=== PATIENT | male | born 1935 | race Caucasian/White ===

== ENCOUNTER → 2016-10-30 | Outpatient (CLI) | payer OTHER ==
--- NOTE | 2016-10-30 12:10 | CT ---
EXAMINATION TYPE: CT chest wo con DATE OF EXAM: 10/30/2016 COMPARISON: NONE HISTORY: Abn breathing test CT DLP: 467 mGycm. Automated Exposure Control for Dose Reduction was Utilized. TECHNIQUE: CT scan of the thorax is performed without IV contrast. FINDINGS: LUNGS: The lungs are grossly clear, there is no concerning parenchymal mass or nodule identified. T here is no pleural effusion or pneumothorax seen. The tracheobronchial tree is patent. Mild central bronchiectasis. Blood within the left lower lobe. MEDIASTINUM: Lack of IV contrast is noted to limit evaluation for mediastinal and especially hilar ad enopathy. There are no definitive greater than 1 cm hilar or mediastinal lymph nodes. The heart is en larged. Coronary artery calcification noted. Heart is enlarged. Atherosclerotic change of the aorta. No evidence of aneurysm. OTHER: 1.5 cm hypodense lesion within the right kidney is indeterminate by noncontrast technique. Hypertrophic and degenerative change spine. IMPRESSION: 1. Mild changes of COPD 2. Cardiomegaly with coronary artery calcification. 3. No acute intrathoracic process. 4. Indeterminate right renal lesion by noncontrast technique. 5 fatty atrophic replacement of the rodriguez creas. 5. Mild central bronchiectasis.
== END | disposition home or self-care (01) ==
LOC: RADCTMAIN 10:59
PROVIDERS: ATTEND Internal Medicine Critical Care Medicine
DX: J44.9 Chronic obstructive pulmonary disease, unspecified (principal); I51.7 Cardiomegaly; I25.10 Atherosclerotic heart disease of native coronary artery without angina pectoris; I26.99 Other pulmonary embolism without acute cor pulmonale
CPT/HCPCS: 71250; 82565; 84520

== ENCOUNTER 2018-11-10 09:55 | Emergency (ER) | payer OTHER ==
[2018-11-10 10:04] VITALS: RESP 18
--- NOTE | 2018-11-10 10:45 | ED ---
Altered Mental Status HPI - General Chief Complaint: Altered Mental Status Stated Complaint: low blood sugar Time Seen by Provider: 11/10/18 10:09 Source: patient Mode of arrival: ambulatory Limitations: no limitations - History of Present Illness Initial Comments: 82-year-old male with history of diabetes and hypertension presenting today for chief complaint of drug reaction. Patient states he put a few drops of [place] oil that contains 100 g of THC under his tongue just prior to 7 AM. His states that he was then pounding his chest walking around the house is boxers. They state he flipped onto his back and was kicking a wall. He attempted to elope from the house and was unable to identify whom his and kids were. Patient states that about 30 years ago when he attempts to smoke marijuana he had a similar reaction he states he has not attempted to smoke or ingest products since. This was patients first time using THC product in 30 years. Patient's family contacted primary care provider who sent order for CT of the brain in the emergency department. Remaining review of system negative patient denies a chest pain shortness of breath headache dizziness nausea vomiting abdominal pain dysuria urgency frequency or fevers. - Related Data Home Medications Medication Instructions Recorded Confirmed Aspirin [Adult Low Dose Aspirin EC] 81 mg PO DAILY 11/10/18 11/10/18 Glipizide Unknown Dose 1 tab PO DIRECTED 11/10/18 11/10/18 Insulin Glargine [Lantus] 70 unit SQ HS 11/10/18 11/10/18 Latanoprost/Pf [Latanoprost 0.005% 1 drop LEFT EYE HS 11/10/18 11/10/18 Eye Drop] Allergies Allergy/AdvReac Type Severity Reaction Status Date / Time No Known Allergies Allergy Verified 11/10/18 10:24 Review of Systems ROS Statement: Those systems with pertinent positive or pertinent negative responses have been documented in the HPI. ROS Other: All systems not noted in ROS Statement are negative. Past Medical History Past Medical History: Diabetes Mellitus History of Any Multi-Drug Resistant Organisms: None Reported Additional Past Surgical History / Comment(s): dental Past Psychological History: No Psychological Hx Reported Smoking Status: Never smoker Past Alcohol Use History: Occasional Past Drug Use History: None Reported General Exam - General Exam Comments Initial Comments: General: The patient is awake and alert, in no distress, and does not appear acutely ill. Eye: +3 mm pupils are equal, round and reactive to light, extra-ocular movements are intact. No nystagmus. There is normal conjunctiva bilaterally. No signs of icterus. Ears, nose, mouth and throat: There are moist mucous membranes and no oral lesions. Neck: The neck is supple, there is no tenderness or JVD. Cardiovascular: There is a regular rate and rhythm. No murmur, rub or gallop is appreciated. Respiratory: Lungs are clear to auscultation, respirations are non-labored, breath sounds are equal. No wheezes, stridor, rales, or rhonchi. Gastrointestinal: Soft, non-distended, non-tender abdomen without masses or organomegaly noted. There is no rebound or guarding present. Musculoskeletal: Normal ROM, no tenderness. Strength 5/5. Sensation intact. Radial pulses equal bilaterally 2+. Neurological: A&O x 3. CN II-XII intact, There are no obvious motor or sensory deficits. Finger to nose, heel to wynn smooth and coordinated. Coordinated hand flip. No pronator drift. Full strength of the upper and lower extr emities. Full sensation of the upper and lower extremities for abdomen and back. Identify common objects. No gait ataxia. Skin: Skin is warm and dry and no rashes or lesions are noted. Psychiatric: Cooperative, appropriate mood & affect, normal judgment. Limitations: no limitations Course Vital Signs 11/10/18 11/10/18 11/10/18 10:00 11:04 12:49 Temperature 97.5 F L 97.6 F Pulse Rate 81 75 75 Respiratory 18 18 18 Rate Blood Pressure 151/72 153/85 165/95 O2 Sat by Pulse 95 96 95 Oximetry Medical Decision Making - Medical Decision Making Very well-appearing 82-year-old male alert and oriented 3 and responsive. No signs of altered mentation. Family at bedside states he is back to normal. They stated shortly after ingesting have oil the continued THC patient began acting abnormal he dissociated not knowing who he was. He was unable to recognize people. He was pounding his chest and other bizarre behavior. Patient states he had a similar reaction prior to 30 years ago when he smoked marijuana. Patient has no focal neurological deficits. Patient was told to get a CT by his primary care provider. CT negative for acute intracranial process. No other complaints. Laboratory studies reveal a mildly elevated potassium and low blood glucose. Patient was given calcium gluconate. EKG revealed no acute findings consistent with hyperkalemia. Once the membrane was stabilized patient was given IV fluids and Kayexalate was ordered. Patient was evaluated and person by my attending provider Dr. Nichols reviewed laboratory studies. At this time feel patient may be discharged with home use of Kayexalate and return for any abnormal behaviors. He recommended the patient have repeat laboratory studies in 2 days. Patient as well as patient's mother verbalized importance of repeat laboratory studies and use of Kayexalate tonight. Patient is to discontinue use of hemp oil. - Lab Data Result diagrams: 11/10/18 10:29 11/10/18 10:29 Lab Results 11/10/18 11/10/18 11/10/18 Range/Units 10:29 10:29 11:05 WBC 13.0 H (3.8-10.6) k/uL RBC 4.81 (4.30-5.90) m/uL Hgb 13.7 (13.0-17.5) gm/dL Hct 43.3 (39.0-53.0) % MCV 89.8 (80.0-100.0) fL MCH 28.5 (25.0-35.0) pg MCHC 31.8 (31.0-37.0) g/dL RDW 13.4 (11.5-15.5) % Plt Count 333 (150-450) k/uL Neutrophils % 77 % Lymphocytes % 14 % Monocytes % 6 % Eosinophils % 1 % Basophils % 1 % Neutrophils # 10.0 H (1.3-7.7) k/uL Lymphocytes # 1.9 (1.0-4.8) k/uL Monocytes # 0.8 (0-1.0) k/uL Eosinophils # 0.2 (0-0.7) k/uL Basophils # 0.1 (0-0.2) k/uL Sodium 142 (137-145) mmol/L Potassium 5.5 H (3.5-5.1) mmol/L Chloride 107 (98-107) mmol/L Carbon Dioxide 29 (22-30) mmol/L Anion Gap 6 mmol/L BUN 16 (9-20) mg/dL Creatinine 1.80 H (0.66-1.25) mg/dL Est GFR (CKD-EPI)AfAm 40 (>60 ml/min/1.73 sqM) Est GFR (CKD-EPI)NonAf 35 (>60 ml/min/1.73 sqM) Glucose 57 L (74-99) mg/dL POC Glucose (mg/dL) (75-99) mg/dL POC Glu Costume Seamstress ID Calcium 9.3 (8.4-10.2) mg/dL Total Bilirubin 0.4 (0.2-1.3) mg/dL AST 23 (17-59) U/L ALT 21 (21-72) U/L Alkaline Phosphatase 74 (38-126) U/L Total Protein 6.7 (6.3-8.2) g/dL Albumin 3.7 (3.5-5.0) g/dL Urine Color Light Yellow Urine Appearance Clear (Clear) Urine pH 7.5 (5.0-8.0) Ur Specific [place] 1.005 (1.001-1.035) Urine Protein Negative (Negative) Urine Glucose (UA) Negative (Negative) Urine Ketones Negative (Negative) Urine Blood Negative (Negative) Urine Nitrite Negative (Negative) Urine Bilirubin Negative (Negative) Urine Urobilinogen <2.0 (<2.0) mg/dL Ur Leukocyte Esterase Negative (Negative) Urine Opiates Screen Not Detected (NotDetected) Ur Oxycodone Screen Not Detected (NotDetected) Urine Methadone Screen Not Detected (NotDetected) Ur Propoxyphene Screen Not Detected (NotDetected) Ur Barbiturates Screen Not Detected (NotDetected) U Tricyclic Antidepress Not Detected (NotDetected) Ur Phencyclidine Scrn Not Detected (NotDetected) Ur Amphetamines Screen Not Detected (NotDetected) U Methamphetamines Scrn Not Detected (NotDetected) U Benzodiazepines Scrn Not Detected (NotDetected) Urine Cocaine Screen Not Detected (NotDetected) U Marijuana (THC) Screen Not Detected (NotDetected) 11/10/18 Range/Units 12:42 WBC (3.8-10.6) k/uL RBC (4.30-5.90) m/uL Hgb (13.0-17.5) gm/dL Hct (39.0-53.0) % MCV (80.0-100.0) fL MCH (25.0-35.0) pg MCHC (31.0-37.0) g/dL RDW (11.5-15.5) % Plt Count (150-450) k/uL Neutrophils % % Lymphocytes % % Monocytes % % Eosinophils % % Basophils % % Neutrophils # (1.3-7.7) k/uL Lymphocytes # (1.0-4.8) k/uL Monocytes # (0-1.0) k/uL Eosinophils # (0-0.7) k/uL Basophils # (0-0.2) k/uL Sodium (137-145) mmol/L Potassium (3.5-5.1) mmol/L Chloride (98-107) mmol/L Carbon Dioxide (22-30) mmol/L Anion Gap mmol/L BUN (9-20) mg/dL Creatinine (0.66-1.25) mg/dL Est GFR (CKD-EPI)AfAm (>60 ml/min/1.73 sqM) Est GFR (CKD-EPI)NonAf (>60 ml/min/1.73 sqM) Glucose (74-99) mg/dL POC Glucose (mg/dL) 88 (75-99) mg/dL POC Glu Costume Seamstress ID Marissa Toscano Calcium (8.4-10.2) mg/dL Total Bilirubin (0.2-1.3) mg/dL AST (17-59) U/L ALT (21-72) U/L Alkaline Phosphatase (38-126) U/L Total Protein (6.3-8.2) g/dL Albumin (3.5-5.0) g/dL Urine Color Urine Appearance (Clear) Urine pH (5.0-8.0) Ur Specific [place] (1.001-1.035) Urine Protein (Negative) Urine Glucose (UA) (Negative) Urine Ketones (Negative) Urine Blood (Negative) Urine Nitrite (Negative) Urine Bilirubin (Negative) Urine Urobilinogen (<2.0) mg/dL Ur Leukocyte Esterase (Negative) Urine Opiates Screen (NotDetected) Ur Oxycodone Screen (NotDetected) Urine Methadone Screen (NotDetected) Ur Propoxyphene Screen (NotDetected) Ur Barbiturates Screen (NotDetected) U Tricyclic Antidepress (NotDetected) Ur Phencyclidine Scrn (NotDetected) Ur Amphetamines Screen (NotDetected) U Methamphetamines Scrn (NotDetected) U Benzodiazepines Scrn (NotDetected) Urine Cocaine Screen (NotDetected) U Marijuana (THC) Screen (NotDetected) - EKG Data EKG Comments: A 12-lead EKG was performed and shows the following: Rate is 73bpm, and rhythm is normal sinus. There are normal QRS complexes and normal R-wave progression. ST segments have no elevation or depression, and MD segments appear normal. MD interval 128 ms, QRS ration 86 ms, QT/QTC 386/425. There is no hyperacute T waves. No ST elevation or depression. Normal R-wave progression. There does not appear to be acute EKG changes. Disposition Clinical Impression: Drug reaction, Hyperkalemia, Low blood glucose measurement Disposition: HOME SELF-CARE Condition: Good Instructions (If sedation given, give patient instructions): Hyperkalemia (ED), Medicinal Use of Cannabis (ED) Additional Instructions: Please use medication as discussed. Avoid use of HEMP oil. Please follow-up with family doctor in the next 2 days. Please return to emergency room if the symptoms increase or worsen or for any other concerns. Is patient prescribed a controlled substance at d/c from ED?: No Referrals: [facility],Clinic [Primary Care Provider] - 1-2 days Time of Disposition: 12:13
[2018-11-10 10:51] LABS: Basophils # (A) 0.1 k/uL (0-0.2); Basophils % (A) 1 %; Eosinophils # (A) 0.2 k/uL (0-0.7); Eosinophils % (A) 1 %; HCT 43.3 % (39.0-53.0); HGB 13.7 gm/dL (13.0-17.5); Lymphocytes # (A) 1.9 k/uL (1.0-4.8); Lymphocytes % (A) 14 %; MCH 28.5 pg (25.0-35.0); MCHC 31.8 g/dL (31.0-37.0); MCV 89.8 fL (80.0-100.0); Mean Platelet Volume 7.2; Monocytes # (A) 0.8 k/uL (0-1.0); Monocytes % (A) 6 %; Neutrophils % (A) 77 %; Platelet Count 333 k/uL (150-450); RBC 4.81 m/uL (4.30-5.90); RDW 13.4 % (11.5-15.5)
[2018-11-10 10:58] LABS: Albumin 3.7 g/dL (3.5-5.0); Calcium 9.3 mg/dL (8.4-10.2); Potassium 5.5 mmol/L (3.5-5.1); Total Bilirubin 0.4 mg/dL (0.2-1.3); Total Protein 6.7 g/dL (6.3-8.2)
--- NOTE | 2018-11-10 11:02 | CT ---
EXAMINATION TYPE: CT brain wo con DATE OF EXAM: 11/10/2018 COMPARISON: None HISTORY: took hemp oil and became very confused CT DLP: 1107.4 mGycm Automated exposure control for dose reduction was used. TECHNIQUE: CT scan of the head is performed without contrast. FINDINGS: There is no acute intracranial hemorrhage or midline shift identified. There is diffuse v entricular and sulcal prominence consistent with diffuse age-related cerebral atrophy. There is low- attenuation in the periventricular white matter consistent with chronic small vessel ischemic change. The globes are intact. Small mucosal retention cysts are seen within the maxillary sinuses depende ntly as well as very scant mucosal thickening within the ethmoid sinuses. Remaining paranasal sinuses and hypoplastic mastoid air cells are well aerated. Atherosclerosis is noted of the intracranial vas culature. Scleral calcification is incidentally noted on the left and ocular lenses appear surgically absent. IMPRESSION: No acute intracranial hemorrhage or midline shift. There is diffuse age-related cerebra l atrophy and chronic small vessel ischemic change noted.
[2018-11-10 11:05] VITALS: PULSE 75; TEMP 97.6
[2018-11-10] MEDS ORDERED: SODIUM POLYSTYRENE SULFONATE 15 GM/60 ML BOTTLE PO STA (11:05)
[2018-11-10] MEDS ORDERED: CALCIUM GLUCONATE 1 GM in SODIUM CHLORIDE 0.9% 100 ML IVPB ONE (11:15)
[2018-11-10 11:18] LABS: Appearance,Urine Clear (Clear); Bilirubin,Urine Negative (Negative); Blood,Urine Negative (Negative); Color,Urine Light Yellow; Glucose,Urine (UA) Negative (Negative); Ketones,Urine Negative (Negative); Leukocyte Esterase,Urine Negative (Negative); Nitrite,Urine Negative (Negative); PH, Urine 7.5 (5.0-8.0); Protein,Urine Negative (Negative); Specific Gravity,Urine 1.005 (1.001-1.035); Urobilinogen,Urine <2.0 mg/dL (<2.0)
[2018-11-10 11:31] LABS: Amphetamine Screen,Urine Not Detected (NotDetected); Barbiturate Screen,Urine Not Detected (NotDetected); Benzodiazepines Screen,Urine Not Detected (NotDetected); Cocaine Screen,Urine Not Detected (NotDetected); Methadone Screen, Urine Not Detected (NotDetected); Opiate Screen,Urine Not Detected (NotDetected); Oxycodone Screen, Urine Not Detected (NotDetected); Phencyclidine Screen,Urine Not Detected (NotDetected); Tricyclic Antidepressant,Urine Not Detected (NotDetected); Urn Cannabinoid Scrn Not Detected (NotDetected)
[2018-11-10] MEDS ORDERED: SODIUM CHLORIDE 0.9% 1,000 ML IV ONE (12:00)
[2018-11-10 12:43] LABS: Glucose,Whole Blood 88 mg/dL (75-99)
[2018-11-10 12:49] VITALS: BP 165/95
== END 2018-11-10 12:49 | disposition home or self-care (01) ==
LOC: EC 09:55
DX: E87.5 Hyperkalemia (principal); T50.905A Adverse effect of unspecified drugs, medicaments and biological substances, initial encounter; E11.649 Type 2 diabetes mellitus with hypoglycemia without coma; Z79.82 Long term (current) use of aspirin; Z79.4 Long term (current) use of insulin
CPT/HCPCS: 36415; 93005; 80053; 85025; 81003; 80306; 70450; 99285; 96365; J0610

== ENCOUNTER 2020-04-28 13:44 | Inpatient (IN) | payer OTHER, MEDICARE ==
--- NOTE | 2020-04-28 14:26 | XR ---
EXAMINATION TYPE: XR chest 1V portable DATE OF EXAM: 04/28/2020 COMPARISON: NONE HISTORY: Shortness of breath and cough for 7 days. TECHNIQUE: Single frontal view of the chest is obtained. FINDINGS: There is mild right basilar hazy opacity. No pleural effusion, or pneumothorax seen. The cardiac silhouette size is within normal limits. The osseous structures are intact. IMPRESSION: Mild right basilar opacity may represent atelectasis versus developing infiltrates.
[2020-04-28] MEDS ORDERED: SODIUM CHLORIDE 0.9% 500 ML 500 ML IV ONE (14:30)
[2020-04-28] MEDS ORDERED: ALBUTEROL HFA INHALER INHALATION STA (14:30)
[2020-04-28] MEDS ORDERED: DEXAMETHASONE SOD PHOSPHATE 10 MG/ML 1 ML VIAL IV STA (14:33)
--- NOTE | 2020-04-28 14:36 | ED ---
General Adult HPI - General Chief complaint: Shortness of Breath Stated complaint: SOB/COVID+ Time Seen by Provider: 04/28/20 14:08 Source: patient, RN notes reviewed, old records reviewed Mode of arrival: ambulatory Limitations: no limitations - History of Present Illness Initial comments: 84-year-old male presents for evaluation of dyspnea after diagnosis well with coronavirus and an urgent care today. He's had approximately 2 weeks of cough and dyspnea. Denies central chest pain. He has had fever and chills as well as myalgias. No lower extremity pain or swelling. - Related Data Home Medications Medication Instructions Recorded Confirmed Aspirin EC [Ecotrin Low Dose] 81 mg PO DAILY 04/28/20 04/28/20 Gabapentin [Neurontin] 600 mg PO HS 04/28/20 04/28/20 Insulin Glargine,Hum.rec.anlog See Protocol SQ DAILY 04/28/20 04/28/20 [Lantus Solostar] Pravastatin Sodium [Pravachol] 80 mg PO HS 04/28/20 04/28/20 Vitamin D(Unknown Dose) 1 tab PO DAILY 04/28/20 04/28/20 glipiZIDE [Glucotrol] 10 mg PO DAILY 04/28/20 04/28/20 Allergies Allergy/AdvReac Type Severity Reaction Status Date / Time atorvastatin [From Lipitor] Allergy Unknown Verified 04/28/20 15:43 metformin Allergy Unknown Verified 04/28/20 15:43 Review of Systems ROS Statement: Those systems with pertinent positive or pertinent negative responses have been documented in the HPI. ROS Other: All systems not noted in ROS Statement are negative. Past Medical History Past Medical History: Diabetes Mellitus History of Any Multi-Drug Resistant Organisms: None Reported Past Surgical History: Appendectomy Past Psychological History: No Psychological Hx Reported Smoking Status: Former smoker Past Alcohol Use History: Rare Past Drug Use History: None Reported General Exam Limitations: no limitations General appearance: alert, in no apparent distress Head exam: Present: atraumatic, normocephalic Eye exam: Present: normal appearance, PERRL ENT exam: Present: mucous membranes dry Neck exam: Present: normal inspection. Absent: tenderness, meningismus Respiratory exam: Present: respiratory distress, rhonchi, decreased breath sounds Cardiovascular Exam: Present: tachycardia, irregular rhythm GI/Abdominal exam: Present: soft. Absent: distended, tenderness Extremities exam: Present: normal inspection, normal capillary refill. Absent: pedal edema, calf tenderness Neurological exam: Present: alert, oriented X3, CN II-XII intact. Absent: motor sensory deficit Psychiatric exam: Present: normal affect, normal mood Skin exam: Present: warm, dry, intact. Absent: cyanosis, diaphoretic Course Vital Signs 04/28/20 04/28/20 13:49 15:13 Temperature 98.2 F Pulse Rate 60 Respiratory 18 18 Rate Blood Pressure 194/77 O2 Sat by Pulse 95 Oximetry EKG Findings - EKG Comments: EKG Findings:: Sinus tachycardia, irregular rhythm sinus rhythm with PAC and dyspnea complex tachycardia, no ST segment elevation, rate of 101, NE interval 132, QRS duration 86, QTC 464. Medical Decision Making - Medical Decision Making 84-year-old with cough dyspnea, no coronavirus positive on outpatient testing. X-ray showing infiltrate. He has felt mildly elevated d-dimer at 0.82. Normal CBC. He has an acute kidney injury with a creatinine of 2.3 with no recent baseline. He does appear dehydrated has not been eating or drinking well. He has been given Decadron, IV fluids in the emergency department as well as alb uterol. He will be admitted for close monitoring, IV fluids, and treatment of coronavirus. Case discussed with Dr. Sebastian who will admit. Pulmonology has been placed on consult. - Lab Data Result diagrams: 04/28/20 14:21 04/28/20 14:21 Lab Results 04/28/20 04/28/20 04/28/20 Range/Units 14:21 14:21 14:21 WBC 6.6 (3.8-10.6) k/uL RBC 5.33 (4.30-5.90) m/uL Hgb 16.0 (13.0-17.5) gm/dL Hct 47.3 (39.0-53.0) % MCV 88.8 (80.0-100.0) fL MCH 30.1 (25.0-35.0) pg MCHC 33.9 (31.0-37.0) g/dL RDW 13.1 (11.5-15.5) % Plt Count 187 (150-450) k/uL MPV 9.0 Neutrophils % 70 % Lymphocytes % 18 % Monocytes % 7 % Eosinophils % 1 % Basophils % 3 % Neutrophils # 4.6 (1.3-7.7) k/uL Lymphocytes # 1.2 (1.0-4.8) k/uL Monocytes # 0.5 (0-1.0) k/uL Eosinophils # 0.0 (0-0.7) k/uL Basophils # 0.2 (0-0.2) k/uL PT 9.3 (9.0-12.0) sec INR 0.9 (<1.2) APTT 24.0 (22.0-30.0) sec D-Dimer 0.83 H (<0.60) mg/L FEU Sodium 138 (137-145) mmol/L Potassium 5.1 (3.5-5.1) mmol/L Chloride 105 (98-107) mmol/L Carbon Dioxide 27 (22-30) mmol/L Anion Gap 6 mmol/L BUN 28 H (9-20) mg/dL Creatinine 2.31 H (0.66-1.25) mg/dL Est GFR (CKD-EPI)AfAm 29 (>60 ml/min/1.73 sqM) Est GFR (CKD-EPI)NonAf 25 (>60 ml/min/1.73 sqM) Glucose 122 H (74-99) mg/dL Plasma Lactic Acid Jeffery (0.7-2.0) mmol/L Calcium 8.5 (8.4-10.2) mg/dL Magnesium 2.4 H (1.6-2.3) mg/dL Total Bilirubin 0.6 (0.2-1.3) mg/dL AST 49 (17-59) U/L ALT 30 (4-49) U/L Alkaline Phosphatase 77 (38-126) U/L Lactate Dehydrogenase 778 H (313-618) U/L C-Reactive Protein 13.7 H (<10.0) mg/L Total Protein 7.2 (6.3-8.2) g/dL Albumin 3.9 (3.5-5.0) g/dL 04/28/20 Range/Units 14:21 WBC (3.8-10.6) k/uL RBC (4.30-5.90) m/uL Hgb (13.0-17.5) gm/dL Hct (39.0-53.0) % MCV (80.0-100.0) fL MCH (25.0-35.0) pg MCHC (31.0-37.0) g/dL RDW (11.5-15.5) % Plt Count (150-450) k/uL MPV Neutrophils % % Lymphocytes % % Monocytes % % Eosinophils % % Basophils % % Neutrophils # (1.3-7.7) k/uL Lymphocytes # (1.0-4.8) k/uL Monocytes # (0-1.0) k/uL Eosinophils # (0-0.7) k/uL Basophils # (0-0.2) k/uL PT (9.0-12.0) sec INR (<1.2) APTT (22.0-30.0) sec D-Dimer (<0.60) mg/L FEU Sodium (137-145) mmol/L Potassium (3.5-5.1) mmol/L Chloride (98-107) mmol/L Carbon Dioxide (22-30) mmol/L Anion Gap mmol/L BUN (9-20) mg/dL Creatinine (0.66-1.25) mg/dL Est GFR (CKD-EPI)AfAm (>60 ml/min/1.73 sqM) Est GFR (CKD-EPI)NonAf (>60 ml/min/1.73 sqM) Glucose (74-99) mg/dL Plasma Lactic Acid Jeffery 1.2 (0.7-2.0) mmol/L Calcium (8.4-10.2) mg/dL Magnesium (1.6-2.3) mg/dL Total Bilirubin (0.2-1.3) mg/dL AST (17-59) U/L ALT (4-49) U/L Alkaline Phosphatase (38-126) U/L Lactate Dehydrogenase (313-618) U/L C-Reactive Protein (<10.0) mg/L Total Protein (6.3-8.2) g/dL Albumin (3.5-5.0) g/dL Disposition Clinical Impression: PHILLIP (acute kidney injury), COVID-19 Disposition: ADMITTED IP TO THIS HOSP Condition: Stable Is patient prescribed a controlled substance at d/c from ED?: No Referrals: [facility],Clinic [Primary Care Provider] - 1-2 days Decision to Admit Reason: Admit from EC Decision Date: 04/28/20 Decision Time: 15:50
[2020-04-28 14:53] LABS: Basophils # (A) 0.2 k/uL (0-0.2); Basophils % (A) 3 %; Eosinophils % (A) 1 %; HCT 47.3 % (39.0-53.0); Lymphocytes # (A) 1.2 k/uL (1.0-4.8); Lymphocytes % (A) 18 %; MCH 30.1 pg (25.0-35.0); MCHC 33.9 g/dL (31.0-37.0); MCV 88.8 fL (80.0-100.0); Monocytes # (A) 0.5 k/uL (0-1.0); Monocytes % (A) 7 %; Neutrophils # (A) 4.6 k/uL (1.3-7.7); Neutrophils % (A) 70 %; Platelet Count 187 k/uL (150-450); RBC 5.33 m/uL (4.30-5.90); RDW 13.1 % (11.5-15.5); WBC 6.6 k/uL (3.8-10.6)
[2020-04-28 15:06] LABS: INR 0.9 (<1.2); Prothrombin Time 9.3 sec (9.0-12.0)
[2020-04-28 15:07] LABS: Albumin 3.9 g/dL (3.5-5.0); C Reactive Protein 13.7 mg/L (<10.0); Calcium 8.5 mg/dL (8.4-10.2); Magnesium 2.4 mg/dL (1.6-2.3); Potassium 5.1 mmol/L (3.5-5.1); Total Bilirubin 0.6 mg/dL (0.2-1.3); Total Protein 7.2 g/dL (6.3-8.2)
[2020-04-28 15:10] LABS: D-Dimer 0.83 mg/L FEU (<0.60)
[2020-04-28] MEDS ORDERED: ACETAMINOPHEN TAB 325 MG TAB PO PRN (15:43)
[2020-04-28] MEDS ORDERED: NALOXONE 0.4 MG/ML 1 ML VIAL IV PRN (15:43)
[2020-04-28] MEDS ORDERED: ENOXAPARIN 40 MG/0.4 ML SYRINGE SQ STA (15:45)
[2020-04-28] MEDS: SODIUM CHLORIDE 0.9% 1,000 ML IV SCH (16:40)
[2020-04-28] MEDS ORDERED: DILTIAZEM DRIP BOLUS FROM BAG 1 MG SOLN IV STA (20:08)
[2020-04-28] MEDS ORDERED: DILTIAZEM 125 MG in SODIUM CHLORIDE 0.9% 100 ML IV SCH (20:15)
[2020-04-28 21:18] LABS: Glucose,Whole Blood 92 mg/dL (75-99)
[2020-04-28] MEDS: INSULIN ASPART (NovoLOG) 100 UNIT/ML VIAL SQ SCH (21:18)
[2020-04-28] MEDS: GABAPENTIN 300 MG CAP PO SCH (21:36)
[2020-04-28] MEDS ORDERED: HEPARIN SOD,PORK IN 0.45% NACL 25,000 UNIT in 0.45% NACL 1 250ML.BAG IV SCH (22:00)
[2020-04-28] MEDS ORDERED: HEPARIN SODIUM,PORCINE 5,000 UNIT/ML 1 ML VIAL IV ONE (22:00)
[2020-04-28] MEDS ORDERED: HEPARIN SODIUM,PORCINE 5,000 UNIT/ML 1 ML VIAL IV PRN (22:00)
[2020-04-28 23:04] LABS: Ferritin 642.6 ng/mL (22.0-322.0)
[2020-04-29] MEDS: SODIUM CHLORIDE 0.9% 1,000 ML IV SCH ×4 (01:16→23:01)
[2020-04-29 02:48] LABS: Glucose,Whole Blood 213 mg/dL (75-99)
[2020-04-29] MEDS: INSULIN ASPART (NovoLOG) 100 UNIT/ML VIAL SQ SCH ×5 (02:48→20:06)
[2020-04-29 04:29] LABS: Basophils % (A) 1 %; Eosinophils % (A) 0 %; HCT 41.6 % (39.0-53.0); HGB 13.7 gm/dL (13.0-17.5); Lymphocytes # (A) 0.8 k/uL (1.0-4.8); Lymphocytes % (A) 22 %; MCH 29.2 pg (25.0-35.0); MCV 88.4 fL (80.0-100.0); Mean Platelet Volume 8.7; Monocytes # (A) 0.3 k/uL (0-1.0); Monocytes % (A) 8 %; Neutrophils # (A) 2.5 k/uL (1.3-7.7); Neutrophils % (A) 68 %; Platelet Count 181 k/uL (150-450); RDW 12.9 % (11.5-15.5); WBC 3.7 k/uL (3.8-10.6)
[2020-04-29 06:12] LABS: Calcium 8.1 mg/dL (8.4-10.2); Magnesium 2.4 mg/dL (1.6-2.3); Potassium 4.8 mmol/L (3.5-5.1)
[2020-04-29 06:42] LABS: Glucose,Whole Blood 150 mg/dL (75-99)
[2020-04-29] MEDS: DILTIAZEM ORAL 60 MG TAB PO SCH ×3 (08:46→20:05)
--- NOTE | 2020-04-29 09:41 | P.HPIM ---
History of Present Illness This is a pleasant 84 years old male with past medical history of diabetes mellitus, hyperlipidemia. He presented to the hospital because she's been feeling generally weak for about one week associated with some dyspnea but no coughing and no chest pain although he feels some chest tightness for a few days. No abdominal pain or nausea vomiting he has decreased appetite. He did not have bowel movement for a few days. No issue with voiding as per patient. No dizziness. He is working with no problems as he states. Patient states that he came to the hospital because his been tested positive at an urgent care Patient denies smoking, no illicit drugs. Occasional alcohol He denies history of kidney disease. Vitals looks stable. His oxygen saturation was 88 on room air, slightly tachycardic. His saturating 96% on 2 l oxygen via nasal cannula. Labs show an unremarkable CBC, BMP, creatinine was elevated at 2.3 and 1.9, unknown baseline. d-dimer was high at 0.8. Liver enzymes are not elevated. Inflammatory markers are increased including ferritin 642, LDH 778 and C-reactive protein 13.7. No procalcitonin is also slightly high at 0.10. EKG showed sinus tachycardia with PACs. QTC is 464. Chest x-ray: Mild right basilar opacity may represent atelectasis versus infiltrate Review of Systems CONSTITUTIONAL: No fever, no malaise, no fatigue. HEENT: No recent visual problems or hearing problems. Denied any sore throat. CARDIOVASCULAR: No orthopnea, PND, no palpitations, no syncope. PULMONARY: No shortness of breath, no cough, no hemoptysis. GASTROINTESTINAL: No diarrhea, no nausea, no vomiting, no abdominal pain. Normoactive bowel sounds. NEUROLOGICAL: No headaches, no weakness, no numbness. HEMATOLOGICAL: Denies any bleeding or petechiae. GENITOURINARY: Denies any burning micturition, frequency, or urgency. MUSCULOSKELETAL/RHEUMATOLOGICAL: Denies any joint pain, swelling, or any muscle pain. ENDOCRINE: Denies any polyuria or polydipsia. Past Medical History Past Medical History: Diabetes Mellitus History of Any Multi-Drug Resistant Organisms: None Reported Past Surgical History: Appendectomy Past Anesthesia/Blood Transfusion Reactions: No Reported Reaction Past Psychological History: No Psychological Hx Reported Smoking Status: Former smoker Past Alcohol Use History: Rare Past Drug Use History: None Reported - Past Family History Mother History Unknown: Yes Medications and Allergies Home Medications Medication Instructions Recorded Confirmed Type Aspirin EC [Ecotrin Low Dose] 81 mg PO DAILY 04/28/20 04/28/20 History Gabapentin [Neurontin] 600 mg PO HS 04/28/20 04/28/20 History Insulin Glargine,Hum.rec.anlog See Protocol SQ DAILY 04/28/20 04/28/20 History [Lantus Solostar] Pravastatin Sodium [Pravachol] 80 mg PO HS 04/28/20 04/28/20 History Vitamin D(Unknown Dose) 1 tab PO DAILY 04/28/20 04/28/20 History glipiZIDE [Glucotrol] 10 mg PO DAILY 04/28/20 04/28/20 History Allergies Allergy/AdvReac Type Severity Reaction Status Date / Time atorvastatin [From Lipitor] Allergy Unknown Verified 04/28/20 15:43 metformin Allergy Unknown Verified 04/28/20 15:43 Physical Exam Vitals: Vital Signs Temp Pulse Pulse Resp BP BP Pulse Ox 04/29/20 04:00 18 96 04/29/20 03:50 99 F 105 H 18 143/70 88 L 04/29/20 00:00 99 F 102 H 18 140/66 92 L 04/28/20 21:00 98.3 F 122 H 20 162/81 93 L 04/28/20 19:30 100.1 F H 91 20 150/74 94 L 04/28/20 18:56 18 04/28/20 16:41 98.3 F 81 18 151/80 95 04/28/20 15:13 18 04/28/20 13:49 98.2 F 60 18 194/77 95 Intake and Output 04/28/20 04/29/20 04/29/20 22:59 06:59 14:59 Intake Total 308.208 215 Balance 308.208 215 Intake: Intake, IV Titration 68.208 Amount Heparin Sod,Pork in 0.45% 68.208 NaCl 25,000 unit In 0.45 % NaCl 1 250ml.bag @ 11. 03 UNITS/KG/HR 10.006 mls /hr IV .Q24H [facility] Rx#: [id number] Oral 240 215 Other: # Voids 1 1 Weight 90.718 kg 79 kg GENERAL: The patient is alert and oriented x3, not in any acute distress. Well developed, well nourished. HEENT: Pupils are round and equally reacting to light. EOMI. No scleral icterus. No conjunctival pallor. Normocephalic, atraumatic. No pharyngeal erythema. No thyromegaly. CARDIOVASCULAR: S1 and S2 present. No murmurs, rubs, or gallops. PULMONARY: Chest is clear to auscultation, no wheezing or crackles. ABDOMEN: Soft, nontender, nondistended, normoactive bowel sounds. No palpable organomegaly. MUSCULOSKELETAL: No joint swelling or deformity. EXTREMITIES: No cyanosis, clubbing, or pedal edema. NEUROLOGICAL: Gross neurological examination did not reveal any focal deficits. SKIN: No rashes. No petechiae Results CBC & Chem 7: 04/29/20 04:19 04/29/20 04:19 Labs: Abnormal Lab Results - Last 24 Hours (Table) 04/28/20 04/28/20 04/28/20 Range/Units 14:21 14:21 14:21 WBC (3.8-10.6) k/uL Lymphocytes # (1.0-4.8) k/uL APTT (22.0-30.0) sec D-Dimer 0.83 H (<0.60) mg/L FEU Chloride (98-107) mmol/L Carbon Dioxide (22-30) mmol/L BUN 28 H (9-20) mg/dL Creatinine 2.31 H (0.66-1.25) mg/dL Glucose 122 H (74-99) mg/dL POC Glucose (mg/dL) (75-99) mg/dL Calcium (8.4-10.2) mg/dL Magnesium 2.4 H (1.6-2.3) mg/dL Ferritin 642.6 H (22.0-322.0) ng/mL Lactate Dehydrogenase 778 H (313-618) U/L C-Reactive Protein 13.7 H (<10.0) mg/L Procalcitonin 0.10 H (0.02-0.09) ng/mL 04/29/20 04/29/20 04/29/20 Range/Units 02:44 04:19 04:19 WBC 3.7 L (3.8-10.6) k/uL Lymphocytes # 0.8 L (1.0-4.8) k/uL APTT 159.5 H* (22.0-30.0) sec D-Dimer (<0.60) mg/L FEU Chloride (98-107) mmol/L Carbon Dioxide (22-30) mmol/L BUN (9-20) mg/dL Creatinine (0.66-1.25) mg/dL Glucose (74-99) mg/dL POC Glucose (mg/dL) 213 H (75-99) mg/dL Calcium (8.4-10.2) mg/dL Magnesium (1.6-2.3) mg/dL Ferritin (22.0-322.0) ng/mL Lactate Dehydrogenase (313-618) U/L C-Reactive Protein (<10.0) mg/L Procalcitonin (0.02-0.09) ng/mL 04/29/20 04/29/20 Range/Units 04:19 06:27 WBC (3.8-10.6) k/uL Lymphocytes # (1.0-4.8) k/uL APTT (22.0-30.0) sec D-Dimer (<0.60) mg/L FEU Chloride 110 H (98-107) mmol/L Carbon Dioxide 21 L (22-30) mmol/L BUN 27 H (9-20) mg/dL Creatinine 1.91 H (0.66-1.25) mg/dL Glucose 197 H (74-99) mg/dL POC Glucose (mg/dL) 150 H (75-99) mg/dL Calcium 8.1 L (8.4-10.2) mg/dL Magnesium 2.4 H (1.6-2.3) mg/dL Ferritin (22.0-322.0) ng/mL Lactate Dehydrogenase (313-618) U/L C-Reactive Protein (<10.0) mg/L Procalcitonin (0.02-0.09) ng/mL Thrombosis Risk Factor Assmnt - Choose All That Apply Any of the Below Risk Factors Present?: Yes Each Factor Represents 1 point: Obesity (BMI >25) Other Risk Factors: Yes Each Risk Factor Represents 3 Points: Age 75 years or older Other congenital or acquired thrombophilia - If yes, enter type in comment: No Thrombosis Risk Factor Assessment Total Risk Factor Score: 4 Thrombosis Risk Factor Assessment Level: Moderate Risk Assessment and Plan Assessment: Possible Acute covid infection Mild right basilar pulmonary opacity, atelectasis versus infiltrate, mostly related to acute Covid pneumonia Acute hypoxic respiratory failure Acute kidney injury Slightly elevated d-dimer. Check ultrasound of the lower extremity and the/Q sc an Sinus tachycardia with PACs rather than A. fib Type 2 diabetes mellitus Diabetic neuropathy Hyperlipidemia Plan: this is a pleasant 84 years old male who presents with weakness, possible Covid. Also he has elevated d-dimer and acute kidney injury. Continue with Cardizem Per cardiology, hold heparin drip and check Check V/Q scan. Check ultrasound of the lower extremities. , cardiology and pulmonary consult. Check echocardiogram and thyroid stimulating hormone. Start Augmentin. Check sputum culture. Check covid and influenza. Saw the patient on zinc and vitamin C. Dexamethasone. Labs and medication were reviewed.. Continue same treatment. Continue with symptomatic treatment. Resume home medication. Monitor lytes and vitals. DVT and GI prophylaxis. Further recommendations depends on the clinical course of the patient DVT prophylaxis: Subcutaneous heparin GI Prophylaxis: Pepcid Prognosis is guarded
[2020-04-29] MEDS ORDERED: AMOXIC-POT CLAV 875-125MG 1 EACH TAB PO SCH (09:45)
[2020-04-29] MEDS ORDERED: DEXAMETHASONE ORAL 10 MG/ML (10 ML MDV) PO SCH (09:45)
--- NOTE | 2020-04-29 10:32 | US ---
EXAMINATION TYPE: US venous doppler duplex LE DATE OF EXAM: 04/29/2020 9:59 AM COMPARISON: NONE CLINICAL HISTORY: Rule out DVT. No swelling, no redness. Positive covid patient hypercoagulable. SIDE PERFORMED: Bilateral TECHNIQUE: The lower extremity deep venous system is examined utilizing real time linear array sonog valentin with graded compression, doppler sonography and color-flow sonography. VESSELS IMAGED: Common Femoral Vein Deep Femoral Vein Greater Saphenous Vein * Femoral Vein Popliteal Vein Small Saphenous Vein * Proximal Calf Veins (* superficial vessels) Right Leg: Negative for DVT Left Leg: Negative for DVT Grayscale, color doppler, spectral doppler imaging performed of the deep veins of the bilateral lower extremities. There is normal flow, compressibility, vascular waveforms. IMPRESSION: No ultrasound evidence for acute DVT in either lower extremity.
[2020-04-29 11:22] LABS: T4, Free (Free Thyroxine) 1.34 ng/dL (0.78-2.19)
[2020-04-29 11:40] LABS: Glucose,Whole Blood 204 mg/dL (75-99)
[2020-04-29] MEDS: DILTIAZEM 125 MG in SODIUM CHLORIDE 0.9% 100 ML IV SCH (12:23)
[2020-04-29] MEDS: HEPARIN SOD,PORK IN 0.45% NACL 25,000 UNIT in 0.45% NACL 1 250ML.BAG IV SCH (12:25)
--- NOTE | 2020-04-29 13:42 | P.CRDCN ---
History of Present Illness Consult date: 04/29/20 History of present illness: CHIEF COMPLAINT: New-onset A. fib HISTORY OF PRESENT ILLNESS: This is a 84-year old male with a past medical history significant for diabetes mellitus and hyperlipidemia. 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 We have been asked to see the patient in consultation for new onset atrial fibrillation. Patient is admitted to the hospital secondary to Covid. DIAGNOSTICS: Telemetry reveals sinus mechanism with short bursts of atrial fibrillation Chest xray mild right basilar opacity may represent atelectasis versus developing infiltrates Laboratory data: WBC 3.7. Hemoglobin 13.7. Platelet count 181. Sodium 137. Potassium 4.8. BUN 27. Creatinine 1.91. Current home cardiac medications include pravastatin 80 mg daily and aspirin 81 mg daily REVIEW OF SYSTEMS: Thorough review of systems not completed secondary to limited evaluation/examina tion and due to Covid19 PHYSICAL EXAM: Thorough physical exam not completed secondary to limited evaluation/examination and due to Covid19 ASSESSMENT: Covid 19 pneumonia New-onset paroxysmal atrial fibrillation Hyperlipidemia Diabetes mellitus Acute kidney injury PLAN: Obtain 2-D echo to assess cardiac structure and function Continue IV Heparin Continue IV Cardizem. Begin oral cardizem 60mg TID. Continue both IV infusion and PO dosing today per Dr. Aguila. Patient will require short term anticoagulation due to having bursts of atrial fibrillation. Patient may not require skilled nursing anticoagulation, however this will be decided in the future on an outpatient basis. Further recommendations pending patient course Nurse practitioner note has been reviewed by physician. Signing provider agrees with the documented findings, assessment, and plan of care. Past Medical History Past Medical History: Diabetes Mellitus History of Any Multi-Drug Resistant Organisms: None Reported Past Surgical History: Appendectomy Additional Past Surgical History / Comment(s): dental Past Anesthesia/Blood Transfusion Reactions: No Reported Reaction Past Psychological History: No Psychological Hx Reported Smoking Status: Former smoker Past Alcohol Use History: Rare Past Drug Use History: None Reported - Past Family History Mother History Unknown: Yes Medications and Allergies Home Medications Medication Instructions Recorded Confirmed Type Aspirin [Adult Low Dose Aspirin EC] 81 mg PO DAILY 11/10/18 11/10/18 History Glipizide Unknown Dose 1 tab PO DIRECTED 11/10/18 11/10/18 History Insulin Glargine [Lantus] 70 unit SQ HS 11/10/18 11/10/18 History Latanoprost/Pf [Latanoprost 0.005% 1 drop LEFT EYE HS 11/10/18 11/10/18 History Eye Drop] Aspirin EC [Ecotrin Low Dose] 81 mg PO DAILY 04/28/20 04/28/20 History Gabapentin [Neurontin] 600 mg PO HS 04/28/20 04/28/20 History Insulin Glargine,Hum.rec.anlog See Protocol SQ DAILY 04/28/20 04/28/20 History [Lantus Solostar] Pravastatin Sodium [Pravachol] 80 mg PO HS 04/28/20 04/28/20 History Vitamin D(Unknown Dose) 1 tab PO DAILY 04/28/20 04/28/20 History glipiZIDE [Glucotrol] 10 mg PO DAILY 04/28/20 04/28/20 History Allergies Allergy/AdvReac Type Severity Reaction Status Date / Time atorvastatin [From Lipitor] Allergy Unknown Verified 04/29/20 11:42 metformin Allergy Unknown Verified 04/29/20 11:42 Physical Exam Vitals: Vital Signs Temp Pulse Pulse Resp BP BP Pulse Ox 04/29/20 11:49 97.5 F L 100 20 134/73 93 L 04/29/20 08:00 97.9 F 59 L 20 149/68 91 L 04/29/20 04:00 18 96 04/29/20 03:50 99 F 105 H 18 143/70 88 L 04/29/20 00:00 99 F 102 H 18 140/66 92 L 04/28/20 21:00 98.3 F 122 H 20 162/81 93 L 04/28/20 19:30 100.1 F H 91 20 150/74 94 L 04/28/20 18:56 18 04/28/20 16:41 98.3 F 81 18 151/80 95 04/28/20 15:13 18 04/28/20 13:49 98.2 F 60 18 194/77 95 Intake and Output 04/28/20 04/29/20 04/29/20 22:59 06:59 14:59 Intake Total 308.208 335 Output Total 175 Balance 308.208 160 Intake: Intake, IV Titration 68.208 Amount Heparin Sod,Pork in 0.45% 68.208 NaCl 25,000 unit In 0.45 % NaCl 1 250ml.bag @ 11. 03 UNITS/KG/HR 10.006 mls /hr IV .Q24H [facility] Rx#: [id number] Oral 240 335 Output: Urine 175 Other: # Voids 1 1 Weight 90.718 kg 79 kg Results 04/29/20 04:19 04/29/20 04:19 Cardiac Enzymes 04/28/20 Range/Units 14:21 AST 49 (17-59) U/L Lactate Dehydrogenase 778 H (313-618) U/L Coagulation 04/28/20 04/29/20 04/29/20 Range/Units 14:21 04:19 12:37 PT 9.3 (9.0-12.0) sec APTT 24.0 159.5 H* 77.2 H (22.0-30.0) sec CBC 04/28/20 04/29/20 Range/Units 14:21 04:19 WBC 6.6 3.7 L (3.8-10.6) k/uL RBC 5.33 4.70 (4.30-5.90) m/uL Hgb 16.0 13.7 (13.0-17.5) gm/dL Hct 47.3 41.6 (39.0-53.0) % Plt Count 187 181 (150-450) k/uL Comprehensive Metabolic Panel 04/28/20 04/29/20 Range/Units 14:21 04:19 Sodium 138 137 (137-145) mmol/L Potassium 5.1 4.8 (3.5-5.1) mmol/L Chloride 105 110 H (98-107) mmol/L Carbon Dioxide 27 21 L (22-30) mmol/L BUN 28 H 27 H (9-20) mg/dL Creatinine 2.31 H 1.91 H (0.66-1.25) mg/dL Glucose 122 H 197 H (74-99) mg/dL Calcium 8.5 8.1 L (8.4-10.2) mg/dL AST 49 (17-59) U/L ALT 30 (4-49) U/L Alkaline Phosphatase 77 (38-126) U/L Total Protein 7.2 (6.3-8.2) g/dL Albumin 3.9 (3.5-5.0) g/dL Current Medications Generic Name Dose Route Start Last Admin Trade Name Freq PRN Reason Stop Dose Admin Acetaminophen 650 mg 04/28/20 15:43 Acetaminophen Tab 325 Mg Tab PO Q6HR PRN Mild Pain or Fever > 100.5 Amoxicillin/Clavulanate Potassium 1 each 04/29/20 09:45 04/29/20 12:22 Amoxic-Pot Clav 875-125mg 1 Each Tab PO 1 each Q12HR [facility] Administration Dexamethasone 6 mg 04/29/20 13:00 Dexamethasone 2 Mg Tab PO DAILY [facility] Diltiazem HCl 60 mg 04/29/20 09:00 04/29/20 08:46 Diltiazem Oral 60 Mg Tab PO 60 mg TID [facility] Administration Gabapentin 600 mg 04/28/20 21:00 04/28/20 21:36 Gabapentin 300 Mg Cap PO 600 mg HS [facility] Administration Heparin Sodium (Porcine) 0 unit 04/28/20 22:00 Heparin Sodium,Porcine 5,000 Unit/Ml 1 Ml Vial IV PER PROTOCOL PRN Low PTT Protocol Sodium Chloride 1,000 mls @ 100 mls/hr 04/28/20 15:15 04/29/20 12:30 Saline 0.9% IV 100 mls/hr .Q10H [facility] Administration Heparin Sodium/Sodium Chloride 250 mls @ 9.48 mls/hr 04/29/20 09:45 04/29/20 12:25 25,000 unit/ Sodium Chloride IV 9.22 units/kg/hr .Q24H [facility] 7.28 mls/hr Administration Protocol 12 UNITS/KG/HR Diltiazem HCl 125 mg/ Sodium 125 mls @ 5 mls/hr 04/29/20 11:15 04/29/20 12:23 Chloride IV 5 mg/hr .Q24H [facility] 5 mls/hr Administration 5 MG/HR Insulin Aspart 0 unit 04/28/20 21:00 04/29/20 12:22 Insulin Aspart (Novolog) 100 Unit/Ml Vial SQ 2 unit [id number] [facility] Administration Protocol Naloxone HCl 0.2 mg 04/28/20 15:43 Naloxone 0.4 Mg/Ml 1 Ml Vial IV Q2M PRN Opioid Reversal Intake and Output 04/28/20 04/29/20 04/29/20 22:59 06:59 14:59 Intake Total 308.208 335 Output Total 175 Balance 308.208 160 Intake: Intake, IV Titration 68.208 Amount Heparin Sod,Pork in 0.45% 68.208 NaCl 25,000 unit In 0.45 % NaCl 1 250ml.bag @ 11. 03 UNITS/KG/HR 10.006 mls /hr IV .Q24H [facility] Rx#: [id number] Oral 240 335 Output: Urine 175 Other: # Voids 1 1 Weight 90.718 kg 79 kg 04/29/20 04:19 04/29/20 04:19
--- NOTE | 2020-04-29 15:47 | NM ---
EXAMINATION TYPE: NM pul perfusion DATE OF EXAM: 04/29/2020 COMPARISON: Chest x-ray from yesterday. HISTORY: Shortness of breath and fatigue. Positive covid. Following administration of 5.1 mCi Tc 99m MAA. Images obtained post injection. FINDINGS: Satisfactory perfusion throughout the lung parenchyma. Ventilation images not performed. No suspiciou s areas of diminished radiotracer uptake on perfusion images obtained. IMPRESSION: As above.
[2020-04-29 17:02] LABS: Glucose,Whole Blood 259 mg/dL (75-99)
[2020-04-29] MEDS: dexAMETHasone 2 MG TAB PO SCH (17:19)
--- NOTE | 2020-04-29 17:20 | P.CNPUL ---
History of Present Illness Consult date: 04/29/20 Requesting physician: Bigg Ram Reason for consult: other Chief complaint: COVID 19 infection History of present illness: 84-year-old white male patient who follows with the [facility] in [place], presented to the emergency department on 04/28/2020 after having a positive COVID19 PCR on an outpatient basis an urgent care yesterday on 04/28/2020. Patient states that he and his girlfriend wanted to get checked for proper 19 although they did not have any symptoms. His girlfriend tested positive. According to the ED documentation patient reported 2 weeks of cough and dyspnea, although during our interview patient adamantly denies having any shortness of breath, cough, denied any fever, no nausea vomiting or diarrhea, apparently in the emergency department he also gave history of fevers, chills as well as myalgias, he denied although symptoms to us. He did not report any lower extre mity pain or swelling. His past medical history is significant for diabetes mellitus, patient is a former smoker, hyperlipidemia. Chest x-ray was obtained showing mild right basilar opacity that could represent atelectasis versus developing infiltrate. He was found to have a new onset paroxysmal A. fib, his EKG completed in the ED showed sinus tachycardia with runs of A. fib. He was started on Cardizem drip and heparin infusion for anticoagulation, his lab work was reviewed, and his CBC was unremarkable, d-dimer was 0.83, BUN was 28 and creatinine is 2.31, electrolytes are within normal limits, pro-calcitonin level was negative at 0.10, LDH was 778, CRP was 13.7, ferritin level was 642, his corollaries that was repeated here at the hospital and was found to be positive, lower extremity Dopplers were negative for DVT. His VQ scan showed satisfactory perfusion throughout the lung parenchyma without suspicious areas of diminished radiotracer uptake on perfusion images. She had a single episode of low-grade fever yesterday, afebrile today, denies any shortness of breath, no cough, no fever or chills, he is currently on 2 L of oxygen and his pulse ox is 92%, his breathing seems to be comfortable. Cardiology has been consulted, echocardiogram is pending, and pulmonary service was consulted for COVID 19 infection Review of Systems All systems: negative Constitutional: Denies chills, Denies fever Eyes: denies blurred vision, denies pain Ears, nose, mouth and throat: Denies headache, Denies sore throat Cardiovascular: Denies chest pain, Denies shortness of breath Respiratory: Reports cough, Reports dyspnea Gastrointestinal: Denies abdominal pain, Denies diarrhea, Denies nausea, Denies vomiting Musculoskeletal: Denies myalgias Integumentary: Denies pruritus, Denies rash Neurological: Denies numbness, Denies weakness Psychiatric: Denies anxiety, Denies depression Endocrine: Denies fatigue, Denies weight change Past Medical History Past Medical History: Diabetes Mellitus History of Any Multi-Drug Resistant Organisms: None Reported Past Surgical History: Appendectomy Additional Past Surgical History / Comment(s): dental Past Anesthesia/Blood Transfusion Reactions: No Reported Reaction Past Psychological History: No Psychological Hx Reported Smoking Status: Former smoker Past Alcohol Use History: Rare Past Drug Use History: None Reported - Past Family History Mother History Unknown: Yes Medications and Allergies Home Medications Medication Instructions Recorded Confirmed Type Aspirin [Adult Low Dose Aspirin EC] 81 mg PO DAILY 11/10/18 11/10/18 History Glipizide Unknown Dose 1 tab PO DIRECTED 11/10/18 11/10/18 History Insulin Glargine [Lantus] 70 unit SQ HS 11/10/18 11/10/18 History Latanoprost/Pf [Latanoprost 0.005% 1 drop LEFT EYE HS 11/10/18 11/10/18 History Eye Drop] Aspirin EC [Ecotrin Low Dose] 81 mg PO DAILY 04/28/20 04/28/20 History Gabapentin [Neurontin] 600 mg PO HS 04/28/20 04/28/20 History Insulin Glargine,Hum.rec.anlog See Protocol SQ DAILY 04/28/20 04/28/20 History [Lantus Solostar] Pravastatin Sodium [Pravachol] 80 mg PO HS 04/28/20 04/28/20 History Vitamin D(Unknown Dose) 1 tab PO DAILY 04/28/20 04/28/20 History glipiZIDE [Glucotrol] 10 mg PO DAILY 04/28/20 04/28/20 History Allergies Allergy/AdvReac Type Severity Reaction Status Date / Time atorvastatin [From Lipitor] Allergy Unknown Verified 04/29/20 11:42 metformin Allergy Unknown Verified 04/29/20 11:42 Physical Exam Vitals: Vital Signs Temp Pulse Resp BP Pulse Ox 04/29/20 16:35 97.6 F 70 20 166/69 92 L 04/29/20 11:49 97.5 F L 100 20 134/73 93 L 04/29/20 08:00 97.9 F 59 L 20 149/68 91 L 04/29/20 04:00 18 96 04/29/20 03:50 99 F 105 H 18 143/70 88 L 04/29/20 00:00 99 F 102 H 18 140/66 92 L 04/28/20 21:00 98.3 F 122 H 20 162/81 93 L 04/28/20 19:30 100.1 F H 91 20 150/74 94 L 04/28/20 18:56 18 Intake and Output 04/29/20 04/29/20 04/29/20 06:59 14:59 22:59 Intake Total 308.208 343.372 893.5 Output Total 175 375 Balance 308.208 168.372 518.5 Intake: IV 53.5 Heparin Sod,Pork in 0.45% 53.5 NaCl 25,000 unit In 0.45 % NaCl 1 250ml.bag @ 11. 03 UNITS/KG/HR 10.006 mls /hr IV .Q24H DAVID Rx#: [id number] Intake, IV Titration 68.208 8.372 840 Amount Diltiazem 125 mg In 40 Sodium Chloride 0.9% 100 ml @ 5 MG/HR 5 mls/hr IV .Q24H DAVID Rx#:[id number] Heparin Sod,Pork in 0.45% 68.208 NaCl 25,000 unit In 0.45 % NaCl 1 250ml.bag @ 11. 03 UNITS/KG/HR 10.006 mls /hr IV .Q24H DAVID Rx#: [id number] Heparin Sod,Pork in 0.45% 8.372 NaCl 25,000 unit In 0.45 % NaCl 1 250ml.bag @ 12 UNITS/KG/HR 9.48 mls/hr IV .Q24H DAV[facility] Rx#: [id number] Sodium Chloride 0.9% 1, 800 000 ml @ 100 mls/hr IV . Q10H DAVID Rx#:[id number] Oral 240 335 Output: Urine 175 375 Other: # Voids 1 Weight 79 kg GENERAL EXAM: Alert, pleasant, 84-year-old white male, 2 L of oxygen and the pulse ox of 92% comfortable in no apparent distress. HEAD: Normocephalic/atraumatic. EYES: Normal reaction of pupils, equal size. Conjunctiva pink, sclera white. NOSE: Clear with pink turbinates. THROAT: No erythema or exudates. NECK: No masses, no JVD, no thyroid enlargement, no adenopathy. CHEST: No chest wall deformity. Symmetrical expansion. LUNGS: Equal air entry with no crackles, wheeze, rhonchi or dullness. CVS: Irregular rate and rhythm, normal S1 and S2, no gallops, no murmurs, no rubs ABDOMEN: Soft, nontender. No hepatosplenomegaly, normal bowel sounds, no guarding or rigidity. EXTREMITIES: No clubbing, no edema, no cyanosis, 2+ pulses and upper and lower extremities. MUSCULOSKELETAL: Muscle strength and tone normal. SPINE: No scoliosis or deformity SKIN: No rashes CENTRAL NERVOUS SYSTEM: Alert and oriented -3. No focal deficits, tone is normal in all 4 extremities. PSYCHIATRIC: Alert and oriented -3. Appropriate affect. Intact judgment and insight. Results - Laboratory Findings CBC and BMP: 04/29/20 04:19 04/29/20 04:19 PT/INR, D-dimer PT 9.3 sec (9.0-12.0) 04/28/20 14:21 INR 0.9 (<1.2) 04/28/20 14:21 D-Dimer 0.83 mg/L FEU (<0.60) H 04/28/20 14:21 Abnormal lab findings: Abnormal Labs 04/28/20 04/28/20 04/28/20 14:21 14:21 14:21 WBC Lymphocytes # APTT D-Dimer 0.83 H Chloride Carbon Dioxide BUN 28 H Creatinine 2.31 H Glucose 122 H POC Glucose (mg/dL) Calcium Magnesium 2.4 H Ferritin 642.6 H Lactate Dehydrogenase 778 H C-Reactive Protein 13.7 H Procalcitonin 0.10 H TSH Coronavirus (PCR) 04/29/20 04/29/20 04/29/20 02:44 04:19 04:19 WBC 3.7 L Lymphocytes # 0.8 L APTT 159.5 H* D-Dimer Chloride Carbon Dioxide BUN Creatinine Glucose POC Glucose (mg/dL) 213 H Calcium Magnesium Ferritin Lactate Dehydrogenase C-Reactive Protein Procalcitonin TSH Coronavirus (PCR) 04/29/20 04/29/20 04/29/20 04:19 04:19 06:27 WBC Lymphocytes # APTT D-Dimer Chloride 110 H Carbon Dioxide 21 L BUN 27 H Creatinine 1.91 H Glucose 197 H POC Glucose (mg/dL) 150 H Calcium 8.1 L Magnesium 2.4 H Ferritin Lactate Dehydrogenase C-Reactive Protein Procalcitonin TSH 0.172 L Coronavirus (PCR) 04/29/20 04/29/20 04/29/20 10:56 11:39 12:37 WBC Lymphocytes # APTT 77.2 H D-Dimer Chloride Carbon Dioxide BUN Creatinine Glucose POC Glucose (mg/dL) 204 H Calcium Magnesium Ferritin Lactate Dehydrogenase C-Reactive Protein Procalcitonin TSH Coronavirus (PCR) Detected A 04/29/20 17:00 WBC Lymphocytes # APTT D-Dimer Chloride Carbon Dioxide BUN Creatinine Glucose POC Glucose (mg/dL) 259 H Calcium Magnesium Ferritin Lactate Dehydrogenase C-Reactive Protein Procalcitonin TSH Coronavirus (PCR) - Diagnostic Findings Chest x-ray: report reviewed, image reviewed Additional studies: EKG reviewed, venous Doppler study of lower extremities reviewed, and VQ scan reviewed Assessment and Plan Plan: Assessment: #1. Acute COVID 19 infection, tested positive on outpatient basis on 04/28/2020, denies any significant pulmonary symptoms, pulse ox is 92% on 2 L of oxygen, chest x-ray shows mild right basilar opacity that could represent atelectasis versus developing infiltrate #2. Acute hypoxic rest or a failure, mild, requiring 2 L of oxygen related to the above #3. New-onset paroxysmal A. fib, currently on Cardizem and heparin infusion, echocardiogram pending, cardiology is following #4. D-dimer of 0.83, VQ scan and lower extremity Dopplers were unremarkable #5. History of diabetes mellitus #6. Former smoker #7. Hyperlipidemia #8. Acute kidney injury, improved with IV hydration Plan: We'll continue conservative medical treatment, patient denies any significant pulmonary complaints, although does require supplemental oxygen at 2 L/m, vital signs are stable, patient remains on heparin infusion for asthma A. fib per cardiology, patient will likely require oral anticoagulation, we'll defer that to cardiology. We will continue on Decadron, continue vitamin C, vitamin D, zinc supplement, follow-up chest x-ray in the morning, we'll continue to monitor patient's symptom progression. We'll continue to follow I performed a history & physical examination of the patient and discussed their management with my nurse practitioner, Candi Fernandez. I reviewed the nurse practitioner's note and agree with the documented findings and plan of care. Lung sounds are positive for diminished breath sounds. The findings and the impression was discussed with the patient. I attest to the documentation by the nurse practitioner. Time with Patient: Greater than 30
[2020-04-29] MEDS: ZINC SULFATE 220 MG CAP PO SCH (17:41)
[2020-04-29] MEDS: ASCORBIC ACID 500 MG TAB PO SCH (17:41)
[2020-04-29] MEDS: CHOLECALCIFEROL 400 UNIT TAB PO SCH (18:25)
[2020-04-29 20:03] LABS: Glucose,Whole Blood 154 mg/dL (75-99)
[2020-04-29] MEDS: MELATONIN 3 MG TABLET PO SCH (20:06)
[2020-04-29] MEDS: GABAPENTIN 300 MG CAP PO SCH (20:06)
[2020-04-29] MEDS ORDERED: HEPARIN SODIUM,PORCINE 5,000 UNIT/ML 1 ML VIAL SQ SCH (21:00)
[2020-04-30 02:07] LABS: Glucose,Whole Blood 160 mg/dL (75-99)
[2020-04-30] MEDS: INSULIN ASPART (NovoLOG) 100 UNIT/ML VIAL SQ SCH ×5 (03:01→20:40)
[2020-04-30 06:07] LABS: Glucose,Whole Blood 177 mg/dL (75-99)
--- NOTE | 2020-04-30 07:40 | XR ---
EXAMINATION TYPE: XR chest 1V portable DATE OF EXAM: 04/30/2020 CLINICAL HISTORY: Difficulty breathing and covid 19 infection progress study. TECHNIQUE: Single AP portable frontal view of the chest is obtained. COMPARISON: Chest x-ray from 2 days earlier and chest CT October 30, 2016 FINDINGS: Persistent lateral right midlung opacity. Diminished inspiration on current study with dev eloping peripheral opacities in the left lung and bibasilar opacities. Cardiac silhouette size is upp er limits of normal with atherosclerotic change aortic knob. Osseous structures are intact. IMPRESSION: Diminished inspiration. Developing and worsening bilateral peripheral and bibasilar acute infiltrates consistent with covid 19 infection progression.
[2020-04-30] MEDS: DILTIAZEM ORAL 60 MG TAB PO SCH ×3 (08:33→20:39)
[2020-04-30] MEDS: ZINC SULFATE 220 MG CAP PO SCH (08:33)
[2020-04-30] MEDS: ASCORBIC ACID 500 MG TAB PO SCH (08:33)
[2020-04-30] MEDS: CHOLECALCIFEROL 400 UNIT TAB PO SCH (08:33)
[2020-04-30] MEDS: dexAMETHasone 2 MG TAB PO SCH (08:33)
[2020-04-30 09:14] LABS: Basophils % (A) 0 %; Eosinophils % (A) 0 %; HCT 42.4 % (39.0-53.0); HGB 13.6 gm/dL (13.0-17.5); Lymphocytes # (A) 1.6 k/uL (1.0-4.8); Lymphocytes % (A) 12 %; MCH 28.2 pg (25.0-35.0); MCHC 32.1 g/dL (31.0-37.0); Mean Platelet Volume 9.1; Monocytes # (A) 0.7 k/uL (0-1.0); Monocytes % (A) 5 %; Neutrophils # (A) 11.6 k/uL (1.3-7.7); Neutrophils % (A) 83 %; Platelet Count 222 k/uL (150-450); RBC 4.82 m/uL (4.30-5.90); RDW 13.2 % (11.5-15.5)
[2020-04-30 10:34] LABS: Calcium 7.9 mg/dL (8.4-10.2); Potassium 4.8 mmol/L (3.5-5.1)
[2020-04-30] MEDS: DILTIAZEM 125 MG in SODIUM CHLORIDE 0.9% 100 ML IV SCH (10:49)
[2020-04-30] MEDS ORDERED: DEXTROSE 5% IN WATER 250 ML with AMIODARONE 300 MG IV ONE (11:15)
[2020-04-30 11:41] LABS: Glucose,Whole Blood 173 mg/dL (75-99)
--- NOTE | 2020-04-30 12:18 | P.PN ---
Subjective Progress Note Date: 04/30/20 Principal diagnosis: COVID 19 pneumonia 84-year-old white male patient who follows with the [facility] in [place], presented to the emergency department on 04/28/2020 after having a positive COVID19 PCR on an outpatient basis an urgent care yesterday on 04/28/2020. Patient states that he and his girlfriend wanted to get checked for proper 19 although they did not have any symptoms. His girlfriend tested positive. According to the ED documentation patient reported 2 weeks of cough and dyspnea, although during our interview patient adamantly denies having any shortness of breath, cough, denied any fever, no nausea vomiting or diarrhea, apparently in the emergency department he also gave history of fevers, chills as well as myalgias, he denied although symptoms to us. He did not report any lower extremity pain or swelling. His past medical history is significant for diabetes mellitus, patient is a former smoker, hyperlipidemia. Chest x-ray was obtained showing mild right basilar opacity that could represent atelectasis versus developing infiltrate. He was found to have a new onset paroxysmal A. fib, his EKG completed in the ED showed sinus tachycardia with runs of A. fib. He was started on Cardizem drip and heparin infusion for anticoagulation, his lab work was reviewed, and his CBC was unremarkable, d-dimer was 0.83, BUN was 28 and creatinine is 2.31, electrolytes are within normal limits, pro-calcitonin level was negative at 0.10, LDH was 778, CRP was 13.7, ferritin level was 642, his corollaries that was repeated here at the hospital and was found to be positive, lower extremity Dopplers were negative for DVT. His VQ scan showed satisfactory perfusion throughout the lung parenchyma without suspicious areas of diminished radiotracer uptake on perfusion images. She had a single episode of low-grade fever yesterday, afebrile today, denies any shortness of breath, no cough, no fever or chills, he is currently on 2 L of oxygen and his pulse ox is 92%, his breathing seems to be comfortable. Cardiology has been consulted, echocardiogram is pending, and pulmonary service was consulted for COVID 19 infection On 04/30/2020 patient seen in follow-up on selective care unit, he is resting comfortably in bed, he is on 2 L of oxygen pulse ox is 94%, he states he's feeling a little tired, slight PET, but denies any fever or chills, no complaints of shortness of breath, or chest discomfort. Remains on Cardizem and heparin infusion per cardiology for paroxysmal atrial fibrillation, his vital signs have been stable, had no nausea or vomiting, his renal profile is improving on today's labs. No acute events overnight. Follow-up chest x-ray to day was reviewed showing developing and worsening bilateral peripheral and bibasilar acute and chest consistent with COVID 19 infection progression Objective - Vital Signs Vital signs: Vital Signs Temp 97.8 F 04/30/20 11:36 Pulse 133 H 04/30/20 11:36 Resp 18 04/30/20 11:36 BP 139/56 04/30/20 11:36 Pulse Ox 93 L 04/30/20 11:36 Intake & Output 04/29/20 04/30/20 04/30/20 18:59 06:59 18:59 Intake Total 1476.872 106.791 266.891 Output Total 226 501 0455 Balance 926.872 -93.209 -933.109 Weight 81.5 kg Intake: IV 53.5 50 Heparin Sod,Pork in 0.45% 53.5 50 NaCl 25,000 unit In 0.45 % NaCl 1 250ml.bag @ 11. 03 UNITS/KG/HR 10.006 mls /hr IV .Q24H DAV[facility] Rx#: [id number] Intake, IV Titration 848.372 56.791 86.891 Amount Diltiazem 125 mg In 40 20 Sodium Chloride 0.9% 100 ml @ 5 MG/HR 5 mls/hr IV .Q24H DAV[facility] Rx#:[id number] Heparin Sod,Pork in 0.45% 8.372 36.791 86.891 NaCl 25,000 unit In 0.45 % NaCl 1 250ml.bag @ 12 UNITS/KG/HR 9.48 mls/hr IV .Q24H DAV[facility] Rx#: [id number] Sodium Chloride 0.9% 1, 800 000 ml @ 100 mls/hr IV . Q10H DAV[facility] Rx#:[id number] Oral 575 180 Output: Urine 730 131 8947 Other: Voiding Method Urinal - Exam GENERAL EXAM: Alert, pleasant, 84-year-old white male, 2 L of oxygen and the pulse ox of 93% comfortable in no apparent distress. HEAD: Normocephalic/atraumatic. EYES: Normal reaction of pupils, equal size. Conjunctiva pink, sclera white. NOSE: Clear with pink turbinates. THROAT: No erythema or exudates. NECK: No masses, no JVD, no thyroid enlargement, no adenopathy. CHEST: No chest wall deformity. Symmetrical expansion. LUNGS: Equal air entry with no crackles, wheeze, rhonchi or dullness. CVS: Irregular rate and rhythm, normal S1 and S2, no gallops, no murmurs, no rubs ABDOMEN: Soft, nontender. No hepatosplenomegaly, normal bowel sounds, no g uarding or rigidity. EXTREMITIES: No clubbing, no edema, no cyanosis, 2+ pulses and upper and lower extremities. MUSCULOSKELETAL: Muscle strength and tone normal. SPINE: No scoliosis or deformity SKIN: No rashes CENTRAL NERVOUS SYSTEM: Alert and oriented -3. No focal deficits, tone is normal in all 4 extremities. PSYCHIATRIC: Alert and oriented -3. Appropriate affect. Intact judgment and insight. - Labs CBC & Chem 7: 04/30/20 08:36 04/30/20 08:36 Labs: Abnormal Lab Results - Last 24 Hours (Table) 04/29/20 04/29/20 04/29/20 Range/Units 12:37 17:00 18:43 WBC (3.8-10.6) k/uL Neutrophils # (1.3-7.7) k/uL APTT 77.2 H 48.8 H (22.0-30.0) sec Chloride (98-107) mmol/L BUN (9-20) mg/dL Creatinine (0.66-1.25) mg/dL Glucose (74-99) mg/dL POC Glucose (mg/dL) 259 H (75-99) mg/dL Calcium (8.4-10.2) mg/dL 04/29/20 04/30/20 04/30/20 Range/Units 20:01 02:06 06:05 WBC (3.8-10.6) k/uL Neutrophils # (1.3-7.7) k/uL APTT (22.0-30.0) sec Chloride (98-107) mmol/L BUN (9-20) mg/dL Creatinine (0.66-1.25) mg/dL Glucose (74-99) mg/dL POC Glucose (mg/dL) 154 H 160 H 177 H (75-99) mg/dL Calcium (8.4-10.2) mg/dL 04/30/20 04/30/20 04/30/20 Range/Units 08:36 08:36 08:36 WBC 14.0 H (3.8-10.6) k/uL Neutrophils # 11.6 H (1.3-7.7) k/uL APTT 37.5 H (22.0-30.0) sec Chloride 109 H (98-107) mmol/L BUN 32 H (9-20) mg/dL Creatinine 1.66 H (0.66-1.25) mg/dL Glucose 222 H (74-99) mg/dL POC Glucose (mg/dL) (75-99) mg/dL Calcium 7.9 L (8.4-10.2) mg/dL 04/30/20 Range/Units 11:38 WBC (3.8-10.6) k/uL Neutrophils # (1.3-7.7) k/uL APTT (22.0-30.0) sec Chloride (98-107) mmol/L BUN (9-20) mg/dL Creatinine (0.66-1.25) mg/dL Glucose (74-99) mg/dL POC Glucose (mg/dL) 173 H (75-99) mg/dL Calcium (8.4-10.2) mg/dL Microbiology - Last 24 Hours (Table) 04/28/20 14:21 Blood Culture - Preliminary Blood No Growth after 24 hours Assessment and Plan Plan: Assessment: #1. Acute COVID 19 infection, tested positive on outpatient basis on 04/28/2020, denies any significant pulmonary symptoms, pulse ox is 92% on 2 L of oxygen, chest x-ray shows mild right basilar opacity that could represent atelectasis versus developing infiltrate #2. Acute hypoxic rest or a failure, mild, requiring 2 L of oxygen related to the above #3. New-onset paroxysmal A. fib, currently on Cardizem and heparin infusion, echocardiogram pending, cardiology is following #4. D-dimer of 0.83, VQ scan and lower extremity Dopplers were unremarkable #5. History of diabetes mellitus #6. Former smoker #7. Hyperlipidemia #8. Acute kidney injury, improved with IV hydration Plan: No worsening dyspnea on today's exam, today's chest x-ray has been reviewed showing some worsening in the bilateral peripheral bibasilar acute infiltrates, but clinically patient has remained stable, no fever or chills, no acute events overnight, continue oral dexamethasone, and vitamin C, vitamin D, zinc supplement. No worsening of his symptoms from a COVID 19 perspective, if patient is cleared by cardiology, he can be considered for discharge home from pulmonary perspective I performed a history & physical examination of the patient and discussed their management with my nurse practitioner, Candi Fernandez. I reviewed the nurse practitioner's note and agree with the documented findings and plan of care. Lung sounds are positive for diminished breath sounds. The findings and the impression was discussed with the patient. I attest to the documentation by the nurse practitioner. Time with Patient: Less than 30
--- NOTE | 2020-04-30 12:20 | P.PN ---
Subjective 84 years old male with past medical history of diabetes mellitus, hyperlipidemia. He presented to the hospital because she's been feeling generally weak for about one week associated with some dyspnea but no coughing and no chest pain although he feels some chest tightness for a few days. No abdominal pain or nausea vomiting he has decreased appetite. He did not have bowel movement for a few days. No issue with voiding as per patient. No d izziness. He is working with no problems as he states. Patient states that he came to the hospital because his been tested positive at an urgent care Patient denies smoking, no illicit drugs. Occasional alcohol He denies history of kidney disease. Vitals looks stable. His oxygen saturation was 88 on room air, slightly tachycardic. His saturating 96% on 2 l oxygen via nasal cannula. Labs show an unremarkable CBC, BMP, creatinine was elevated at 2.3 and 1.9, unknown baseline. d-dimer was high at 0.8. Liver enzymes are not elevated. Inflammatory markers are increased including ferritin 642, LDH 778 and C-reactive protein 13.7. No procalcitonin is also slightly high at 0.10. EKG showed sinus tachycardia with PACs. QTC is 464. Chest x-ray: Mild right basilar opacity may represent atelectasis versus infiltrate 04/30/2020 Patient patient was given IV amiodarone. IV Cardizem was discontinued because of hypotension. Patient wanes on 3 L of oxygen still feel short of breath and s till feels sick. Patient remains tachycardic in atrial fibrillation. Patient is on IV heparin as well. Patient was started on amiodarone drip now. Is receiving IV fluids and chest x-ray showing 1 worsening infiltrates. Pulmonary is following the patient as well. Patient is positive for Covid 19 Constitutional: Denied any fatigue denied any fever. Cardio vascular: denied any chest pain, palpitations Gastrointestinal denied any nausea vomiting Pulmonary: Significantly short of breath Neurologic denied any new focal deficits All inpatient medications were reviewed and appropriate changes in these medications as dictated in the interval history and assessment and plan. Objective - Vital Signs Vital signs: Vital Signs Temp 97.8 F 04/30/20 11:36 Pulse 133 H 04/30/20 11:36 Resp 18 04/30/20 11:36 BP 139/56 04/30/20 11:36 Pulse Ox 93 L 04/30/20 11:36 Intake & Output 04/29/20 04/30/20 04/30/20 18:59 06:59 18:59 Intake Total 1476.872 106.791 266.891 Output Total 403 774 3978 Balance 926.872 -93.209 -933.109 Weight 81.5 kg Intake: IV 53.5 50 Heparin Sod,Pork in 0.45% 53.5 50 NaCl 25,000 unit In 0.45 % NaCl 1 250ml.bag @ 11. 03 UNITS/KG/HR 10.006 mls /hr IV .Q24H [facility] Rx#: [id number] Intake, IV Titration 848.372 56.791 86.891 Amount Diltiazem 125 mg In 40 20 Sodium Chloride 0.9% 100 ml @ 5 MG/HR 5 mls/hr IV .Q24H [facility] Rx#:[id number] Heparin Sod,Pork in 0.45% 8.372 36.791 86.891 NaCl 25,000 unit In 0.45 % NaCl 1 250ml.bag @ 12 UNITS/KG/HR 9.48 mls/hr IV .Q24H [facility] Rx#: [id number] Sodium Chloride 0.9% 1, 800 000 ml @ 100 mls/hr IV . Q10H [facility] Rx#:[id number] Oral 575 180 Output: Urine 469 150 0327 Other: Voiding Method Urinal - Exam PHYSICAL EXAMINATION: GENERAL: The patient is alert and oriented x3, not in any acute distress. Well developed, well nourished. HEENT: Pupils are round and equally reacting to light. EOMI. No scleral icterus. No conjunctival pallor. Normocephalic, atraumatic. No pharyngeal erythema. No thyromegaly. CARDIOVASCULAR: S1 and S2 present. No murmurs, rubs, or gallops. PULMONARY: Bibasilar crackles. ABDOMEN: Soft, nontender, nondistended, normoactive bowel sounds. No palpable organomegaly. MUSCULOSKELETAL: No joint swelling or deformity. EXTREMITIES: No cyanosis, clubbing, or pedal edema. NEUROLOGICAL: Gross neurological examination did not reveal any focal deficits. SKIN: No rashes. - Labs CBC & Chem 7: 04/30/20 08:36 04/30/20 08:36 Labs: Abnormal Lab Results - Last 24 Hours (Table) 12/14/20 12/14/20 12/14/20 Range/Units 12:37 17:00 18:43 WBC (3.8-10.6) k/uL Neutrophils # (1.3-7.7) k/uL APTT 77.2 H 48.8 H (22.0-30.0) sec Chloride (98-107) mmol/L BUN (9-20) mg/dL Creatinine (0.66-1.25) mg/dL Glucose (74-99) mg/dL POC Glucose (mg/dL) 259 H (75-99) mg/dL Calcium (8.4-10.2) mg/dL 04/29/20 04/30/20 04/30/20 Range/Units 20:01 02:06 06:05 WBC (3.8-10.6) k/uL Neutrophils # (1.3-7.7) k/uL APTT (22.0-30.0) sec Chloride (98-107) mmol/L BUN (9-20) mg/dL Creatinine (0.66-1.25) mg/dL Glucose (74-99) mg/dL POC Glucose (mg/dL) 154 H 160 H 177 H (75-99) mg/dL Calcium (8.4-10.2) mg/dL 04/30/20 04/30/20 04/30/20 Range/Units 08:36 08:36 08:36 WBC 14.0 H (3.8-10.6) k/uL Neutrophils # 11.6 H (1.3-7.7) k/uL APTT 37.5 H (22.0-30.0) sec Chloride 109 H (98-107) mmol/L BUN 32 H (9-20) mg/dL Creatinine 1.66 H (0.66-1.25) mg/dL Glucose 222 H (74-99) mg/dL POC Glucose (mg/dL) (75-99) mg/dL Calcium 7.9 L (8.4-10.2) mg/dL 04/30/20 Range/Units 11:38 WBC (3.8-10.6) k/uL Neutrophils # (1.3-7.7) k/uL APTT (22.0-30.0) sec Chloride (98-107) mmol/L BUN (9-20) mg/dL Creatinine (0.66-1.25) mg/dL Glucose (74-99) mg/dL POC Glucose (mg/dL) 173 H (75-99) mg/dL Calcium (8.4-10.2) mg/dL Microbiology - Last 24 Hours (Table) 04/28/20 14:21 Blood Culture - Preliminary Blood No Growth after 24 hours Assessment and Plan Plan: Acute respiratory failure secondary to coronary 19 infection: Continue with the Decadron respiratory support. -Atrial fibrillation with rapid ventricular rate new onset patient is on the IV heparin which will be continued and patient is presently on amiodarone drip. Mild right basilar pulmonary opacity, atelectasis versus infiltrate, secondary to acute Covid pneumonia Acute hypoxic respiratory failure Chronic kidney disease stage III probably diabetic nephropathy creatinine is baseline dementia competent of acute renal failure secondary to prerenal azotemia from sepsis. Slightly elevated d-dimer. Check ultrasound of the lower extremity and the/Q scan Sinus tachycardia with PACs rather than A. fib Type 2 diabetes mellitus Diabetic neuropathy Hyperlipidemia
--- NOTE | 2020-04-30 14:40 | P.PN ---
Subjective Progress Note Date: 04/30/20 CHIEF COMPLAINT: New-onset A. fib HISTORY OF PRESENT ILLNESS: This is a 84-year old male admitted to the hospital secondary to Covid. Cardiology is following secondary to new onset atrial fibrillation. He remains on IV heparin. He continues to have runs of atrial fibrillation. PHYSICAL EXAM: Thorough physical exam not completed secondary to limited evaluation/examination and due to Covid19 ASSESSMENT: Covid 19 pneumonia New-onset paroxysmal atrial fibrillation Hyperlipidemia Diabetes mellitus Acute kidney injury PLAN: 2-D echo ordered. Await results Begin Eliquis 5 mg twice a day. Continue IV heparin until 5 hours after Eliquis dose has been given per Dr. Aguila Continue oral Cardizem Patient to receive 300 mg amiodarone bolus over 2 hours. No drip or oral amio at this time. Further recommendations pending patient course Nurse practitioner note has been reviewed by physician. Signing provider agrees with the documented findings, assessment, and plan of care. Objective - Vital Signs Vital signs: Vital Signs Temp 97.8 F 04/30/20 11:36 Pulse 133 H 04/30/20 11:36 Resp 18 04/30/20 11:36 BP 152/66 04/30/20 13:05 Pulse Ox 93 L 04/30/20 11:36 Intake & Output 04/29/20 04/30/20 04/30/20 18:59 06:59 18:59 Intake Total 1476.872 106.791 503.891 Output Total 437 216 2087 Balance 926.872 -93.209 -696.109 Weight 81.5 kg Intake: IV 53.5 50 Heparin Sod,Pork in 0.45% 53.5 50 NaCl 25,000 unit In 0.45 % NaCl 1 250ml.bag @ 11. 03 UNITS/KG/HR 10.006 mls /hr IV .Q24H [facility] Rx#: [id number] Intake, IV Titration 848.372 56.791 86.891 Amount Diltiazem 125 mg In 40 20 Sodium Chloride 0.9% 100 ml @ 5 MG/HR 5 mls/hr IV .Q24H [facility] Rx#:[id number] Heparin Sod,Pork in 0.45% 8.372 36.791 86.891 NaCl 25,000 unit In 0.45 % NaCl 1 250ml.bag @ 12 UNITS/KG/HR 9.48 mls/hr IV .Q24H [facility] Rx#: [id number] Sodium Chloride 0.9% 1, 800 000 ml @ 100 mls/hr IV . Q10H [facility] Rx#:[id number] Oral 575 417 Output: Urine 609 719 5017 Other: Voiding Method Urinal - Labs CBC & Chem 7: 04/30/20 08:36 04/30/20 08:36 Labs: Abnormal Lab Results - Last 24 Hours (Table) 04/29/20 04/29/20 04/29/20 Range/Units 17:00 18:43 20:01 WBC (3.8-10.6) k/uL Neutrophils # (1.3-7.7) k/uL APTT 48.8 H (22.0-30.0) sec Chloride (98-107) mmol/L BUN (9-20) mg/dL Creatinine (0.66-1.25) mg/dL Glucose (74-99) mg/dL POC Glucose (mg/dL) 259 H 154 H (75-99) mg/dL Calcium (8.4-10.2) mg/dL 04/30/20 04/30/20 04/30/20 Range/Units 02:06 06:05 08:36 WBC 14.0 H (3.8-10.6) k/uL Neutrophils # 11.6 H (1.3-7.7) k/uL APTT (22.0-30.0) sec Chloride (98-107) mmol/L BUN (9-20) mg/dL Creatinine (0.66-1.25) mg/dL Glucose (74-99) mg/dL POC Glucose (mg/dL) 160 H 177 H (75-99) mg/dL Calcium (8.4-10.2) mg/dL 04/30/20 04/30/20 04/30/20 Range/Units 08:36 08:36 11:38 WBC (3.8-10.6) k/uL Neutrophils # (1.3-7.7) k/uL APTT 37.5 H (22.0-30.0) sec Chloride 109 H (98-107) mmol/L BUN 32 H (9-20) mg/dL Creatinine 1.66 H (0.66-1.25) mg/dL Glucose 222 H (74-99) mg/dL POC Glucose (mg/dL) 173 H (75-99) mg/dL Calcium 7.9 L (8.4-10.2) mg/dL Microbiology - Last 24 Hours (Table) 04/28/20 14:21 Blood Culture - Preliminary Blood No Growth after 24 hours
[2020-04-30] MEDS: HEPARIN SOD,PORK IN 0.45% NACL 25,000 UNIT in 0.45% NACL 1 250ML.BAG IV SCH (15:53)
[2020-04-30 16:39] LABS: Glucose,Whole Blood 264 mg/dL (75-99)
[2020-04-30 20:17] LABS: Glucose,Whole Blood 254 mg/dL (75-99)
[2020-04-30] MEDS: MELATONIN 3 MG TABLET PO SCH (20:39)
[2020-04-30] MEDS: GABAPENTIN 300 MG CAP PO SCH (20:39)
[2020-04-30] MEDS: APIXABAN 5 MG TAB PO SCH (20:39)
[2020-04-30] MEDS: PRAVASTATIN SODIUM 80 MG TAB PO SCH (20:40)
[2020-05-01] MEDS: SODIUM CHLORIDE 0.9% 1,000 ML IV SCH ×2 (03:28→08:34)
[2020-05-01] MEDS: INSULIN ASPART (NovoLOG) 100 UNIT/ML VIAL SQ SCH ×5 (03:29→20:58)
[2020-05-01 06:04] LABS: Glucose,Whole Blood 202 mg/dL (75-99)
[2020-05-01] MEDS: ZINC SULFATE 220 MG CAP PO SCH (08:34)
[2020-05-01] MEDS: ASCORBIC ACID 500 MG TAB PO SCH (08:34)
[2020-05-01] MEDS: DILTIAZEM ORAL 60 MG TAB PO SCH (08:34)
[2020-05-01] MEDS: CHOLECALCIFEROL 400 UNIT TAB PO SCH (08:34)
[2020-05-01] MEDS: dexAMETHasone 2 MG TAB PO SCH (08:34)
[2020-05-01] MEDS: APIXABAN 5 MG TAB PO SCH ×2 (08:34→20:57)
[2020-05-01 08:36] LABS: Basophils % (A) 0 %; Eosinophils % (A) 0 %; HCT 42.6 % (39.0-53.0); HGB 13.8 gm/dL (13.0-17.5); Lymphocytes # (A) 0.9 k/uL (1.0-4.8); Lymphocytes % (A) 5 %; MCH 28.1 pg (25.0-35.0); MCHC 32.4 g/dL (31.0-37.0); MCV 86.6 fL (80.0-100.0); Mean Platelet Volume 9.1; Monocytes # (A) 1.2 k/uL (0-1.0); Monocytes % (A) 7 %; Neutrophils # (A) 14.5 k/uL (1.3-7.7); Neutrophils % (A) 87 %; Platelet Count 228 k/uL (150-450); RBC 4.92 m/uL (4.30-5.90); WBC 16.7 k/uL (3.8-10.6)
[2020-05-01] MEDS ORDERED: AMIODARONE 360 MG in DEXTROSE 5% IN WATER 200 ML IV ONE ×2 (11:00)
[2020-05-01 11:39] LABS: Glucose,Whole Blood 215 mg/dL (75-99)
--- NOTE | 2020-05-01 11:40 | P.PN ---
Subjective 84 years old male with past medical history of diabetes mellitus, hyperlipidemia. He presented to the hospital because she's been feeling generally weak for about one week associated with some dyspnea but no coughing and no chest pain although he feels some chest tightness for a few days. No abdominal pain or nausea vomiting he has decreased appetite. He did not have bowel movement for a few days. No issue with voiding as per patient. No d izziness. He is working with no problems as he states. Patient states that he came to the hospital because his been tested positive at an urgent care Patient denies smoking, no illicit drugs. Occasional alcohol He denies history of kidney disease. Vitals looks stable. His oxygen saturation was 88 on room air, slightly tachycardic. His saturating 96% on 2 l oxygen via nasal cannula. Labs show an unremarkable CBC, BMP, creatinine was elevated at 2.3 and 1.9, unknown baseline. d-dimer was high at 0.8. Liver enzymes are not elevated. Inflammatory markers are increased including ferritin 642, LDH 778 and C-reactive protein 13.7. No procalcitonin is also slightly high at 0.10. EKG showed sinus tachycardia with PACs. QTC is 464. Chest x-ray: Mild right basilar opacity may represent atelectasis versus infiltrate 04/30/2020 Patient patient was given IV amiodarone. IV Cardizem was discontinued because of hypotension. Patient wanes on 3 L of oxygen still feel short of breath and s till feels sick. Patient remains tachycardic in atrial fibrillation. Patient is on IV heparin as well. Patient was started on amiodarone drip now. Is receiving IV fluids and chest x-ray showing 1 worsening infiltrates. Pulmonary is following the patient as well. Patient is positive for Covid 19. 05/01/2020 Patient remains on IV amiodarone, oral Cardizem. Patient heart rate remains high although he has respiratory status is better. Patient received IV fluids with improvement in serum creatinine better than his baseline of around 1.9 patient is presently 1.66. IV fluids were discontinued. Once his heart rate is better controlled patient will be discharged at that time. Constitutional: Denied any fatigue denied any fever. Cardio vascular: denied any chest pain, palpitations Gastrointestinal denied any nausea vomiting Pulmonary: Significantly short of breath Neurologic denied any new focal deficits All inpatient medications were reviewed and appropriate changes in these medica tions as dictated in the interval history and assessment and plan. Objective - Vital Signs Vital signs: Vital Signs Temp 97.9 F 05/01/20 03:25 Pulse 118 H 05/01/20 03:25 Resp 18 05/01/20 03:25 BP 141/73 05/01/20 03:25 Pulse Ox 95 05/01/20 03:25 Intake & Output 04/30/20 05/01/20 05/01/20 18:59 06:59 18:59 Intake Total 740.891 293 Output Total 2600 1400 Balance -1859.109 -1400 293 Weight 82 kg Intake: Intake, IV Titration 86.891 Amount Heparin Sod,Pork in 0.45% 86.891 NaCl 25,000 unit In 0.45 % NaCl 1 250ml.bag @ 12 UNITS/KG/HR 9.48 mls/hr IV .Q24H [facility] Rx#: [id number] Oral 654 293 Output: Urine 2600 1400 Other: Voiding Method Urinal # Voids 2 - Exam PHYSICAL EXAMINATION: GENERAL: The patient is alert and oriented x3, not in any acute distress. Well developed, well nourished. HEENT: Pupils are round and equally reacting to light. EOMI. No scleral icterus. No conjunctival pallor. Normocephalic, atraumatic. No pharyngeal erythema. No thyromegaly. CARDIOVASCULAR: S1 and S2 present. No murmurs, rubs, or gallops. PULMONARY: Bibasilar crackles. ABDOMEN: Soft, nontender, nondistended, normoactive bowel sounds. No palpable organomegaly. MUSCULOSKELETAL: No joint swelling or deformity. EXTREMITIES: No cyanosis, clubbing, or pedal edema. NEUROLOGICAL: Gross neurological examination did not reveal any focal deficits. SKIN: No rashes. - Labs CBC & Chem 7: 05/01/20 08:03 04/30/20 08:36 Labs: Abnormal Lab Results - Last 24 Hours (Table) 04/30/20 04/30/20 04/30/20 Range/Units 11:38 16:36 20:16 WBC (3.8-10.6) k/uL Neutrophils # (1.3-7.7) k/uL Lymphocytes # (1.0-4.8) k/uL Monocytes # (0-1.0) k/uL POC Glucose (mg/dL) 173 H 264 H 254 H (75-99) mg/dL 05/01/20 05/01/20 Range/Units 06:03 08:03 WBC 16.7 H (3.8-10.6) k/uL Neutrophils # 14.5 H (1.3-7.7) k/uL Lymphocytes # 0.9 L (1.0-4.8) k/uL Monocytes # 1.2 H (0-1.0) k/uL POC Glucose (mg/dL) 202 H (75-99) mg/dL Microbiology - Last 24 Hours (Table) 04/28/20 14:21 Blood Culture - Preliminary Blood No Growth after 48 hours Assessment and Plan Plan: Acute respiratory failure secondary to coronary 19 infection: Continue with the Decadron respiratory support. Patient is not requiring any oxygen at this time -Atrial fibrillation with rapid ventricular rate new onset patient is on Eliquis and patient is presently on amiodarone drip. He is also on oral Cardizem Mild right basilar pulmonary opacity, atelectasis versus infiltrate, secondary to acute Covid pneumonia Acute hypoxic respiratory failure Chronic kidney disease stage III probably diabetic nephropathy patient's creatinine is baseline dementia competent of acute renal failure secondary to prerenal azotemia from sepsis. Slightly elevated d-dimer. Check ultrasound of the lower extremity and thev/Q scan Sinus tachycardia with PACs rather than A. fib Type 2 diabetes mellitus Diabetic neuropathy Hyperlipidemia
--- NOTE | 2020-05-01 13:06 | P.PN ---
Subjective Progress Note Date: 05/01/20 Principal diagnosis: COVID 19 pneumonia 84-year-old white male patient who follows with [facility] in [place], presented to the emergency department on 04/28/2020 after having a positive COVID19 PCR on an outpatient basis an urgent care yesterday on 04/28/2020. Patient states that he and his girlfriend wanted to get checked for proper 19 although they did not have any symptoms. His girlfriend tested positive. According to the ED documentation patient reported 2 weeks of cough and dyspnea, although during our interview patient adamantly denies having any shortness of breath, cough, denied any fever, no nausea vomiting or diarrhea, apparently in the emergency department he also gave history of fevers, chills as well as myalgias, he denied although symptoms to us. He did not report any lower extremity pain or swelling. His past medical history is significant for diabetes mellitus, patient is a former smoker, hyperlipidemia. Chest x-ray was obtained showing mild right basilar opacity that could represent atelectasis versus developing infiltrate. He was found to have a new onset paroxysmal A. fib, his EKG completed in the ED showed sinus tachycardia with runs of A. fib. He was started on Cardizem drip and heparin infusion for anticoagulation, his lab work was reviewed, and his CBC was unremarkable, d-dimer was 0.83, BUN was 28 and creatinine is 2.31, electrolytes are within normal limits, pro-calcitonin level was negative at 0.10, LDH was 778, CRP was 13.7, ferritin level was 642, his corollaries that was repeated here at the hospital and was found to be positive, lower extremity Dopplers were negative for DVT. His VQ scan showed satisfactory perfusion throughout the lung parenchyma without suspicious areas of diminished radiotracer uptake on perfusion images. She had a single episode of low-grade fever yesterday, afebrile today, denies any shortness of breath, no cough, no fever or chills, he is currently on 2 L of oxygen and his pulse ox is 92%, his breathing seems to be comfortable. Cardiology has been consulted, echocardiogram is pending, and pulmonary service was consulted for COVID 19 infection On 04/30/2020 patient seen in follow-up on selective care unit, he is resting comfortably in bed, he is on 2 L of oxygen pulse ox is 94%, he states he's feeling a little tired, slight PET, but denies any fever or chills, no complaints of shortness of breath, or chest discomfort. Remains on Cardizem and heparin infusion per cardiology for paroxysmal atrial fibrillation, his vital signs have been stable, had no nausea or vomiting, his renal profile is improving on today's labs. No acute events overnight. Follow-up chest x-ray to day was reviewed showing developing and worsening bilateral peripheral and bibasilar acute and chest consistent with COVID 19 infection progression On 05/01/2020 patient seen in follow-up on selective care unit, she is resting comfortably in bed, denies any worsening dyspnea, breathing seems to be comfortable, denies any chest discomfort, however patient remains in A. fib with a rate of 120, cardiology is following, and managing rate control medications and anticoagulation. I increased his oxygen pulse ox of 90%, his been afebrile, yesterday chest x-ray showed done developing and worsening bilateral pleural effusions and bibasilar infiltrates, but clinically patient denies any worsening dyspnea,no cough, no nausea vomiting or diarrhea, IV fluids have been discontinued, his creatinine is improving. He remains on IV amiodarone infusion at 0.5 mg per hour, his been started on Eliquis for anticoagulation per cardiology, he is on oral diltiazem for additional rate control medication, he is on oral dexamethasone 6 mg daily and vitamins C, D, and zinc for COVID 19 pneumonia Objective - Vital Signs Vital signs: Vital Signs Temp 97.9 F 05/01/20 03:25 Pulse 118 H 05/01/20 03:25 Resp 18 05/01/20 03:25 BP 141/73 05/01/20 03:25 Pulse Ox 95 05/01/20 03:25 Intake & Output 04/30/20 05/01/20 05/01/20 18:59 06:59 18:59 Intake Total 740.891 293 Output Total 2600 1400 Balance -1859.109 -1400 293 Weight 82 kg Intake: Intake, IV Titration 86.891 Amount Heparin Sod,Pork in 0.45% 86.891 NaCl 25,000 unit In 0.45 % NaCl 1 250ml.bag @ 12 UNITS/KG/HR 9.48 mls/hr IV .Q24H [facility] Rx#: [id number] Oral [id number] 293 Output: Urine 2600 1400 Other: Voiding Method Urinal # Voids 2 - Exam GENERAL EXAM: Alert, pleasant, 84-year-old white male, 3 L of oxygen and the pulse ox of 98% comfortable in no apparent distress. HEAD: Normocephalic/atraumatic. EYES: Normal reaction of pupils, equal size. Conjunctiva pink, sclera white. NOSE: Clear with pink turbinates. THROAT: No erythema or exudates. NECK: No masses, no JVD, no thyroid enlargement, no adenopathy. CHEST: No chest wall deformity. Symmetrical expansion. LUNGS: Equal air entry with no crackles, wheeze, rhonchi or dullness. CVS: Irregular rate and rhythm, normal S1 and S2, no gallops, no murmurs, no rubs ABDOMEN: Soft, nontender. No hepatosplenomegaly, normal bowel sounds, no guarding or rigidity. EXTREMITIES: No clubbing, no edema, no cyanosis, 2+ pulses and upper and lower extremities. MUSCULOSKELETAL: Muscle strength and tone normal. SPINE: No scoliosis or deformity SKIN: No rashes CENTRAL NERVOUS SYSTEM: Alert and oriented -3. No focal deficits, tone is normal in all 4 extremities. PSYCHIATRIC: Alert and oriented -3. Appropriate affect. Intact judgment and insight. - Labs CBC & Chem 7: 05/01/20 08:03 04/30/20 08:36 Labs: Abnormal Lab Results - Last 24 Hours (Table) 04/30/20 04/30/20 05/01/20 Range/Units 16:36 20:16 06:03 WBC (3.8-10.6) k/uL Neutrophils # (1.3-7.7) k/uL Lymphocytes # (1.0-4.8) k/uL Monocytes # (0-1.0) k/uL POC Glucose (mg/dL) 264 H 254 H 202 H (75-99) mg/dL 05/01/20 05/01/20 Range/Units 08:03 11:31 WBC 16.7 H (3.8-10.6) k/uL Neutrophils # 14.5 H (1.3-7.7) k/uL Lymphocytes # 0.9 L (1.0-4.8) k/uL Monocytes # 1.2 H (0-1.0) k/uL POC Glucose (mg/dL) 215 H (75-99) mg/dL Microbiology - Last 24 Hours (Table) 04/28/20 14:21 Blood Culture - Preliminary Blood No Growth after 48 hours Assessment and Plan Plan: Assessment: #1. Acute COVID 19 infection, tested positive on outpatient basis on 04/28/2020, denies any significant pulmonary symptoms, pulse ox is 92% on 2 L of oxygen, chest x-ray shows mild right basilar opacity that could represent atelectasis versus developing infiltrate #2. Acute hypoxic rest or a failure, mild, requiring 2 L of oxygen related to the above #3. New-onset paroxysmal A. fib, currently on Cardizem and heparin infusion, echocardiogram pending, cardiology is following #4. D-dimer of 0.83, VQ scan and lower extremity Dopplers were unremarkable #5. History of diabetes mellitus #6. Former smoker #7. Hyperlipidemia #8. Acute kidney injury, improved with IV hydration Plan: No worsening dyspnea or cough, wean FiO2, no acute events overnight, no fever or chills, continue with oral Decadron, continue a vitamins, zinc supplement, patient remains in A. fib with RVR, cardiology is working on controlling his heart rate, continue with oral anticoagulation, from pulmonary perspective once patient is cleared by cardiology patient can be considered for discharge home. I performed a history & physical examination of the patient and discussed their management with my nurse practitioner, Candi Fernandez. I reviewed the nurse practitioner's note and agree with the documented findings and plan of care. Lung sounds are positive for diminished breath sounds. The findings and the impression was discussed with the patient. I attest to the documentation by the nurse practitioner. Time with Patient: Less than 30
[2020-05-01] MEDS ORDERED: IPRATROPIUM-ALBUTEROL 3 ML NEB INHALATION PRN (15:12)
[2020-05-01] MEDS ORDERED: FUROSEMIDE 10 MG/ML 4 ML VIAL IV STA (15:12)
[2020-05-01] MEDS ORDERED: ALBUTEROL HFA INHALER INHALATION PRN (15:21)
[2020-05-01] MEDS: DILTIAZEM ORAL 30 MG TAB PO SCH ×2 (15:28→20:57)
--- NOTE | 2020-05-01 15:54 | P.PN ---
Subjective Progress Note Date: 05/01/20 CHIEF COMPLAINT: New-onset A. fib HISTORY OF PRESENT ILLNESS: This is a 84-year old male admitted to the hospital secondary to Covid. Cardiology is following secondary to new onset atrial fibrillation. His heart rate remains uncontrolled this morning. He has been transitioned to Eliquis. PHYSICAL EXAM: Thorough physical exam not completed secondary to limited evaluation/examination and due to Covid19 ASSESSMENT: Covid 19 pneumonia New-onset paroxysmal atrial fibrillation Hyperlipidemia Diabetes mellitus Acute kidney injury PLAN: 2-D echo ordered. Await results Continue Eliquis Begin amiodarone drip per protocol Increase Cardizem to 90 mg 3 times a day Continue telemetry monitoring Further recommendations pending patient course Nurse practitioner note has been reviewed by physician. Signing provider agrees with the documented findings, assessment, and plan of care. Objective - Vital Signs Vital signs: Vital Signs Temp 98.2 F 05/01/20 12:00 Pulse 120 H 05/01/20 14:00 Resp 18 05/01/20 12:00 BP 150/71 05/01/20 12:00 Pulse Ox 91 L 05/01/20 12:00 Intake & Output 04/30/20 05/01/20 05/01/20 18:59 06:59 18:59 Intake Total 160.135 5049 Output Total 2600 1400 500 Balance -1859.109 -1400 1093 Weight 82 kg Intake: Intake, IV Titration 86.891 800 Amount Heparin Sod,Pork in 0.45% 86.891 NaCl 25,000 unit In 0.45 % NaCl 1 250ml.bag @ 12 UNITS/KG/HR 9.48 mls/hr IV .Q24H DAVID Rx#: [id number] Sodium Chloride 0.9% 1, 800 000 ml @ 100 mls/hr IV . Q10H DAVID Rx#:[id number] Oral 654 793 Output: Urine 2600 1400 500 Other: Voiding Method Urinal # Voids 2 - Labs CBC & Chem 7: 05/01/20 08:03 04/30/20 08:36 Labs: Abnormal Lab Results - Last 24 Hours (Table) 04/30/20 04/30/20 05/01/20 Range/Units 16:36 20:16 06:03 WBC (3.8-10.6) k/uL Neutrophils # (1.3-7.7) k/uL Lymphocytes # (1.0-4.8) k/uL Monocytes # (0-1.0) k/uL POC Glucose (mg/dL) 264 H 254 H 202 H (75-99) mg/dL 05/01/20 05/01/20 Range/Units 08:03 11:31 WBC 16.7 H (3.8-10.6) k/uL Neutrophils # 14.5 H (1.3-7.7) k/uL Lymphocytes # 0.9 L (1.0-4.8) k/uL Monocytes # 1.2 H (0-1.0) k/uL POC Glucose (mg/dL) 215 H (75-99) mg/dL Microbiology - Last 24 Hours (Table) 04/28/20 14:21 Blood Culture - Preliminary Blood No Growth after 48 hours
[2020-05-01] MEDS: AMIODARONE 300 MG in DEXTROSE 5% IN WATER 250 ML IV SCH ×2 (16:12)
[2020-05-01 17:28] LABS: Glucose,Whole Blood 276 mg/dL (75-99)
[2020-05-01] MEDS ORDERED: IPRATROPIUM-ALBUTEROL 3 ML NEB INHALATION SCH (20:00)
[2020-05-01 20:15] LABS: Glucose,Whole Blood 297 mg/dL (75-99)
[2020-05-01] MEDS: ALBUTEROL HFA INHALER INHALATION SCH (20:36)
[2020-05-01] MEDS: MELATONIN 3 MG TABLET PO SCH (20:58)
[2020-05-01] MEDS: PRAVASTATIN SODIUM 80 MG TAB PO SCH (20:58)
[2020-05-01] MEDS: GABAPENTIN 300 MG CAP PO SCH (20:59)
[2020-05-02] MEDS: AMIODARONE 300 MG in DEXTROSE 5% IN WATER 250 ML IV SCH ×2 (03:32)
[2020-05-02] MEDS: INSULIN ASPART (NovoLOG) 100 UNIT/ML VIAL SQ SCH ×3 (03:40→11:52)
[2020-05-02 04:08] VITALS: RESP 18
[2020-05-02 05:54] LABS: Glucose,Whole Blood 270 mg/dL (75-99)
[2020-05-02] MEDS ORDERED: TIOTROPIUM 2.5 MCG INHALER INHALATION SCH (08:00)
--- NOTE | 2020-05-02 08:22 | ECHOF ---
Referral Reason:LV function MEASUREMENTS -------- HEIGHT: 177.8 cm WEIGHT: 78.9 kg BP: IVSd: 1.6 cm (0.6 - 1.1) LVIDd: 3.2 cm (3.9 - 5.3) LVPWd: 1.5 cm (0.6 - 1.1) IVSs: 1.9 cm LVIDs: 2.4 cm LVPWs: 1.8 cm Ao Diam: 3.3 cm (2.0 - 3.7) AV Cusp: 1.5 cm (1.5 - 2.6) LA Diam: 2.5 cm (2.7 - 3.8) MV EXCURSION: 13.883 mm (> 18.000) MV EF SLOPE: 102 mm/s (70 - 150) EPSS: 1.6 cm RAP: 5.00 mmHg RVSP: 31.78 mmHg FINDINGS -------- This was a technically difficult study with suboptimal views. The left ventricular size is normal. There is moderate concentric left ventricular hypertrophy. O verall left ventricular systolic function is low-normal with, an EF between 50 - 55 %. The RV was not well visualized. The left atrial size is normal. The right atrium was not well visualized. Lumason used Aortic valve is trileaflet and is mildly thickened. The mitral valve is normal. The mitral valve leaflets are mildly thickened. Mild mitral regurgita tion is present. The tricuspid valve appears structurally normal. Trace tricuspid regurgitation present. Right ivan tricular systolic pressure is normal at < 35 mmHg. There is no pulmonic regurgitation present. The aortic root size is normal. IVC Not well visulized. There is no pericardial effusion. CONCLUSIONS -------- 1. The left ventricular size is normal. 2. There is moderate concentric left ventricular hypertrophy. 3. Overall left ventricular systolic function is low-normal with, an EF between 50 - 55 %. 4. Aortic valve is trileaflet and is mildly thickened. 5. The mitral valve leaflets are mildly thickened. 6. Mild mitral regurgitation is present. 7. Trace tricuspid regurgitation present. 8. There is no pericardial effusion. FOOD BAGGING MACHINE OPERATOR: Cecille Walls RDCS
[2020-05-02] MEDS: CHOLECALCIFEROL 400 UNIT TAB PO SCH (08:30)
[2020-05-02] MEDS: ASCORBIC ACID 500 MG TAB PO SCH (08:30)
[2020-05-02] MEDS: dexAMETHasone 2 MG TAB PO SCH (08:30)
[2020-05-02] MEDS: APIXABAN 5 MG TAB PO SCH (08:30)
[2020-05-02] MEDS: ZINC SULFATE 220 MG CAP PO SCH (08:30)
[2020-05-02] MEDS: DILTIAZEM ORAL 30 MG TAB PO SCH (08:30)
[2020-05-02 08:47] LABS: Basophils # (A) 0.1 k/uL (0-0.2); Basophils % (A) 1 %; Eosinophils % (A) 0 %; HCT 41.4 % (39.0-53.0); Lymphocytes # (A) 0.6 k/uL (1.0-4.8); Lymphocytes % (A) 4 %; MCH 29.5 pg (25.0-35.0); MCHC 33.9 g/dL (31.0-37.0); Mean Platelet Volume 8.9; Monocytes # (A) 1.2 k/uL (0-1.0); Monocytes % (A) 7 %; Neutrophils # (A) 14.6 k/uL (1.3-7.7); Neutrophils % (A) 87 %; Platelet Count 230 k/uL (150-450); RBC 4.76 m/uL (4.30-5.90); RDW 12.8 % (11.5-15.5); WBC 16.7 k/uL (3.8-10.6)
[2020-05-02 08:56] LABS: Calcium 8.1 mg/dL (8.4-10.2); Potassium 4.1 mmol/L (3.5-5.1)
[2020-05-02] MEDS: ALBUTEROL HFA INHALER INHALATION SCH ×2 (09:27→13:44)
[2020-05-02 11:31] LABS: Glucose,Whole Blood 180 mg/dL (75-99)
[2020-05-02 12:05] VITALS: BP 154/70; PULSE 86; TEMP 97.5
--- NOTE | 2020-05-02 14:25 | P.PN ---
Subjective Progress Note Date: 05/02/20 CHIEF COMPLAINT: New-onset A. fib HISTORY OF PRESENT ILLNESS: This is a 84-year old male admitted to the hospital secondary to Covid. Cardiology is following secondary to new onset atrial fibrillation. His heart rate is currently controlled this morning. He remains on Eliquis for anticoagulation. He is currently on an amiodarone drip. Echocardiogram completed reveals ejection fraction 50-55%, mild mitral regurgitation, and trace tricuspid regurgitation PHYSICAL EXAM: Thorough physical exam not completed secondary to limited evaluation/examination and due to Covid19 ASSESSMENT: Covid 19 pneumonia New-onset paroxysmal atrial fibrillation Hyperlipidemia Diabetes mellitus Acute kidney injury PLAN: Continue Eliquis Continue Cardizem to 90 mg 3 times a day Amio drip to be finished today. No oral amio per Dr. Aguila Continue telemetry monitoring Patient may be discharged home today from a cardiac standpoint. Follow up outpatient with Dr. Aguila Nurse practitioner note has been reviewed by physician. Signing provider agrees with the documented findings, assessment, and plan of care. Objective - Vital Signs Vital signs: Vital Signs Temp 97.5 F L 05/02/20 12:00 Pulse 86 05/02/20 12:00 Resp 18 05/02/20 12:00 BP 154/70 05/02/20 12:00 Pulse Ox 91 L 05/02/20 12:00 Intake & Output 05/01/20 05/02/20 05/02/20 18:59 06:59 18:59 Intake Total 1593 250 240 Output Total 500 875 Balance 1093 -625 240 Weight 80 kg Intake: Intake, IV Titration 800 250 Amount Amiodarone 300 mg In 250 Dextrose 5% in Water 250 ml @ 0.5 MG/MIN 25 mls/hr IV .Q10H DAVID Rx#: [id number] Sodium Chloride 0.9% 1, 800 000 ml @ 100 mls/hr IV . Q10H DAVID Rx#:[id number] Oral 793 240 Output: Urine 500 875 Other: Voiding Method Urinal Urinal - Labs CBC & Chem 7: 05/02/20 08:14 05/02/20 08:14 Labs: Abnormal Lab Results - Last 24 Hours (Table) 05/01/20 05/01/20 05/02/20 Range/Units 17:27 20:14 05:53 WBC (3.8-10.6) k/uL Neutrophils # (1.3-7.7) k/uL Lymphocytes # (1.0-4.8) k/uL Monocytes # (0-1.0) k/uL Chloride (98-107) mmol/L BUN (9-20) mg/dL Creatinine (0.66-1.25) mg/dL Glucose (74-99) mg/dL POC Glucose (mg/dL) 276 H 297 H 270 H (75-99) mg/dL Calcium (8.4-10.2) mg/dL 05/02/20 05/02/20 05/02/20 Range/Units 08:14 08:14 11:30 WBC 16.7 H (3.8-10.6) k/uL Neutrophils # 14.6 H (1.3-7.7) k/uL Lymphocytes # 0.6 L (1.0-4.8) k/uL Monocytes # 1.2 H (0-1.0) k/uL Chloride 108 H (98-107) mmol/L BUN 32 H (9-20) mg/dL Creatinine 1.56 H (0.66-1.25) mg/dL Glucose 152 H (74-99) mg/dL POC Glucose (mg/dL) 180 H (75-99) mg/dL Calcium 8.1 L (8.4-10.2) mg/dL Microbiology - Last 24 Hours (Table) 04/28/20 14:21 Blood Culture - Preliminary Blood No Growth after 72 hours
[2020-05-02] MEDS ORDERED: APIXABAN 2.5 MG TABLET PO SCH (21:00)
--- NOTE | 2020-05-03 13:46 | P.DS ---
Providers Date of admission: 04/28/20 15:43 Expected date of discharge: 05/02/20 Attending physician: Elijah Cm Consults: 04/28/20 15:44 Consult Physician Routine Consulting Provider: James Coon Consult Reason/Comments: COVID Do you want consulting provider notified?: Yes 04/28/20 22:00 Consult Physician Routine Consulting Provider: Dez Berry Consult Reason/Comments: new onset a-fib rvr, vs sinus arrhythmia Do you want consulting provider notified?: Yes, Notify in am Primary care physician: [facility] Course: 84 years old male with past medical history of diabetes mellitus, hyperlipidemia. He presented to the hospital because she's been feeling generally weak for about one week associated with some dyspnea but no coughing and no chest pain although he feels some chest tightness for a few days. No abdominal pain or nausea vomiting he has decreased appetite. He did not have bowel movement for a few days. No issue with voiding as per patient. No dizziness. He is working with no problems as he states. Patient states that he came to the hospital because his been tested positive at an urgent care Patient denies smoking, no illicit drugs. Occasional alcohol He denies history of kidney disease. Vitals looks stable. His oxygen saturation was 88 on room air, slightly tachycardic. His saturating 96% on 2 l oxygen via nasal cannula. Labs show an unremarkable CBC, BMP, creatinine was elevated at 2.3 and 1.9, unknown baseline. d-dimer was high at 0.8. Liver enzymes are not elevated. Inflammatory markers are increased including ferritin 642, LDH 778 and C-reactive protein 13.7. No procalcitonin is also slightly high at 0.10. EKG showed sinus tachycardia with PACs. QTC is 464. Chest x-ray: Mild right basilar opacity may represent atelectasis versus infiltrate 04/30/2020 Patient patient was given IV amiodarone. IV Cardizem was discontinued because of hypotension. Patient wanes on 3 L of oxygen still feel short of breath and still feels sick. Patient remains tachycardic in atrial fibrillation. Patient is on IV heparin as well. Patient was started on amiodarone drip now. Is receiving IV fluids and chest x-ray showing 1 worsening infiltrates. Pulmonary is following the patient as well. Patient is positive for Covid 19. 05/01/2020 Patient remains on IV amiodarone, oral Cardizem. Patient heart rate remains high although he has respiratory status is better. Patient received IV fluids with improvement in serum creatinine better than his baseline of around 1.9 patient is presently 1.66. IV fluids were discontinued. Once his heart rate is better controlled patient will be discharged at that time. 05/02/2020 patient heart rate is well controlled and the patient will not require any amiodarone and patient will be discharged today. Patient is also not requiring any oxygen. PHYSICAL EXAMINATION: GENERAL: The patient is alert and oriented x3, not in any acute distress. Well developed, well nourished. HEENT: Pupils are round and equally reacting to light. EOMI. No scleral icterus. No conjunctival pallor. Normocephalic, atraumatic. No pharyngeal erythema. No thyromegaly. CARDIOVASCULAR: S1 and S2 present. No murmurs, rubs, or gallops. PULMONARY: Bibasilar crackles. ABDOMEN: Soft, nontender, nondistended, normoactive bowel sounds. No palpable organomegaly. MUSCULOSKELETAL: No joint swelling or deformity. EXTREMITIES: No cyanosis, clubbing, or pedal edema. NEUROLOGICAL: Gross neurological examination did not reveal any focal deficits. SKIN: No rashes. Assessment and Plan Plan: Acute respiratory failure secondary to Covid 19 infection: Patient will not need any oxygen at will be discharged on 3 more days of Decadron -Atrial fibrillation with rapid ventricular rate new onset patient is on Eliquis heart rate is well controlled and is being discharged on oral Cardizem Mild right basilar pulmonary opacity, atelectasis versus infiltrate, secondary to acute Covid pneumonia Acute hypoxic respiratory failure Chronic kidney disease stage III probably diabetic nephropathy patient's creatinine is baseline dementia competent of acute renal failure secondary to prerenal azotemia from sepsis. Improved serum creatinine Slightly elevated d-dimer. Check ultrasound of the lower extremity and thev/Q scan Sinus tachycardia with PACs rather than A. fib Type 2 diabetes mellitus Diabetic neuropathy Hyperlipidemia Patient Condition at Discharge: Stable Plan - Discharge Summary Discharge Rx Participant: No New Discharge Prescriptions: New Diltiazem Oral [Cardizem*] 90 mg PO TID #90 tab dexAMETHasone [Hexadrol] 6 mg PO DAILY #6 tab Zinc Sulfate [Orazinc] 220 mg PO DAILY #30 cap Albuterol Inhaler [Ventolin Hfa Inhaler] 2 puff INHALATION QID PRN #1 inhaler PRN Reason: Shortness Of Breath Cholecalciferol [Vitamin D3] 400 unit PO DAILY #10 tab Apixaban [Eliquis] 2.5 mg PO BID #30 tab Continue Latanoprost/Pf [Latanoprost 0.005% Eye Drop] 1 drop LEFT EYE HS Insulin Glargine [Lantus] 70 unit SQ HS Glipizide Unknown Dose 1 tab PO DIRECTED Pravastatin Sodium [Pravachol] 80 mg PO HS glipiZIDE [Glucotrol] 10 mg PO DAILY Insulin Glargine,Hum.rec.anlog [Lantus Solostar] See Protocol SQ DAILY Vitamin D(Unknown Dose) 1 tab PO DAILY Gabapentin [Neurontin] 600 mg PO HS Aspirin EC [Ecotrin Low Dose] 81 mg PO DAILY Discontinued Aspirin [Adult Low Dose Aspirin EC] 81 mg PO DAILY Discharge Medication List Glipizide Unknown Dose 1 tab PO DIRECTED 11/10/18 [History] Insulin Glargine [Lantus] 70 unit SQ HS 11/10/18 [History] Latanoprost/Pf [Latanoprost 0.005% Eye Drop] 1 drop LEFT EYE HS 11/10/18 [History] Aspirin EC [Ecotrin Low Dose] 81 mg PO DAILY 04/28/20 [History] Gabapentin [Neurontin] 600 mg PO HS 04/28/20 [History] Insulin Glargine,Hum.rec.anlog [Lantus Solostar] See Protocol SQ DAILY 04/28/20 [History] Pravastatin Sodium [Pravachol] 80 mg PO HS 04/28/20 [History] Vitamin D(Unknown Dose) 1 tab PO DAILY 04/28/20 [History] glipiZIDE [Glucotrol] 10 mg PO DAILY 04/28/20 [History] Albuterol Inhaler [Ventolin Hfa Inhaler] 2 puff INHALATION QID PRN #1 inhaler 05/02/20 [Rx] Apixaban [Eliquis] 2.5 mg PO BID #30 tab 05/02/20 [Rx] Cholecalciferol [Vitamin D3] 400 unit PO DAILY #10 tab 05/02/20 [Rx] Diltiazem Oral [Cardizem*] 90 mg PO TID #90 tab 05/02/20 [Rx] Zinc Sulfate [Orazinc] 220 mg PO DAILY #30 cap 05/02/20 [Rx] dexAMETHasone [Hexadrol] 6 mg PO DAILY #6 tab 05/02/20 [Rx] Follow up Appointment(s)/Referral(s): Everette Aguila MD [STAFF PHYSICIAN] - 4 Weeks [facility],Clinic [Primary Care Provider] - 1-2 days Patient Instructions/Handouts: Pneumonia (DC) Activity/Diet/Wound Care/Special Instructions: Eliquis covered with $43.50 copay - filled at [facility] Discharge Disposition: HOME WITH HOME HEALTH SERVICES
== END 2020-05-02 14:50 | disposition home health service (06) | DRG 177 ==
LOC: EC 13:44 → MERGE 15:43 → 4SSUR 15:43 → 3SCARD 20:58
PROVIDERS: ADMIT Hospitalist; ATTEND Hospitalist
DX: U07.1 COVID-19 (principal); J12.89 Other viral pneumonia; J96.01 Acute respiratory failure with hypoxia; N17.9 Acute kidney failure, unspecified; J90 Pleural effusion, not elsewhere classified; I48.0 Paroxysmal atrial fibrillation; F03.90 Unspecified dementia, unspecified severity, without behavioral disturbance, psychotic disturbance, mood disturbance, and anxiety; E11.22 Type 2 diabetes mellitus with diabetic chronic kidney disease; E11.40 Type 2 diabetes mellitus with diabetic neuropathy, unspecified; E78.5 Hyperlipidemia, unspecified; E86.0 Dehydration; N18.30 Chronic kidney disease, stage 3 unspecified; Z79.4 Long term (current) use of insulin; Z79.82 Long term (current) use of aspirin; Z79.899 Other long term (current) drug therapy; Z87.891 Personal history of nicotine dependence; Z88.8 Allergy status to other drugs, medicaments and biological substances; R79.1 Abnormal coagulation profile; R00.0 Tachycardia, unspecified
CPT/HCPCS: 36415; 71045; 78580; 80048; 80053; 82728; 83605; 83615; 83735; 84145; 84439; 84443; 85025; 85379; 85610; 85730; 86140; 87040; 87502; 87635; 93005; 93306; 93970; 94640; 96361; 96374; 99285

== ENCOUNTER 2020-06-04 20:10 | Emergency (ER) | payer OTHER, MEDICARE ==
[2020-06-04 20:22] VITALS: BP 199/101; PULSE 98; RESP 18; TEMP 99.5
[2020-06-04] MEDS ORDERED: DIPH,PERTUS(ACELL)TETVAC-LF 0.5 ML VIAL IM ONE (20:39)
[2020-06-04] MEDS ORDERED: LIDOCAINE 1% INJ 10MG/ML (20 ML MDV) SQ ONE (20:39)
--- NOTE | 2020-06-04 20:39 | ED ---
Fall HPI - General Chief Complaint: Fall Stated Complaint: Fall Time Seen by Provider: 06/04/20 20:32 Source: patient Mode of arrival: ambulatory - History of Present Illness Initial Comments: 84-year-old male presenting to the emergency department with a chief complaint of fall. Patient states earlier today he lost his footing, went forward and fell on the ground. He states he hit a rock on the left side of the cheek causing a laceration. Patient states he went to the urgent care with his and they were advised to come to emergency department for further evaluation. Patient states there is no loss of consciousness. Denies blood thinner use. Patient does report anxiety whenever he is in the hospital. States that he does not use any antihypertensive medication. Patient states she does not want to be here and was only forced to come here by family members. Patient is alert questing laceration repair on the cheek and the like to be discharged. - Related Data Home Medications Medication Instructions Recorded Confirmed Glipizide Unknown Dose 1 tab PO DIRECTED 11/10/18 11/10/18 Insulin Glargine [Lantus] 70 unit SQ HS 11/10/18 11/10/18 Latanoprost/Pf [Latanoprost 0.005% 1 drop LEFT EYE HS 11/10/18 11/10/18 Eye Drop] Aspirin EC [Ecotrin Low Dose] 81 mg PO DAILY 04/28/20 04/28/20 Gabapentin [Neurontin] 600 mg PO HS 04/28/20 04/28/20 Insulin Glargine,Hum.rec.anlog See Protocol SQ DAILY 04/28/20 04/28/20 [Lantus Solostar] Pravastatin Sodium [Pravachol] 80 mg PO HS 04/28/20 04/28/20 Vitamin D(Unknown Dose) 1 tab PO DAILY 04/28/20 04/28/20 glipiZIDE [Glucotrol] 10 mg PO DAILY 04/28/20 04/28/20 Previous Rx's Medication Instructions Recorded Albuterol Inhaler [Ventolin Hfa 2 puff INHALATION QID PRN #1 05/02/20 Inhaler] inhaler Apixaban [Eliquis] 2.5 mg PO BID #30 tab 05/02/20 Cholecalciferol [Vitamin D3 (10 400 unit PO DAILY #10 tab 05/02/20 Mcg = 400 Iu)] Diltiazem Oral [Cardizem*] 90 mg PO TID #90 tab 05/02/20 Zinc Sulfate [Orazinc] 220 mg PO DAILY #30 cap 05/02/20 dexAMETHasone [Hexadrol] 6 mg PO DAILY #6 tab 05/02/20 Allergies Allergy/AdvReac Type Severity Reaction Status Date / Time atorvastatin [From Lipitor] Allergy Unknown Verified 06/04/20 20:23 metformin Allergy Unknown Verified 06/04/20 20:23 Review of Systems ROS Statement: Those systems with pertinent positive or pertinent negative responses have been documented in the HPI. ROS Other: All systems not noted in ROS Statement are negative. Past Medical History Past Medical History: Diabetes Mellitus History of Any Multi-Drug Resistant Organisms: None Reported Past Surgical History: Appendectomy Additional Past Surgical History / Comment(s): dental Past Anesthesia/Blood Transfusion Reactions: No Reported Reaction Past Psychological History: No Psychological Hx Reported Smoking Status: Never smoker Past Alcohol Use History: Rare Past Drug Use History: None Reported - Past Family History Mother History Unknown: Yes General Exam Limitations: no limitations General appearance: alert, in no apparent distress Head exam: Present: atraumatic, normocephalic. Absent: normal inspection (Laceration measuring approximately 2 cm near the left zygomatic arch. This is a superficial laceration.), other (Negative New sign, raccoon eyes, hemotympanum.) Eye exam: Present: normal appearance, PERRL, EOMI Pupils: Present: normal accommodation ENT exam: Present: normal exam, normal oropharynx Neck exam: Present: normal inspection, full ROM. Absent: tenderness Respiratory exam: Present: normal lung sounds bilaterally. Absent: respiratory distress, wheezes, rales Cardiovascular Exam: Present: regular rate, normal rhythm, normal heart sounds. Absent: systolic murmur, diastolic murmur Extremities exam: Present: normal inspection, full ROM, normal capillary refill. Absent: tenderness Back exam: Present: normal inspection, full ROM. Absent: tenderness, CVA tenderness (R), CVA tenderness (L) Neurological exam: Present: alert, oriented X3 Psychiatric exam: Present: normal affect, normal mood Skin exam: Present: warm, dry, intact, normal color Course Vital Signs 06/04/20 20:17 Temperature 99.5 F Pulse Rate 98 Respiratory 18 Rate Blood Pressure 199/101 O2 Sat by Pulse 98 Oximetry Procedures - Laceration Laceration #1 Consent Obtained: verbal consent Indication: laceration Site: face Size (cm): 2 Description: linear, clean Depth: simple, single layer Sedation/Analgesia: none Anesthetic Used: lidocaine 1% Anesthesia Technique: local infiltration Amount (mls): 5 Pre-repair: irrigated extensively, deep structures intact Type of Sutures: nylon Size of Sutures: 4-0 Number of Sutures: 6 Technique: simple, interrupted Patient Tolerated Procedure: well, no complications Medical Decision Making - Medical Decision Making 84-year-old male presenting to emergency Department with a chief complaint of fall. On physical examination, patient is AO 3 with a steady gait. Patient only requesting laceration repair and would like to be discharged. Laceration. Performed with 6 sutures. Patient tolerated procedure well. Tetanus was updated. I did offer the patient CT imaging of the head and further laboratory workup. He declined. Patient will sign out AMA. Return parameters discussed. Advised to return for suture removal in 5-7 days. Case discussed with physician. Disposition Clinical Impression: Fall, Head injury, Laceration Disposition: Left Against Medical Advice Condition: Stable Instructions (If sedation given, give patient instructions): Care For Your Stitches (DC), Laceration (DC) Additional Instructions: Please return to the emergency room in 5-7 days to have sutures removed. Please watch for any signs of infection which may include increased pain, swelling, redness, fever or chills. Please return to emergency room for any signs of infection do occur. Please use clean soap and water over the area to prevent scabbing over your stitches. Please leave wound covered for the first 24-48 hours and then leave wound open to air. Please return to the emergency room for any other concerns. Is patient prescribed a controlled substance at d/c from ED?: No Referrals: [facility],Clinic [Primary Care Provider] - 1-2 days Time of Disposition: 20:40
== END 2020-06-04 21:10 | disposition left against medical advice (07) ==
LOC: EC 20:10
DX: S01.412A Laceration without foreign body of left cheek and temporomandibular area, initial encounter (principal); Z23 Encounter for immunization; E11.9 Type 2 diabetes mellitus without complications; Z79.82 Long term (current) use of aspirin; Z79.4 Long term (current) use of insulin; Z79.899 Other long term (current) drug therapy; Z88.8 Allergy status to other drugs, medicaments and biological substances; W18.09XA Striking against other object with subsequent fall, initial encounter
CPT/HCPCS: 90715; 99283; 12011; 90471; J2001

== ENCOUNTER 2020-06-09 08:03 | Emergency (ER) | payer OTHER, MEDICARE ==
[2020-06-09 08:10] LABS: Glucose,Whole Blood 82 mg/dL (75-99)
[2020-06-09] MEDS ORDERED: DEXTROSE 50% SYRINGE 50 ML IVP STA (08:23)
[2020-06-09 08:25] LABS: Glucose,Whole Blood 67 mg/dL (75-99)
[2020-06-09 08:26] VITALS: RESP 18; TEMP 97.8
--- NOTE | 2020-06-09 08:40 | ED ---
General Adult HPI - General Chief complaint: Recheck/Abnormal Lab/Rx Stated complaint: Low blood sugar Time Seen by Provider: 06/09/20 08:05 Source: patient, EMS, RN notes reviewed Mode of arrival: EMS Limitations: no limitations - History of Present Illness Initial comments: This is an 84-year-old male presents emergency department via EMS chief complai nt hypoglycemia. Patient's been having hypoglycemic events in the morning. Patient been having low blood sugar sent been discharged from having pneumonia and cold. states that he is given some deep but states that but sugar was 31 EMS arrived. Patient was seen here recently for a fall, facial laceration patient refused CT at that time he states he still has a very mild headache. No focal weakness no confusion. Patient does take insulin at home he has not recently adjusted his insulin. - Related Data Home Medications Medication Instructions Recorded Confirmed Glipizide Unknown Dose 1 tab PO DIRECTED 11/10/18 11/10/18 Insulin Glargine [Lantus] 70 unit SQ HS 11/10/18 11/10/18 Latanoprost/Pf [Latanoprost 0.005% 1 drop LEFT EYE HS 11/10/18 11/10/18 Eye Drop] Aspirin EC [Ecotrin Low Dose] 81 mg PO DAILY 04/28/20 04/28/20 Gabapentin [Neurontin] 600 mg PO HS 04/28/20 04/28/20 Insulin Glargine,Hum.rec.anlog See Protocol SQ DAILY 04/28/20 04/28/20 [Lantus Solostar] Pravastatin Sodium [Pravachol] 80 mg PO HS 04/28/20 04/28/20 Vitamin D(Unknown Dose) 1 tab PO DAILY 04/28/20 04/28/20 glipiZIDE [Glucotrol] 10 mg PO DAILY 04/28/20 04/28/20 Previous Rx's Medication Instructions Recorded Albuterol Inhaler [Ventolin Hfa 2 puff INHALATION QID PRN #1 05/02/20 Inhaler] inhaler Apixaban [Eliquis] 2.5 mg PO BID #30 tab 05/02/20 Cholecalciferol [Vitamin D3 (10 400 unit PO DAILY #10 tab 05/02/20 Mcg = 400 Iu)] Diltiazem Oral [Cardizem*] 90 mg PO TID #90 tab 05/02/20 Zinc Sulfate [Orazinc] 220 mg PO DAILY #30 cap 05/02/20 dexAMETHasone [Hexadrol] 6 mg PO DAILY #6 tab 05/02/20 Allergies Allergy/AdvReac Type Severity Reaction Status Date / Time atorvastatin [From Lipitor] Allergy Unknown Verified 06/09/20 08:26 metformin Allergy Unknown Verified 06/09/20 08:26 Review of Systems ROS Statement: Those systems with pertinent positive or pertinent negative responses have been documented in the HPI. ROS Other: All systems not noted in ROS Statement are negative. Past Medical History Past Medical History: Atrial Fibrillation, Diabetes Mellitus, Pneumonia History of Any Multi-Drug Resistant Organisms: None Reported Past Surgical History: Appendectomy Additional Past Surgical History / Comment(s): dental Past Anesthesia/Blood Transfusion Reactions: No Reported Reaction Past Psychological History: No Psychological Hx Reported Smoking Status: Never smoker Past Alcohol Use History: Rare Past Drug Use History: None Reported - Past Family History Mother History Unknown: Yes General Exam Limitations: no limitations General appearance: alert, in no apparent distress Head exam: Present: atraumatic, normocephalic, normal inspection Eye exam: Present: normal appearance, PERRL, EOMI. Absent: scleral icterus, conjunctival injection, periorbital swelling ENT exam: Present: normal exam, normal oropharynx, mucous membranes moist, other (Healing laceration left cheek) Neck exam: Present: normal inspection, full ROM. Absent: tenderness, meningismus, lymphadenopathy Respiratory exam: Present: normal lung sounds bilaterally. Absent: respiratory distress, wheezes, rales, rhonchi, stridor Cardiovascular Exam: Present: regular rate, normal rhythm, normal heart sounds. Absent: systolic murmur, diastolic murmur, rubs, gallop, clicks GI/Abdominal exam: Present: soft, normal bowel sounds. Absent: distended, tenderness, guarding, rebound, rigid Neurological exam: Present: alert, oriented X3, CN II-XII intact Skin exam: Present: warm, dry, intact, normal color. Absent: rash Course Vital Signs 06/09/20 08:06 Temperature 97.8 F Pulse Rate 91 Respiratory 18 Rate Blood Pressure 164/92 O2 Sat by Pulse 94 L Oximetry Medical Decision Making - Medical Decision Making CT shows chronic subdural, I did discuss case with Dr. Toure who stated this is not related to a fall 6 days ago. I did correlate with a hemoglobin which she's had a hemoglobin. Patient was able to ambulate with no difficulty. Sutures removed. Patient did have hyperglycemia and has been ongoing. Did discuss changing his insulin dosing return for any worsening change in symptoms. - Lab Data Result diagrams: 06/09/20 09:26 Lab Results 06/09/20 06/09/20 06/09/20 Range/Units 08:08 08:23 08:44 WBC (3.8-10.6) k/uL RBC (4.30-5.90) m/uL Hgb (13.0-17.5) gm/dL Hct (39.0-53.0) % MCV (80.0-100.0) fL MCH (25.0-35.0) pg MCHC (31.0-37.0) g/dL RDW (11.5-15.5) % Plt Count (150-450) k/uL MPV Neutrophils % % Lymphocytes % % Monocytes % % Eosinophils % % Basophils % % Neutrophils # (1.3-7.7) k/uL Lymphocytes # (1.0-4.8) k/uL Monocytes # (0-1.0) k/uL Eosinophils # (0-0.7) k/uL Basophils # (0-0.2) k/uL POC Glucose (mg/dL) 82 67 L 138 H (75-99) mg/dL POC Glu [employer] Order Clerk Doyle Call, Doyle Walker 06/09/20 06/09/20 Range/Units 09:14 09:26 WBC 17.9 H (3.8-10.6) k/uL RBC 5.19 (4.30-5.90) m/uL Hgb 15.3 (13.0-17.5) gm/dL Hct 46.5 (39.0-53.0) % MCV 89.7 (80.0-100.0) fL MCH 29.4 (25.0-35.0) pg MCHC 32.8 (31.0-37.0) g/dL RDW 13.8 (11.5-15.5) % Plt Count 255 (150-450) k/uL MPV 7.5 Neutrophils % 80 % Lymphocytes % 10 % Monocytes % 6 % Eosinophils % 2 % Basophils % 1 % Neutrophils # 14.4 H (1.3-7.7) k/uL Lymphocytes # 1.9 (1.0-4.8) k/uL Monocytes # 1.0 (0-1.0) k/uL Eosinophils # 0.3 (0-0.7) k/uL Basophils # 0.2 (0-0.2) k/uL POC Glucose (mg/dL) 173 H (75-99) mg/dL POC Glu [employer] Order Clerk ID Sue Lopez Disposition Clinical Impression: Chronic subdural hematoma, Encounter for removal of sutures, Hypoglycemia Disposition: HOME SELF-CARE Condition: Stable Instructions (If sedation given, give patient instructions): Hypoglycemia in a Person with Diabetes (ED) Additional Instructions: Please return to the Emergency Department if symptoms worsen or any other concerns. Is patient prescribed a controlled substance at d/c from ED?: No Referrals: [facility],Clinic [Primary Care Provider] - 1-2 days Time of Disposition: 09:40
[2020-06-09 08:45] LABS: Glucose,Whole Blood 138 mg/dL (75-99)
--- NOTE | 2020-06-09 09:08 | CT ---
EXAMINATION TYPE: CT brain wo con DATE OF EXAM: 06/09/2020 COMPARISON: INDICATION: Low blood sugar DLP: 1115.4 mGycm, Automated exposure control for dose reduction was used. CONTRAST: None CT of the brain is performed utilizing 3 mm thick sections through the posterior fossa and 3 mm thick sections through the remaining calvarium. Study is performed within 24 hours of arrival to the hosp ital. No abnormal hyperdensity is present to suggest an acute intracranial hemorrhage. There is prominence of the extra-axial spaces which may suggest chronic bilateral subdural hematomas. This is likely olde r than the 6 day prior trauma. However, if the patient has a low hemoglobin this could be related. No mass lesion is evident. No acute infarcts are evident. Ventricles and sulci are dominant for the patient age. There is prominence of extra-axial spaces whi ch is a change from 2019. Consider chronic subdural hematomas and subdural hygromas. No midline shift is evident. Quadrigeminal plate and ambient cistern are normal. No temporal horn dilatation is evide nt. Third ventricle appears normal and midline. Paranasal sinuses and mastoid air cells within the [id number] are clear. IMPRESSIONS: 1. No acute intracranial process. 2. Prominence of the extra-axial spaces bilaterally suggesting chronic subdural hematomas. No acute o r subacute hemorrhage is identified. Report was called to the emergency room PA by Dr. Toure by tel ephone 0900 hours 06/09/2020
[2020-06-09 09:15] LABS: Glucose,Whole Blood 173 mg/dL (75-99)
[2020-06-09 09:35] LABS: Basophils # (A) 0.2 k/uL (0-0.2); Basophils % (A) 1 %; Eosinophils # (A) 0.3 k/uL (0-0.7); Eosinophils % (A) 2 %; HCT 46.5 % (39.0-53.0); HGB 15.3 gm/dL (13.0-17.5); Lymphocytes # (A) 1.9 k/uL (1.0-4.8); Lymphocytes % (A) 10 %; MCH 29.4 pg (25.0-35.0); MCHC 32.8 g/dL (31.0-37.0); MCV 89.7 fL (80.0-100.0); Mean Platelet Volume 7.5; Monocytes % (A) 6 %; Neutrophils # (A) 14.4 k/uL (1.3-7.7); Neutrophils % (A) 80 %; Platelet Count 255 k/uL (150-450); RBC 5.19 m/uL (4.30-5.90); RDW 13.8 % (11.5-15.5); WBC 17.9 k/uL (3.8-10.6)
[2020-06-09 10:21] VITALS: BP 158/94; PULSE 66
== END 2020-06-09 10:19 | disposition home or self-care (01) ==
LOC: EC 08:03
DX: Z48.02 Encounter for removal of sutures (principal); S06.5X9D Traumatic subdural hemorrhage with loss of consciousness of unspecified duration, subsequent encounter; S01.412D Laceration without foreign body of left cheek and temporomandibular area, subsequent encounter; E11.649 Type 2 diabetes mellitus with hypoglycemia without coma; Z79.4 Long term (current) use of insulin; Z79.899 Other long term (current) drug therapy; Z79.82 Long term (current) use of aspirin; Z88.8 Allergy status to other drugs, medicaments and biological substances; W19.XXXD Unspecified fall, subsequent encounter
CPT/HCPCS: 36415; 70450; 85025; 96374; 99285

== ENCOUNTER 2020-08-01 20:53 | Emergency (ER) | payer MEDICARE, OTHER ==
[2020-08-01 21:04] VITALS: TEMP 98
[2020-08-01] MEDS ORDERED: SODIUM CHLORIDE 0.9% 1,000 ML IV STA (21:24)
[2020-08-01 21:57] LABS: Basophils # (A) 0.1 k/uL (0-0.2); Basophils % (A) 1 %; Eosinophils # (A) 0.5 k/uL (0-0.7); Eosinophils % (A) 4 %; HCT 39.2 % (39.0-53.0); HGB 12.9 gm/dL (13.0-17.5); Lymphocytes # (A) 2.3 k/uL (1.0-4.8); Lymphocytes % (A) 18 %; MCH 28.7 pg (25.0-35.0); MCHC 32.9 g/dL (31.0-37.0); MCV 87.1 fL (80.0-100.0); Mean Platelet Volume 7.8; Monocytes # (A) 0.9 k/uL (0-1.0); Monocytes % (A) 7 %; Neutrophils # (A) 8.8 k/uL (1.3-7.7); Neutrophils % (A) 69 %; Platelet Count 360 k/uL (150-450); RDW 13.3 % (11.5-15.5); WBC 12.8 k/uL (3.8-10.6)
--- NOTE | 2020-08-01 22:00 | ED ---
Neuro HPI - General Chief Complaint: Headache Stated Complaint: Weakness Time Seen by Provider: 08/01/20 21:13 Source: EMS, RN notes reviewed, old records reviewed Mode of arrival: EMS Limitations: no limitations - History of Present Illness Is the patient presenting with stroke symptoms?: No -: hour(s) Initial Comments: This is an 82-year-old male DF for evaluation, family brings patient in for multiple concerns blood sugar changes since slurred speech left arm weakness no leg weakness. Patient has been in good health aside from diabetes until recently coronavirus diagnosis. Patient was in the hospital for about a month has been doing okay for last 2 months just lack of energy and activity level. Patient himself without complaint family states patient would never have complaints. Patient's brought in by EMS to stay patient had no neurological signs during the exam. Blood sugar has been elevated to 300 Location: speech, left face, left arm History of same: No Place: home Severity: mild Improves With: none Worsens With: none On Anticoagulants: No Context: gradual onset Associated Symptoms: denies other symptoms Treatments Prior to Arrival: none - Related Data Home Medications: Home Medications Medication Instructions Recorded Confirmed Glipizide Unknown Dose 1 tab PO DIRECTED 11/10/18 11/10/18 Insulin Glargine [Lantus] 70 unit SQ HS 11/10/18 11/10/18 Latanoprost/Pf [Latanoprost 0.005% 1 drop LEFT EYE HS 11/10/18 11/10/18 Eye Drop] Aspirin EC [Ecotrin Low Dose] 81 mg PO DAILY 04/28/20 04/28/20 Gabapentin [Neurontin] 600 mg PO HS 04/28/20 04/28/20 Insulin Glargine,Hum.rec.anlog See Protocol SQ DAILY 04/28/20 04/28/20 [Lantus Solostar] Pravastatin Sodium [Pravachol] 80 mg PO HS 04/28/20 04/28/20 Vitamin D(Unknown Dose) 1 tab PO DAILY 04/28/20 04/28/20 glipiZIDE [Glucotrol] 10 mg PO DAILY 04/28/20 04/28/20 Previous Rx's Medication Instructions Recorded Albuterol Inhaler [Ventolin Hfa 2 puff INHALATION QID PRN #1 05/02/20 Inhaler] inhaler Apixaban [Eliquis] 2.5 mg PO BID #30 tab 05/02/20 Cholecalciferol [Vitamin D3 (10 400 unit PO DAILY #10 tab 05/02/20 Mcg = 400 Iu)] Diltiazem Oral [Cardizem*] 90 mg PO TID #90 tab 05/02/20 Zinc Sulfate [Orazinc] 220 mg PO DAILY #30 cap 05/02/20 dexAMETHasone [Hexadrol] 6 mg PO DAILY #6 tab 05/02/20 Allergies/Adverse Reactions: Allergies Allergy/AdvReac Type Severity Reaction Status Date / Time atorvastatin [From Lipitor] Allergy Unknown Verified 08/01/20 22:40 metformin Allergy Unknown Verified 08/01/20 22:40 Review of Systems ROS Statement: Those systems with pertinent positive or pertinent negative responses have been documented in the HPI. ROS Other: All systems not noted in ROS Statement are negative. General Exam - General Exam Comments Initial Comments: NIH of 0 Limitations: no limitations General appearance: alert, in no apparent distress Head exam: Present: atraumatic, normocephalic, normal inspection Eye exam: Present: normal appearance, PERRL, EOMI. Absent: scleral icterus, conjunctival injection, periorbital swelling ENT exam: Present: normal exam, mucous membranes moist Neck exam: Present: normal inspection. Absent: tenderness, meningismus, lymphadenopathy Respiratory exam: Present: normal lung sounds bilaterally. Absent: respiratory distress, wheezes, rales, rhonchi, stridor Cardiovascular Exam: Present: regular rate, normal rhythm, normal heart sounds. Absent: systolic murmur, diastolic murmur, rubs, gallop, clicks GI/Abdominal exam: Present: soft, normal bowel sounds. Absent: distended, tenderness, guarding, rebound, rigid Extremities exam: Present: normal inspection, full ROM, normal capillary refill. Absent: tenderness, pedal edema, joint swelling, calf tenderness Back exam: Present: normal inspection Neurological exam: Present: alert, oriented X3, CN II-XII intact Psychiatric exam: Present: normal affect, normal mood Skin exam: Present: warm, dry, intact, normal color. Absent: rash Stroke MDM - Lab Data Result diagrams: 08/01/20 21:35 08/01/20 21:35 Lab Results 08/01/20 08/01/20 08/01/20 Range/Units 21:35 21:35 21:35 WBC 12.8 H (3.8-10.6) k/uL RBC 4.50 (4.30-5.90) m/uL Hgb 12.9 L (13.0-17.5) gm/dL Hct 39.2 (39.0-53.0) % MCV 87.1 (80.0-100.0) fL MCH 28.7 (25.0-35.0) pg MCHC 32.9 (31.0-37.0) g/dL RDW 13.3 (11.5-15.5) % Plt Count 360 (150-450) k/uL MPV 7.8 Neutrophils % 69 % Lymphocytes % 18 % Monocytes % 7 % Eosinophils % 4 % Basophils % 1 % Neutrophils # 8.8 H (1.3-7.7) k/uL Lymphocytes # 2.3 (1.0-4.8) k/uL Monocytes # 0.9 (0-1.0) k/uL Eosinophils # 0.5 (0-0.7) k/uL Basophils # 0.1 (0-0.2) k/uL PT 10.5 (9.0-12.0) sec INR 1.0 (<1.2) APTT 21.6 L (22.0-30.0) sec Sodium (137-145) mmol/L Potassium (3.5-5.1) mmol/L Chloride (98-107) mmol/L Carbon Dioxide (22-30) mmol/L Anion Gap mmol/L BUN (9-20) mg/dL Creatinine (0.66-1.25) mg/dL Est GFR (CKD-EPI)AfAm (>60 ml/min/1.73 sqM) Est GFR (CKD-EPI)NonAf (>60 ml/min/1.73 sqM) Glucose (74-99) mg/dL Plasma Lactic Acid Jeffery (0.7-2.0) mmol/L Calcium (8.4-10.2) mg/dL Phosphorus (2.5-4.5) mg/dL Magnesium (1.6-2.3) mg/dL Total Bilirubin (0.2-1.3) mg/dL AST (17-59) U/L ALT (4-49) U/L Alkaline Phosphatase (38-126) U/L Creatine Kinase (55-170) U/L Troponin I (0.000-0.034) ng/mL NT-Pro-B Natriuret Pep pg/mL Total Protein (6.3-8.2) g/dL Albumin (3.5-5.0) g/dL Urine Color Light Yellow Urine Appearance Clear (Clear) Urine pH 6.0 (5.0-8.0) Ur Specific [place] 1.009 (1.001-1.035) Urine Protein Negative (Negative) Urine Glucose (UA) Negative (Negative) Urine Ketones Negative (Negative) Urine Blood Negative (Negative) Urine Nitrite Negative (Negative) Urine Bilirubin Negative (Negative) Urine Urobilinogen <2.0 (<2.0) mg/dL Ur Leukocyte Esterase Negative (Negative) Acetone, Qual (Negative) 08/01/20 08/01/20 08/01/20 Range/Units 21:35 21:35 21:35 WBC (3.8-10.6) k/uL RBC (4.30-5.90) m/uL Hgb (13.0-17.5) gm/dL Hct (39.0-53.0) % MCV (80.0-100.0) fL MCH (25.0-35.0) pg MCHC (31.0-37.0) g/dL RDW (11.5-15.5) % Plt Count (150-450) k/uL MPV Neutrophils % % Lymphocytes % % Monocytes % % Eosinophils % % Basophils % % Neutrophils # (1.3-7.7) k/uL Lymphocytes # (1.0-4.8) k/uL Monocytes # (0-1.0) k/uL Eosinophils # (0-0.7) k/uL Basophils # (0-0.2) k/uL PT (9.0-12.0) sec INR (<1.2) APTT (22.0-30.0) sec Sodium 135 L (137-145) mmol/L Potassium 4.8 (3.5-5.1) mmol/L Chloride 101 (98-107) mmol/L Carbon Dioxide 28 (22-30) mmol/L Anion Gap 6 mmol/L BUN 24 H (9-20) mg/dL Creatinine 1.77 H (0.66-1.25) mg/dL Est GFR (CKD-EPI)AfAm 41 (>60 ml/min/1.73 sqM) Est GFR (CKD-EPI)NonAf 35 (>60 ml/min/1.73 sqM) Glucose 149 H (74-99) mg/dL Plasma Lactic Acid Jeffery 1.1 (0.7-2.0) mmol/L Calcium 9.2 (8.4-10.2) mg/dL Phosphorus 4.0 (2.5-4.5) mg/dL Magnesium 2.1 (1.6-2.3) mg/dL Total Bilirubin 0.6 (0.2-1.3) mg/dL AST 17 (17-59) U/L ALT 10 (4-49) U/L Alkaline Phosphatase 77 (38-126) U/L Creatine Kinase 73 (55-170) U/L Troponin I <0.012 (0.000-0.034) ng/mL NT-Pro-B Natriuret Pep pg/mL Total Protein 6.4 (6.3-8.2) g/dL Albumin 3.5 (3.5-5.0) g/dL Urine Color Urine Appearance (Clear) Urine pH (5.0-8.0) Ur Specific [place] (1.001-1.035) Urine Protein (Negative) Urine Glucose (UA) (Negative) Urine Ketones (Negative) Urine Blood (Negative) Urine Nitrite (Negative) Urine Bilirubin (Negative) Urine Urobilinogen (<2.0) mg/dL Ur Leukocyte Esterase (Negative) Acetone, Qual Negative (Negative) 08/01/20 Range/Units 21:35 WBC (3.8-10.6) k/uL RBC (4.30-5.90) m/uL Hgb (13.0-17.5) gm/dL Hct (39.0-53.0) % MCV (80.0-100.0) fL MCH (25.0-35.0) pg MCHC (31.0-37.0) g/dL RDW (11.5-15.5) % Plt Count (150-450) k/uL MPV Neutrophils % % Lymphocytes % % Monocytes % % Eosinophils % % Basophils % % Neutrophils # (1.3-7.7) k/uL Lymphocytes # (1.0-4.8) k/uL Monocytes # (0-1.0) k/uL Eosinophils # (0-0.7) k/uL Basophils # (0-0.2) k/uL PT (9.0-12.0) sec INR (<1.2) APTT (22.0-30.0) sec Sodium (137-145) mmol/L Potassium (3.5-5.1) mmol/L Chloride (98-107) mmol/L Carbon Dioxide (22-30) mmol/L Anion Gap mmol/L BUN (9-20) mg/dL Creatinine (0.66-1.25) mg/dL Est GFR (CKD-EPI)AfAm (>60 ml/min/1.73 sqM) Est GFR (CKD-EPI)NonAf (>60 ml/min/1.73 sqM) Glucose (74-99) mg/dL Plasma Lactic Acid Jeffery (0.7-2.0) mmol/L Calcium (8.4-10.2) mg/dL Phosphorus (2.5-4.5) mg/dL Magnesium (1.6-2.3) mg/dL Total Bilirubin (0.2-1.3) mg/dL AST (17-59) U/L ALT (4-49) U/L Alkaline Phosphatase (38-126) U/L Creatine Kinase (55-170) U/L Troponin I (0.000-0.034) ng/mL NT-Pro-B Natriuret Pep 548 pg/mL Total Protein (6.3-8.2) g/dL Albumin (3.5-5.0) g/dL Urine Color Urine Appearance (Clear) Urine pH (5.0-8.0) Ur Specific [place] (1.001-1.035) Urine Protein (Negative) Urine Glucose (UA) (Negative) Urine Ketones (Negative) Urine Blood (Negative) Urine Nitrite (Negative) Urine Bilirubin (Negative) Urine Urobilinogen (<2.0) mg/dL Ur Leukocyte Esterase (Negative) Acetone, Qual (Negative) - NIH Stroke Scale 1a. Level of Consciousness: (0) alert 1b. LOC Questions: (0) answers correctly 1c. LOC Commands: (0) performs tasks correctly 2. Best Gaze: (0) normal 3. Visual: (0) no visual loss 4. Facial Palsy: (0) normal symmetrical movement 5a. Motor Arm Left: (0) no drift 5b. Motor Arm Right: (0) no drift 6a. Motor Leg Left: (0) no drift 6b. Motor Leg Right: (0) no drift 7. Limb Ataxia: (0) absent 8. Sensory: (0) normal 9. Best Language: (0) no aphasia 10. Dysarthria: (0) normal 11. Extinction/Inattention: (0) no abnormality - Medical Decision Making 84 male DF for evaluation. Patient Dese for episodes of altered mental status, some slurred speech facial droop and left arm weakness. Patient does appear to be in atrial fibrillation with RVR here in the ER not on blood thinners but does have recent diagnosis of this when he moves nostrils coronavirus. Patient also has acute on chronic subdural hematomas will be transferred to a [facility] for further monitoring - Radiology Data Radiology results: report reviewed (CT brain acute on chronic SDH), image reviewed - EKG Data -: EKG Interpreted by Me (EKG shows rate 96 IL 120 QRS 92 QTc 464) Past Medical History Past Medical History: Atrial Fibrillation, Diabetes Mellitus, Pneumonia History of Any Multi-Drug Resistant Organisms: None Reported Past Surgical History: Appendectomy Additional Past Surgical History / Comment(s): dental Past Anesthesia/Blood Transfusion Reactions: No Reported Reaction Past Psychological History: No Psychological Hx Reported Smoking Status: Former smoker Past Alcohol Use History: Rare Past Drug Use History: None Reported - Past Family History Mother History Unknown: Yes Course Vital Signs 08/01/20 08/01/20 20:55 22:18 Temperature 98.0 F Pulse Rate 92 85 Respiratory 20 18 Rate Blood Pressure 142/99 133/95 O2 Sat by Pulse 100 100 Oximetry - Reevaluation(s) Reevaluation #1: 08/01/20 22:56 Medical records reviewed Reevaluation #2: 08/01/20 22:56 heart is improving here in the ER Reevaluation #3: 08/01/20 22:56 Spoke with patient regarding findings, family is also aware of findings here in the ER, questions answered - Consultations Consultation #1: Spoke with Winifred Pereira regarding transfer, neurology and ER aware Critical Care Time Critical Care Time: Yes Total Critical Care Time: 31 Disposition Clinical Impression: Acute on chronic intracranial subdural hematoma, Atrial fibrillation with RVR Narrative: AMS resolved Disposition: OTHER INSTITUTION NOT DEFINED Condition: Serious Is patient prescribed a controlled substance at d/c from ED?: No Referrals: [facility],Clinic [Primary Care Provider] - 1-2 days - Out of Hospital Transfer - Req. Specs Out of Hospital Transfer - Requested Specifics: Other Emergency Center ([facility] Araujo)
--- NOTE | 2020-08-01 22:08 | XR ---
EXAMINATION TYPE: XR chest 2V DATE OF EXAM: 08/01/2020 COMPARISON: 04/30/2020 HISTORY: Chest pain TECHNIQUE: 2 views FINDINGS: There is no heart failure nor confluent pneumonic infiltrate. Costophrenic angles are clear . There are chest leads. Bony thorax is intact. IMPRESSION: No active cardiopulmonary disease. There is clearing of the mild subsegmental atelectasis compared to old exam.
[2020-08-01 22:13] LABS: ALT 10 U/L (4-49); AST 17 U/L (17-59); African American GFR (CKD) 41 (>60 ml/min/1.73 sqM); Albumin 3.5 g/dL (3.5-5.0); Alkaline Phosphatase 77 U/L (38-126); Anion Gap 6 mmol/L; Blood Urea Nitrogen 24 mg/dL (9-20); Calcium 9.2 mg/dL (8.4-10.2); Carbon Dioxide 28 mmol/L (22-30); Chloride 101 mmol/L (98-107); Creatine Kinase 73 U/L (55-170); Glucose 149 mg/dL (74-99); Magnesium 2.1 mg/dL (1.6-2.3); Non-African American GFR(CKD) 35 (>60 ml/min/1.73 sqM); Potassium 4.8 mmol/L (3.5-5.1); Sodium 135 mmol/L (137-145); Total Bilirubin 0.6 mg/dL (0.2-1.3); Total Protein 6.4 g/dL (6.3-8.2)
[2020-08-01 22:16] LABS: Appearance,Urine Clear (Clear); Bilirubin,Urine Negative (Negative); Blood,Urine Negative (Negative); Color,Urine Light Yellow; Glucose,Urine (UA) Negative (Negative); Ketones,Urine Negative (Negative); Leukocyte Esterase,Urine Negative (Negative); Nitrite,Urine Negative (Negative); Protein,Urine Negative (Negative); Specific Gravity,Urine 1.009 (1.001-1.035); Urobilinogen,Urine <2.0 mg/dL (<2.0)
[2020-08-01 22:19] LABS: Prothrombin Time 10.5 sec (9.0-12.0)
[2020-08-01 22:20] LABS: Partial Thromboplastin Time 21.6 sec (22.0-30.0)
--- NOTE | 2020-08-01 22:33 | CT ---
EXAMINATION TYPE: CT brain wo con DATE OF EXAM: 08/01/2020 COMPARISON: 06/09/2020 HISTORY: HUNT, weakness CT DLP: 1111.4 mGycm Automated exposure control for dose reduction was used. There is cerebral cortical atrophy. There is widening of the subdural space over the right cerebral h emisphere consistent with combined acute and chronic subdural hemorrhage. There is also similar less severe widening on the left side. Subdural space measures up to 1.7 cm on the right side and 1.1 cm o n the left side. There are small areas of higher attenuation within the subdural fluid consistent wit h acute hemorrhage. There is no midline shift. The calvarium is intact. IMPRESSION: Acute and chronic bilateral subdural hematomas are increased compared to old exam. There is some mass effect upon the parietal lobes. This exam was discussed with ER physician at 10:30 PM.
[2020-08-01] MEDS ORDERED: DILTIAZEM DRIP BOLUS FROM BAG 1 MG SOLN IV ONE (23:26)
[2020-08-01] MEDS ORDERED: DILTIAZEM 125 MG in SODIUM CHLORIDE 0.9% 100 ML IV SCH (23:30)
[2020-08-01 23:51] VITALS: BP 127/65; PULSE 132; RESP 20
== END 2020-08-02 00:05 | disposition other institution (70) ==
LOC: EC 20:53
DX: S06.5X9A Traumatic subdural hemorrhage with loss of consciousness of unspecified duration, initial encounter (principal); I48.91 Unspecified atrial fibrillation; E11.9 Type 2 diabetes mellitus without complications; Z79.01 Long term (current) use of anticoagulants; Z79.4 Long term (current) use of insulin; Z79.52 Long term (current) use of systemic steroids; Z79.82 Long term (current) use of aspirin; Z87.891 Personal history of nicotine dependence
CPT/HCPCS: 36415; 70450; 71046; 80053; 81003; 82009; 82550; 83605; 83735; 83880; 84100; 84484; 85025; 85610; 85730; 93005

== ENCOUNTER → 2021-01-13 | Outpatient (CLI) | payer MEDICARE, OTHER ==
[2021-01-13 12:00] LABS: Basophils # (A) 0.1 k/uL (0-0.2); Basophils % (A) 1 %; Eosinophils # (A) 0.5 k/uL (0-0.7); Eosinophils % (A) 5 %; HCT 42.9 % (39.0-53.0); HGB 13.8 gm/dL (13.0-17.5); Lymphocytes # (A) 2.6 k/uL (1.0-4.8); Lymphocytes % (A) 26 %; MCH 29.7 pg (25.0-35.0); MCHC 32.1 g/dL (31.0-37.0); MCV 92.5 fL (80.0-100.0); Mean Platelet Volume 8.2; Monocytes # (A) 0.7 k/uL (0-1.0); Monocytes % (A) 7 %; Neutrophils % (A) 59 %; Platelet Count 279 k/uL (150-450); RBC 4.64 m/uL (4.30-5.90); RDW 14.2 % (11.5-15.5)
[2021-01-13 12:32] LABS: Albumin 3.6 g/dL (3.5-5.0); Calcium 9.2 mg/dL (8.4-10.2); Magnesium 2.2 mg/dL (1.6-2.3); Phosphorus 3.8 mg/dL (2.5-4.5); Potassium 4.9 mmol/L (3.5-5.1); Total Bilirubin 0.4 mg/dL (0.2-1.3); Total Protein 6.4 g/dL (6.3-8.2); Uric Acid 8.9 mg/dL (3.5-8.5)
[2021-01-13 12:38] LABS: Appearance,Urine Clear (Clear); Bacteria,Urine Rare /hpf; Bilirubin,Urine Negative (Negative); Blood,Urine Negative (Negative); Color,Urine Light Yellow; Glucose,Urine (UA) Negative (Negative); Ketones,Urine Negative (Negative); Leukocyte Esterase,Urine Large (Negative); Nitrite,Urine Negative (Negative); PH, Urine 6.5 (5.0-8.0); Protein,Urine Negative (Negative); RBC,Urine 1 /hpf (0-5); Specific Gravity,Urine 1.009 (1.001-1.035); Squamous Epithelial Cell,Urine <1 /hpf (0-4); Urobilinogen,Urine <2.0 mg/dL (<2.0); WBC,Urine 53 /hpf (0-5)
--- NOTE | 2021-01-13 13:21 | US ---
EXAMINATION TYPE: US kidneys/renal and bladder DATE OF EXAM: 01/13/2021 COMPARISON: 02/07/2010 CLINICAL HISTORY: N18.4 CKD. abn labs. EXAM MEASUREMENTS: Right Kidney: 9.1 x 4.1 x 3.7 cm Left Kidney: 10.6 x4.1 x 4.5 cm Right Kidney: Mid anterior cystic lesion = 2.6 x 2.2 x 2.2 cm. Cortical thinning. Appears smaller i n size compared to contralateral kidney. Left Kidney: No hydronephrosis or masses seen. Cortical thinning. Bladder: distended, anechoic with possible multiple right bladder wall polyps Bilateral Jets seen There is no evidence for hydronephrosis at this point in time. No nephrolithiasis is seen. No solid masses are identified. The urinary bladder is anechoic. Bilateral ureteral jets are seen. IMPRESSION: Right renal cyst. Otherwise unremarkable study.
[2021-01-13 21:33] LABS: % Iron Saturation 29.7 (15.00-50.00)
[2021-01-14 03:15] LABS: Urine Creatinine 63.1 mg/dL
== END | disposition home or self-care (01) ==
LOC: RADUSWWP 11:02
PROVIDERS: ATTEND Internal Medicine
DX: N18.4 Chronic kidney disease, stage 4 (severe) (principal); E55.9 Vitamin D deficiency, unspecified; N25.81 Secondary hyperparathyroidism of renal origin; D64.9 Anemia, unspecified; N39.0 Urinary tract infection, site not specified; M10.9 Gout, unspecified; E21.3 Hyperparathyroidism, unspecified; N28.1 Cyst of kidney, acquired
CPT/HCPCS: 36415; 76770; 80053; 81001; 82043; 82306; 82570; 82728; 83540; 83550; 83735; 83970; 84100; 84550; 85025

== ENCOUNTER 2022-01-06 20:43 | Inpatient (IN) | payer OTHER ==
[2022-01-06] MEDS ORDERED: SODIUM CHLORIDE 0.9% 1,000 ML IV STA (20:57)
--- NOTE | 2022-01-06 20:59 | ED ---
Weakness HPI - General Stated complaint: Weakness Time Seen by Provider: 01/06/22 20:49 Source: patient, family, RN notes reviewed Mode of arrival: EMS Limitations: no limitations - History of Present Illness Initial comments: This is an 86-year-old male who presents to the emergency department for generalized weakness. The generalized weakness has been going on for a couple of weeks. Patient states that a few hours ago, he started to develop chills and felt very fatigued. Family states he also started to feel dizzy today. His chills have since resolved, however he does feel very weak and short of breath. He is currently wearing a nasal cannula in the examination room. States that he is not on oxygen at home. Denies any pulmonary illnesses. He does have atrial fibrillation and takes a baby aspirin daily. He is otherwise not on any anticoagulants. He is worried that he might have COVID. Denies any sick contacts. He does state that he feels very dry and dehydrated. Denies any sore throat, cough, chest pain, palpitations, abdominal pain, nausea, vomiting, diarrhea, back pain, or headaches. MD Complaint: generalized weakness Location: generalized Associated Symptoms: fever/chills, shortness of breath - Related Data Home Medications Medication Instructions Recorded Confirmed Latanoprost/Pf [Latanoprost 0.005% 1 drop LEFT EYE HS 11/10/18 08/01/20 Eye Drop] Aspirin EC [Ecotrin Low Dose] 81 mg PO DAILY 04/28/20 08/01/20 Gabapentin [Neurontin] 600 mg PO HS 04/28/20 08/01/20 Insulin Glargine,Hum.rec.anlog 30 unit SQ HS 04/28/20 08/01/20 [Lantus Solostar Pen] Pravastatin Sodium [Pravachol] 80 mg PO HS 04/28/20 08/01/20 Previous Rx's Medication Instructions Recorded Cholecalciferol [Vitamin D3 (10 400 unit PO DAILY #10 tab 05/02/20 Mcg = 400 Iu)] Allergies Allergy/AdvReac Type Severity Reaction Status Date / Time atorvastatin [From Lipitor] Allergy Unknown Verified 08/01/20 22:40 metformin Allergy Unknown Verified 08/01/20 22:40 Review of Systems ROS Statement: Those systems with pertinent positive or pertinent negative responses have been documented in the HPI. ROS Other: All systems not noted in ROS Statement are negative. Past Medical History Past Medical History: Atrial Fibrillation, Diabetes Mellitus, Pneumonia History of Any Multi-Drug Resistant Organisms: None Reported Past Surgical History: Appendectomy Additional Past Surgical History / Comment(s): dental Past Anesthesia/Blood Transfusion Reactions: No Reported Reaction Past Psychological History: No Psychological Hx Reported Smoking Status: Former smoker Past Alcohol Use History: Rare Past Drug Use History: None Reported - Past Family History Mother History Unknown: Yes General Exam Limitations: no limitations General appearance: alert, in no apparent distress Head exam: Present: atraumatic, normocephalic, normal inspection Respiratory exam: Present: normal lung sounds bilaterally. Absent: respiratory distress, wheezes, rales, rhonchi, stridor Cardiovascular Exam: Present: tachycardia, irregular rhythm. Absent: systolic murmur, diastolic murmur, rubs, gallop, clicks Neurological exam: Present: alert, oriented X3, CN II-XII intact Psychiatric exam: Present: normal affect, normal mood Skin exam: Present: warm, dry, intact, normal color. Absent: rash Course Vital Signs 01/06/22 01/06/22 01/06/22 20:53 21:57 21:58 Temperature 103.1 F H Pulse Rate 118 H Pulse Rate [ 115 H [employer]ender ] Respiratory 26 H 24 Rate Blood Pressure 146/70 O2 Sat by Pulse 95 Oximetry 01/06/22 22:18 Temperature 98.4 F Pulse Rate 103 H Pulse Rate [ [employer] Tender ] Respiratory 22 Rate Blood Pressure 154/82 O2 Sat by Pulse 96 Oximetry EKG Findings - EKG Comments: EKG Findings:: Atrial fibrillation with rapid ventricular response. Ventricular rate 108 bpm, QRS duration 96 ms, QTC 400 ms. Medical Decision Making - Medical Decision Making This is an 86-year-old male who presents to the emergency department for weakness and shortness of breath. Patient is febrile on arrival at 103.1F. He was subsequently given 1g of Tylenol. Laboratory studies reveal leukocytosis. Chest x-ray did not identify an acute cardiopulmonary process. COVID testing and urinalysis were negative. At this time, the cause of his fever is unclear. Blood cultures were ordered. Additionally, he has an elevated d-dimer and troponin. Given the patient's poor kidney function, he cannot have a CTA. Patient is also currently on 2 L of oxygen via nasal cannula, however he is not on oxygen at home. In light of the elevated troponin and the fact that the patient is in atrial fibrillation with rapid ventricular response, he will be started on low intensity heparin protocol. Patient will be admitted for atrial fibrillation with RVR as well as the elevated d-dimer and to trend his troponin levels. Cardiology consult will be placed as well. Given his poor kidney function, a VQ scan was ordered for the morning for further evaluation of the shortness of breath and elevated d-dimer to look for signs of a pulmonary embolism. This case was discussed in detail with the attending ED physician. Presentation, findings, and treatment plan discussed in detail as well. - Lab Data Result diagrams: 01/06/22 21:03 01/06/22 21:03 Lab Results 01/06/22 01/06/22 01/06/22 Range/Units 21:03 21:03 21:03 WBC 14.2 H (3.8-10.6) k/uL RBC 4.52 (4.30-5.90) m/uL Hgb 13.6 (13.0-17.5) gm/dL Hct 42.0 (39.0-53.0) % MCV 92.9 (80.0-100.0) fL MCH 30.1 (25.0-35.0) pg MCHC 32.5 (31.0-37.0) g/dL RDW 13.3 (11.5-15.5) % Plt Count 260 (150-450) k/uL MPV 8.1 Neutrophils % 95 % Lymphocytes % 2 % Monocytes % 1 % Eosinophils % 1 % Basophils % 1 % Neutrophils # 13.5 H (1.3-7.7) k/uL Lymphocytes # 0.3 L (1.0-4.8) k/uL Monocytes # 0.1 (0-1.0) k/uL Eosinophils # 0.2 (0-0.7) k/uL Basophils # 0.1 (0-0.2) k/uL PT 10.3 (9.0-12.0) sec INR 0.9 (<1.2) APTT 20.2 L (22.0-30.0) sec D-Dimer 7.73 H (<0.60) mg/L FEU Sodium 139 (137-145) mmol/L Potassium 4.3 (3.5-5.1) mmol/L Chloride 107 (98-107) mmol/L Carbon Dioxide 21 L (22-30) mmol/L Anion Gap 11 mmol/L BUN 20 (9-20) mg/dL Creatinine 1.78 H (0.66-1.25) mg/dL Est GFR (CKD-EPI)AfAm 40 (>60 ml/min/1.73 sqM) Est GFR (CKD-EPI)NonAf 34 (>60 ml/min/1.73 sqM) Glucose 151 H (74-99) mg/dL Plasma Lactic Acid Jeffery (0.7-2.0) mmol/L Calcium 8.4 (8.4-10.2) mg/dL Phosphorus 2.0 L (2.5-4.5) mg/dL Magnesium 1.7 (1.6-2.3) mg/dL Total Bilirubin 0.7 (0.2-1.3) mg/dL AST 53 (17-59) U/L ALT 26 (4-49) U/L Alkaline Phosphatase 132 H (38-126) U/L Troponin I (0.000-0.034) ng/mL Total Protein 6.2 L (6.3-8.2) g/dL Albumin 3.4 L (3.5-5.0) g/dL Urine Color Urine Appearance (Clear) Urine pH (5.0-8.0) Ur Specific Ong (1.001-1.035) Urine Protein (Negative) Urine Glucose (UA) (Negative) Urine Ketones (Negative) Urine Blood (Negative) Urine Nitrite (Negative) Urine Bilirubin (Negative) Urine Urobilinogen (<2.0) mg/dL Ur Leukocyte Esterase (Negative) Urine RBC (0-5) /hpf Urine WBC (0-5) /hpf Coronavirus (PCR) (Not Detectd) 01/06/22 01/06/22 01/06/22 Range/Units 21:03 21:03 21:03 WBC (3.8-10.6) k/uL RBC (4.30-5.90) m/uL Hgb (13.0-17.5) gm/dL Hct (39.0-53.0) % MCV (80.0-100.0) fL MCH (25.0-35.0) pg MCHC (31.0-37.0) g/dL RDW (11.5-15.5) % Plt Count (150-450) k/uL MPV Neutrophils % % Lymphocytes % % Monocytes % % Eosinophils % % Basophils % % Neutrophils # (1.3-7.7) k/uL Lymphocytes # (1.0-4.8) k/uL Monocytes # (0-1.0) k/uL Eosinophils # (0-0.7) k/uL Basophils # (0-0.2) k/uL PT (9.0-12.0) sec INR (<1.2) APTT (22.0-30.0) sec D-Dimer (<0.60) mg/L FEU Sodium (137-145) mmol/L Potassium (3.5-5.1) mmol/L Chloride (98-107) mmol/L Carbon Dioxide (22-30) mmol/L Anion Gap mmol/L BUN (9-20) mg/dL Creatinine (0.66-1.25) mg/dL Est GFR (CKD-EPI)AfAm (>60 ml/min/1.73 sqM) Est GFR (CKD-EPI)NonAf (>60 ml/min/1.73 sqM) Glucose (74-99) mg/dL Plasma Lactic Acid Jeffery 2.8 H* (0.7-2.0) mmol/L Calcium (8.4-10.2) mg/dL Phosphorus (2.5-4.5) mg/dL Magnesium (1.6-2.3) mg/dL Total Bilirubin (0.2-1.3) mg/dL AST (17-59) U/L ALT (4-49) U/L Alkaline Phosphatase (38-126) U/L Troponin I 0.225 H* (0.000-0.034) ng/mL Total Protein (6.3-8.2) g/dL Albumin (3.5-5.0) g/dL Urine Color Urine Appearance (Clear) Urine pH (5.0-8.0) Ur Specific Ong (1.001-1.035) Urine Protein (Negative) Urine Glucose (UA) (Negative) Urine Ketones (Negative) Urine Blood (Negative) Urine Nitrite (Negative) Urine Bilirubin (Negative) Urine Urobilinogen (<2.0) mg/dL Ur Leukocyte Esterase (Negative) Urine RBC (0-5) /hpf Urine WBC (0-5) /hpf Coronavirus (PCR) Not Detected (Not Detectd) 01/06/22 Range/Units 21:21 WBC (3.8-10.6) k/uL RBC (4.30-5.90) m/uL Hgb (13.0-17.5) gm/dL Hct (39.0-53.0) % MCV (80.0-100.0) fL MCH (25.0-35.0) pg MCHC (31.0-37.0) g/dL RDW (11.5-15.5) % Plt Count (150-450) k/uL MPV Neutrophils % % Lymphocytes % % Monocytes % % Eosinophils % % Basophils % % Neutrophils # (1.3-7.7) k/uL Lymphocytes # (1.0-4.8) k/uL Monocytes # (0-1.0) k/uL Eosinophils # (0-0.7) k/uL Basophils # (0-0.2) k/uL PT (9.0-12.0) sec INR (<1.2) APTT (22.0-30.0) sec D-Dimer (<0.60) mg/L FEU Sodium (137-145) mmol/L Potassium (3.5-5.1) mmol/L Chloride (98-107) mmol/L Carbon Dioxide (22-30) mmol/L Anion Gap mmol/L BUN (9-20) mg/dL Creatinine (0.66-1.25) mg/dL Est GFR (CKD-EPI)AfAm (>60 ml/min/1.73 sqM) Est GFR (CKD-EPI)NonAf (>60 ml/min/1.73 sqM) Glucose (74-99) mg/dL Plasma Lactic Acid Jeffery (0.7-2.0) mmol/L Calcium (8.4-10.2) mg/dL Phosphorus (2.5-4.5) mg/dL Magnesium (1.6-2.3) mg/dL Total Bilirubin (0.2-1.3) mg/dL AST (17-59) U/L ALT (4-49) U/L Alkaline Phosphatase (38-126) U/L Troponin I (0.000-0.034) ng/mL Total Protein (6.3-8.2) g/dL Albumin (3.5-5.0) g/dL Urine Color Colorless Urine Appearance Clear (Clear) Urine pH 6.5 (5.0-8.0) Ur Specific Ong 1.006 (1.001-1.035) Urine Protein 1+ H (Negative) Urine Glucose (UA) 1+ H (Negative) Urine Ketones Negative (Negative) Urine Blood Negative (Negative) Urine Nitrite Negative (Negative) Urine Bilirubin Negative (Negative) Urine Urobilinogen <2.0 (<2.0) mg/dL Ur Leukocyte Esterase Negative (Negative) Urine RBC 1 (0-5) /hpf Urine WBC 1 (0-5) /hpf Coronavirus (PCR) (Not Detectd) - Radiology Data Radiology results: report reviewed, image reviewed Disposition Clinical Impression: Atrial fibrillation with RVR, Elevated troponin, Elevated d-dimer Disposition: ADMITTED IP TO THIS HOSP Referrals: [facility],Clinic [Primary Care Provider] - 1-2 days
[2022-01-06] MEDS ORDERED: ACETAMINOPHEN TAB 500 MG TAB PO STA (21:07)
[2022-01-06 21:18] LABS: Basophils # (A) 0.1 k/uL (0-0.2); Basophils % (A) 1 %; Eosinophils # (A) 0.2 k/uL (0-0.7); Eosinophils % (A) 1 %; HGB 13.6 gm/dL (13.0-17.5); Lymphocytes # (A) 0.3 k/uL (1.0-4.8); Lymphocytes % (A) 2 %; MCH 30.1 pg (25.0-35.0); MCHC 32.5 g/dL (31.0-37.0); MCV 92.9 fL (80.0-100.0); Mean Platelet Volume 8.1; Monocytes # (A) 0.1 k/uL (0-1.0); Monocytes % (A) 1 %; Neutrophils # (A) 13.5 k/uL (1.3-7.7); Neutrophils % (A) 95 %; Platelet Count 260 k/uL (150-450); RBC 4.52 m/uL (4.30-5.90); RDW 13.3 % (11.5-15.5); WBC 14.2 k/uL (3.8-10.6)
[2022-01-06 21:28] LABS: Albumin 3.4 g/dL (3.5-5.0); Calcium 8.4 mg/dL (8.4-10.2); Magnesium 1.7 mg/dL (1.6-2.3); Total Bilirubin 0.7 mg/dL (0.2-1.3); Total Protein 6.2 g/dL (6.3-8.2)
[2022-01-06 21:30] LABS: Potassium 4.3 mmol/L (3.5-5.1)
[2022-01-06 21:36] LABS: Appearance,Urine Clear (Clear); Bilirubin,Urine Negative (Negative); Blood,Urine Negative (Negative); Color,Urine Colorless; Glucose,Urine (UA) 1+ (Negative); Ketones,Urine Negative (Negative); Leukocyte Esterase,Urine Negative (Negative); Nitrite,Urine Negative (Negative); PH, Urine 6.5 (5.0-8.0); Protein,Urine 1+ (Negative); RBC,Urine 1 /hpf (0-5); Specific Gravity,Urine 1.006 (1.001-1.035); Urobilinogen,Urine <2.0 mg/dL (<2.0); WBC,Urine 1 /hpf (0-5)
--- NOTE | 2022-01-06 21:38 | XR ---
EXAMINATION TYPE: XR chest 2V DATE OF EXAM: 01/06/2022 9:31 PM COMPARISON: Chest radiographs from 08/01/2020 TECHNIQUE: XR chest 2V Frontal and lateral views of the chest. CLINICAL INDICATION:Male, 86 years old with history of Weakness, shortness of breath; FINDINGS: Lungs/Pleura: There is flattening of the diaphragm with increased lucency of the lungs. No evidence o f pneumothorax, pleural effusion or focal consolidation. Pulmonary vascularity: Unremarkable. Heart/mediastinum: Cardiomediastinal silhouette is unremarkable. Musculoskeletal: No acute osseous pathology. IMPRESSION: No acute cardiopulmonary disease/process.
[2022-01-06 21:44] LABS: INR 0.9 (<1.2); Prothrombin Time 10.3 sec (9.0-12.0)
[2022-01-06 21:51] LABS: Partial Thromboplastin Time 20.2 sec (22.0-30.0)
[2022-01-06] MEDS ORDERED: HEPARIN SODIUM 1,000 UN/ML (10ML VL) IV PRN (22:04)
[2022-01-06] MEDS ORDERED: HEPARIN SODIUM 1,000 UN/ML (10ML VL) IV ONE (22:04)
[2022-01-06] MEDS ORDERED: HEPARIN SOD,PORK IN 0.45% NACL 25,000 UNIT in 0.45% NACL 1 250ML.BAG IV SCH (22:15)
[2022-01-06] MEDS ORDERED: NALOXONE 0.4 MG/ML 1 ML VIAL IV PRN (22:16)
[2022-01-06] MEDS ORDERED: ONDANSETRON 4 MG/2 ML VIAL IVP PRN (22:16)
[2022-01-06] MEDS ORDERED: ACETAMINOPHEN TAB 325 MG TAB PO PRN (22:16)
[2022-01-06] MEDS ORDERED: HYDROcodone/APAP 5-325MG 1 EACH TAB PO PRN (22:16)
[2022-01-06] MEDS ORDERED: LORazepam 0.5 MG TAB PO PRN (23:15)
[2022-01-06] MEDS: LORazepam 0.5 MG TAB PO SCH (23:31)
[2022-01-06] MEDS: GABAPENTIN 300 MG CAP PO SCH (23:31)
[2022-01-06] MEDS: METOPROLOL TARTRATE 25 MG TAB PO SCH (23:31)
--- NOTE | 2022-01-07 03:29 | P.HPIM ---
History of Present Illness H&P Date: 01/06/22 Chief Complaint: SOB , weakness 86 year old male with Afib on aspirin , DM patient is awake alert, but seems to be confused about why he is here, he is not able to provide any meaningful history. his only complaint is that he feels sick and weak. cant provide any details about why he seeked medical care today. when asked direct questions, he kept repeating I dont know, and asked me to talk to a family member, no family available at this time. history obtained by reviewing medical records . and ER admit note. ED noted, that he came in for generalized weakness and SOB. he was initially found to have fever of 103, he does not use any home oxygen, but is feeling be tter now with supplemental oxygen of 2 LPM. workup inthe ED, CXR no acute pathology , blood work showed leukocytosis , UA negative , COVID negative. D dimer elevated and trops elevated. creatinine e levated. CTA could not be done due to renal function patient started on heparin drip for both possible underlying ACS and PE. VQ scan ordered for AM . patient did have Afib with RVR initially , now at time of my evaluation , converted to sinus rhythm again , patient unable to provide any meaningful history , he seems to be confused. he denies any chest pain at this time he denies tobacco smoking, illicit drugs or alcohol Review of Systems ROS unobtainable: due to mental status Past Medical History Past Medical History: Atrial Fibrillation, Diabetes Mellitus, Pneumonia History of Any Multi-Drug Resistant Organisms: None Reported Past Surgical History: Appendectomy Additional Past Surgical History / Comment(s): dental Past Anesthesia/Blood Transfusion Reactions: No Reported Reaction Past Psychological History: No Psychological Hx Reported Smoking Status: Former smoker Past Alcohol Use History: Rare Past Drug Use History: None Reported - Past Family History Mother History Unknown: Yes Family Medical History: Unable to Obtain Additional Family Medical History / Comment(s): patient confused and does not give clear answers Medications and Allergies Home Medications Medication Instructions Recorded Confirmed Type Aspirin EC [Ecotrin Low Dose] 81 mg PO DAILY 04/28/20 01/06/22 History Gabapentin [Neurontin] 600 mg PO HS 04/28/20 01/06/22 History Insulin Glargine,Hum.rec.anlog 20 unit SQ AC-SUPPER 04/28/20 01/06/22 History [Lantus Solostar Pen] Insulin Aspart [NovoLOG Flexpen] 5 units SQ AC-BID 01/06/22 01/06/22 History Metoprolol Tartrate [Lopressor] 25 mg PO BID 01/06/22 01/06/22 History Vit C/E/Zn/Coppr/Lutein/Zeaxan 1 cap PO BID 01/06/22 01/06/22 History [Preservision Areds 2 Softgel] allopurinoL 100 mg PO DAILY 01/06/22 01/06/22 History Allergies Allergy/AdvReac Type Severity Reaction Status Date / Time atorvastatin [From Lipitor] Allergy Unknown Verified 01/06/22 22:36 metformin Allergy Unknown Verified 01/06/22 22:36 Physical Exam Vitals: Vital Signs Temp Pulse Pulse Resp BP Pulse Ox 01/06/22 23:34 96 20 120/68 95 01/06/22 22:18 98.4 F 103 H 22 154/82 96 01/06/22 21:58 24 01/06/22 21:57 115 H 01/06/22 20:53 103.1 F H 118 H 26 H 146/70 95 Intake and Output 01/06/22 01/06/22 01/07/22 14:59 22:59 06:59 Other: Weight 86.183 kg Constitutional: No acute distress,cooperative confused Eyes: Anicteric sclerae, moist conjunctiva, Pupils equal round reactive to light ENMT: NC/AT Oropharynx clear, no erythema, or exudates Neck: Supple, , no masses, or JVD No carotid bruits No thyromegaly Lungs: Clear to auscultation Clear to percussion Normal respiratory effort, no accessory muscle use Cardiovascular: Heart regular in rate and rhythm, No murmurs, gallops, or rubs No peripheral edema Abdominal: Soft Nontender, no guarding, rebound or rigidity Abdomen moving with respiration Normoactive bowel sounds No hepatomegaly, No splenomegaly No palpable mass No abdominal wall hernia noted Skin: Normal temperature, tone, texture, turgor No induration No subcutaneous nodules No rash, lesions No ulcers Extremities: No digital cyanosis No clubbing posterior tibial pulses intact and symmetrical Radial pulses intact and symmetrical No calf tenderness Psychiatric: Alert and oriented to person, place Neuro Muscles Strength 4/5 in all 4 extremities Sensation to light touch grossly present throughout Cranial nerves II-XII grossly intact No focal sensory deficits Lymphatics: no palpable cervical or supraclavicular , or inguinal lymph nodes Results CBC & Chem 7: 01/06/22 21:03 01/06/22 21:03 Labs: Abnormal Lab Results - Last 24 Hours (Table) 01/06/22 01/06/22 01/06/22 Range/Units 21:03 21:03 21:03 WBC 14.2 H (3.8-10.6) k/uL Neutrophils # 13.5 H (1.3-7.7) k/uL Lymphocytes # 0.3 L (1.0-4.8) k/uL APTT 20.2 L (22.0-30.0) sec D-Dimer 7.73 H (<0.60) mg/L FEU Carbon Dioxide 21 L (22-30) mmol/L Creatinine 1.78 H (0.66-1.25) mg/dL Glucose 151 H (74-99) mg/dL Plasma Lactic Acid Jeffery (0.7-2.0) mmol/L Phosphorus 2.0 L (2.5-4.5) mg/dL Alkaline Phosphatase 132 H (38-126) U/L Troponin I (0.000-0.034) ng/mL Total Protein 6.2 L (6.3-8.2) g/dL Albumin 3.4 L (3.5-5.0) g/dL Urine Protein (Negative) Urine Glucose (UA) (Negative) 01/06/22 01/06/22 01/06/22 Range/Units 21:03 21:03 21:21 WBC (3.8-10.6) k/uL Neutrophils # (1.3-7.7) k/uL Lymphocytes # (1.0-4.8) k/uL APTT (22.0-30.0) sec D-Dimer (<0.60) mg/L FEU Carbon Dioxide (22-30) mmol/L Creatinine (0.66-1.25) mg/dL Glucose (74-99) mg/dL Plasma Lactic Acid Jeffery 2.8 H* (0.7-2.0) mmol/L Phosphorus (2.5-4.5) mg/dL Alkaline Phosphatase (38-126) U/L Troponin I 0.225 H* (0.000-0.034) ng/mL Total Protein (6.3-8.2) g/dL Albumin (3.5-5.0) g/dL Urine Protein 1+ H (Negative) Urine Glucose (UA) 1+ H (Negative) 01/06/22 Range/Units 23:41 WBC (3.8-10.6) k/uL Neutrophils # (1.3-7.7) k/uL Lymphocytes # (1.0-4.8) k/uL APTT (22.0-30.0) sec D-Dimer (<0.60) mg/L FEU Carbon Dioxide (22-30) mmol/L Creatinine (0.66-1.25) mg/dL Glucose (74-99) mg/dL Plasma Lactic Acid Jeffery (0.7-2.0) mmol/L Phosphorus (2.5-4.5) mg/dL Alkaline Phosphatase (38-126) U/L Troponin I 0.700 H* (0.000-0.034) ng/mL Total Protein (6.3-8.2) g/dL Albumin (3.5-5.0) g/dL Urine Protein (Negative) Urine Glucose (UA) (Negative) Assessment and Plan Assessment: fever and leukocytosis , rule out infectious process, versus reactive to underlying ACS or PE unkown focus of infection lactic acidosis follow up blood cultures CXR and UA , no acute pathology COVID negative supportive care IVF hydration with normal saline elevated troponin and d dimer rule out ACS , PE afib with RVR, now converted to NSR cant perform CTA chest due to elevated renal function initiated on heparin gtt VQ scan in am supplemental oxygen as needed continue aspirin cardiology consult denies any 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
[2022-01-07] MEDS: SODIUM CHLORIDE 0.9% 1,000 ML IV SCH ×2 (05:14→17:12)
[2022-01-07 06:23] LABS: Basophils # (A) 0.1 k/uL (0-0.2); Basophils % (A) 0 %; Eosinophils # (A) 0.1 k/uL (0-0.7); Eosinophils % (A) 0 %; HCT 37.3 % (39.0-53.0); HGB 12.3 gm/dL (13.0-17.5); Lymphocytes # (A) 1.6 k/uL (1.0-4.8); Lymphocytes % (A) 7 %; MCH 31.1 pg (25.0-35.0); MCHC 33.1 g/dL (31.0-37.0); MCV 93.9 fL (80.0-100.0); Mean Platelet Volume 8.3; Monocytes # (A) 0.9 k/uL (0-1.0); Monocytes % (A) 4 %; Neutrophils # (A) 21.7 k/uL (1.3-7.7); Neutrophils % (A) 89 %; Platelet Count 253 k/uL (150-450); RBC 3.97 m/uL (4.30-5.90); RDW 13.8 % (11.5-15.5); WBC 24.5 k/uL (3.8-10.6)
[2022-01-07 06:44] LABS: INR 1.1 (<1.2); Prothrombin Time 11.8 sec (9.0-12.0)
[2022-01-07 06:50] LABS: Albumin 2.6 g/dL (3.5-5.0); Calcium 7.5 mg/dL (8.4-10.2); Potassium 4.5 mmol/L (3.5-5.1); Total Bilirubin 0.5 mg/dL (0.2-1.3); Total Protein 5.2 g/dL (6.3-8.2)
[2022-01-07 06:52] LABS: Partial Thromboplastin Time 102.9 sec (22.0-30.0)
--- NOTE | 2022-01-07 08:53 | NM ---
EXAMINATION TYPE: NM pul vent and perfuse DATE OF EXAM: 01/07/2022 COMPARISON: 04/29/2020 HISTORY: Recurrent breast tachycardia and elevated d-dimer TECHNIQUE: Utilizing inhalation of 36.8 mCi Tc 99m DTPA aerosol and intravenous injection of 5.3 mCi of Tc 99m MAA, ventilation and perfusion images are acquired post injection in multiple projections. FINDINGS: Normal radiotracer distribution is noted in the lungs. There is no evidence of moderate or large mism atched defects. IMPRESSION: Low probability for pulmonary embolism
[2022-01-07 09:09] LABS: Glucose,Whole Blood 115 mg/dL (70-110)
[2022-01-07] MEDS: INSULIN ASPART (NovoLOG) 100 UNIT/ML VIAL SQ SCH ×5 (09:09→21:26)
[2022-01-07] MEDS: METOPROLOL TARTRATE 25 MG TAB PO SCH ×2 (09:31→21:28)
[2022-01-07] MEDS: allopurinoL 100 MG TAB PO SCH (09:31)
[2022-01-07 12:12] LABS: Glucose,Whole Blood 221 mg/dL (70-110)
--- NOTE | 2022-01-07 13:43 | P.PN ---
Subjective Progress Note Date: 01/07/22 Principal diagnosis: shaking Patient states that all of his symptoms are resolved currently and that he wants to go home. He is not having any more shakes or dizziness. Denies any chest pain or shortness of breath. Last night he had a fever of 103 and is currently resolved. Objective - Vital Signs Vital signs: Vital Signs Temp 98.6 F 01/07/22 11:03 Pulse 68 01/07/22 09:30 Resp 18 01/07/22 09:30 BP 137/72 01/07/22 09:31 Pulse Ox 96 01/07/22 11:43 FiO2 Intake & Output 01/06/22 01/07/22 01/07/22 18:59 06:59 18:59 Intake Total 85 Balance 85 Weight 86.183 kg Intake: Intake, IV Titration 85 Amount Heparin Sod,Pork in 0.45% 85 NaCl 25,000 unit In 0.45 % NaCl 1 250ml.bag @ 11. 6032 UNITS/KG/HR 10 mls/ hr IV .Q24H COUNT INCLUDES THE [facility] Rx#: [id number] - Exam Constitutional: No acute distress, conversant, pleasant Eyes:Anicteric sclerae, moist conjunctiva, no lid-lag, PERRLA, ENMT: Oropharynx clear, no erythema, exudates Neck: Supple, FROM, no masses, or JVD, No carotid bruits, No thyromegaly Lungs: Clear to auscultation, Clear to percussion, Normal respiratory effort, no accessory muscle use Cardiovascular: Heart regular in rate and rhythm, No murmurs, gallops, or rubs, No peripheral edema Abdominal: Soft, Nontender, no guarding, rebound or rigidity, Normoactive bowel sounds, No hepatomegaly, No splenomegaly, No palpable mass Skin: Normal temperature, tone, texture, turgor, no induration, No subcutaneous nodules, No rash, lesions, No ulcers Extremities: No digital cyanosis, No clubbing, Pedal pulses intact and symmetrical, Radial pulses intact and symmetrical, No calf tenderness Psychiatric: Alert and oriented to person, place and time, appropriate affect, intact judgement Neuro: Muscles Strength 5/5 in all 4 extremities, Sensation to light touch g rossly present throughout, Cranial nerves II-XII grossly intact, no focal sensory deficits - Labs CBC & Chem 7: 01/07/22 05:53 01/07/22 05:53 Labs: Abnormal Lab Results - Last 24 Hours (Table) 01/06/22 01/06/22 01/06/22 Range/Units 21:03 21:03 21:03 WBC 14.2 H (3.8-10.6) k/uL RBC (4.30-5.90) m/uL Hgb (13.0-17.5) gm/dL Hct (39.0-53.0) % Neutrophils # 13.5 H (1.3-7.7) k/uL Lymphocytes # 0.3 L (1.0-4.8) k/uL APTT 20.2 L (22.0-30.0) sec D-Dimer 7.73 H (<0.60) mg/L FEU Chloride (98-107) mmol/L Carbon Dioxide 21 L (22-30) mmol/L BUN (9-20) mg/dL Creatinine 1.78 H (0.66-1.25) mg/dL Glucose 151 H (74-99) mg/dL POC Glucose (mg/dL) (70-110) mg/dL Plasma Lactic Acid Jeffery (0.7-2.0) mmol/L Calcium (8.4-10.2) mg/dL Phosphorus 2.0 L (2.5-4.5) mg/dL Alkaline Phosphatase 132 H (38-126) U/L Troponin I (0.000-0.034) ng/mL Total Protein 6.2 L (6.3-8.2) g/dL Albumin 3.4 L (3.5-5.0) g/dL Urine Protein (Negative) Urine Glucose (UA) (Negative) 01/06/22 01/06/22 01/06/22 Range/Units 21:03 21:03 21:21 WBC (3.8-10.6) k/uL RBC (4.30-5.90) m/uL Hgb (13.0-17.5) gm/dL Hct (39.0-53.0) % Neutrophils # (1.3-7.7) k/uL Lymphocytes # (1.0-4.8) k/uL APTT (22.0-30.0) sec D-Dimer (<0.60) mg/L FEU Chloride (98-107) mmol/L Carbon Dioxide (22-30) mmol/L BUN (9-20) mg/dL Creatinine (0.66-1.25) mg/dL Glucose (74-99) mg/dL POC Glucose (mg/dL) (70-110) mg/dL Plasma Lactic Acid Jeffery 2.8 H* (0.7-2.0) mmol/L Calcium (8.4-10.2) mg/dL Phosphorus (2.5-4.5) mg/dL Alkaline Phosphatase (38-126) U/L Troponin I 0.225 H* (0.000-0.034) ng/mL Total Protein (6.3-8.2) g/dL Albumin (3.5-5.0) g/dL Urine Protein 1+ H (Negative) Urine Glucose (UA) 1+ H (Negative) 01/06/22 01/07/22 01/07/22 Range/Units 23:41 05:53 05:53 WBC 24.5 H (3.8-10.6) k/uL RBC 3.97 L (4.30-5.90) m/uL Hgb 12.3 L (13.0-17.5) gm/dL Hct 37.3 L (39.0-53.0) % Neutrophils # 21.7 H (1.3-7.7) k/uL Lymphocytes # (1.0-4.8) k/uL APTT 102.9 H* (22.0-30.0) sec D-Dimer (<0.60) mg/L FEU Chloride (98-107) mmol/L Carbon Dioxide (22-30) mmol/L BUN (9-20) mg/dL Creatinine (0.66-1.25) mg/dL Glucose (74-99) mg/dL POC Glucose (mg/dL) (70-110) mg/dL Plasma Lactic Acid Jeffery (0.7-2.0) mmol/L Calcium (8.4-10.2) mg/dL Phosphorus (2.5-4.5) mg/dL Alkaline Phosphatase (38-126) U/L Troponin I 0.700 H* (0.000-0.034) ng/mL Total Protein (6.3-8.2) g/dL Albumin (3.5-5.0) g/dL Urine Protein (Negative) Urine Glucose (UA) (Negative) 01/07/22 01/07/22 01/07/22 Range/Units 05:53 05:53 09:08 WBC (3.8-10.6) k/uL RBC (4.30-5.90) m/uL Hgb (13.0-17.5) gm/dL Hct (39.0-53.0) % Neutrophils # (1.3-7.7) k/uL Lymphocytes # (1.0-4.8) k/uL APTT (22.0-30.0) sec D-Dimer (<0.60) mg/L FEU Chloride 108 H (98-107) mmol/L Carbon Dioxide (22-30) mmol/L BUN 22 H (9-20) mg/dL Creatinine 1.83 H (0.66-1.25) mg/dL Glucose 110 H (74-99) mg/dL POC Glucose (mg/dL) 115 H (70-110) mg/dL Plasma Lactic Acid Jeffery (0.7-2.0) mmol/L Calcium 7.5 L (8.4-10.2) mg/dL Phosphorus (2.5-4.5) mg/dL Alkaline Phosphatase (38-126) U/L Troponin I 0.748 H* (0.000-0.034) ng/mL Total Protein 5.2 L (6.3-8.2) g/dL Albumin 2.6 L (3.5-5.0) g/dL Urine Protein (Negative) Urine Glucose (UA) (Negative) 01/07/22 Range/Units 12:11 WBC (3.8-10.6) k/uL RBC (4.30-5.90) m/uL Hgb (13.0-17.5) gm/dL Hct (39.0-53.0) % Neutrophils # (1.3-7.7) k/uL Lymphocytes # (1.0-4.8) k/uL APTT (22.0-30.0) sec D-Dimer (<0.60) mg/L FEU Chloride (98-107) mmol/L Carbon Dioxide (22-30) mmol/L BUN (9-20) mg/dL Creatinine (0.66-1.25) mg/dL Glucose (74-99) mg/dL POC Glucose (mg/dL) 221 H (70-110) mg/dL Plasma Lactic Acid Jeffery (0.7-2.0) mmol/L Calcium (8.4-10.2) mg/dL Phosphorus (2.5-4.5) mg/dL Alkaline Phosphatase (38-126) U/L Troponin I (0.000-0.034) ng/mL Total Protein (6.3-8.2) g/dL Albumin (3.5-5.0) g/dL Urine Protein (Negative) Urine Glucose (UA) (Negative) Assessment and Plan Plan: Fever and leukocytosis, unknown focus of infection lactic acidosis follow up blood cultures CXR and UA negative COVID negative, check influenza swab. Monitor temperature IVF hydration with normal saline Elevated troponin, rule out ACS Sinus tachycardia can't perform CTA chest due to elevated renal function, VQ scan showing low probability for PE. supplemental oxygen as needed continue aspirin and heparin gtt cardiology consulted nurse monitoring CKD stable DM , insulin sliding scale DVT PX on heparin gtt full code
[2022-01-07 17:17] LABS: Glucose,Whole Blood 192 mg/dL (70-110)
[2022-01-07] MEDS: INSULIN DETEMIR (LEVEMIR) 100 UNIT/ML SYR SQ SCH (18:29)
--- NOTE | 2022-01-07 19:11 | CA ---
Transthoracic Echo Report Name: Piero Cook Age: 86 Gender: M : 1935 Exam Date: 01/07/2022 09:14 Exam Location: [facility] Ht (in): 72 Wt (lb): 190 Ordering Physician: Anika Banerjee Attending/Referring Phys: Plater Hot Dip Parul Leach RDCS Procedure CPT: Indications: elevated troponin. A fib Cardiac Hx: Technical Quality: Good Contrast 1: N/A Total Dose (mL): Contrast 2: Total Dose (mL): MEASUREMENTS (Male / Female) Normal Values 2D ECHO LV Diastolic Diameter PLAX 3.4 cm 4.2 - 5.9 / 3.9 - 5.3 cm LV Systolic Diameter PLAX 2.6 cm IVS Diastolic Thickness 1.1 cm 0.6 - 1.0 / 0.6 - 0.9 cm LVPW Diastolic Thickness 1.3 cm 0.6 - 1.0 / 0.6 - 0.9 cm LV Relative Wall Thickness 0.7 RV Internal Dim ED PLAX 2.4 cm LA Systolic Diameter LX 3.8 cm 3.0 - 4.0 / 2.7 - 3.8 cm LA Volume 50.6 cm??? 18 - 58 / 22 - 52 cm??? M-MODE Aortic Root Diameter MM 3.2 cm LA Systolic Diameter MM 3.8 cm LA Ao Ratio MM 1.2 MV E Point Septal Separation 1.2 cm AV Cusp Separation MM 1.6 cm DOPPLER AV Peak Velocity 183.9 cm/s AV Peak Gradient 13.5 mmHg AV Mean Velocity 115.8 cm/s AV Mean Gradient 6.4 mmHg AV Velocity Time Integral 33.1 cm LVOT Peak Velocity 99.3 cm/s LVOT Peak Gradient 3.9 mmHg TR Peak Velocity 225.0 cm/s TR Peak Gradient 20.3 mmHg Right Ventricular Systolic Press 25.3 mmHg FINDINGS Left Ventricle Normal Left ventricular size, wall thickness, left ventricular ejection fraction is estimated at 50-55%. Right Ventricle Normal right ventricular size and function. Right Atrium Normal right atrial size. Left Atrium Normal left atrial size. Mitral Valve Mitral annular calcification. Mild mitral regurgitation. Aortic Valve Trileaflet aortic valve.aortic valve sclerosis. Tricuspid Valve Structurally normal tricuspid valve. Mild tricuspid regurgitation. Pulmonic Valve Pulmonic valve not well visualized. Pericardium Normal pericardium. Aorta Normal size aortic root and proximal ascending aorta. CONCLUSIONS 1. Left ventricle systolic function borderline normal 2. Mild mitral and tricuspid regurgitation Previewed by: Dr. Andreas Todd MD (Electronically Signed) Final Date: 07 January 2022 19:10
[2022-01-07 21:22] LABS: Glucose,Whole Blood 153 mg/dL (70-110)
[2022-01-07] MEDS: LORazepam 0.5 MG TAB PO SCH (21:28)
[2022-01-07] MEDS: GABAPENTIN 300 MG CAP PO SCH (21:28)
[2022-01-07] MEDS: HEPARIN SODIUM,PORCINE/PF 5,000 UNIT/0.5 ML SYRINGE SQ SCH (21:56)
--- NOTE | 2022-01-08 00:07 | CONS ---
CONSULTATION HISTORY OF PRESENT ILLNESS: Piero Cook is an 86-year-old gentleman with a known history of hypertension, type 2 diabetes, who also has history of some paroxysmal atrial tachycardia. He came in to the hospital with what seems to be complains of some altered mentation and an EKG was obtained and it was felt he was in atrial fib, and therefore, I was consulted. On reviewing the EKG, it appears that this is actually a sinus mechanism with some PACs and now the rhythm strip clearly reveals a sinus mechanism. There is no evidence to suggest any persistent atrial fibrillation on this patient. Rhythm strips suggest sinus mechanism. EKG suggests sinus with PACs. He is resting comfortably without symptoms, has no chest pain or shortness of breath. Apparently, he was febrile when he came in and he also had leukocytosis and the infectious process is being considered and investigation is in progress. He also has a borderline troponin elevation. He has no chest pain, shortness of breath, or palpitations at the time of my evaluation, and his temperature is also in the normal range. PAST MEDICAL HISTORY: History of diabetes and history of pneumonia. He is status post appendectomy. MEDICATIONS: At home include, 1. Aspirin. 2. Gabapentin. 3. Lantus insulin. 4. NovoLog insulin. 5. Metoprolol 25 mg b.i.d. PHYSICAL EXAMINATION: VITAL SIGNS: On examination, blood pressure is 130/70 and pulse rate is 68 and regular. HEENT: Unremarkable. Fundus was not examined by me. NECK: Supple. No JVD. I do not hear a carotid bruit. There is no thyromegaly. HEART: S1 and S2 with a short systolic murmur at left sternal border. Rhythm is regular. LUNGS: Clear. ABDOMEN: Soft, nontender. EXTREMITIES: Lower extremities reveal diminished pulses. CENTRAL NERVOUS SYSTEM: Normal. IMPRESSION: 1. Fever and leukocytosis. 2. Question of atrial fibrillation, not confirmed based on my review of rhythm strips and EKG. 3. History of paroxysmal atrial tachycardia. 4. Hypertension. 5. Type 2 diabetes. RECOMMENDATIONS: I am recommending that we place him on a subcu heparin instead of IV heparin, check another EKG in the morning, continue current medications, and also workup for his fever and elevated white count is in progress. Cardiac-su no major changes other than above recommendations. Thank you very much for the consult. MMODL / IJN: [id number] /
[2022-01-08] MEDS ORDERED: cloNIDine HCL 0.2 MG TAB PO PRN (00:28)
[2022-01-08] MEDS ORDERED: DILTIAZEM 125 MG in SODIUM CHLORIDE 0.9% 100 ML IV SCH (01:45)
[2022-01-08 06:24] LABS: Glucose,Whole Blood 136 mg/dL (70-110)
[2022-01-08] MEDS: INSULIN ASPART (NovoLOG) 100 UNIT/ML VIAL SQ SCH ×6 (06:50→20:37)
[2022-01-08] MEDS: HEPARIN SODIUM,PORCINE/PF 5,000 UNIT/0.5 ML SYRINGE SQ SCH (08:45)
[2022-01-08] MEDS: METOPROLOL TARTRATE 25 MG TAB PO SCH ×3 (08:45→21:36)
[2022-01-08] MEDS: allopurinoL 100 MG TAB PO SCH (08:45)
[2022-01-08 10:31] LABS: HCT 38.3 % (39.0-53.0); Hypochromasia Slight; MCHC 31.3 g/dL (31.0-37.0); MCV 95.8 fL (80.0-100.0); Mean Platelet Volume 8.9; Platelet Count 245 k/uL (150-450); RDW 13.5 % (11.5-15.5); WBC 15.7 k/uL (3.8-10.6)
[2022-01-08 10:39] LABS: Calcium 8.3 mg/dL (8.4-10.2); Magnesium 1.8 mg/dL (1.6-2.3); Potassium 4.7 mmol/L (3.5-5.1)
[2022-01-08] MEDS: AMIODARONE 200 MG TAB PO SCH ×2 (10:41→20:34)
--- NOTE | 2022-01-08 11:16 | P.PN ---
Subjective Progress Note Date: 01/08/22 Principal diagnosis: shaking Patient feeling better, no complaints currently. Feels back to normal. No sob or pain. No fevers. No n/v. Objective - Vital Signs Vital signs: Vital Signs Temp 97.8 F 01/08/22 08:49 Pulse 107 H 01/08/22 08:49 Resp 18 01/08/22 08:49 BP 101/55 01/08/22 08:49 Pulse Ox 97 01/08/22 08:49 FiO2 Intake & Output 01/07/22 01/08/22 01/08/22 18:59 06:59 18:59 Intake Total 85 725 284.167 Output Total 1575 Balance 85 -850 284.167 Weight 86.183 kg Intake: IV 675 Sodium Chloride 0.9% 1, 675 000 ml @ 75 mls/hr IV . [id number] [facility] Rx#:[id number] Intake, IV Titration 85 50 44.167 Amount Diltiazem 125 mg In 44.167 Sodium Chloride 0.9% 100 ml @ 5 MG/HR 5 mls/hr IV .Q24H [facility] Rx#:[id number] Heparin Sod,Pork in 0.45% 85 NaCl 25,000 unit In 0.45 % NaCl 1 250ml.bag @ 11. 6032 UNITS/KG/HR 10 mls/ hr IV .Q24H [facility] Rx#: [id number] cefTRIAXone 2 gm In 50 Sodium Chloride 0.9% 50 ml @ 100 mls/hr IVPB Q24HR [facility] Rx#:[id number] Oral 240 Output: Urine 1575 Other: Voiding Method Urinal Urinal - Exam Constitutional: No acute distress, conversant, pleasant Eyes:Anicteric sclerae, moist conjunctiva, no lid-lag, PERRLA, ENMT: Oropharynx clear, no erythema, exudates Neck: Supple, FROM, no masses, or JVD, No carotid bruits, No thyromegaly Lungs: Clear to auscultation, Clear to percussion, Normal respiratory effort, no accessory muscle use Cardiovascular: Heart regular in rate and rhythm, No murmurs, gallops, or rubs, No peripheral edema Abdominal: Soft, Nontender, no guarding, rebound or rigidity, Normoactive bowel sounds, No hepatomegaly, No splenomegaly, No palpable mass Skin: Normal temperature, tone, texture, turgor, no induration, No subcutaneous nodules, No rash, lesions, No ulcers Extremities: No digital cyanosis, No clubbing, Pedal pulses intact and symmetrical, Radial pulses intact and symmetrical, No calf tenderness Psychiatric: Alert and oriented to person, place and time, appropriate affect, intact judgement Neuro: Muscles Strength 5/5 in all 4 extremities, Sensation to light touch grossly present throughout, Cranial nerves II-XII grossly intact, no focal sensory deficits - Labs CBC & Chem 7: 01/08/22 06:19 01/08/22 06:19 Labs: Abnormal Lab Results - Last 24 Hours (Table) 01/07/22 01/07/22 01/07/22 Range/Units 12:11 17:15 21:21 WBC (3.8-10.6) k/uL RBC (4.30-5.90) m/uL Hgb (13.0-17.5) gm/dL Hct (39.0-53.0) % Creatinine (0.66-1.25) mg/dL Glucose (74-99) mg/dL POC Glucose (mg/dL) 221 H 192 H 153 H (70-110) mg/dL Calcium (8.4-10.2) mg/dL 01/08/22 01/08/22 01/08/22 Range/Units 06:19 06:19 06:22 WBC 15.7 H (3.8-10.6) k/uL RBC 4.00 L (4.30-5.90) m/uL Hgb 12.0 L (13.0-17.5) gm/dL Hct 38.3 L (39.0-53.0) % Creatinine 1.96 H (0.66-1.25) mg/dL Glucose 137 H (74-99) mg/dL POC Glucose (mg/dL) 136 H (70-110) mg/dL Calcium 8.3 L (8.4-10.2) mg/dL Microbiology - Last 24 Hours (Table) 01/06/22 21:27 Blood Culture - Final Blood Assessment and Plan Plan: Fever and leukocytosis, Sepsis with unknown focus of infection Bacteremia with gram positiive cocci and gram negative rods growing in the blood D/w ID, will repeat UA, blood cultures and order echo. follow up blood cultures CXR and UA negative IVF hydration with normal saline Elevated troponin, likely sec to sepsis Sinus tachycardia can't perform CTA chest due to elevated renal function, VQ scan showing low probability for PE. Echo ok. Continue operating theatre technician continue aspirin cardiology following, heparin gtt switched to s.q CKD stable DM , insulin sliding scale DVT PX on heparin s.q full code
--- NOTE | 2022-01-08 11:32 | P.PN ---
Subjective Patient was resting comfortably in bed He is experiencing very brief but frequent episodes of atrial fibrillation, paroxysmal No significant postconversion pause Examinations heart sounds are normal intermittently irregular No JVD Lungs no rhonchi no crackles Elevated white count of 15.7, hemoglobin 12 Sodium 140, potassium 4.7 BUN 19 and creatinine 1.96 Impression Very short runs of atrial fibrillation, paroxysmal Admitted for fever and leukocytosis History of hypertension History of type 2 diabetes Creatinine 1.96, GFR 31 Suggest Stop diltiazem drip Increase metoprolol to 25 mg 3 times a day Suppressive oral amiodarone short-term only by mouth 200 twice a day for 2 weeks and then stop Suggest ELIQUIS 2.5 mg twice daily Objective - Vital Signs Vital signs: Vital Signs Temp 97.8 F 01/08/22 08:49 Pulse 107 H 01/08/22 08:49 Resp 18 01/08/22 08:49 BP 101/55 01/08/22 08:49 Pulse Ox 97 01/08/22 08:49 FiO2 Intake & Output 01/07/22 01/08/22 01/08/22 18:59 06:59 18:59 Intake Total 85 725 284.167 Output Total 1575 Balance 85 -850 284.167 Weight 86.183 kg Intake: IV 675 Sodium Chloride 0.9% 1, 675 000 ml @ 75 mls/hr IV . [id number] [facility] Rx#:[id number] Intake, IV Titration 85 50 44.167 Amount Diltiazem 125 mg In 44.167 Sodium Chloride 0.9% 100 ml @ 5 MG/HR 5 mls/hr IV .Q24H [facility] Rx#:[id number] Heparin Sod,Pork in 0.45% 85 NaCl 25,000 unit In 0.45 % NaCl 1 250ml.bag @ 11. 6032 UNITS/KG/HR 10 mls/ hr IV .Q24H [facility] Rx#: [id number] cefTRIAXone 2 gm In 50 Sodium Chloride 0.9% 50 ml @ 100 mls/hr IVPB Q24HR [facility] Rx#:[id number] Oral 240 Output: Urine 1575 Other: Voiding Method Urinal Urinal - Labs CBC & Chem 7: 01/08/22 06:19 01/08/22 06:19 Labs: Abnormal Lab Results - Last 24 Hours (Table) 01/07/22 01/07/2201/07/22 Range/Units 12:11 17:15 21:21 WBC (3.8-10.6) k/uL RBC (4.30-5.90) m/uL Hgb (13.0-17.5) gm/dL Hct (39.0-53.0) % Creatinine (0.66-1.25) mg/dL Glucose (74-99) mg/dL POC Glucose (mg/dL) 221 H 192 H 153 H (70-110) mg/dL Calcium (8.4-10.2) mg/dL 01/08/22 01/08/22 01/08/22 Range/Units 06:19 06:19 06:22 WBC 15.7 H (3.8-10.6) k/uL RBC 4.00 L (4.30-5.90) m/uL Hgb 12.0 L (13.0-17.5) gm/dL Hct 38.3 L (39.0-53.0) % Creatinine 1.96 H (0.66-1.25) mg/dL Glucose 137 H (74-99) mg/dL POC Glucose (mg/dL) 136 H (70-110) mg/dL Calcium 8.3 L (8.4-10.2) mg/dL Microbiology - Last 24 Hours (Table) 01/06/22 21:27 Blood Culture - Final Blood
[2022-01-08 12:03] LABS: Glucose,Whole Blood 168 mg/dL (70-110)
[2022-01-08 12:41] LABS: Appearance,Urine Clear (Clear); Bilirubin,Urine Negative (Negative); Blood,Urine Negative (Negative); Color,Urine Light Yellow; Glucose,Urine (UA) Negative (Negative); Ketones,Urine Negative (Negative); Leukocyte Esterase,Urine Negative (Negative); Nitrite,Urine Negative (Negative); Protein,Urine Negative (Negative); Specific Gravity,Urine 1.008 (1.001-1.035); Urobilinogen,Urine <2.0 mg/dL (<2.0)
[2022-01-08] MEDS ORDERED: DAPTOmycin 500 MG in SODIUM CHLORIDE 0.9% 50 ML IVPB SCH (14:00)
[2022-01-08] MEDS ORDERED: CEFEPIME 2 GM in SODIUM CHLORIDE 0.9% 100 ML IVPB SCH (14:00)
[2022-01-08 16:59] LABS: Glucose,Whole Blood 185 mg/dL (70-110)
[2022-01-08] MEDS: CEFEPIME 2 GM in SODIUM CHLORIDE 0.9% 100 ML IVPB SCH (17:07)
[2022-01-08] MEDS: SODIUM CHLORIDE 0.9% 1,000 ML IV SCH ×2 (17:15→18:39)
[2022-01-08] MEDS: INSULIN DETEMIR (LEVEMIR) 100 UNIT/ML SYR SQ SCH (18:38)
[2022-01-08] MEDS: GABAPENTIN 300 MG CAP PO SCH (20:33)
[2022-01-08] MEDS: APIXABAN 2.5 MG TABLET PO SCH (20:34)
[2022-01-08] MEDS: LORazepam 0.5 MG TAB PO SCH (20:34)
[2022-01-08 20:38] LABS: Glucose,Whole Blood 94 mg/dL (70-110)
[2022-01-08] MEDS ORDERED: DEXTROSE 5% IN WATER 100 ML with AMIODARONE 150 MG IV ONE (22:16)
--- NOTE | 2022-01-08 22:38 | P.CONS ---
History of Present Illness - Reason for Consult Consult date: 01/08/22 Fever Requesting physician: Vick Emmanuel - Chief Complaint Weakness and chills x few days - History of Present Illness Patient is a 86-year-old male presenting to the hospital 2 days ago for evaluation of generalized weakness rigors and chills in this patient symptom has been going on for a day or 2 before presentation to the hospital patient denies having any headache or URI symptoms patient denies having any chest pain or shortness of breath though did have minimal cough no sputum production abdominal pain or diarrhea patient did have a poor urinary stream but denies any difficulty urination did have some burning of urine as well no hematuria no a bdominal pain no diarrhea or constipation patient on presentation to the hospital have fever of 103 F patient was tachycardic and did have white count of 14.2 with a left shift creatinine is elevated liver enzymes are normal urine has been negative COVID and influenza PCR has been negative patient did have a chest x-ray negative for acute cardiopulmonary process patient did have an echocardiogram did not show any valvular abnormality patient will be started on Rocephin with a blood cultures not showing gram-positive as well as gram- negative infectious disease was consulted for further management of antibiotic therapy Review of Systems Positive point has been mentioned in the HPI rest of the systems are negative Past Medical History Past Medical History: Atrial Fibrillation, Diabetes Mellitus, Pneumonia History of Any Multi-Drug Resistant Organisms: None Reported Past Surgical History: Appendectomy Additional Past Surgical History / Comment(s): dental Past Anesthesia/Blood Transfusion Reactions: No Reported Reaction Past Psychological History: No Psychological Hx Reported Smoking Status: Former smoker Past Alcohol Use History: Rare Past Drug Use History: None Reported - Past Family History Mother History Unknown: Yes Family Medical History: Unable to Obtain Additional Family Medical History / Comment(s): patient confused and does not give clear answers Medications and Allergies Home Medications Medication Instructions Recorded Confirmed Type Aspirin EC [Ecotrin Low Dose] 81 mg PO DAILY 04/28/20 01/06/22 History Gabapentin [Neurontin] 600 mg PO HS 04/28/20 01/06/22 History Insulin Glargine,Hum.rec.anlog 20 unit SQ AC-SUPPER 04/28/20 01/06/22 History [Lantus Solostar Pen] Insulin Aspart [NovoLOG Flexpen] 5 units SQ AC-BID 01/06/22 01/06/22 History Metoprolol Tartrate [Lopressor] 25 mg PO BID 01/06/22 01/06/22 History Vit C/E/Zn/Coppr/Lutein/Zeaxan 1 cap PO BID 01/06/22 01/06/22 History [Preservision Areds 2 Softgel] allopurinoL 100 mg PO DAILY 01/06/22 01/06/22 History Allergies Allergy/AdvReac Type Severity Reaction Status Date / Time atorvastatin [From Lipitor] Allergy Unknown Verified 01/06/22 22:36 metformin Allergy Unknown Verified 01/06/22 22:36 Physical Exam Vitals: Vital Signs Temp Pulse Pulse Resp BP BP Pulse Ox 01/08/22 08:49 97.8 F 107 H 18 101/55 97 01/08/22 08:00 18 01/08/22 04:00 98.0 F 135 H 19 99/43 98 01/08/22 00:00 98.8 F 89 18 178/94 94 L 01/07/22 20:10 84 20 157/71 97 01/07/22 20:00 97.7 F 99 18 162/94 94 L 01/07/22 18:34 98.7 F 88 18 170/84 97 01/07/22 16:00 70 18 133/68 95 01/07/22 15:00 66 20 140/68 98 01/07/22 14:00 20 137/72 88 L 01/07/22 13:00 65 20 132/64 92 L 01/07/22 12:00 60 20 97 01/07/22 11:43 96 01/07/22 11:03 98.6 F 01/07/22 11:00 66 20 138/74 95 01/07/22 10:16 70 18 137/72 84 L Intake and Output 01/07/22 01/08/22 01/08/22 22:59 06:59 14:59 Intake Total 275 450 Output Total 975 600 Balance -700 -150 Intake: IV 225 450 Sodium Chloride 0.9% 1, 225 450 000 ml @ 75 mls/hr IV . [id number] [facility] Rx#:[id number] Intake, IV Titration 50 Amount cefTRIAXone 2 gm In 50 Sodium Chloride 0.9% 50 ml @ 100 mls/hr IVPB Q24HR [facility] Rx#:[id number] Output: Urine 975 600 Other: Voiding Method Urinal Urinal Urinal Weight 86.183 kg GENERAL DESCRIPTION: Elderly male lying in bed, no distress. No tachypnea or accessory muscle of respiration use. HEENT: Shows Pallor , no scleral icterus. Oral mucous membrane is dry. No pharyngeal erythema or thrush NECK: Trachea central, no thyromegaly. LUNGS: Unlabored breathing. Clear to auscultation anteriorly. No wheeze or crackle. HEART: S1, S2, regular rate and rhythm. No loud murmur ABDOMEN: Soft, no tenderness , guarding or rigidity, no organomegaly EXTREMITIES: No edema of feet. SKIN: No rash, no masses palpable. NEUROLOGICAL: The patient is awake, alert, oriented x3, mood and affect normal. Results CBC & Chem 7: 01/09/22 10:11 01/09/22 10:11 Labs: Abnormal Lab Results - Last 24 Hours (Table) 01/07/22 01/07/22 01/07/22 Range/Units 12:11 17:15 21:21 POC Glucose (mg/dL) 221 H 192 H 153 H (70-110) mg/dL 01/08/22 Range/Units 06:22 POC Glucose (mg/dL) 136 H (70-110) mg/dL Microbiology - Last 24 Hours (Table) 01/06/22 21:27 Blood Culture - Final Blood Assessment and Plan (1) Bacteremia Current Visit: Yes Status: Acute Code(s): R78.81 - BACTEREMIA SNOMED Code(s): 4642775 Plan: 1patient presented to hospital with sepsis and respiratory fever tachycardia elevated white count now with evidence of bacteremia in this patient do have a gram-negative as well as gram-positive without clear focus of infection with symptoms of rigors and chills and some urinary burning possible urinary source even though initial UA was negative patient abdominal soft ankle examination no evidence of any joint swelling or cellulitis. 2blood cultures will be repeated document clearance of bacteremia. 3repeat a UA and culture. 4we will check a CT abdominal pelvis with oral contrast as the patient did have elevated creatinine. 5continue with Rocephin however we will add daptomycin to cover for the gram- positive while waiting for ID sensitivity. We will follow on clinical condition and cultures to further adjust medication if needed Thank you for this consultation will follow this patient along with you Time with Patient: Greater than 30
[2022-01-08] MEDS ORDERED: AMIODARONE 360 MG in DEXTROSE 5% IN WATER 200 ML IV ONE ×2 (22:50)
[2022-01-09] MEDS: CEFEPIME 2 GM in SODIUM CHLORIDE 0.9% 100 ML IVPB SCH ×2 (03:49→15:00)
[2022-01-09] MEDS ORDERED: AMIODARONE 360 MG in DEXTROSE 5% IN WATER 200 ML IV ONE ×2 (05:00)
[2022-01-09 06:51] LABS: Glucose,Whole Blood 183 mg/dL (70-110)
[2022-01-09] MEDS: INSULIN ASPART (NovoLOG) 100 UNIT/ML VIAL SQ SCH ×6 (06:52→21:26)
[2022-01-09] MEDS: allopurinoL 100 MG TAB PO SCH (10:12)
[2022-01-09] MEDS: APIXABAN 2.5 MG TABLET PO SCH ×2 (10:12→21:29)
[2022-01-09] MEDS: SODIUM CHLORIDE 0.9% 1,000 ML IV SCH (10:12)
[2022-01-09] MEDS: METOPROLOL TARTRATE 25 MG TAB PO SCH ×3 (10:13→21:32)
[2022-01-09 10:41] LABS: Basophils % (A) 0 %; Eosinophils # (A) 0.6 k/uL (0-0.7); Eosinophils % (A) 4 %; HCT 39.2 % (39.0-53.0); HGB 12.6 gm/dL (13.0-17.5); Lymphocytes # (A) 1.6 k/uL (1.0-4.8); Lymphocytes % (A) 12 %; MCH 29.9 pg (25.0-35.0); MCV 93.1 fL (80.0-100.0); Mean Platelet Volume 8.3; Monocytes # (A) 1.3 k/uL (0-1.0); Monocytes % (A) 10 %; Neutrophils # (A) 10.2 k/uL (1.3-7.7); Neutrophils % (A) 73 %; Platelet Count 249 k/uL (150-450); RBC 4.21 m/uL (4.30-5.90); RDW 13.5 % (11.5-15.5); WBC 14.1 k/uL (3.8-10.6)
--- NOTE | 2022-01-09 10:45 | P.PN ---
Subjective Patient resting comfortably in bed Denies any symptoms Continues to have very frequent paroxysms of atrial fibrillation brief, interjected by a single sinus pauses and then nonsustained A. fib repeatedly Started on IV amiodarone yesterday On examination blood pressure 121/96 and 142/74 mmHg pulse rate ranges from 9826 beats a minute Breath sounds are reduced bilaterally Impression Recurrent paroxysms of atrial fibrillation with RVR Plan continue IV amiodarone and switched to by mouth amiodarone and thereafter maximize beta blockers Check TSH Objective - Vital Signs Vital signs: Vital Signs Temp 98.2 F 01/09/22 08:00 Pulse 87 01/09/22 08:00 Resp 16 01/09/22 08:00 BP 142/74 01/09/22 08:00 Pulse Ox 93 L 01/09/22 08:00 FiO2 Intake & Output 01/08/22 01/09/22 01/09/22 18:59 06:59 18:59 Intake Total 650.805 4316 Output Total 350 1700 Balance 484.167 -635 Intake: IV 825 Sodium Chloride 0.9% 1, 825 000 ml @ 75 mls/hr IV . [id number] [facility] Rx#:[id number] Intake, IV Titration 44.167 Amount Diltiazem 125 mg In 44.167 Sodium Chloride 0.9% 100 ml @ 5 MG/HR 5 mls/hr IV .Q24H [facility] Rx#:[id number] Oral 790 240 Output: Urine 350 1700 Other: Voiding Method Urinal Urinal - Labs CBC & Chem 7: 01/09/22 10:11 01/08/22 06:19 Labs: Abnormal Lab Results - Last 24 Hours (Table) 01/08/22 01/08/22 01/09/22 Range/Units 12:02 16:59 06:49 WBC (3.8-10.6) k/uL RBC (4.30-5.90) m/uL Hgb (13.0-17.5) gm/dL Neutrophils # (1.3-7.7) k/uL Monocytes # (0-1.0) k/uL POC Glucose (mg/dL) 168 H 185 H 183 H (70-110) mg/dL 01/09/22 Range/Units 10:11 WBC 14.1 H (3.8-10.6) k/uL RBC 4.21 L (4.30-5.90) m/uL Hgb 12.6 L (13.0-17.5) gm/dL Neutrophils # 10.2 H (1.3-7.7) k/uL Monocytes # 1.3 H (0-1.0) k/uL POC Glucose (mg/dL) (70-110) mg/dL Microbiology - Last 24 Hours (Table) 01/08/22 06:19 Blood Culture - Preliminary Blood No Growth after 24 hours
[2022-01-09 11:01] LABS: Albumin 3.1 g/dL (3.5-5.0); Calcium 8.6 mg/dL (8.4-10.2); Magnesium 1.7 mg/dL (1.6-2.3); Potassium 4.3 mmol/L (3.5-5.1); Total Bilirubin 0.5 mg/dL (0.2-1.3); Total Protein 5.9 g/dL (6.3-8.2)
[2022-01-09] MEDS ORDERED: AMIODARONE 450 MG in DEXTROSE 5% IN WATER 250 ML IV SCH ×2 (11:56)
[2022-01-09 12:04] LABS: Glucose,Whole Blood 130 mg/dL (70-110)
[2022-01-09] MEDS: AMIODARONE 450 MG in DEXTROSE 5% IN WATER 250 ML IV SCH ×2 (12:31)
--- NOTE | 2022-01-09 13:45 | P.PN ---
Subjective Progress Note Date: 01/09/22 Principal diagnosis: shaking Patient is feeling well, no complaints of shortness of breath or pain. No fevers or chills. No nausea or vomiting. Objective - Vital Signs Vital signs: Vital Signs Temp 98.7 F 01/09/22 12:27 Pulse 79 01/09/22 12:27 Resp 19 01/09/22 12:27 BP 114/57 01/09/22 12:27 Pulse Ox 92 L 01/09/22 12:27 FiO2 Intake & Output 01/08/22 01/09/22 01/09/22 18:59 06:59 18:59 Intake Total 192.913 0232 1040 Output Total 350 1700 Balance 484.167 -635 1040 Intake: IV 825 Sodium Chloride 0.9% 1, 825 000 ml @ 75 mls/hr IV . [id number] [facility] Rx#:[id number] Intake, IV Titration 44.167 200 Amount Amiodarone 360 mg In 200 Dextrose 5% in Water 200 ml @ 1 MG/MIN 33.333 mls/ hr IV .Q6H [facility] Rx#: [id number] Diltiazem 125 mg In 44.167 Sodium Chloride 0.9% 100 ml @ 5 MG/HR 5 mls/hr IV .Q24H [facility] Rx#:[id number] Oral 790 240 840 Output: Urine 350 1700 Other: Voiding Method Urinal Urinal - Exam Constitutional: No acute distress, conversant, pleasant Eyes:Anicteric sclerae, moist conjunctiva, no lid-lag, PERRLA, ENMT: Oropharynx clear, no erythema, exudates Neck: Supple, FROM, no masses, or JVD, No carotid bruits, No thyromegaly Lungs: Clear to auscultation, Clear to percussion, Normal respiratory effort, no accessory muscle use Cardiovascular: Heart regular in rate and rhythm, No murmurs, gallops, or rubs, No peripheral edema Abdominal: Soft, Nontender, no guarding, rebound or rigidity, Normoactive bowel sounds, No hepatomegaly, No splenomegaly, No palpable mass Skin: Normal temperature, tone, texture, turgor, no induration, No subcutaneous nodules, No rash, lesions, No ulcers Extremities: No digital cyanosis, No clubbing, Pedal pulses intact and symmetrical, Radial pulses intact and symmetrical, No calf tenderness Psychiatric: Alert and oriented to person, place and time, appropriate affect, intact judgement Neuro: Muscles Strength 5/5 in all 4 extremities, Sensation to light touch grossly present throughout, Cranial nerves II-XII grossly intact, no focal sensory deficits - Labs CBC & Chem 7: 01/09/22 10:11 01/09/22 10:11 Labs: Abnormal Lab Results - Last 24 Hours (Table) 01/08/22 01/09/22 01/09/22 Range/Units 16:59 06:49 10:11 WBC 14.1 H (3.8-10.6) k/uL RBC 4.21 L (4.30-5.90) m/uL Hgb 12.6 L (13.0-17.5) gm/dL Neutrophils # 10.2 H (1.3-7.7) k/uL Monocytes # 1.3 H (0-1.0) k/uL Creatinine (0.66-1.25) mg/dL POC Glucose (mg/dL) 185 H 183 H (70-110) mg/dL Total Protein (6.3-8.2) g/dL Albumin (3.5-5.0) g/dL 01/09/22 01/09/22 Range/Units 10:11 12:03 WBC (3.8-10.6) k/uL RBC (4.30-5.90) m/uL Hgb (13.0-17.5) gm/dL Neutrophils # (1.3-7.7) k/uL Monocytes # (0-1.0) k/uL Creatinine 1.73 H (0.66-1.25) mg/dL POC Glucose (mg/dL) 130 H (70-110) mg/dL Total Protein 5.9 L (6.3-8.2) g/dL Albumin 3.1 L (3.5-5.0) g/dL Microbiology - Last 24 Hours (Table) 01/06/22 21:27 Blood Culture Gram Stain - Preliminary Blood Blood Culture - Preliminary Pseudomonas aeruginosa Staphylococcus epidermidis 01/08/22 06:19 Blood Culture - Preliminary Blood No Growth after 24 hours Assessment and Plan Plan: Fever and leukocytosis, Sepsis with unknown focus of infection Bacteremia with gram positiive cocci and gram negative rods growing in the blood Leukocytosis trending down Continue cefepime Echocardiogram, transthoracic did not show vegetations Repeat blood cultures negative so far CXR and UA negative IVF hydration with normal saline ID on board, ordering CT abdomen and pelvis Elevated troponin, likely sec to sepsis Sinus arrhythmias Recurrent paroxysms of atrial fibrillation with RVR VQ scan showing low probability for PE. continue aspirin cardiology following, heparin gtt switched to s.q Cardiology service adding amiodarone and clonidine, continue Lopressor, inc reased frequency CKD stable DM , insulin sliding scale DVT PX on heparin s.q full code
[2022-01-09] MEDS: IOPAMIDOL CONTRAST (ORAL USE) VIAL PO PRN ×2 (14:00→14:22)
--- NOTE | 2022-01-09 15:05 | P.PN ---
Subjective Progress Note Date: 01/09/22 Principal diagnosis: Pseudomonas bacteremia Patient is 86-year-old male presented to the hospital with generalized weakness rigors and chills the patient was febrile on presentation to the hospital and and now have evidence of pseudomonas bacteremia, initial workup was negative. On today's evaluation that is 01/09/2022, the patient denies having any fever or chills, the patient is breathing comfortably on room air denies any chest pain or shortness of breath or cough no abdominal pain no diarrhea Objective - Vital Signs Vital signs: Vital Signs Temp 98.2 F 01/09/22 08:00 Pulse 87 01/09/22 08:00 Resp 16 01/09/22 08:00 BP 142/74 01/09/22 08:00 Pulse Ox 93 L 01/09/22 08:00 FiO2 Intake & Output 01/08/22 01/09/22 01/09/22 18:59 06:59 18:59 Intake Total 014.069 5905 Output Total 350 1700 Balance 484.167 -635 Intake: IV 825 Sodium Chloride 0.9% 1, 825 000 ml @ 75 mls/hr IV . [id number] [facility] Rx#:[id number] Intake, IV Titration 44.167 Amount Diltiazem 125 mg In 44.167 Sodium Chloride 0.9% 100 ml @ 5 MG/HR 5 mls/hr IV .Q24H [facility] Rx#:[id number] Oral 790 240 Output: Urine 350 1700 Other: Voiding Method Urinal Urinal - Exam GENERAL DESCRIPTION: An elderly male lying in bed in no distress RESPIRATORY SYSTEM: Unlabored breathing , decreased breath sounds at bases HEART: S1 S2 regular rate and rhythm , ABDOMEN: Soft , no tenderness EXTREMITIES: No edema feet - Labs CBC & Chem 7: 01/09/22 10:11 01/09/22 10:11 Labs: Abnormal Lab Results - Last 24 Hours (Table) 01/08/22 01/08/22 01/09/22 Range/Units 12:02 16:59 06:49 WBC (3.8-10.6) k/uL RBC (4.30-5.90) m/uL Hgb (13.0-17.5) gm/dL Neutrophils # (1.3-7.7) k/uL Monocytes # (0-1.0) k/uL Creatinine (0.66-1.25) mg/dL POC Glucose (mg/dL) 168 H 185 H 183 H (70-110) mg/dL Total Protein (6.3-8.2) g/dL Albumin (3.5-5.0) g/dL 01/09/22 01/09/22 Range/Units 10:11 10:11 WBC 14.1 H (3.8-10.6) k/uL RBC 4.21 L (4.30-5.90) m/uL Hgb 12.6 L (13.0-17.5) gm/dL Neutrophils # 10.2 H (1.3-7.7) k/uL Monocytes # 1.3 H (0-1.0) k/uL Creatinine 1.73 H (0.66-1.25) mg/dL POC Glucose (mg/dL) (70-110) mg/dL Total Protein 5.9 L (6.3-8.2) g/dL Albumin 3.1 L (3.5-5.0) g/dL Microbiology - Last 24 Hours (Table) 01/08/22 06:19 Blood Culture - Preliminary Blood No Growth after 24 hours Assessment and Plan (1) Bacteremia Current Visit: Yes Status: Acute Code(s): R78.81 - BACTEREMIA SNOMED Code(s): 8848362 Plan: 1patient presented to hospital with sepsis and respiratory fever tachycardia elevated white count now with evidence of bacteremia in this patient do have a gram-negative as well as gram-positive without clear focus of infection with symptoms of rigors and chills and some urinary burning possible urinary source even though initial UA was negative patient abdominal soft ankle examination no evidence of any joint swelling or cellulitis. 2blood cultures has been repeated to document clearance of bacteremia. 3repeat a UA was negative as well 4waiting for CT abdominal pelvis with oral contrast as the patient did have elevated creatinine. 5patient antibiotics has been adjusted to cefepime and will monitor clinical course closely Time with Patient: Less than 30
--- NOTE | 2022-01-09 16:01 | CT ---
EXAMINATION TYPE: CT abdomen pelvis wo con CT DLP: 640 mGycm, Automated exposure control for dose reduction was used. DATE OF EXAM: 01/09/2022 3:50 PM COMPARISON: None CLINICAL INDICATION:Male, 86 years old with history of bacteremia; abdominal pain TECHNIQUE: Axial CT of the abdomen and pelvis. Sagittal and coronal reformats were created on a [employer] workstation. Contrast used: None Oral contrast used: with Oral Contrast FINDINGS: LOWER CHEST: The heart is enlarged for size. There is moderate to severe coronary artery atherosclero sis. There is aortic valve leaflet calcifications. Mitral valve annular calcifications. ABDOMEN LIVER: Unremarkable GALLBLADDER AND BILE DUCTS: Unremarkable. PANCREAS: Lipomatous pseudohypertrophy changes. SPLEEN: Unremarkable. ADRENAL GLANDS: Unremarkable. KIDNEYS AND URETERS: No evidence of hydronephrosis or renal calculus. Right renal cyst is present. PELVIS BLADDER: Unremarkable REPRODUCTIVE: Unremarkable. ABDOMEN & PELVIS STOMACH AND BOWEL: Scattered diverticula are noted throughout the colon. May be mild intimal inflamm ation changes around the sigmoid colon versus prominent vessels. No evidence of bowel obstruction. Ap pendix is normal PERITONEUM: No evidence of pneumoperitoneum or free fluid. VASCULATURE: No evidence of aortic aneurysm. MUSCULOSKELETAL: No acute osseous abnormalities. Moderate disc degeneration changes are present throu ghout the thoracolumbar spine. LYMPH NODES: No gross evidence for lymphadenopathy. SOFT TISSUE/ABDOMINAL WALL: Unremarkable IMPRESSION: 1. Extensive colonic diverticulosis with minimal inflammation changes around the sigmoid colon which could represent early clonic diverticulitis/colitis. No additional finding within the abdomen or pel vis to correlate with history of bacteremia. 2. Mild cardiomegaly 3. Moderate to severe coronary artery atherosclerosis. 4. Aortic valve leaflet calcifications.
[2022-01-09 17:13] LABS: Glucose,Whole Blood 298 mg/dL (70-110)
[2022-01-09] MEDS: INSULIN DETEMIR (LEVEMIR) 100 UNIT/ML SYR SQ SCH (17:17)
[2022-01-09 20:25] LABS: Glucose,Whole Blood 88 mg/dL (70-110)
[2022-01-09] MEDS: GABAPENTIN 300 MG CAP PO SCH (21:30)
[2022-01-09] MEDS: LORazepam 0.5 MG TAB PO SCH (21:30)
[2022-01-10] MEDS: CEFEPIME 2 GM in SODIUM CHLORIDE 0.9% 100 ML IVPB SCH ×2 (03:41→16:07)
[2022-01-10] MEDS: AMIODARONE 450 MG in DEXTROSE 5% IN WATER 250 ML IV SCH ×2 (03:51)
[2022-01-10 06:09] LABS: Glucose,Whole Blood 58 mg/dL (70-110)
[2022-01-10] MEDS: INSULIN ASPART (NovoLOG) 100 UNIT/ML VIAL SQ SCH ×6 (06:15→20:18)
[2022-01-10 06:25] LABS: Glucose,Whole Blood 72 mg/dL (70-110)
[2022-01-10] MEDS: APIXABAN 2.5 MG TABLET PO SCH ×2 (08:07→20:23)
[2022-01-10] MEDS: METOPROLOL TARTRATE 25 MG TAB PO SCH ×3 (08:08→22:36)
[2022-01-10] MEDS: allopurinoL 100 MG TAB PO SCH (08:08)
[2022-01-10 09:10] LABS: Basophils % (A) 0 %; Eosinophils # (A) 0.3 k/uL (0-0.7); Eosinophils % (A) 2 %; HCT 39.5 % (39.0-53.0); HGB 12.7 gm/dL (13.0-17.5); Lymphocytes # (A) 1.7 k/uL (1.0-4.8); Lymphocytes % (A) 16 %; MCH 29.9 pg (25.0-35.0); MCHC 32.2 g/dL (31.0-37.0); MCV 92.8 fL (80.0-100.0); Mean Platelet Volume 8.3; Monocytes # (A) 0.7 k/uL (0-1.0); Monocytes % (A) 7 %; Neutrophils # (A) 7.8 k/uL (1.3-7.7); Neutrophils % (A) 71 %; Platelet Count 252 k/uL (150-450); RBC 4.26 m/uL (4.30-5.90); RDW 13.7 % (11.5-15.5); WBC 10.9 k/uL (3.8-10.6)
[2022-01-10 09:41] LABS: Albumin 3.1 g/dL (3.5-5.0); Calcium 8.3 mg/dL (8.4-10.2); Magnesium 1.7 mg/dL (1.6-2.3); Potassium 4.4 mmol/L (3.5-5.1); Total Bilirubin 0.6 mg/dL (0.2-1.3); Total Protein 5.8 g/dL (6.3-8.2)
[2022-01-10 11:46] LABS: Glucose,Whole Blood 220 mg/dL (70-110)
--- NOTE | 2022-01-10 12:06 | P.PN ---
Subjective Progress Note Date: 01/10/22 Principal diagnosis: shaking Doing well. Keeps asking to go home. States he is feeling great. No pain or sob. No fevers. Objective - Vital Signs Vital signs: Vital Signs Temp 96.1 F L 01/10/22 08:00 Pulse 76 01/10/22 08:00 Resp 16 01/10/22 08:00 BP 131/66 01/10/22 08:00 Pulse Ox 91 L 01/10/22 08:00 FiO2 Intake & Output 01/09/22 01/10/22 01/10/22 18:59 06:59 18:59 Intake Total 1680 1110 Output Total 1000 2450 Balance 680 -1340 Intake: IV 40 620 Invasive Line 2 20 10 Invasive Line 4 20 10 Sodium Chloride 0.9% 1, 600 000 ml @ 75 mls/hr IV . [id number] [facility] Rx#:[id number] Intake, IV Titration 200 250 Amount Amiodarone 360 mg In 200 Dextrose 5% in Water 200 ml @ 1 MG/MIN 33.333 mls/ hr IV .Q6H [facility] Rx#: [id number] Amiodarone 450 mg In 250 Dextrose 5% in Water 250 ml @ 10.417 mls/hr IV . Q24H [facility] Rx#:[id number] Oral 1440 240 Output: Urine 1000 2450 Other: Voiding Method Urinal Urinal Urinal - Exam Constitutional: No acute distress, conversant, pleasant Eyes:Anicteric sclerae, moist conjunctiva, no lid-lag, PERRLA, ENMT: Oropharynx clear, no erythema, exudates Neck: Supple, FROM, no masses, or JVD, No carotid bruits, No thyromegaly Lungs: Clear to auscultation, Clear to percussion, Normal respiratory effort, no accessory muscle use Cardiovascular: Heart regular in rate and rhythm, No murmurs, gallops, or rubs, No peripheral edema Abdominal: Soft, Nontender, no guarding, rebound or rigidity, Normoactive bowel sounds, No hepatomegaly, No splenomegaly, No palpable mass Skin: Normal temperature, tone, texture, turgor, no induration, No subcutaneous nodules, No rash, lesions, No ulcers Extremities: No digital cyanosis, No clubbing, Pedal pulses intact and symmetri hima, Radial pulses intact and symmetrical, No calf tenderness Psychiatric: Alert and oriented to person, place and time, appropriate affect, intact judgement Neuro: Muscles Strength 5/5 in all 4 extremities, Sensation to light touch grossly present throughout, Cranial nerves II-XII grossly intact, no focal sensory deficits - Labs CBC & Chem 7: 01/10/22 08:30 01/10/22 08:30 Labs: Abnormal Lab Results - Last 24 Hours (Table) 01/09/22 01/09/22 01/10/22 Range/Units 12:03 17:06 06:07 WBC (3.8-10.6) k/uL RBC (4.30-5.90) m/uL Hgb (13.0-17.5) gm/dL Neutrophils # (1.3-7.7) k/uL Creatinine (0.66-1.25) mg/dL Glucose (74-99) mg/dL POC Glucose (mg/dL) 130 H 298 H 58 L (70-110) mg/dL Calcium (8.4-10.2) mg/dL Total Protein (6.3-8.2) g/dL Albumin (3.5-5.0) g/dL 01/10/22 01/10/22 01/10/22 Range/Units 08:30 08:30 11:44 WBC 10.9 H (3.8-10.6) k/uL RBC 4.26 L (4.30-5.90) m/uL Hgb 12.7 L (13.0-17.5) gm/dL Neutrophils # 7.8 H (1.3-7.7) k/uL Creatinine 1.66 H (0.66-1.25) mg/dL Glucose 181 H (74-99) mg/dL POC Glucose (mg/dL) 220 H (70-110) mg/dL Calcium 8.3 L (8.4-10.2) mg/dL Total Protein 5.8 L (6.3-8.2) g/dL Albumin 3.1 L (3.5-5.0) g/dL Microbiology - Last 24 Hours (Table) 01/09/22 07:11 Blood Culture - Preliminary Blood No Growth after 24 hours 01/08/22 06:19 Blood Culture - Preliminary Blood No Growth after 48 hours 01/06/22 21:27 Blood Culture Gram Stain - Preliminary Blood Blood Culture - Preliminary Pseudomonas aeruginosa Staphylococcus epidermidis Assessment and Plan Plan: Fever and leukocytosis, Sepsis with unknown focus of infection Bacteremia with pseudomonas and staph epidermidis growing in the blood Leukocytosis trending down Continue cefepime Echocardiogram, transthoracic did not show vegetations Repeat blood cultures negative so far CXR and UA negative IVF hydration with normal saline CT abdomen and pelvis showing possible diverticulitis which could explain the source of the bacteremia. Elevated troponin, likely sec to sepsis Sinus arrhythmias Recurrent paroxysms of atrial fibrillation with RVR VQ scan showing low probability for PE. continue aspirin cardiology following, heparin gtt switched to s.q Cardiology service adding amiodarone and clonidine, continue Lopressor, increas ed frequency CKD stable DM , insulin sliding scale DVT PX on heparin s.q full code
--- NOTE | 2022-01-10 15:31 | P.PN ---
Subjective Progress Note Date: 01/10/22 This is a pleasant 86-year-old gentleman with a known history of hypertension, diabetes and prior history of paroxysmal atrial tachycardia. Presented to the emergency department with complaints of altered mental status and rigors. Patient was found to be in atrial fibrillation with rapid ventricular response after discharge. He's been on IV amiodarone. Infectious disease is following him for bacteremia of unclear source. He is currently maintaining sinus mechanism with PACs. He is overall feeling well. Denies any shortness of breath, chest discomfort, orthopnea, PND, edema, palpitations. Vital signs are stable. He has been afebrile. Echocardiogram with Doppler study on the showed ejection fraction 50-55% with mild MR and mild TR. Objective - Vital Signs Vital signs: Vital Signs Temp 98.2 F 01/10/22 12:00 Pulse 51 L 01/10/22 12:00 Resp 19 01/10/22 12:00 BP 178/81 01/10/22 12:00 Pulse Ox 98 01/10/22 12:00 FiO2 Intake & Output 01/09/22 01/10/22 01/10/22 18:59 06:59 18:59 Intake Total 1680 1110 183.615 Output Total 1000 2450 350 Balance 680 -1340 -166.385 Intake: IV 40 620 Invasive Line 2 20 10 Invasive Line 4 20 10 Sodium Chloride 0.9% 1, 600 000 ml @ 75 mls/hr IV . [id number] [facility] Rx#:[id number] Intake, IV Titration 200 250 183.615 Amount Amiodarone 360 mg In 200 Dextrose 5% in Water 200 ml @ 1 MG/MIN 33.333 mls/ hr IV .Q6H [facility] Rx#: [id number] Amiodarone 450 mg In 250 183.615 Dextrose 5% in Water 250 ml @ 10.417 mls/hr IV . Q24H [facility] Rx#:[id number] Oral 1440 240 Output: Urine 1000 2450 350 Other: Voiding Method Urinal Urinal Urinal - Exam PHYSICAL EXAMINATION: HEENT: Head is atraumatic, normocephalic. Pupils equal, round. Neck is supple. There is no elevated jugular venous pressure. HEART EXAMINATION: Heart sounds regular, S1 and S2 normal. No murmur or gallop heard. CHEST EXAMINATION: Lungs are clear to auscultation. No chest wall tenderness is noted on palpation or with deep breathing. ABDOMEN: Soft, nontender. Bowel sounds are heard. No organomegaly noted. EXTREMITIES: 2+ peripheral pulses with no evidence of peripheral edema and no calf tenderness noted. NEUROLOGIC patient is awake, alert and oriented x3. . - Labs CBC & Chem 7: 01/10/22 08:30 01/10/22 08:30 Labs: Abnormal Lab Results - Last 24 Hours (Table) 01/09/22 01/10/22 01/10/22 Range/Units 17:06 06:07 08:30 WBC 10.9 H (3.8-10.6) k/uL RBC 4.26 L (4.30-5.90) m/uL Hgb 12.7 L (13.0-17.5) gm/dL Neutrophils # 7.8 H (1.3-7.7) k/uL Creatinine (0.66-1.25) mg/dL Glucose (74-99) mg/dL POC Glucose (mg/dL) 298 H 58 L (70-110) mg/dL Calcium (8.4-10.2) mg/dL Total Protein (6.3-8.2) g/dL Albumin (3.5-5.0) g/dL 01/10/22 01/10/22 Range/Units 08:30 11:44 WBC (3.8-10.6) k/uL RBC (4.30-5.90) m/uL Hgb (13.0-17.5) gm/dL Neutrophils # (1.3-7.7) k/uL Creatinine 1.66 H (0.66-1.25) mg/dL Glucose 181 H (74-99) mg/dL POC Glucose (mg/dL) 220 H (70-110) mg/dL Calcium 8.3 L (8.4-10.2) mg/dL Total Protein 5.8 L (6.3-8.2) g/dL Albumin 3.1 L (3.5-5.0) g/dL Microbiology - Last 24 Hours (Table) 01/09/22 07:11 Blood Culture - Preliminary Blood No Growth after 24 hours 01/08/22 06:19 Blood Culture - Preliminary Blood No Growth after 48 hours 01/06/22 21:27 Blood Culture Gram Stain - Preliminary Blood Blood Culture - Preliminary Pseudomonas aeruginosa Staphylococcus epidermidis Assessment and Plan Assessment: #1 paroxysmal atrial fibrillation #2 bacteremia of unclear source #3 hypertension #4 diabetes mellitus2 Plan: From cardiology perspective we will transition the patient to oral amiodarone. Continue to monitor heart rate and rhythm. Further recommendations to follow. DATA COLLECTOR note has been reviewed, I agree with a documented findings and plan of care. Patient was seen and examined.
[2022-01-10] MEDS: metroNIDAZOLE 500 MG TAB PO SCH ×2 (16:07→20:24)
[2022-01-10 16:47] LABS: Glucose,Whole Blood 233 mg/dL (70-110)
[2022-01-10] MEDS: INSULIN DETEMIR (LEVEMIR) 100 UNIT/ML SYR SQ SCH (17:31)
[2022-01-10 20:18] LABS: Glucose,Whole Blood 96 mg/dL (70-110)
[2022-01-10] MEDS: GABAPENTIN 300 MG CAP PO SCH (20:23)
[2022-01-10] MEDS: AMIODARONE 200 MG TAB PO SCH (20:23)
[2022-01-10] MEDS: LORazepam 0.5 MG TAB PO SCH (20:23)
--- NOTE | 2022-01-10 23:09 | P.PN ---
Subjective Progress Note Date: 01/10/22 Principal diagnosis: Pseudomonas bacteremia Patient is 86-year-old male presented to the hospital with generalized weakness rigors and chills the patient was febrile on presentation to the hospital and and now have evidence of pseudomonas bacteremia, initial workup was negative. On today's evaluation that is 01/10/2022, the patient remains to be afebrile, the patient is breathing comfortably on room air, the patient denies any chest pain or shortness of breath or cough no abdominal pain no diarrhea Objective - Vital Signs Vital signs: Vital Signs Temp 98.2 F 01/10/22 12:00 Pulse 51 L 01/10/22 12:00 Resp 19 01/10/22 12:00 BP 178/81 01/10/22 12:00 Pulse Ox 98 01/10/22 12:00 FiO2 Intake & Output 01/09/22 01/10/22 01/10/22 18:59 06:59 18:59 Intake Total 1680 1110 183.615 Output Total 1000 2450 350 Balance 680 -1340 -166.385 Intake: IV 40 620 Invasive Line 2 20 10 Invasive Line 4 20 10 Sodium Chloride 0.9% 1, 600 000 ml @ 75 mls/hr IV . [id number] [facility] Rx#:[id number] Intake, IV Titration 200 250 183.615 Amount Amiodarone 360 mg In 200 Dextrose 5% in Water 200 ml @ 1 MG/MIN 33.333 mls/ hr IV .Q6H [facility] Rx#: [id number] Amiodarone 450 mg In 250 183.615 Dextrose 5% in Water 250 ml @ 10.417 mls/hr IV . Q24H [facility] Rx#:[id number] Oral 1440 240 Output: Urine 1000 2450 350 Other: Voiding Method Urinal Urinal Urinal - Exam GENERAL DESCRIPTION: An elderly male lying in bed in no distress RESPIRATORY SYSTEM: Unlabored breathing , decreased breath sounds at bases HEART: S1 S2 regular rate and rhythm , ABDOMEN: Soft , no tenderness EXTREMITIES: No edema feet - Labs CBC & Chem 7: 01/10/22 08:30 01/10/22 08:30 Labs: Abnormal Lab Results - Last 24 Hours (Table) 01/09/22 01/10/22 01/10/22 Range/Units 17:06 06:07 08:30 WBC 10.9 H (3.8-10.6) k/uL RBC 4.26 L (4.30-5.90) m/uL Hgb 12.7 L (13.0-17.5) gm/dL Neutrophils # 7.8 H (1.3-7.7) k/uL Creatinine (0.66-1.25) mg/dL Glucose (74-99) mg/dL POC Glucose (mg/dL) 298 H 58 L (70-110) mg/dL Calcium (8.4-10.2) mg/dL Total Protein (6.3-8.2) g/dL Albumin (3.5-5.0) g/dL 01/10/22 01/10/22 Range/Units 08:30 11:44 WBC (3.8-10.6) k/uL RBC (4.30-5.90) m/uL Hgb (13.0-17.5) gm/dL Neutrophils # (1.3-7.7) k/uL Creatinine 1.66 H (0.66-1.25) mg/dL Glucose 181 H (74-99) mg/dL POC Glucose (mg/dL) 220 H (70-110) mg/dL Calcium 8.3 L (8.4-10.2) mg/dL Total Protein 5.8 L (6.3-8.2) g/dL Albumin 3.1 L (3.5-5.0) g/dL Microbiology - Last 24 Hours (Table) 01/09/22 07:11 Blood Culture - Preliminary Blood No Growth after 24 hours 01/08/22 06:19 Blood Culture - Preliminary Blood No Growth after 48 hours 01/06/22 21:27 Blood Culture Gram Stain - Preliminary Blood Blood Culture - Preliminary Pseudomonas aeruginosa Staphylococcus epidermidis Assessment and Plan (1) Bacteremia Current Visit: Yes Status: Acute Code(s): R78.81 - BACTEREMIA SNOMED Code(s): 2555515 Plan: 1patient presented to hospital with sepsis and respiratory fever tachycardia elevated white count now with evidence of bacteremia in this patient do have a gram-negative as well as gram-positive without clear focus of infection with symptoms of rigors and chills and some urinary burning possible urinary source even though initial UA was negative patient abdominal soft ankle examination no evidence of any joint swelling or cellulitis. 2blood cultures negative. Has been negative so far 3repeat a UA was negative as well 4the patient CT abdominal pelvis with a possible diverticulitis and covered with a source of bacteremia as the weather obvious focus 5patient to continue with the cefepime will add Flagyl waiting for the sensitivity on the Pseudomonas to determine his discharge antibiotics Time with Patient: Less than 30
[2022-01-11] MEDS: CEFEPIME 2 GM in SODIUM CHLORIDE 0.9% 100 ML IVPB SCH (03:11)
[2022-01-11 03:21] LABS: Glucose,Whole Blood 64 mg/dL (70-110)
[2022-01-11 03:39] LABS: Glucose,Whole Blood 88 mg/dL (70-110)
[2022-01-11 06:17] LABS: Glucose,Whole Blood 220 mg/dL (70-110)
[2022-01-11] MEDS: INSULIN ASPART (NovoLOG) 100 UNIT/ML VIAL SQ SCH ×3 (06:20→12:19)
[2022-01-11] MEDS: allopurinoL 100 MG TAB PO SCH (09:43)
[2022-01-11] MEDS: APIXABAN 2.5 MG TABLET PO SCH (09:43)
[2022-01-11] MEDS: metroNIDAZOLE 500 MG TAB PO SCH (09:44)
[2022-01-11] MEDS: METOPROLOL TARTRATE 25 MG TAB PO SCH (09:44)
[2022-01-11] MEDS: AMIODARONE 200 MG TAB PO SCH (09:44)
[2022-01-11 11:46] LABS: Glucose,Whole Blood 189 mg/dL (70-110)
[2022-01-11 12:03] LABS: Calcium 8.8 mg/dL (8.4-10.2); Potassium 4.5 mmol/L (3.5-5.1)
[2022-01-11 12:25] VITALS: BP 152/70; PULSE 85; RESP 16; TEMP 98.1
--- NOTE | 2022-01-11 12:38 | P.PN ---
Subjective Progress Note Date: 01/11/22 Principal diagnosis: shaking Patient doing well, he keeps talking about going home. He denied having any abdominal pain, no nausea or vomiting. No fevers or chills. Objective - Vital Signs Vital signs: Vital Signs Temp 98.1 F 01/11/22 12:19 Pulse 85 01/11/22 12:19 Resp 16 01/11/22 12:19 BP 152/70 01/11/22 12:19 Pulse Ox 98 01/11/22 12:19 FiO2 Intake & Output 01/10/22 01/11/22 01/11/22 18:59 06:59 18:59 Intake Total 183.615 Output Total 550 800 350 Balance -366.385 -800 -350 Intake: Intake, IV Titration 183.615 Amount Amiodarone 450 mg In 183.615 Dextrose 5% in Water 250 ml @ 10.417 mls/hr IV . Q24H [facility] Rx#:[id number] Output: Urine 550 800 350 Other: Voiding Method Urinal Urinal Urinal - Exam Constitutional: No acute distress, conversant, pleasant Eyes:Anicteric sclerae, moist conjunctiva, no lid-lag, PERRLA, ENMT: Oropharynx clear, no erythema, exudates Neck: Supple, FROM, no masses, or JVD, No carotid bruits, No thyromegaly Lungs: Clear to auscultation, Clear to percussion, Normal respiratory effort, no accessory muscle use Cardiovascular: Heart regular in rate and rhythm, No murmurs, gallops, or rubs, No peripheral edema Abdominal: Soft, Nontender, no guarding, rebound or rigidity, Normoactive bowel sounds, No hepatomegaly, No splenomegaly, No palpable mass Skin: Normal temperature, tone, texture, turgor, no induration, No subcutaneous nodules, No rash, lesions, No ulcers Extremities: No digital cyanosis, No clubbing, Pedal pulses intact and symmetrical, Radial pulses intact and symmetrical, No calf tenderness Psychiatric: Alert and oriented to person, place and time, appropriate affect, intact judgement Neuro: Muscles Strength 5/5 in all 4 extremities, Sensation to light touch grossly present throughout, Cranial nerves II-XII grossly intact, no focal sensory deficits - Labs CBC & Chem 7: 01/10/22 08:30 01/11/22 08:02 Labs: Abnormal Lab Results - Last 24 Hours (Table) 01/10/22 01/11/22 01/11/22 Range/Units 16:45 03:20 06:16 ESR (0-15) mm/hr Carbon Dioxide (22-30) mmol/L Creatinine (0.66-1.25) mg/dL Glucose (74-99) mg/dL POC Glucose (mg/dL) 233 H 64 L 220 H (70-110) mg/dL C-Reactive Protein (<1.0) mg/dL 01/11/22 01/11/22 01/11/22 Range/Units 08:02 08:02 08:02 ESR 18 H (0-15) mm/hr Carbon Dioxide 21 L (22-30) mmol/L Creatinine 1.96 H (0.66-1.25) mg/dL Glucose 150 H (74-99) mg/dL POC Glucose (mg/dL) (70-110) mg/dL C-Reactive Protein 3.1 H (<1.0) mg/dL 01/11/22 Range/Units 11:44 ESR (0-15) mm/hr Carbon Dioxide (22-30) mmol/L Creatinine (0.66-1.25) mg/dL Glucose (74-99) mg/dL POC Glucose (mg/dL) 189 H (70-110) mg/dL C-Reactive Protein (<1.0) mg/dL Microbiology - Last 24 Hours (Table) 01/09/22 07:11 Blood Culture - Preliminary Blood No Growth after 48 hours 01/08/22 06:19 Blood Culture - Preliminary Blood No Growth after 72 hours Assessment and Plan Plan: Fever and leukocytosis, Sepsis with unknown focus of infection Bacteremia with pseudomonas and staph epidermidis growing in the blood Leukocytosis trending down Continue cefepime Echocardiogram, transthoracic did not show vegetations Repeat blood cultures negative so far CXR and UA negative IVF hydration with normal saline CT abdomen and pelvis showing possible diverticulitis which could explain the source of the bacteremia--flagyl added 01/10 Awaiting pseudomonas sensitivity to finalize abx recommendations. Elevated troponin, likely sec to sepsis Sinus arrhythmias Recurrent paroxysms of atrial fibrillation with RVR VQ scan showing low probability for PE. continue aspirin cardiology following, he was on heparin gtt switched to eliquis, was also treated with amiodarone gtt, now switched to oral. Continue Lopressor, increased frequency CKD stable DM , insulin sliding scale DVT PX on AC full code
--- NOTE | 2022-01-11 14:00 | P.DS ---
Providers Date of admission: 01/06/22 22:16 Expected date of discharge: 01/11/22 Attending physician: Serge Reyez MD Consults: 01/06/22 22:16 Consult Physician Urgent Consulting Provider: Dez Berry Consult Reason/Comments: A-fib with RVR, elevated troponin Do you want consulting provider notified?: Yes 01/08/22 07:28 Consult Physician Routine Consulting Provider: Brigido Shi Consult Reason/Comments: fever Do you want consulting provider notified?: Yes Primary care physician: [place] [facility] Course: 86-year-old male presenting to the hospital for evaluation of generalized weakness, rigors and chills for few days duration. No headache or URI symptoms, no chest pain or shortness of breath though did have minimal cough no sputum production abdominal pain or diarrhea or constipation, no urinary symptoms. On presentation to the hospital he had a fever of 103 F, he was tachycardic. CXR no acute pathology , blood work showed leukocytosis , UA negative , COVID negative. D dimer elevated and trops elevated. creatinine elevated. CTA could not be done due to renal function. He was started on heparin drip for both possible underlying ACS and PE. He was admitted, VQ scan ordered and was negative. He continued to have tachycardia, mix of paroxysms of atrial fibrillation as well as sinus arrhythmia. His heart rate was up to 140 at times. He was seen by cardiology, was started on amiodarone drip, metoprolol dosing was increased in frequency. Heart rate improved with that. Later on admitted on was switched to oral. He was also started on oral anticoagulation with eliquis. Upon admssion his fever and leukocytosis improved. He was initiated on rocephin initially. Later on his blood cx were positive for gram-negative bacilli, patient was seen by infectious disease who replaced Rocephin with cefepime. The bacteria identity was later revealed to be pseudomonas. Antibiotics switched to ciprofloxacin upon discharge. Repeat blood cultures were negative. He had an echocardiogram, transthoracic that showed no regurgitation. He had a CT abdomen and pelvis showing possible diverticulitis which could explain the source of the bacteremia--flagyl added 01/10. Today we have pseudomonas sensitivity back, sensitive to ciprofloxacin, he will be discharged on Cipro as well as Flagyl. This was discussed with infectious disease Dr. trinidad. Time for discharge 35 minutes. Plan - Discharge Summary New Discharge Prescriptions: New Amiodarone [Cordarone] 200 mg PO BID 30 Days #60 tab Apixaban [Eliquis] 2.5 mg PO BID 30 Days #60 tab Metoprolol Tartrate [Lopressor] 25 mg PO TID 30 Days #90 tab Ciprofloxacin HCl 500 mg PO BID 14 Days #28 tab metroNIDAZOLE [Flagyl] 500 mg PO TID 14 Days #42 tab Continue Insulin Glargine,Hum.rec.anlog [Lantus Solostar Pen] 20 unit SQ AC-SUPPER Gabapentin [Neurontin] 600 mg PO HS Aspirin EC [Ecotrin Low Dose] 81 mg PO DAILY Vit C/E/Zn/Coppr/Lutein/Zeaxan [Preservision Areds 2 Softgel] 1 cap PO BID Insulin Aspart [NovoLOG Flexpen] 5 units SQ AC-BID allopurinoL 100 mg PO DAILY Discontinued Metoprolol Tartrate [Lopressor] 25 mg PO BID Discharge Medication List Aspirin EC [Ecotrin Low Dose] 81 mg PO DAILY 04/28/20 [History] Gabapentin [Neurontin] 600 mg PO HS 04/28/20 [History] Insulin Glargine,Hum.rec.anlog [Lantus Solostar Pen] 20 unit SQ AC-SUPPER 04/28/20 [History] Insulin Aspart [NovoLOG Flexpen] 5 units SQ AC-BID 01/06/22 [History] Vit C/E/Zn/Coppr/Lutein/Zeaxan [Preservision Areds 2 Softgel] 1 cap PO BID 01/06/22 [History] allopurinoL 100 mg PO DAILY 01/06/22 [History] Amiodarone [Cordarone] 200 mg PO BID 30 Days #60 tab 01/11/22 [Rx] Apixaban [Eliquis] 2.5 mg PO BID 30 Days #60 tab 01/11/22 [Rx] Ciprofloxacin HCl 500 mg PO BID 14 Days #28 tab 01/11/22 [Rx] Metoprolol Tartrate [Lopressor] 25 mg PO TID 30 Days #90 tab 01/11/22 [Rx] metroNIDAZOLE [Flagyl] 500 mg PO TID 14 Days #42 tab 01/11/22 [Rx] Follow up Appointment(s)/Referral(s): [facility] [Primary Care Provider] - 1-2 days
--- NOTE | 2022-01-11 14:10 | P.PN ---
Subjective Progress Note Date: 01/11/22 This is a pleasant 86-year-old gentleman with a known history of hypertension, diabetes and prior history of paroxysmal atrial tachycardia. Presented to the emergency department with complaints of altered mental status and rigors. Patient was found to be in atrial fibrillation with rapid ventricular response after discharge. He's been on IV amiodarone. Infectious disease is following him for bacteremia of unclear source. He is currently maintaining sinus mechanism with PACs. He is overall feeling well. Denies any shortness of breath, chest discomfort, orthopnea, PND, edema, palpitations. Vital signs are stable. He has been afebrile. Echocardiogram with Doppler study on the showed ejection fraction 50-55% with mild MR and mild TR. 01/11/2022 Patient was seen and examined resting comfortably in bed. He is quite anxious to go home. Upon review of telemetry strips appears patient having multiple runs of PAT as well as multiple runs of nonsustained ventricular tachycardia up to 10 beats. He is currently on metoprolol 25 mg by mouth 3 times a day as well as amiodarone 200 mg by mouth twice a day. He does not seem to feel palpitations and overall says he feels well. Objective - Vital Signs Vital signs: Vital Signs Temp 98.1 F 01/11/22 12:19 Pulse 85 01/11/22 12:19 Resp 16 01/11/22 12:19 BP 152/70 01/11/22 12:19 Pulse Ox 98 01/11/22 12:19 FiO2 Intake & Output 01/10/22 01/11/22 01/11/22 18:59 06:59 18:59 Intake Total 183.615 Output Total 550 800 350 Balance -366.385 -800 -350 Intake: Intake, IV Titration 183.615 Amount Amiodarone 450 mg In 183.615 Dextrose 5% in Water 250 ml @ 10.417 mls/hr IV . Q24H [facility] Rx#:[id number] Output: Urine 550 800 350 Other: Voiding Method Urinal Urinal Urinal - Exam PHYSICAL EXAMINATION: HEENT: Head is atraumatic, normocephalic. Pupils equal, round. Neck is supple. There is no elevated jugular venous pressure. HEART EXAMINATION: Heart sounds regular, S1 and S2 normal. No murmur or gallop heard. CHEST EXAMINATION: Lungs are clear to auscultation. No chest wall tenderness is noted on palpation or with deep breathing. ABDOMEN: Soft, nontender. Bowel sounds are heard. No organomegaly noted. EXTREMITIES: 2+ peripheral pulses with no evidence of peripheral edema and no calf tenderness noted. NEUROLOGIC patient is awake, alert and oriented x3. . - Labs CBC & Chem 7: 01/10/22 08:30 01/11/22 08:02 Labs: Abnormal Lab Results - Last 24 Hours (Table) 01/10/22 01/11/22 01/11/22 Range/Units 16:45 03:20 06:16 ESR (0-15) mm/hr Carbon Dioxide (22-30) mmol/L Creatinine (0.66-1.25) mg/dL Glucose (74-99) mg/dL POC Glucose (mg/dL) 233 H 64 L 220 H (70-110) mg/dL C-Reactive Protein (<1.0) mg/dL 01/11/22 01/11/22 01/11/22 Range/Units 08:02 08:02 08:02 ESR 18 H (0-15) mm/hr Carbon Dioxide 21 L (22-30) mmol/L Creatinine 1.96 H (0.66-1.25) mg/dL Glucose 150 H (74-99) mg/dL POC Glucose (mg/dL) (70-110) mg/dL C-Reactive Protein 3.1 H (<1.0) mg/dL 01/11/22 Range/Units 11:44 ESR (0-15) mm/hr Carbon Dioxide (22-30) mmol/L Creatinine (0.66-1.25) mg/dL Glucose (74-99) mg/dL POC Glucose (mg/dL) 189 H (70-110) mg/dL C-Reactive Protein (<1.0) mg/dL Microbiology - Last 24 Hours (Table) 01/09/22 07:11 Blood Culture - Preliminary Blood No Growth after 48 hours 01/08/22 06:19 Blood Culture - Preliminary Blood No Growth after 72 hours Assessment and Plan Assessment: #1 paroxysmal atrial fibrillation #2 bacteremia of unclear source #3 hypertension #4 diabetes mellitus2 #5 multiple brief runs of nonsustained ventricular tachycardia Plan: From cardiology perspective will check a BMP and magnesium level. We'll increase Toprol to 50 mg by mouth twice a day. We will continue to follow the patient and provide further recommendations accordingly. [employer] note has been reviewed, I agree with a documented findings and plan of care. Patient was seen and examined.
[2022-01-11] MEDS ORDERED: METOPROLOL TARTRATE 50 MG TAB PO SCH (14:15)
--- NOTE | 2022-01-11 15:48 | P.PN ---
Subjective Progress Note Date: 01/11/22 Principal diagnosis: Pseudomonas bacteremia Patient is 86-year-old male presented to the hospital with generalized weakness rigors and chills the patient was febrile on presentation to the hospital and and now have evidence of pseudomonas bacteremia, initial workup was negative. On today's evaluation that is 01/11/2022, the patient continues to be afebrile, the patient is breathing comfortably on room air, the patient denies any chest pain or shortness of breath or cough, the patient denies any abdominal pain no nausea no vomiting no diarrhea denies any pain to the spine, patient mentioned he is feeling better and would like to go home Objective - Vital Signs Vital signs: Vital Signs Temp 98.1 F 01/11/22 12:19 Pulse 85 01/11/22 12:19 Resp 16 01/11/22 12:19 BP 152/70 01/11/22 12:19 Pulse Ox 98 01/11/22 12:19 FiO2 Intake & Output 01/10/22 01/11/22 01/11/22 18:59 06:59 18:59 Intake Total 183.615 Output Total 550 800 350 Balance -366.385 -800 -350 Intake: Intake, IV Titration 183.615 Amount Amiodarone 450 mg In 183.615 Dextrose 5% in Water 250 ml @ 10.417 mls/hr IV . Q24H [facility] Rx#:[id number] Output: Urine 550 800 350 Other: Voiding Method Urinal Urinal Urinal - Exam GENERAL DESCRIPTION: An elderly male lying in bed in no distress RESPIRATORY SYSTEM: Unlabored breathing , decreased breath sounds at bases HEART: S1 S2 regular rate and rhythm , ABDOMEN: Soft , no tenderness EXTREMITIES: No edema feet - Labs CBC & Chem 7: 01/10/22 08:30 01/11/22 08:02 Labs: Abnormal Lab Results - Last 24 Hours (Table) 01/10/22 01/11/22 01/11/22 Range/Units 16:45 03:20 06:16 ESR (0-15) mm/hr Carbon Dioxide (22-30) mmol/L Creatinine (0.66-1.25) mg/dL Glucose (74-99) mg/dL POC Glucose (mg/dL) 233 H 64 L 220 H (70-110) mg/dL C-Reactive Protein (<1.0) mg/dL 01/11/22 01/11/22 01/11/22 Range/Units 08:02 08:02 08:02 ESR 18 H (0-15) mm/hr Carbon Dioxide 21 L (22-30) mmol/L Creatinine 1.96 H (0.66-1.25) mg/dL Glucose 150 H (74-99) mg/dL POC Glucose (mg/dL) (70-110) mg/dL C-Reactive Protein 3.1 H (<1.0) mg/dL 01/11/22 Range/Units 11:44 ESR (0-15) mm/hr Carbon Dioxide (22-30) mmol/L Creatinine (0.66-1.25) mg/dL Glucose (74-99) mg/dL POC Glucose (mg/dL) 189 H (70-110) mg/dL C-Reactive Protein (<1.0) mg/dL Microbiology - Last 24 Hours (Table) 01/09/22 07:11 Blood Culture - Preliminary Blood No Growth after 48 hours 01/08/22 06:19 Blood Culture - Preliminary Blood No Growth after 72 hours Assessment and Plan (1) Bacteremia Current Visit: Yes Status: Acute Code(s): R78.81 - BACTEREMIA SNOMED Code(s): 6808607 Plan: 1patient presented to hospital with sepsis and respiratory fever tachycardia elevated white count now with evidence of bacteremia in this patient do have a gram-negative as well as gram-positive without clear focus of infection with symptoms of rigors and chills and some urinary burning possible urinary source even though initial UA was negative patient abdominal soft on clinical examination no evidence of any joint swelling or cellulitis. 2blood cultures repeat has been negative so far 3repeat a UA was negative as well 4the patient CT abdominal pelvis with a possible diverticulitis and could be t he likely source of bacteremia as there is no other obvious focus 5patient has shown clinical improvement and has cleared his bacteremia very quickly and a question of possible diverticulitis on the basis of CT plan is to finish therapy with oral Cipro and Flagyl 10 days and close outpatient follow- up discussed with the family as well as with the admitting physician working on discharge Time with Patient: Less than 30
== END 2022-01-11 16:39 | disposition home or self-care (01) | DRG 872 ==
LOC: EC 20:43 → 3SCARD 22:16 → 2SICU 01-07 19:59 → 3SCARD 01-09 21:54
PROVIDERS: ADMIT Internal Medicine; ATTEND Internal Medicine
PROC: 3E0F7SF Introduction of Other Gas into Respiratory Tract, Via Natural or Artificial Opening (ICD-10-PCS; principal; 2022-01-06)
DX: A41.52 Sepsis due to Pseudomonas (principal); E87.2 Acidosis; I47.2 Ventricular tachycardia; K57.92 Diverticulitis of intestine, part unspecified, without perforation or abscess without bleeding; I48.0 Paroxysmal atrial fibrillation; A41.1 Sepsis due to other specified staphylococcus; I49.3 Ventricular premature depolarization; D72.829 Elevated white blood cell count, unspecified; I08.1 Rheumatic disorders of both mitral and tricuspid valves; E11.22 Type 2 diabetes mellitus with diabetic chronic kidney disease; R53.1 Weakness; Z20.822 Contact with and (suspected) exposure to COVID-19; Z79.4 Long term (current) use of insulin; Z79.82 Long term (current) use of aspirin; Z79.899 Other long term (current) drug therapy; N18.9 Chronic kidney disease, unspecified; I12.9 Hypertensive chronic kidney disease with stage 1 through stage 4 chronic kidney disease, or unspecified chronic kidney disease; E86.0 Dehydration; Z87.01 Personal history of pneumonia (recurrent); Z87.891 Personal history of nicotine dependence; Z90.49 Acquired absence of other specified parts of digestive tract; Z88.8 Allergy status to other drugs, medicaments and biological substances; Z87.19 Personal history of other diseases of the digestive system
CPT/HCPCS: 36415; 71046; 74176; 78582; 80048; 80053; 81001; 81003; 83605; 83735; 83880; 84100; 84443; 84484; 85025; 85027; 85379; 85610; 85652; 85730; 86140; 87040; 87077; 87186; 87502; 87635; 93005; 93306; 94760; 96361; 96365; 96366; 99285

== ENCOUNTER 2022-05-27 11:31 | Emergency (ER) | payer OTHER ==
--- NOTE | 2022-05-27 12:35 | ED ---
Fall HPI - General Chief Complaint: Fall Stated Complaint: dizziness Time Seen by Provider: 05/27/22 12:15 Source: patient, family Mode of arrival: ambulatory - History of Present Illness Initial Comments: This is a pleasant 86-year-old male that presents to the emergency room with family stating [facility] a fall he had a month ago. Patient has had 2 subsequent falls and he feels as though he has gait is unsteady. He feels lightheaded but denies any headaches. He is on eliquis for A. fib. Denies any nausea vomiting diarrhea fevers, chest pain or difficulty breathing. MD Complaint: fall -: month(s) (1) Fall From: standing Loss of Consciousness: none Severity scale (1-10): 0 - Related Data Home Medications Medication Instructions Recorded Confirmed Aspirin EC [Ecotrin Low Dose] 81 mg PO DAILY 04/28/20 01/06/22 Gabapentin [Neurontin] 600 mg PO HS 04/28/20 01/06/22 Insulin Glargine,Hum.rec.anlog 20 unit SQ AC-SUPPER 04/28/20 01/06/22 [Lantus Solostar Pen] Insulin Aspart [NovoLOG Flexpen] 5 units SQ AC-BID 01/06/22 01/06/22 Vit C/E/Zn/Coppr/Lutein/Zeaxan 1 cap PO BID 01/06/22 01/06/22 [Preservision Areds 2 Softgel] allopurinoL 100 mg PO DAILY 01/06/22 01/06/22 Previous Rx's Medication Instructions Recorded Amiodarone [Cordarone] 200 mg PO BID 30 Days #60 tab 01/11/22 Apixaban [Eliquis] 2.5 mg PO BID 30 Days #60 tab 01/11/22 Ciprofloxacin HCl 500 mg PO BID 14 Days #28 tab 01/11/22 Metoprolol Tartrate [Lopressor] 25 mg PO TID 30 Days #90 tab 01/11/22 metroNIDAZOLE [Flagyl] 500 mg PO TID 14 Days #42 tab 01/11/22 Allergies Allergy/AdvReac Type Severity Reaction Status Date / Time atorvastatin [From Lipitor] Allergy Unknown Verified 05/27/22 11:48 metformin Allergy Unknown Verified 05/27/22 11:48 Review of Systems ROS Statement: Those systems with pertinent positive or pertinent negative responses have been documented in the HPI. ROS Other: All systems not noted in ROS Statement are negative. Past Medical History Past Medical History: Atrial Fibrillation, Diabetes Mellitus, Pneumonia History of Any Multi-Drug Resistant Organisms: None Reported Past Surgical History: Appendectomy Additional Past Surgical History / Comment(s): dental Past Anesthesia/Blood Transfusion Reactions: No Reported Reaction Past Psychological History: No Psychological Hx Reported Smoking Status: Former smoker Past Alcohol Use History: Rare Past Drug Use History: None Reported - Past Family History Mother History Unknown: Yes Family Medical History: Unable to Obtain Additional Family Medical History / Comment(s): patient confused and does not give clear answers General Exam Limitations: no limitations General appearance: alert, in no apparent distress Head exam: Present: atraumatic, normocephalic, normal inspection Eye exam: Present: EOMI. Absent: scleral icterus, conjunctival injection, nystagmus, periorbital swelling ENT exam: Present: mucous membranes moist Neck exam: Present: full ROM. Absent: tenderness, meningismus, lymphadenopathy Respiratory exam: Present: normal lung sounds bilaterally. Absent: respiratory distress, accessory muscle use Cardiovascular Exam: Present: bradycardia GI/Abdominal exam: Present: soft. Absent: distended, tenderness, rigid Back exam: Absent: tenderness, CVA tenderness (R), CVA tenderness (L), paraspinal tenderness, vertebral tenderness, rash noted Neurological exam: Present: alert, oriented X3 Expanded Patient oriented to: Present: person, place Speech: Present: fluid speech Cranial nerves: EOM's Intact: Normal Cerebellar function: Finger to Nose: Normal, Heel to Unger: Normal Motor strength exam: RUE: 5, LUE: 5, RLE: 5, LLE: 5 Eye Response: (4) open spontaneously Motor Response: (6) obeys commands Verbal Response: (5) oriented [place] Total: 15 Psychiatric exam: Present: normal affect, normal mood Skin exam: Present: warm, dry, normal color. Absent: rash, cyanosis, diaphoretic, petechiae, pallor Course Vital Signs 05/27/22 05/27/22 05/27/22 11:42 13:23 14:39 Temperature 98.0 F 97.9 F Pulse Rate 51 L 56 L 54 L Respiratory 16 18 18 Rate Blood Pressure 118/65 117/71 137/67 O2 Sat by Pulse 97 97 97 Oximetry Medical Decision Making - Medical Decision Making Hemoglobin and hematocrit are stable. Electrolytes show a worsening renal failure with a creatinine of 2.56. Troponin is negative at 0.012. Urinalysis negative for infection. EKG shows sinus rhythm with a ventricular rate of 64, NE interval 0.146, QRS 0.97, QTC 0.474; indeterminate axis, frequent supraventricular premature complexes CT of the brain and C-spine shows no acute intracranial process. Atrophy with white matter ischemic changes and resolution of previous subdural hematomas. Degenerative disc changes C5 6 and C6 7. Foraminal stenosis greatest at left C3 4 and right C6 7 I did speak with patient's daughter and at bedside who are comfortable taking patient home. [facility] Patient given appointment with nephrology and was directing them to follow up regarding elevated creatinine level. This may be related to dehydration or patient has been increasing his urine output also having high sugars and not taking his insulin as directed. Directed to return back to the emergency room with any new or concerning symptoms. He is agreeable to this plan of care. Case discussed with Dr. Booker Was pt. sent in by a medical professional or institution? @ -PCP at the [facility] Did you speak to anyone other than the patient for history? @ -Daughter and Did you review nursing and triage notes? @ -yeS I agree Were old charts reviewed? @ -No Differential Diagnosis? @ -CVA, TIA, intracranial bleed, electrolyte abnormality cardiac arrhythmia , not an inclusive list( EKG interpreted by me (3pts min.)? @ Yes as above] X-rays interpreted by me (1pt min.)? @ None] CT interpreted by me (1pt min.)? @ Yes as above] U/S interpreted by me (1pt. min.)? @ None] What testing was considered but not performed? (CT, X-rays, U/S, labs)? Why? X-ray of the pelvis and hips were considered however patient has full range of motion denies any pain. Has been ambulatory at home with lift legs high off the bed with no limitation] What meds were considered but not given? Why? @ None] Did you discuss the management of the patient with other professionals? @ No] Did you reconcile home meds? @ No] Was smoking cessation discussed for >3mins.? @ None] Was critical care preformed (if so, how long)? @ No] Were there social determinants of health that impacted care today? How? (Homelessness, low income, unemployed, alcoholism, drug addiction, transportation, low edu. Level, literacy, decrease access to med. care, fci, re hab)? @ ] Was there de-escalation of care discussed even if they declined? (Discuss DNR or withdrawal of care, Hospice)? @ No] What co-morbidities impacted this encounter? (DM, HTN, Smoking, COPD, CAD, Cancer, CVA, Hep., AIDS, mental health diagnosis, sleep apnea, morbid obesity)? @ Chronic kidney disease, intracranial bleed 6, A. fib, diabetes] Was patient admitted / discharged? @ Discharged Undiagnosed new problem with uncertain prognosis? @ -[none] Drug Therapy requiring intensive monitoring for toxicity (Heparin, Nitro, Insulin, Cardizem)? @ -[none] Were any procedures done? @ no Diagnosis/symptom? @ -Fall, chronic kidney disease, diabetes with nonadherence to medication Acute, or Chronic, or Acute on Chronic? @ Acute and acute on chronic] Uncomplicated (without systemic symptoms) or Complicated (systemic symptoms)? @ Complicated] Side effects of treatment? @ -[none] Exacerbation, Progression, or Severe Exacerbation] @ -[no] Poses a threat to life or bodily function? @ -[no] - Lab Data Result diagrams: 05/27/22 12:51 05/27/22 12:51 Lab Results 05/27/22 05/27/22 05/27/22 Range/Units 12:51 12:51 12:51 WBC 13.1 H (3.8-10.6) k/uL RBC 4.59 (4.30-5.90) m/uL Hgb 14.0 (13.0-17.5) gm/dL Hct 42.9 (39.0-53.0) % MCV 93.4 (80.0-100.0) fL MCH 30.4 (25.0-35.0) pg MCHC 32.6 (31.0-37.0) g/dL RDW 13.8 (11.5-15.5) % Plt Count 313 (150-450) k/uL MPV 8.1 Neutrophils % 75 % Lymphocytes % 15 % Monocytes % 5 % Eosinophils % 2 % Basophils % 1 % Neutrophils # 9.8 H (1.3-7.7) k/uL Lymphocytes # 1.9 (1.0-4.8) k/uL Monocytes # 0.7 (0-1.0) k/uL Eosinophils # 0.3 (0-0.7) k/uL Basophils # 0.1 (0-0.2) k/uL PT 10.0 (9.0-12.0) sec INR 0.9 (<1.2) APTT 23.9 (22.0-30.0) sec Sodium 136 L (137-145) mmol/L Potassium 4.7 (3.5-5.1) mmol/L Chloride 105 (98-107) mmol/L Carbon Dioxide 28 (22-30) mmol/L Anion Gap 3 mmol/L BUN 28 H (9-20) mg/dL Creatinine 2.56 H (0.66-1.25) mg/dL Est GFR (CKD-EPI)AfAm 26 (>60 ml/min/1.73 sqM) Est GFR (CKD-EPI)NonAf 22 (>60 ml/min/1.73 sqM) Glucose 213 H (74-99) mg/dL Calcium 8.6 (8.4-10.2) mg/dL Troponin I (0.000-0.034) ng/mL Urine Color Urine Appearance (Clear) Urine pH (5.0-8.0) Ur Specific [place] (1.001-1.035) Urine Protein (Negative) Urine Glucose (UA) (Negative) Urine Ketones (Negative) Urine Blood (Negative) Urine Nitrite (Negative) Urine Bilirubin (Negative) Urine Urobilinogen (<2.0) mg/dL Ur Leukocyte Esterase (Negative) 05/27/22 05/27/22 Range/Units 12:51 13:23 WBC (3.8-10.6) k/uL RBC (4.30-5.90) m/uL Hgb (13.0-17.5) gm/dL Hct (39.0-53.0) % MCV (80.0-100.0) fL MCH (25.0-35.0) pg MCHC (31.0-37.0) g/dL RDW (11.5-15.5) % Plt Count (150-450) k/uL MPV Neutrophils % % Lymphocytes % % Monocytes % % Eosinophils % % Basophils % % Neutrophils # (1.3-7.7) k/uL Lymphocytes # (1.0-4.8) k/uL Monocytes # (0-1.0) k/uL Eosinophils # (0-0.7) k/uL Basophils # (0-0.2) k/uL PT (9.0-12.0) sec INR (<1.2) APTT (22.0-30.0) sec Sodium (137-145) mmol/L Potassium (3.5-5.1) mmol/L Chloride (98-107) mmol/L Carbon Dioxide (22-30) mmol/L Anion Gap mmol/L BUN (9-20) mg/dL Creatinine (0.66-1.25) mg/dL Est GFR (CKD-EPI)AfAm (>60 ml/min/1.73 sqM) Est GFR (CKD-EPI)NonAf (>60 ml/min/1.73 sqM) Glucose (74-99) mg/dL Calcium (8.4-10.2) mg/dL Troponin I <0.012 (0.000-0.034) ng/mL Urine Color Yellow Urine Appearance Clear (Clear) Urine pH 6.0 (5.0-8.0) Ur Specific [place] 1.018 (1.001-1.035) Urine Protein Trace H (Negative) Urine Glucose (UA) Trace H (Negative) Urine Ketones Negative (Negative) Urine Blood Negative (Negative) Urine Nitrite Negative (Negative) Urine Bilirubin Negative (Negative) Urine Urobilinogen <2.0 (<2.0) mg/dL Ur Leukocyte Esterase Negative (Negative) Disposition Clinical Impression: Fall, Lightheaded, Chronic kidney disease Disposition: HOME SELF-CARE Condition: Good Instructions (If sedation given, give patient instructions): Fall Prevention for Older Adults (ED), Lightheadedness (ED) Additional Instructions: Please change positions slowly to avoid any dizziness or lightheadedness. Use a cane or a walker to help steady your gait. Use your insulin as directed. Increase your fluid intake to prevent dehydration. Keep your appointment with your tailer off as scheduled next week. Return to the emergency room with any new or concerning symptoms. Is patient prescribed a controlled substance at d/c from ED?: No Referrals: [facility] [Primary Care Provider] - 1-2 days Time of Disposition: 14:00
[2022-05-27 13:03] LABS: Basophils # (A) 0.1 k/uL (0-0.2); Basophils % (A) 1 %; Eosinophils # (A) 0.3 k/uL (0-0.7); Eosinophils % (A) 2 %; HCT 42.9 % (39.0-53.0); Lymphocytes # (A) 1.9 k/uL (1.0-4.8); Lymphocytes % (A) 15 %; MCH 30.4 pg (25.0-35.0); MCHC 32.6 g/dL (31.0-37.0); MCV 93.4 fL (80.0-100.0); Mean Platelet Volume 8.1; Monocytes # (A) 0.7 k/uL (0-1.0); Monocytes % (A) 5 %; Neutrophils # (A) 9.8 k/uL (1.3-7.7); Neutrophils % (A) 75 %; Platelet Count 313 k/uL (150-450); RBC 4.59 m/uL (4.30-5.90); RDW 13.8 % (11.5-15.5); WBC 13.1 k/uL (3.8-10.6)
[2022-05-27 13:11] LABS: Calcium 8.6 mg/dL (8.4-10.2); Potassium 4.7 mmol/L (3.5-5.1)
[2022-05-27 13:16] LABS: INR 0.9 (<1.2)
[2022-05-27 13:17] LABS: Partial Thromboplastin Time 23.9 sec (22.0-30.0)
[2022-05-27 13:25] VITALS: RESP 18
--- NOTE | 2022-05-27 13:32 | CT ---
EXAMINATION TYPE: CT brain darlene wo con DATE OF EXAM: 05/27/2022 COMPARISON: 08/01/2020 HISTORY: dizziness following fall [address] DLP: 1385.3 mGycm, Automated exposure control for dose reduction was used. CONTRAST: Patient injected with 0 mL of Isovue 300. CT of the brain is performed utilizing 3 mm thick sections through the posterior fossa and 3 mm thick sections through the remaining calvarium. Study is performed within 24 hours of arrival to the hospital. No abnormal hyperdensity is present to suggest an acute subacute intracranial hemorrhage. Previous b ilateral subdural hematomas have resolved. No mass lesion is evident. No acute infarcts are evident. There is periventricular white matter hypodensity, likely of the basi s of chronic white matter ischemic change. Ventricles and sulci are appropriate for the patient age. Paranasal sinuses and mastoid air cells within the [id number] are clear. There have been prior mas toidectomies. IMPRESSIONS: 1. No acute intracranial process. 2. Atrophy with white matter ischemic changes. 3. Resolution of previous subdural hematomas CT cervical spine. COMPARISON: None CT of the cervical spine is performed in the axial plane at 2 mm thick sections. Reconstructed image s in the coronal, and sagittal plane are reviewed on the computer. No acute fractures are evident. Vertebral body alignment is normal. There is endplate spurring present by, C6. Disc heights are preserved. Vertebral body heights are preserved. No spinal canal stenosis is evident. Uncovertebral joint hypertrophy and facet hypertrophy is contributing to severe left foraminal stenos is C3-4. Severe right foraminal stenosis present C6-7 from uncovertebral joint hypertrophy. IMPRESSIONS: 1. Degenerative disc changes C5-6 C6-7. 2. Foraminal stenosis greatest at left C3-4 and right C6-7.
[2022-05-27 13:42] LABS: Appearance,Urine Clear (Clear); Bilirubin,Urine Negative (Negative); Blood,Urine Negative (Negative); Color,Urine Yellow; Glucose,Urine (UA) Trace (Negative); Ketones,Urine Negative (Negative); Leukocyte Esterase,Urine Negative (Negative); Nitrite,Urine Negative (Negative); Protein,Urine Trace (Negative); Specific Gravity,Urine 1.018 (1.001-1.035); Urobilinogen,Urine <2.0 mg/dL (<2.0)
[2022-05-27 14:40] VITALS: BP 137/67; PULSE 54; TEMP 97.9
== END 2022-05-27 14:51 | disposition home or self-care (01) ==
LOC: EC 11:31
DX: E11.22 Type 2 diabetes mellitus with diabetic chronic kidney disease (principal); N18.9 Chronic kidney disease, unspecified; Z79.4 Long term (current) use of insulin; Z79.82 Long term (current) use of aspirin; Z88.8 Allergy status to other drugs, medicaments and biological substances; Z90.89 Acquired absence of other organs; Z87.891 Personal history of nicotine dependence; W19.XXXA Unspecified fall, initial encounter
CPT/HCPCS: 36415; 70450; 72125; 80048; 81003; 84484; 85025; 85610; 85730; 93005; 99284

== ENCOUNTER 2023-03-10 11:31 | Observation (INO) | payer OTHER, MEDICARE ==
[2023-03-10 12:32] LABS: Basophils % (A) 0 %; Eosinophils # (A) 0.4 k/uL (0-0.7); Eosinophils % (A) 3 %; HCT 40.3 % (39.0-53.0); HGB 12.9 gm/dL (13.0-17.5); Lymphocytes # (A) 1.8 k/uL (1.0-4.8); Lymphocytes % (A) 17 %; MCH 30.2 pg (25.0-35.0); MCHC 32.1 g/dL (31.0-37.0); MCV 93.9 fL (80.0-100.0); Mean Platelet Volume 9.3; Monocytes # (A) 0.6 k/uL (0-1.0); Monocytes % (A) 6 %; Neutrophils # (A) 7.8 k/uL (1.3-7.7); Neutrophils % (A) 72 %; Platelet Count 260 k/uL (150-450); RBC 4.29 m/uL (4.30-5.90); RDW 13.8 % (11.5-15.5); WBC 10.8 k/uL (3.8-10.6)
[2023-03-10 12:46] LABS: ALT 14 U/L (4-49); AST 15 U/L (17-59); African American GFR (CKD) 39 (>60 ml/min/1.73 sqM); Albumin 3.1 g/dL (3.5-5.0); Alkaline Phosphatase 79 U/L (38-126); Anion Gap 11 mmol/L; Blood Urea Nitrogen 19 mg/dL (9-20); Calcium 8.4 mg/dL (8.4-10.2); Carbon Dioxide 20 mmol/L (22-30); Chloride 104 mmol/L (98-107); Glucose 349 mg/dL (74-99); Non-African American GFR(CKD) 33 (>60 ml/min/1.73 sqM); Partial Thromboplastin Time 26.4 sec (22.0-30.0); Potassium 4.6 mmol/L (3.5-5.1); Prothrombin Time 10.7 sec (10.0-12.5); Sodium 135 mmol/L (137-145); Total Bilirubin 0.5 mg/dL (0.2-1.3); Total Protein 5.7 g/dL (6.3-8.2)
--- NOTE | 2023-03-10 13:00 | CT ---
EXAMINATION TYPE: CT brain darlene gracia DATE OF EXAM: 03/10/2023 COMPARISON: HISTORY: Fall on thinners CT DLP: 1489.[address] of the brain was performed. The ventricles, basal cisterns and sulci overlying the cerebral convexities demonstrate mild enlargem ent. There is no evidence for intracranial hemorrhage or sulcal effacement. There is decreased attenuatio n about the periventricular white matter and deep white matter of both cerebral hemispheres, compatib le with chronic small vessel ischemia. No mass effects are seen. If symptoms persist consider MRI. Osseous calvarium is intact. IMPRESSION: 1. Age related atrophic and chronic small vessel ischemic change without acute intracranial process seen at this time. CT Cervical Spine: Unenhanced CT of the cervical spine was performed with bone and soft tissue window settings submitted . Coronal and sagittal reconstruction is obtained. There is normal alignment and prevertebral soft tissues. No evidence for acute cervical fracture . Scattered degenerative disc disease and spondylosis. Biapical scarring. IMPRESSION: 1. No evidence for acute fracture or subluxation of the cervical spine.
[2023-03-10] MEDS ORDERED: SODIUM CHLORIDE 0.9% 1,000 ML IV STA (13:35)
--- NOTE | 2023-03-10 15:37 | ED ---
General Adult HPI - General Chief complaint: Fall Stated complaint: Fall Time Seen by Provider: 03/10/23 13:30 Source: patient, family, RN notes reviewed, old records reviewed Mode of arrival: wheelchair - History of Present Illness Initial comments: Patient is an 87-year-old male who presents emergency Department complaining of lightheadedness and dizziness. Had a fall on blood thinners. Work of the sternum triage including CT of the head. CT did not lose consciousness. Fall was multiple hours prior to evaluation. Patient is on Eliquis. States he was sitting down to use the restroom when he became lightheaded and fell and struck the back of his head on the wall. Denies loss conscious. No other injuries. No other pain. Asymptomatic at this time. States he has had intermittent lightheadedness for over a year, with no known associated cause. Denies fevers, chills, chest pain, shortness breath, abdominal pain, headache, blurry vision. Denies any weakness or numbness. Presents for further evaluation. I evaluated the patient when he was placed in a room. - Related Data Home Medications Medication Instructions Recorded Confirmed Aspirin EC [Ecotrin Low Dose] 81 mg PO DAILY 04/28/20 01/06/22 Gabapentin [Neurontin] 600 mg PO HS 04/28/20 01/06/22 Insulin Glargine,Hum.rec.anlog 20 unit SQ AC-SUPPER 04/28/20 01/06/22 [Lantus Solostar Pen] Insulin Aspart [NovoLOG Flexpen] 5 units SQ AC-BID 01/06/22 01/06/22 Vit C/E/Zn/Coppr/Lutein/Zeaxan 1 cap PO BID 01/06/22 01/06/22 [Preservision Areds 2 Softgel] allopurinoL 100 mg PO DAILY 01/06/22 01/06/22 Previous Rx's Medication Instructions Recorded Amiodarone [Cordarone] 200 mg PO BID 30 Days #60 tab 01/11/22 Apixaban [Eliquis] 2.5 mg PO BID 30 Days #60 tab 01/11/22 Ciprofloxacin HCl 500 mg PO BID 14 Days #28 tab 01/11/22 Metoprolol Tartrate [Lopressor] 25 mg PO TID 30 Days #90 tab 01/11/22 metroNIDAZOLE [Flagyl] 500 mg PO TID 14 Days #42 tab 01/11/22 Allergies Allergy/AdvReac Type Severity Reaction Status Date / Time atorvastatin [From Lipitor] Allergy Unknown Verified 03/10/23 11:58 metformin Allergy Unknown Verified 03/10/23 11:58 Review of Systems ROS Statement: Those systems with pertinent positive or pertinent negative responses have been documented in the HPI. Review of Systems: CONST: Denies fever EYES: Denies blurry vision ENT: Denies nasal congestion C/V: Denies Chest pain RESP: Denies shortness of breath GI: Denies abdominal pain : Denies dysuria SKIN: Denies rash. MSK: Denies joint pain. NEURO: Denies headache ROS Other: All systems not noted in ROS Statement are negative. Past Medical History Past Medical History: Atrial Fibrillation, Diabetes Mellitus, Pneumonia History of Any Multi-Drug Resistant Organisms: None Reported Past Surgical History: Appendectomy Additional Past Surgical History / Comment(s): dental Past Anesthesia/Blood Transfusion Reactions: No Reported Reaction Past Psychological History: No Psychological Hx Reported Smoking Status: Former smoker Past Alcohol Use History: Rare Past Drug Use History: None Reported - Past Family History Mother History Unknown: Yes Family Medical History: Unable to Obtain Additional Family Medical History / Comment(s): patient confused and does not give clear answers General Exam - General Exam Comments Initial Comments: General: Appears in no acute distress. HEAD: Normal with no signs of head trauma. EYES: PERRLA, EOMI, conjunctiva normal, no discharge. Pupils are 2 mm equal bilaterally. ENT: Hearing grossly intact, normal oropharynx. RESPIRATORY: Clear breath sounds bilaterally. No wheezes, rales, or rhonchi. C/V: Regular rate and rhythm. S1 and S2 auscultated, no edema, peripheral pulses 2+ and intact throughout ABD: Abd is soft, nontender, nondistended EXT: Normal range of motion, no obvious deformity SKIN: No rashes or lesions observed on exposed skin. NEURO: Alert and oriented x 4. Cranial nerves II-XII intact. No focal sensory or strength deficits. HINTS testing negative. Cerebellar function within several limits as evident by absence of dysdiadochokinesia, normal finger-nose testing and normal [id number] testing. Patient able to stand without issue. Romberg negative. Course Vital Signs 03/10/23 03/10/23 11:56 15:36 Temperature 98.6 F Pulse Rate 55 L Pulse Rate [ 51 L Sitting] Pulse Rate [ 50 L Standing Pulse Oximetery] Pulse Rate [ 48 L Supine Pulse Oximetery] Respiratory 16 18 Rate Blood Pressure 128/57 Blood Pressure 155/76 [Right Arm Sitting] Blood Pressure 152/63 [Right Arm Standing] Blood Pressure 178/74 [Right Arm Supine] O2 Sat by Pulse 97 99 Oximetry Medical Decision Making - Medical Decision Making Was pt. sent in by a medical professional or institution (, PA, VEHICLE MECHANIC, urgent care, hospital, or care home...) When possible be specific @ -No Did you speak to anyone other than the patient for history (EMS, parent, family, police, friend...)? What history was obtained from this source @ -Spoke with family who is at bedside who corroborates the patient's story that he has been having lightheadedness spells for over a year. Did you review nursing and triage notes (agree or disagree)? Why? @ -I reviewed and agree with nursing and triage notes Were old charts reviewed (outside hosp., previous admission, EMS record, old EKG, old radiological studies, urgent care reports/EKG's, care home records)? Report findings @ -Old charts reviewed Differential Diagnosis (chest pain, altered mental status, abdominal pain women, abdominal pain men, vaginal bleeding, weakness, fever, dyspnea, syncope, headache, dizziness, GI bleed, back pain, seizure, CVA, palpatations, mental health, musculoskeletal)? @ -Differential Dizziness: Benign paroxysmal positional Vertigo, Menieres disease, otitis media, acoustic neuroma, vertebrobasilar insufficiency, cerebellar stroke, encephalitis, hypovolemic, arrhythmia, coronary artery syndrome, anemia, this is not meant to be an all-inclusive list Also includes intracranial injury. EKG interpreted by me (3pts min.). @ -As above X-rays interpreted by me (1pt min.). @ -None done CT interpreted by me (1pt min.). @ -CT brain reveals no evidence of acute intracranial process. CT C-spine negative for any obvious acute fracture or injury. U/S interpreted by me (1pt. min.). @ -None done What testing was considered but not performed or refused? (CT, X-rays, U/S, labs)? Why? @ -None What meds were considered but not given or refused? Why? @ -None Did you discuss the management of the patient with other professionals (professionals i.e. , PA, VEHICLE MECHANIC, lab, RT, psych nurse, psychiatric social worker, belt fixer, teacher, national insurance officer, director of casework department)? Give summary @ -Discussed with Dr. Carlson who accepted the admission. Was smoking cessation discussed for >3mins.? @ -No Was critical care preformed (if so, how long)? @ -No Were there social determinants of health that impacted care today? How? (Homelessness, low income, unemployed, alcoholism, drug addiction, transportation, low edu. Level, literacy, decrease access to med. care, long-term, rehab)? @ -No Was there de-escalation of care discussed even if they declined (Discuss DNR or withdrawal of care, Hospice)? DNR status @ -No What co-morbidities impacted this encounter? (DM, HTN, Smoking, COPD, CAD, Cancer, CVA, ARF, Chemo, Hep., AIDS, mental health diagnosis, sleep apnea, morbid obesity)? @ -None Was patient admitted / discharged? Hospital course, mention meds given and route, prescriptions, significant lab abnormalities, going to OR and other pertinent info. @ -Patient presents as a fall on blood thinners. Work up was started in tri age. This includes CT imaging which was negative for any injury. Basic labs were obtained which were remarkable for a CK D but no other obvious findings. Patient's chronic anemia. We are still waiting for a urine study. Troponin undetectable. Vital signs within acceptable limits. Exam relatively unremarkable at this time. I did discuss with patient as well as family members. We agreed to administer IV fluids and obtain orthostatic vital signs. We'll also obtain urine studies. Patient was in agreement this plan. Patient's orthostatics are positive for orthostatic hypotension. Systolics drop by over 20 points from lying down to standing. Patient also remains mildly bradycardic which seems neuro the last year or so. Discussed with patient, I'm concerned this may be related to medications, and as he is a fall risk concerning is on blood thinners and did recommend admission for cardiology evaluation for medication evaluation. He was in agreement this plan. Discussed case with the admitting team, Dr. Carlson who accepted the patient. Undiagnosed new problem with uncertain prognosis? @ -No Drug Therapy requiring intensive monitoring for toxicity (Heparin, Nitro, Insulin, Cardizem)? @ -No Were any procedures done? @ -No Diagnosis/symptom? @ -Fall on blood thinners Acute, or Chronic, or Acute on Chronic? @ -Acute Uncomplicated (without systemic symptoms) or Complicated (systemic symptoms)? @ -Uncomplicated Side effects of treatment? @ -No Exacerbation, Progression, or Severe Exacerbation? @ -No Poses a threat to life or bodily function? How? (Chest pain, [place], NV, pneumonia, PE, COPD, DKA, ARF, appy, cholecystitis, CVA, Diverticulitis, Homicidal, Suicidal, threat to staff... and all critical care pts) @ -No Diagnosis/symptom? @ -Orthostatic hypotension, bradycardia Acute, or Chronic, or Acute on Chronic? @ -Acute Uncomplicated (without systemic symptoms) or Complicated (systemic symptoms)? @ -Complicated Side effects of treatment? @ -none Exacerbation, Progression, or Severe Exacerbation] @ -no Poses a threat to life or bodily function? @ -Yes, can result in the fall and if patient is on blood thinners is at increased risk for intracranial hemorrhage. - Lab Data Result diagrams: 03/10/23 12:14 03/10/23 12:14 Lab Results 03/10/23 03/10/23 03/10/23 Range/Units 12:14 12:14 12:14 WBC 10.8 H (3.8-10.6) k/uL RBC 4.29 L (4.30-5.90) m/uL Hgb 12.9 L (13.0-17.5) gm/dL Hct 40.3 (39.0-53.0) % MCV 93.9 (80.0-100.0) fL MCH 30.2 (25.0-35.0) pg MCHC 32.1 (31.0-37.0) g/dL RDW 13.8 (11.5-15.5) % Plt Count 260 (150-450) k/uL MPV 9.3 Neutrophils % 72 % Lymphocytes % 17 % Monocytes % 6 % Eosinophils % 3 % Basophils % 0 % Neutrophils # 7.8 H (1.3-7.7) k/uL Lymphocytes # 1.8 (1.0-4.8) k/uL Monocytes # 0.6 (0-1.0) k/uL Eosinophils # 0.4 (0-0.7) k/uL Basophils # 0.0 (0-0.2) k/uL PT 10.7 (10.0-12.5) sec INR 1.0 (<1.2) APTT 26.4 (22.0-30.0) sec Sodium 135 L (137-145) mmol/L Potassium 4.6 (3.5-5.1) mmol/L Chloride 104 (98-107) mmol/L Carbon Dioxide 20 L (22-30) mmol/L Anion Gap 11 mmol/L BUN 19 (9-20) mg/dL Creatinine 1.81 H (0.66-1.25) mg/dL Est GFR (CKD-EPI)AfAm 39 (>60 ml/min/1.73 sqM) Est GFR (CKD-EPI)NonAf 33 (>60 ml/min/1.73 sqM) Glucose 349 H (74-99) mg/dL Calcium 8.4 (8.4-10.2) mg/dL Total Bilirubin 0.5 (0.2-1.3) mg/dL AST 15 L (17-59) U/L ALT 14 (4-49) U/L Alkaline Phosphatase 79 (38-126) U/L Troponin I (0.000-0.034) ng/mL Total Protein 5.7 L (6.3-8.2) g/dL Albumin 3.1 L (3.5-5.0) g/dL 03/10/23 03/10/23 Range/Units 12:14 12:14 WBC (3.8-10.6) k/uL RBC (4.30-5.90) m/uL Hgb (13.0-17.5) gm/dL Hct (39.0-53.0) % MCV (80.0-100.0) fL MCH (25.0-35.0) pg MCHC (31.0-37.0) g/dL RDW (11.5-15.5) % Plt Count (150-450) k/uL MPV Neutrophils % % Lymphocytes % % Monocytes % % Eosinophils % % Basophils % % Neutrophils # (1.3-7.7) k/uL Lymphocytes # (1.0-4.8) k/uL Monocytes # (0-1.0) k/uL Eosinophils # (0-0.7) k/uL Basophils # (0-0.2) k/uL PT 11.3 (10.0-12.5) sec INR 1.0 (<1.2) APTT (22.0-30.0) sec Sodium (137-145) mmol/L Potassium (3.5-5.1) mmol/L Chloride (98-107) mmol/L Carbon Dioxide (22-30) mmol/L Anion Gap mmol/L BUN (9-20) mg/dL Creatinine (0.66-1.25) mg/dL Est GFR (CKD-EPI)AfAm (>60 ml/min/1.73 sqM) Est GFR (CKD-EPI)NonAf (>60 ml/min/1.73 sqM) Glucose (74-99) mg/dL Calcium (8.4-10.2) mg/dL Total Bilirubin (0.2-1.3) mg/dL AST (17-59) U/L ALT (4-49) U/L Alkaline Phosphatase (38-126) U/L Troponin I <0.012 (0.000-0.034) ng/mL Total Protein (6.3-8.2) g/dL Albumin (3.5-5.0) g/dL - EKG Data -: EKG Interpreted by Me EKG Comments: 12-lead Electrocardiogram Interpretation Note EKG was reviewed and interpreted by myself. 12-lead ECG performed at 1201 is interpreted by me as revealing sinus bradycardia at a rate of 50 beats per minute. [place] is normal. UT interval is 119 ms, QRS duration is 93 ms, QTc is 446 ms.. There were no acute ST or T wave abnormalities to suggest myocardial ischemia or injury. R wave progression across the precordium was satisfactory. By my interpretation this EKG is non-diagnostic for acute ischemia. Disposition Clinical Impression: Fall, Orthostatic hypotension, Bradycardia Disposition: ADMITTED IP TO THIS HOSP Condition: Stable Referrals: [facility],Clinic [Primary Care Provider] - 1-2 days Time of Disposition: 15:45
[2023-03-10 15:59] LABS: Prothrombin Time 11.3 sec (10.0-12.5)
[2023-03-10] MEDS ORDERED: NALOXONE 0.4 MG/ML 1 ML VIAL IV PRN (15:59)
[2023-03-10 16:07] LABS: Appearance,Urine Clear (Clear); Bilirubin,Urine Negative (Negative); Blood,Urine Negative (Negative); Color,Urine Light Yellow; Glucose,Urine (UA) 4+ (Negative); Ketones,Urine Negative (Negative); Protein,Urine Negative (Negative); Specific Gravity,Urine 1.015 (1.001-1.035); Urobilinogen,Urine <2.0 mg/dL (<2.0)
[2023-03-10 16:08] LABS: Leukocyte Esterase,Urine Negative (Negative); Nitrite,Urine Negative (Negative)
--- NOTE | 2023-03-10 17:02 | P.HPIM ---
History of Present Illness H&P Date: 03/10/23 Patient is a 87-year-old male with history of hypertension, atrial fibrillation, insulin-dependent diabetes, peripheral neuropathy, gout presenting with lightheadedness and increased falls. Patient is a poor historian. He claims that he has been experiencing increased lightheadedness whenever he gets out of her bed or chair and stands up. He denies any palpitations, chest pain, nausea, vomiting, urinary or bowel complaints. He denies any lower extremity swelling. He claims he is compliant with his medications. He currently lives with his girlfriend. He ambulates using a walker. He denies any recent fevers or chills, sick contacts or travel history. In the ED, temperature was 98.6, pulse 55, respiratory rate 16, blood pressure 128/57, saturating at 97% on room air. Orthostatics were positive. WBC 10.8, hemoglobin 12.9, sodium 135, bicarb 20, creatinine 1.8 around his baseline. Troponin negative. Glucose 249. Urinalysis negative. Head and cervical spine CT did not show any acute process or fractures. EKG independently interpreted showed sinus bradycardia with nonspecific ST-T wave changes. Patient being admitted for frequent falls, presyncope, orthostatic hypotension. Cardiology has been consulted. Pertinent positives and negatives as discussed in HPI, a complete review of systems was performed and all other systems are negative. Patient seen and examined at bedside. Vital signs reviewed General: nontoxic, no distress, appears at stated age Derm: warm, dry Head: atraumatic, normocephalic, symmetric Eyes: EOMI, no lid lag, anicteric sclera, pupils equal round reactive to light ENT: Nose and ears atraumatic Neck: No thyromegaly, supple Mouth: no lip lesion, mucus membranes moist Cardiovascular: S1S2 reg, bradycardia, no murmur, no edema Lungs: clear to auscultation bilateral, no rhonchi, no rales, no wheeze, no accessory muscle use Abdominal: soft, nontender to palpation, no guarding, no appreciable organomegaly Ext: no gross muscle atrophy, muscle strength muscle strength 5 out of 5 in all 4 extremities, no contractures Neuro: CN II-XII grossly intact Psych: Alert, oriented, appropriate affect Assessment/Plan: Active: Presyncope Frequent falls Orthostatic hypotension Sinus bradycardia Mild leukocytosis Metabolic acidosis, unclear etiology -Patient received 1 L of normal saline in the ED -Repeat orthostatic vitals tomorrow -Consider slowly weaning off of gabapentin -Consider decreasing her dose of amiodarone and metoprolol -Cardiology has been consulted -Leukocytosis likely reactive -Repeat CBC and BMP tomorrow -TSH pending Insulin-dependent diabetes with hyperglycemia -Continue home glargine 20 units, and insulin as part of 5 units twice a day -Also on sliding scale insulin, monitor for hypoglycemia Chronic: Chronic kidney disease Hypertension Peripheral neuropathy Gout Reconcile all meds when confirmed by pharmacy The patient is admitted with an anticipated less than 2 midnight stay as observation status for evaluation of presyncope and fall. Surrogate decision-maker: Significant other CODE STATUS: Full code DVT prophylaxis: Fionaquchaparrita Anticipated discharge date: Pending clinical course Anticipated discharge place: Pending clinical course A total of 55 minutes was spent on the care of this complex patient more than 50% of the time was spent in counseling and care coordination. Past Medical History Past Medical History: Atrial Fibrillation, Diabetes Mellitus, Pneumonia History of Any Multi-Drug Resistant Organisms: None Reported Past Surgical History: Appendectomy Additional Past Surgical History / Comment(s): dental Past Anesthesia/Blood Transfusion Reactions: No Reported Reaction Past Psychological History: No Psychological Hx Reported Smoking Status: Former smoker Past Alcohol Use History: Rare Past Drug Use History: None Reported - Past Family History Mother History Unknown: Yes Family Medical History: Unable to Obtain Additional Family Medical History / Comment(s): patient confused and does not give clear answers Medications and Allergies Home Medications Medication Instructions Recorded Confirmed Type Aspirin EC [Ecotrin Low Dose] 81 mg PO DAILY 04/28/20 01/06/22 History Gabapentin [Neurontin] 600 mg PO HS 04/28/20 01/06/22 History Insulin Glargine,Hum.rec.anlog 20 unit SQ AC-SUPPER 04/28/20 01/06/22 History [Lantus Solostar Pen] Insulin Aspart [NovoLOG Flexpen] 5 units SQ AC-BID 01/06/22 01/06/22 History Vit C/E/Zn/Coppr/Lutein/Zeaxan 1 cap PO BID 01/06/22 01/06/22 History [Preservision Areds 2 Softgel] allopurinoL 100 mg PO DAILY 01/06/22 01/06/22 History Amiodarone [Cordarone] 200 mg PO BID 30 Days #60 tab 01/11/22 Rx Apixaban [Eliquis] 2.5 mg PO BID 30 Days #60 tab 01/11/22 Rx Ciprofloxacin HCl 500 mg PO BID 14 Days #28 tab 01/11/22 Rx Metoprolol Tartrate [Lopressor] 25 mg PO TID 30 Days #90 tab 01/11/22 Rx metroNIDAZOLE [Flagyl] 500 mg PO TID 14 Days #42 tab 01/11/22 Rx Allergies Allergy/AdvReac Type Severity Reaction Status Date / Time atorvastatin [From Lipitor] Allergy Unknown Verified 03/10/23 11:58 metformin Allergy Unknown Verified 03/10/23 11:58 Physical Exam Vitals: Vital Signs Temp Pulse Pulse Pulse Pulse Resp BP 03/10/23 15:36 51 L 50 L 48 L 18 03/10/23 14:30 49 L 18 177/73 03/10/23 11:56 98.6 F 55 L 16 128/57 BP BP BP Pulse Ox 03/10/23 15:36 155/76 152/63 178/74 99 03/10/23 14:30 97 03/10/23 11:56 97 Intake and Output 03/10/23 03/10/23 03/10/23 06:59 14:59 22:59 Other: Weight 79.379 kg Results CBC & Chem 7: 03/10/23 12:14 03/10/23 12:14 Labs: Abnormal Lab Results - Last 24 Hours (Table) 03/10/23 03/10/23 Range/Units 12:14 12:14 WBC 10.8 H (3.8-10.6) k/uL RBC 4.29 L (4.30-5.90) m/uL Hgb 12.9 L (13.0-17.5) gm/dL Neutrophils # 7.8 H (1.3-7.7) k/uL Sodium 135 L (137-145) mmol/L Carbon Dioxide 20 L (22-30) mmol/L Creatinine 1.81 H (0.66-1.25) mg/dL Glucose 349 H (74-99) mg/dL AST 15 L (17-59) U/L Total Protein 5.7 L (6.3-8.2) g/dL Albumin 3.1 L (3.5-5.0) g/dL
[2023-03-10 22:53] LABS: Glucose,Whole Blood 290 mg/dL (70-110)
[2023-03-10] MEDS ORDERED: hydrALAZINE HCL 25 MG TAB PO STA (23:58)
[2023-03-11 08:56] LABS: Basophils % (A) 0.8 %; Eosinophils # (A) 0.47 X 10*3/uL (0.04-0.35); Eosinophils % (A) 3.6 %; HCT 38.6 % (39.6-50.0); HGB 12.2 d/dL (13.0-17.0); Lymphocytes # (A) 2.73 X 10*3/uL (0.90-5.00); MCH 29.3 pg (27.0-32.0); MCHC 31.6 d/dL (32.0-37.0); MCV 92.6 FL (80.0-97.0); Mean Platelet Volume 11.2 FL (9.5-12.2); Monocytes # (A) 1.11 X 10*3/uL (0.20-1.00); Monocytes % (A) 8.5 %; NRBC Per 100 WBC 0 X 10*3/uL (0.00-0.01); Neutrophils # (A) 8.56 X 10*3/uL (1.80-7.70); Neutrophils % (A) 65.7 %; Platelet Count 283 X 10*3/uL (140-440); RBC 4.17 X 10*6/uL (4.40-5.60); RDW 13.5 % (11.5-14.5); WBC 13.02 X 10*3/uL (4.50-10.00)
[2023-03-11 09:19] LABS: BUN/Creat Ratio 7.78 Ratio (12.00-20.00); Carbon Dioxide 26.5 mmol/L (21.6-31.8); Chloride 105 mmol/L (96-109); Glucose 239 mg/dL (70-110); Potassium 4.3 mmol/L (3.5-5.5); Sodium 141 mmol/L (135-145)
[2023-03-11] MEDS ORDERED: DEXTROSE 50% SYRINGE 50 ML IVP PRN ×2 (09:29)
[2023-03-11] MEDS ORDERED: ASPIRIN 81 MG PO SCH (09:30)
[2023-03-11] MEDS ORDERED: METOPROLOL TARTRATE 50 MG TAB PO SCH (09:30)
[2023-03-11] MEDS: APIXABAN 2.5 MG TABLET PO SCH ×2 (09:32→20:06)
[2023-03-11] MEDS: amLODIPine 5 MG TAB PO SCH (09:32)
--- NOTE | 2023-03-11 10:51 | P.CRDCN ---
History of Present Illness History of present illness: HISTORY OF PRESENT ILLNESS: This is a 87-year-old male with a past medical history significant for diabetes, neuropathy, paroxysmal atrial fibrillation, and chronic kidney disease. Patient follows in the office with Dr. Aguila but has not been seen in the office since March 2022. We have been asked to see the patient in consultation for orthostatic hypotension and bradycardia. Patient examined at the bedside. Patient states yesterday he was at home washing his hands in the bathroom. He reports he felt dizzy and fell, hitting his head on the drywall. He continues to feel dizzy and lightheaded this morning. He states if he moves his head too quickly from one side to the other he feels dizzy. He denies any chest pain or pressure. He denies any shortness of breath. Patient was found to have orthostatic blood pressures with a drop in systolic blood pressure from 178 down to 152. Telemetry reveals sinus bradycardia with a heart rate in the 50s. * EKG reveals sinus mechanism with nonspecific ST-T wave changes. No signs of acute ischemia. Bradycardia with heart rate of 50. * Current home cardiac medications include metoprolol tartrate 50 mg twice a day, aspirin 81 mg daily, and Eliquis 2.5mg twice a day * Most recent echocardiogram obtained in December 2021 revealing ejection fraction 50-55%, mild MR, mild TR REVIEW OF SYSTEMS: At the time of my exam: CONSTITUTIONAL: Denies fever or chills. HEENT: Denies blurred vision, vision changes, or eye pain. Denies hemoptysis CARDIOVASCULAR: Denies chest pain. Denies orthopnea. Denies PND. Denies palpitations RESPIRATORY: Denies shortness of breath. GASTROINTESTINAL: Denies abdominal pain. Denies nausea or vomiting. HEMATOLOGIC: Denies bleeding disorders. GENITOURINARY: Denies any blood in urine. SKIN: Denies pruitis. Denies rash. PHYSICAL EXAM: VITAL SIGNS: Reviewed. GENERAL: Well-developed in no acute distress. HEENT: Head is normocephalic. Pupils are equal, round. Sclerae anicteric. Mucous membranes of the mouth are moist. Neck supple. No JVD or thyromegaly LUNGS: Respirations even and unlabored. Lungs essentially clear to auscultation bilaterally. HEART: Bradycardic. Regular rate and rhythm. S1 and S2 heard. ABDOMEN: Soft. Nondistended. Nontender. EXTREMITIES: Normal range of motion. No clubbing or cyanosis. Peripheral pulses intact. No lower extremity edema NEUROLOGIC: Awake and alert. Oriented x 3. ASSESSMENT: Status post fall Orthostatic hypotension Hypertension Sinus bradycardia Paroxysmal atrial fibrillation Diabetes Neuropathy Chronic kidney disease PLAN: Obtain 2-D echo to assess cardiac structure and function Resume Eliquis Discontinue aspirin Hold metoprolol Continue to monitor orthostatic blood pressures Apply CHERYL hose to bilateral lower extremities Discussed with nursing to ambulate patient in the hallway on telemetry monitoring to assess for chronotropic incompetence Begin Norvasc 5 mg daily Further recommendations pending patient's course Nurse practitioner note has been reviewed by physician. Signing provider agrees with the documented findings, assessment, and plan of care. Past Medical History Past Medical History: Atrial Fibrillation, Diabetes Mellitus, Pneumonia History of Any Multi-Drug Resistant Organisms: None Reported Past Surgical History: Appendectomy Additional Past Surgical History / Comment(s): dental Past Anesthesia/Blood Transfusion Reactions: No Reported Reaction Past Psychological History: No Psychological Hx Reported Smoking Status: Former smoker Past Alcohol Use History: Rare Past Drug Use History: None Reported - Past Family History Mother History Unknown: Yes Family Medical History: Unable to Obtain Additional Family Medical History / Comment(s): patient confused and does not give clear answers Medications and Allergies Home Medications Medication Instructions Recorded Confirmed Type Aspirin EC [Ecotrin Low Dose] 81 mg PO DAILY 04/28/20 03/10/23 History Gabapentin [Neurontin] 600 mg PO HS 04/28/20 03/10/23 History Insulin Glargine,Hum.rec.anlog 25 unit SQ 04/28/20 03/10/23 History [Lantus Solostar Pen] allopurinoL 100 mg PO DAILY 01/06/22 03/10/23 History Apixaban [Eliquis] 2.5 mg PO BID 30 Days #60 tab 01/11/22 03/10/23 Rx Metoprolol Tartrate [Lopressor] 50 mg PO BID 03/10/23 03/10/23 History Vitamin D3(Unknown Dose) 1 tab PO DAILY 03/10/23 03/10/23 History Allergies Allergy/AdvReac Type Severity Reaction Status Date / Time atorvastatin [From Lipitor] Allergy Unknown Verified 03/10/23 17:15 metformin Allergy Unknown Verified 03/10/23 17:15 Physical Exam Vitals: Vital Signs Temp Pulse Pulse Pulse Pulse Pulse Resp 03/11/23 07:00 98.1 F 59 L 14 03/11/23 00:55 97.7 F 56 L 18 03/10/23 22:41 97.8 F 51 L 16 03/10/23 22:14 64 17 03/10/23 21:00 52 L 21 03/10/23 20:30 54 L 13 03/10/23 19:55 55 L 16 03/10/23 17:11 98.1 F 54 L 18 03/10/23 15:36 51 L 50 L 48 L 18 03/10/23 14:30 49 L 18 03/10/23 11:56 98.6 F 55 L 16 BP BP BP BP BP Pulse Ox 03/11/23 07:00 184/81 96 03/11/23 00:55 174/76 98 03/10/23 22:41 211/86 97 03/10/23 22:14 175/66 98 03/10/23 21:00 210/99 95 03/10/23 20:30 199/95 98 03/10/23 19:55 190/93 98 03/10/23 17:11 160/75 98 03/10/23 15:36 155/76 152/63 178/74 99 03/10/23 14:30 177/73 97 03/10/23 11:56 128/57 97 Intake and Output 03/10/23 03/11/23 03/11/23 22:59 06:59 14:59 Output Total 1100 Balance -1100 Output: Urine 1100 Other: Voiding Method Toilet Toilet Urinal Urinal # Voids 1 Weight 79.379 kg Results 03/11/23 04:09 03/11/23 04:09 Cardiac Enzymes 03/10/23 03/10/23 Range/Units 12:14 12:14 AST 15 L (17-59) U/L Troponin I <0.012 (0.000-0.034) ng/mL Coagulation 03/10/23 03/10/23 Range/Units 12:14 12:14 PT 10.7 11.3 (10.0-12.5) sec APTT 26.4 (22.0-30.0) sec CBC 03/10/23 03/11/23 Range/Units 12:14 04:09 WBC 10.8 H 13.02 H (3.8-10.6) k/uL RBC 4.29 L 4.17 L (4.30-5.90) m/uL Hgb 12.9 L 12.2 L (13.0-17.5) gm/dL Hct 40.3 38.6 L (39.0-53.0) % Plt Count 260 283 (150-450) k/uL Comprehensive Metabolic Panel 03/10/23 Range/Units 12:14 Sodium 135 L (137-145) mmol/L Potassium 4.6 (3.5-5.1) mmol/L Chloride 104 (98-107) mmol/L Carbon Dioxide 20 L (22-30) mmol/L BUN 19 (9-20) mg/dL Creatinine 1.81 H (0.66-1.25) mg/dL Glucose 349 H (74-99) mg/dL Calcium 8.4 (8.4-10.2) mg/dL AST 15 L (17-59) U/L ALT 14 (4-49) U/L Alkaline Phosphatase 79 (38-126) U/L Total Protein 5.7 L (6.3-8.2) g/dL Albumin 3.1 L (3.5-5.0) g/dL Current Medications Generic Name Dose Route Start Last Admin Trade Name Freq PRN Reason Stop Dose Admin Naloxone HCl 0.2 mg 03/10/23 15:59 Naloxone 0.4 Mg/Ml 1 Ml Vial IV Q2M PRN Opioid Reversal Intake and Output 03/10/23 03/11/23 03/11/23 22:59 06:59 14:59 Output Total 1100 Balance -1100 Output: Urine 1100 Other: Voiding Method Toilet Toilet Urinal Urinal # Voids 1 Weight 79.379 kg 03/11/23 04:09 03/10/23 12:14
[2023-03-11] MEDS: INSULIN ASPART (NovoLOG) 100 UNIT/ML VIAL SQ SCH ×3 (12:26→21:13)
[2023-03-11 12:28] LABS: Glucose,Whole Blood 295 mg/dL (70-110)
[2023-03-11] MEDS ORDERED: ALPRAZolam 0.25 MG TAB PO PRN (16:38)
--- NOTE | 2023-03-11 16:48 | P.PN ---
Subjective Progress Note Date: 03/11/23 Hospital course: Hospital course: Patient is a very pleasant 87-year-old male with a past medical history of hypertension, atrial fibrillation, insulin-dependent diabetes, stage IV chronic kidney disease with baseline creatinine of 1.9, peripheral neuropathy, and gout. He presented to the emergency department on 03/10/23 with a chief complaint of lightheadedness and increased falls. Patient underwent full evaluation. Upon arrival, vital signs reviewed showing temperature was 98.6, pulse 55, respiratory rate 16, blood pressure 128/57, saturating at 97% on room air. Orthostatics were positive for orthostatic hypotension. WBC 10.8, hemoglobin 12.9, sodium 135, bicarb 20, creatinine 1.8 around his baseline. Troponin negative. Glucose 249. Urinalysis negative. CT Head and cervical spine completed and was negative for acute intercranial process and negative for subluxation or fractures of cervical spine. EKG independently interpreted showed sinus bradycardia with nonspecific ST-T wave changes. Patient being admitted for frequent falls, presyncope, and orthostatic hypotension. Cardiology has been consulted. Physical exam: Patient seen and fully evaluated the bedside. Patient reports he began having another episode this morning while attempting to use the restroom to urinate stating he had to call for assistance because he felt very dizzy/lightheaded feeling as though he was going to pass out. Patient currently hypertensive with blood pressure 184/81 and a heart rate of 59. Vital signs reviewed and stable. General: Nontoxic, no distress and appears stated age. Derm: Skin warm and dry, normal coloration for ethnicity. Head: Atraumatic, normocephalic and symmetric. Eyes: EOMs intact, no lid lag, and anicteric sclera Mouth: no lip lesions, mucus membranes moist Cardiovascular: regular rate and rhythm with normal S1S2, systolic murmur, posi tive posterior tibial pulses bilaterally, and cap refill < 2 seconds. Lungs: Respirations even, regular, and unlabored on room air. Lungs CTA bilaterally, no rhonchi, no rales, no wheezing, and no accessory muscle usage. Abdominal: soft, nontender to palpation, no guarding, no appreciable organom egaly Ext: ROM intact. No gross muscle atrophy, no edema, no contractures Neuro: Speech clear, face symmetrical and CN II-XII grossly intact with no noted focal neuro deficits Psych: Alert and oriented to person, place, time, and situation. Appropriate and pleasant affect. Assessment and Plan of Care: Near syncopal episode Hypertensive urgency Frequent falls at home Orthostatic hypotension Sinus bradycardia Mild leukocytosis Metabolic acidosis, unclear etiology -Patient to remain on continuous telemetry monitoring. -Consider slowly weaning off of gabapentin, decrease dose to 300 mg nightly from previous 600 mg. -Consider decreasing her dose of metoprolol -Cardiology following, appreciate recommendations. -Leukocytosis believed to be reactive -TSH normal finding at 2.880. -Order placed for CHERYL hose secondary to orthostatic hypotension -Order placed for consult to physical and occupational therapy secondary to frequent falls at home. -Discussed with social work coordinator, order placed for 4 wheeled walker with seat and script signed Insulin-dependent diabetes with hyperglycemia -Continue Levemir 25 units nightly along with placing patient on glycemic protocol with NovoLog sliding scale. Stage IV Chronic kidney disease Peripheral neuropathy Gout -Decreased dose of Neurontin to 300 mg nightly and patient may continue with allopurinol 100 mg daily. Data reviewed: Blood pressure 184/81, heart rate 59, respiratory rate 14, temp 98.1F, SpO2 of 96% on room air. CODE STATUS: Full code DVT prophylaxis: Eliquis Anticipated discharge date: Clinical course to determine Anticipated discharge place: Clinical course to determine Patient was seen independently by Nurse Pracitioner. This document was prepared using [employer] dictation software. Please allow for errors in cab station attendant, while rare they do occur. Objective - Vital Signs Vital signs: Vital Signs Temp 98.1 F 03/11/23 07:00 Pulse 59 L 03/11/23 07:00 Resp 14 03/11/23 07:00 BP 184/81 03/11/23 07:00 Pulse Ox 96 03/11/23 07:00 FiO2 Intake & Output 03/10/23 03/11/23 03/11/23 18:59 06:59 18:59 Output Total 1100 Balance -1100 Weight 79.379 kg 79.379 kg Output: Urine 1100 Other: Voiding Method Toilet Toilet Urinal Urinal # Voids 1 - Labs CBC & Chem 7: 03/11/23 04:09 03/11/23 04:09 Labs: Abnormal Lab Results - Last 24 Hours (Table) 03/10/23 03/10/23 03/10/23 Range/Units 12:14 12:14 22:51 WBC 10.8 H (3.8-10.6) k/uL RBC 4.29 L (4.30-5.90) m/uL Hgb 12.9 L (13.0-17.5) gm/dL Hct (39.6-50.0) % MCHC (32.0-37.0) d/dL Neutrophils # 7.8 H (1.3-7.7) k/uL Monocytes # (0.20-1.00) X 10*3/uL Eosinophils # (0.04-0.35) X 10*3/uL Sodium 135 L (137-145) mmol/L Carbon Dioxide 20 L (22-30) mmol/L Creatinine 1.81 H (0.66-1.25) mg/dL Est GFR (CKD-EPI) (>=60) BUN/Creatinine Ratio (12.00-20.00) Ratio Glucose 349 H (74-99) mg/dL POC Glucose (mg/dL) 290 H (70-110) mg/dL AST 15 L (17-59) U/L Total Protein 5.7 L (6.3-8.2) g/dL Albumin 3.1 L (3.5-5.0) g/dL 03/11/23 03/11/23 Range/Units 04:09 04:09 WBC 13.02 H (3.8-10.6) k/uL RBC 4.17 L (4.30-5.90) m/uL Hgb 12.2 L (13.0-17.5) gm/dL Hct 38.6 L (39.6-50.0) % MCHC 31.6 L (32.0-37.0) d/dL Neutrophils # 8.56 H (1.3-7.7) k/uL Monocytes # 1.11 H (0.20-1.00) X 10*3/uL Eosinophils # 0.47 H (0.04-0.35) X 10*3/uL Sodium (137-145) mmol/L Carbon Dioxide (22-30) mmol/L Creatinine 1.8 H (0.66-1.25) mg/dL Est GFR (CKD-EPI) 36 L (>=60) BUN/Creatinine Ratio 7.78 L (12.00-20.00) Ratio Glucose 239 H (74-99) mg/dL POC Glucose (mg/dL) (70-110) mg/dL AST (17-59) U/L Total Protein (6.3-8.2) g/dL Albumin (3.5-5.0) g/dL
[2023-03-11 17:28] LABS: Glucose,Whole Blood 251 mg/dL (70-110)
[2023-03-11 20:49] LABS: Glucose,Whole Blood 261 mg/dL (70-110)
[2023-03-11] MEDS ORDERED: INSULIN DETEMIR (LEVEMIR) 100 UNIT/ML SYR SQ SCH (21:00)
[2023-03-11] MEDS ORDERED: GABAPENTIN 300 MG CAP PO SCH ×2 (21:00)
[2023-03-12 07:46] LABS: Glucose,Whole Blood 83 mg/dL (70-110)
[2023-03-12] MEDS: INSULIN ASPART (NovoLOG) 100 UNIT/ML VIAL SQ SCH ×2 (08:01→12:39)
[2023-03-12 08:24] VITALS: RESP 19
[2023-03-12] MEDS: APIXABAN 2.5 MG TABLET PO SCH (08:30)
[2023-03-12] MEDS: amLODIPine 5 MG TAB PO SCH (08:30)
[2023-03-12] MEDS ORDERED: allopurinoL 100 MG TAB PO SCH (09:00)
[2023-03-12 11:11] VITALS: BMI 23.7
--- NOTE | 2023-03-12 11:18 | CA ---
Transthoracic Echo Report Name: Piero Cook Age: 87 Gender: M : 1935 Exam Date: 03/11/2023 14:29 Exam Location: [facility] Ht (in): 72 Wt (lb): 175 Ordering Physician: Michelle Gallardo Attending/Referring Phys: [id number], Paulina Manager Compliance Dee Mohr RDCS Procedure CPT: Indications: LV function, elevated BP Cardiac Hx: Technical Quality: Technically difficult study Contrast 1: Total Dose (mL): Contrast 2: Total Dose (mL): MEASUREMENTS (Male / Female) Normal Values 2D ECHO LV Diastolic Diameter PLAX 3.7 cm 4.2 - 5.9 / 3.9 - 5.3 cm LV Systolic Diameter PLAX 2.2 cm IVS Diastolic Thickness 1.4 cm 0.6 - 1.0 / 0.6 - 0.9 cm LVPW Diastolic Thickness 1.6 cm 0.6 - 1.0 / 0.6 - 0.9 cm LV Relative Wall Thickness 0.8 RV Internal Dim ED PLAX 2.6 cm LA Volume 52.0 cm??? 18 - 58 / 22 - 52 cm??? LA Volume Index 25.9 cm???/m??? 16 - 28 cm???/m??? M-MODE Aortic Root Diameter MM 2.4 cm LA Systolic Diameter MM 3.7 cm LA Ao Ratio MM 1.5 DOPPLER AV Peak Velocity 198.3 cm/s AV Peak Gradient 15.7 mmHg AV Mean Velocity 137.9 cm/s AV Mean Gradient 8.9 mmHg AV Velocity Time Integral 42.5 cm LVOT Peak Velocity 109.2 cm/s LVOT Peak Gradient 4.8 mmHg LVOT Velocity Time Integral 28.3 cm MV Area PHT 2.1 cm??? Mitral E Point Velocity 86.1 cm/s Mitral A Point Velocity 133.4 cm/s Mitral E to A Ratio 0.6 MV Deceleration Time 362.9 ms MV E' Velocity 4.4 cm/s Mitral E to MV E' Ratio 19.7 FINDINGS Left Ventricle Moderately increased left ventricular wall thickness. Normal left ventricular systolic function with no obvious regional wall motion abnormalities. Left ventricular cavity size normal. Left ventricular ejection fraction is estimated at 55-60 %. Right Ventricle Normal right ventricular size and function. Right Atrium Normal right atrial size. Left Atrium Normal left atrial size. Mitral Valve Structurally normal mitral valve. Mitral valve thickened. Moderate mitral annular calcification. Mild mitral regurgitation. Aortic Valve No aortic valve stenosis or regurgitation. Tricuspid Valve Structurally normal tricuspid valve. Mild tricuspid regurgitation. Pulmonic Valve Trace pulmonic regurgitation. Pericardium No pericardial effusion. Aorta Normal size aortic root and proximal ascending aorta. CONCLUSIONS Technically difficult study. Left ventricular ejection fraction is estimated at 55-60 %. Grade I diastolic dysfunction. No obvious regional wall motion abnormalities. Moderately increased left ventricular wall thickness. Moderate mitral annular calcification. Mild mitral regurgitation. No aortic valve stenosis or regurgitation. No pericardial effusion. Previewed by: Dr Cezar Fonseca (Electronically Signed) Final Date: 12 March 2023 11:17
--- NOTE | 2023-03-12 12:06 | P.PN ---
Subjective HISTORY OF PRESENT ILLNESS: This is a 87-year-old male with a past medical history significant for diabetes, neuropathy, paroxysmal atrial fibrillation, and chronic kidney disease. Patient follows in the office with Dr. Aguila but has not been seen in the office since March 2022. We have been asked to see the patient in consultation for orthostatic hypotension and bradycardia. Patient examined at the bedside. Patient states yesterday he was at home washing his hands in the bathroom. He reports he felt dizzy and fell, hitting his head on the drywall. He continues to feel dizzy and lightheaded this morning. He states if he moves his head too quickly from one side to the other he feels dizzy. He denies any chest pain or pressure. He denies any shortness of breath. Patient was found to have orthostatic blood pressures with a drop in systolic blood pressure from 178 down to 152. Telemetry reveals sinus bradycardia with a heart rate in the 50s. * EKG reveals sinus mechanism with nonspecific ST-T wave changes. No signs of acute ischemia. Bradycardia with heart rate of 50. * Current home cardiac medications include metoprolol tartrate 50 mg twice a day, aspirin 81 mg daily, and Eliquis 2.5mg twice a day * Most recent echocardiogram obtained in December 2021 revealing ejection fraction 50-55%, mild MR, mild TR 03/12/2023 Patient examined this morning at the bedside. Patient became confused overnight and currently has a project safety manager at the bedside. Patient without complaints of chest pain or pressure. Denies shortness of breath. Orthostatic blood pressures this morning are improved. Patient ambulated in the hallway with nursing with heart rates increasing into the 80s to 90s. Echocardiogram completed revealing ejection fraction 55-60%, mild MR, mild TR PHYSICAL EXAM: VITAL SIGNS: Reviewed. GENERAL: Well-developed in no acute distress. HEENT: Head is normocephalic. Pupils are equal, round. Sclerae anicteric. Mucous membranes of the mouth are moist. Neck supple. No JVD or thyromegaly LUNGS: Respirations even and unlabored. Lungs essentially clear to auscultation bilaterally. HEART: Regular rate and rhythm. S1 and S2 heard. ABDOMEN: Soft. Nondistended. Nontender. EXTREMITIES: Normal range of motion. No clubbing or cyanosis. Peripheral pulses intact. No lower extremity edema NEUROLOGIC: Awake and alert. Oriented x 3. ASSESSMENT: Status post fall Orthostatic hypotension Hypertension Sinus bradycardia Paroxysmal atrial fibrillation Diabetes Neuropathy Chronic kidney disease PLAN: Continue Eliquis. Aspirin discontinued yesterday as patient does not have a history of CAD. Continue to hold metoprolol Continue to monitor orthostatic blood pressures Apply CHERYL hose to bilateral lower extremities Patient ambulated in the hallway this morning with nursing with increased heart rates into the 80s and 90s No indication for permanent pacemaker implantation Further recommendations pending patient's course Nurse practitioner note has been reviewed by physician. Signing provider agrees with the documented findings, assessment, and plan of care. Objective - Vital Signs Vital signs: Vital Signs Temp 97.7 F 03/12/23 08:00 Pulse 63 03/12/23 08:00 Resp 19 03/12/23 08:00 BP 136/65 03/12/23 08:00 Pulse Ox 96 03/12/23 08:00 FiO2 Intake & Output 03/11/23 03/12/23 03/12/23 18:59 06:59 18:59 Intake Total 118 Balance 118 Weight 79.379 kg Intake: Oral 118 Other: Voiding Method Toilet Toilet Toilet Urinal Urinal Urinal # Voids 1 6 - Labs CBC & Chem 7: 03/11/23 04:09 03/11/23 04:09 Labs: Abnormal Lab Results - Last 24 Hours (Table) 03/11/23 03/11/23 03/11/23 Range/Units 12:19 17:27 20:47 POC Glucose (mg/dL) 295 H 251 H 261 H (70-110) mg/dL Hemoglobin A1c (<=6.0) % 03/12/23 Range/Units 04:18 POC Glucose (mg/dL) (70-110) mg/dL Hemoglobin A1c 11.1 H (<=6.0) %
--- NOTE | 2023-03-12 12:12 | P.DS ---
Providers Date of admission: 03/10/23 16:00 Expected date of discharge: 03/12/23 Attending physician: Justino Carlson MD Consults: 03/10/23 15:59 Consult Physician Routine Consulting Provider: [facility] Consult Reason/Comments: orthostatic hypotension, bradycardia Do you want consulting provider notified?: Yes Primary care physician: [facility] Hospital Course: Discharge Diagnosis: Near syncopal episode Hypertensive urgency Frequent falls at home, Secondary to Pt's mobility limitations and frequent falls at home resulting from your orthostatic hypotension and changes in pts blood pressure, he is being discharged home with a 4 wheeled walker with a seat for safety measures ability to safely assist patient with safely performing his activities of daily living. Orthostatic hypotension, metoprolol was discontinued and patient started on amlodipine 5 mg daily and instructed on importance of CHERYL hose use throughout the day whenever he is out of bed. Sinus bradycardia, metoprolol was discontinued. Mild leukocytosis, reactive Metabolic acidosis, unclear etiology possibly secondary to chronic kidney disease. Resolved Poorly controlled Insulin-dependent diabetes with hyperglycemia. Hemoglobin A1c was significantly elevated at 11.1%. Patient and patient's significant other at bedside were instructed that it is important to monitor blood glucose levels closely 4 times daily and obtain tighter glycemic control. Recommend following a heart healthy and carb consistent diet avoiding artificial sugars. At this time patient to continue Levemir 25 units nightly and discussed with patient and family is important to document blood glucose levels as Levemir dose may need to be increased and/or patient may need additional medications pending these results. Blood glucose levels throughout hospitalization ranging from 83-295. Stage IV Chronic kidney disease, stable and at baseline Peripheral neuropathy Gout Hospital Course: Patient is a very pleasant 87-year-old male with a past medical history of hypertension, atrial fibrillation, insulin-dependent diabetes, stage IV chronic kidney disease with baseline creatinine of 1.9, peripheral neuropathy, and gout. He presented to the emergency department on 03/10/23 with a chief complaint of lightheadedness and increased falls. Patient underwent full evaluation. Upon arrival, vital signs reviewed showing temperature was 98.6, pulse 55, respiratory rate 16, blood pressure 128/57, saturating at 97% on room air. Orthostatics were positive for orthostatic hypotension. WBC 10.8, hemoglobin 12.9, sodium 135, bicarb 20, creatinine 1.8 around his baseline. Troponin n egative. Glucose 249. Urinalysis negative. CT Head and cervical spine completed and was negative for acute intercranial process and negative for subluxation or fractures of cervical spine. EKG independently interpreted showed sinus bradycardia with nonspecific ST-T wave changes. Patient being admitted for frequent falls, presyncope, and orthostatic hypotension. Cardiology has been consulted. Patient was found to have positive orthostatic hypotension and bradycardia. Metoprolol was discontinued and patient was started on amlodipine 5 mg daily. In addition patient was given CHERYL hose and instructed on importance of use one out of bed to assist with preventing orthostatic hypotension. Secondary to Pt's mobility limitations and frequent falls at home resulting from your orthostatic hypotension and changes in pts blood pressure, he is being discharged home with a 4 wheeled walker with a seat for safety measures ability to safely assist patient with safely performing your activities of daily living. Physical exam: Vital signs reviewed and stable. General: Nontoxic, no distress and appears stated age. Derm: Skin warm and dry, normal coloration for ethnicity. Head: Atraumatic, normocephalic and symmetric. Eyes: EOMs intact, no lid lag, and anicteric sclera Mouth: no lip lesions, mucus membranes moist Cardiovascular: regular rate and rhythm with normal S1S2, systolic murmur, positive posterior tibial pulses bilaterally, and cap refill < 2 seconds. Lungs: Respirations even, regular, and unlabored on room air. Lungs CTA b ilaterally, no rhonchi, no rales, no wheezing, and no accessory muscle usage. Abdominal: soft, nontender to palpation, no guarding, no appreciable organomegaly Ext: ROM intact. No gross muscle atrophy, no edema, no contractures Neuro: Speech clear, face symmetrical and CN II-XII grossly intact with no noted focal neuro deficits Psych: Alert and oriented to person, place, time, and situation. Appropriate and pleasant affect. A total of 37 minutes of time were spent preparing this complex discharge summary. Pt was discharged on 03/12/23 at 12:09 PM Patient was seen independently by Nurse Practitioner. This document was prepared using [employer] dictation software. Please allow for errors in network operations project manager while rare they do occur. Patient Condition at Discharge: Stable Plan - Discharge Summary New Discharge Prescriptions: New amLODIPine [Norvasc] 5 mg PO DAILY 90 Days #90 tab Continue Insulin Glargine,Hum.rec.anlog [Lantus Solostar Pen] 25 unit SQ HS Gabapentin [Neurontin] 600 mg PO HS Apixaban [Eliquis] 2.5 mg PO BID 30 Days #60 tab Vitamin D3(Unknown Dose) 1 tab PO DAILY allopurinoL 100 mg PO DAILY Discontinued Aspirin EC [Ecotrin Low Dose] 81 mg PO DAILY Metoprolol Tartrate [Lopressor] 50 mg PO BID Discharge Medication List Gabapentin [Neurontin] 600 mg PO HS 04/28/20 [History] Insulin Glargine,Hum.rec.anlog [Lantus Solostar Pen] 25 unit SQ HS 04/28/20 [History] allopurinoL 100 mg PO DAILY 01/06/22 [History] Apixaban [Eliquis] 2.5 mg PO BID 30 Days #60 tab 01/11/22 [Rx] Vitamin D3(Unknown Dose) 1 tab PO DAILY 03/10/23 [History] amLODIPine [Norvasc] 5 mg PO DAILY 90 Days #90 tab 03/12/23 [Rx] Follow up Appointment(s)/Referral(s): Cezar Fonseca MD [Medical Doctor] - 03/19/23 11:00 am (Appointment made with Cuca at the main office ) [facility],Clinic [Primary Care Provider] - 1-2 days Activity/Diet/Wound Care/Special Instructions: Activity: As tolerated. Take breaks as needed. You are being discharged home with a 4 wheeled walker with a seat. As we discussed it is important to change positions slowly from lying to sitting and sitting to standing and again from standing before walking to allow your body time to adjust to changes in your blood pressure. Diet: Heart healthy and carb consistent diet. Avoid salts, or foods with hidden salts such as canned or boxed foods and frozen dinners. Extra salt makes your heart work harder and traps the fluid in your body for longer. Special Instructions: Take all of your medications as directed and remember to keep all of your doctor's appointments and follow-up as needed. Wear CHERYL hose daily when up out of bed this will help with preventing orthostatic hypotension. Secondary to your mobility limitations resulting from your orthostatic hypotension and changes in your blood pressure, you are being discharged home with a 4 wheeled walker with a seat for safety measures as you have demonstrated ability to safely use this walker and this will assist you with safely performing your activities of daily living. Again as we discussed it is of utmost importance for you to sit if you experience any dizziness/lightheadedness while ambulating or standing and as stated up above he will need to change positions slowly from lying to sitting, sitting to standing, and standing before walking. If at any time you experiences dizziness or lightheadedness only to stop which are doing and sit down to prevent unnecessary fall and/or syncopal episode. Your hemoglobin A1c was significantly elevated at 11.1%.it is important to monitor your blood glucose levels closely and obtain tighter glycemic control. Recommend following a heart healthy and carb consistent diet avoiding artificial sugars. Thank you for allowing us to participate in your care, it was truly a pleasure having you for our patient!!! Discharge Disposition: HOME SELF-CARE
[2023-03-12 12:20] LABS: Glucose,Whole Blood 246 mg/dL (70-110)
[2023-03-12 12:36] VITALS: BP 138/63; PULSE 66; TEMP 97.6
== END 2023-03-12 13:30 | disposition home or self-care (01) ==
LOC: EC 11:31 → 6NMEDSUR 16:00
PROVIDERS: ADMIT Student in an Organized Health Care Education/Training Program; ATTEND Student in an Organized Health Care Education/Training Program
DX: I95.1 Orthostatic hypotension (principal); R00.1 Bradycardia, unspecified; R29.6 Repeated falls; D72.829 Elevated white blood cell count, unspecified; E87.20 Acidosis, unspecified; E11.65 Type 2 diabetes mellitus with hyperglycemia; I16.0 Hypertensive urgency; E11.42 Type 2 diabetes mellitus with diabetic polyneuropathy; M10.9 Gout, unspecified; E11.22 Type 2 diabetes mellitus with diabetic chronic kidney disease; I12.9 Hypertensive chronic kidney disease with stage 1 through stage 4 chronic kidney disease, or unspecified chronic kidney disease; N18.4 Chronic kidney disease, stage 4 (severe); I48.0 Paroxysmal atrial fibrillation; Z87.891 Personal history of nicotine dependence; Z79.01 Long term (current) use of anticoagulants; Z79.82 Long term (current) use of aspirin; Z79.4 Long term (current) use of insulin; Z79.899 Other long term (current) drug therapy
CPT/HCPCS: 96372 ×2; 96360; 99285; 36415; 93005; 93306; 97162; 97166; 80053; 80048; 84443; 84484; 85025 ×2; 85610; 85730; 81003; 83036; 72125; 70450; G0378 ×3; 96361

== ENCOUNTER 2023-05-03 11:28 | Emergency (ER) | payer MEDICARE, OTHER ==
[2023-05-03 12:11] LABS: Glucose,Whole Blood 201 mg/dL (70-110)
[2023-05-03 12:54] LABS: Basophils % (A) 0 %; Eosinophils # (A) 0.3 k/uL (0-0.7); Eosinophils % (A) 3 %; HCT 43.1 % (39.0-53.0); HGB 13.9 gm/dL (13.0-17.5); Lymphocytes # (A) 2.1 k/uL (1.0-4.8); Lymphocytes % (A) 21 %; MCH 29.9 pg (25.0-35.0); MCHC 32.3 g/dL (31.0-37.0); MCV 92.5 fL (80.0-100.0); Mean Platelet Volume 9.3; Monocytes # (A) 0.7 k/uL (0-1.0); Monocytes % (A) 7 %; Neutrophils # (A) 6.9 k/uL (1.3-7.7); Neutrophils % (A) 68 %; Platelet Count 297 k/uL (150-450); RBC 4.66 m/uL (4.30-5.90); RDW 13.8 % (11.5-15.5); WBC 10.2 k/uL (3.8-10.6)
[2023-05-03 13:10] LABS: Partial Thromboplastin Time 26.2 sec (22.0-30.0); Prothrombin Time 10.6 sec (10.0-12.5)
[2023-05-03 13:16] LABS: WBC,Urine 1 /hpf (0-5)
[2023-05-03 13:22] LABS: ALT 16 U/L (4-49); AST 21 U/L (17-59); African American GFR (CKD) 39 (>60 ml/min/1.73 sqM); Albumin 3.4 g/dL (3.5-5.0); Alkaline Phosphatase 79 U/L (38-126); Anion Gap 8 mmol/L; Blood Urea Nitrogen 17 mg/dL (9-20); Calcium 8.8 mg/dL (8.4-10.2); Carbon Dioxide 22 mmol/L (22-30); Chloride 108 mmol/L (98-107); Glucose 183 mg/dL (74-99); Non-African American GFR(CKD) 34 (>60 ml/min/1.73 sqM); Sodium 138 mmol/L (137-145); Total Bilirubin 0.9 mg/dL (0.2-1.3); Total Protein 6.6 g/dL (6.3-8.2)
--- NOTE | 2023-05-03 13:25 | CT ---
EXAMINATION TYPE: CT brain wo con CT DLP: 1183.4 mGycm, Automated exposure control for dose reduction was used. DATE OF EXAM: 05/03/2023 1:12 PM COMPARISON: 03/10/2023. CLINICAL INDICATION:Male, 87 years old with history of weakness/dizzy, Weakness, dizziness, c/o press ure by bilateral temples TECHNIQUE: Brain: Axial CT images of the brain were obtained with coronal and sagittal reformats created and rev iewed. Contrast used: None. Oral contrast used: None. FINDINGS: Extra-axial spaces: No abnormal extra-axial fluid collections. Ventricular system: Appear dilated in proportion to the degree of cerebral atrophy. Cerebral parenchyma: No increased attenuation to suggest acute intraparenchymal hemorrhage. The gra y-white matter interface appears maintained. Moderate generalized brain atrophy. Scattered hypoatte nuating areas are seen within the cerebral white matter, nonspecific but most often seen with chronic microvascular ischemic changes; moderate in degree. Cerebellum: No acute abnormality. Mass effect: No evidence of mass effect or midline shift. Intracranial vasculature: Atherosclerotic calcifications of the larger arteries near the skull base. Soft tissues: Normal. Visualized orbits: Orbital contents appear grossly intact. Radiodensities along the globes likely s equela of previous ophthalmologic surgery. Calvarium/osseous structures: No evidence of calvarial fracture. Paranasal sinuses and mastoid air cells: Paranasal sinuses show mild mucosal thickening without signi ficant fluid accumulation. The mastoid air cells show vague hazy increased attenuation which is likel y chronic/developmental. Post mastoidectomy changes suggested on the right. No definite pathologic fl uid is seen. MRI is more sensitive for detecting acute processes such as infarct, and may be considered if clinica lly warranted. IMPRESSION: Atrophy and chronic microvascular ischemic white matter changes. No CT evidence of an acute intracranial abnormality.
--- NOTE | 2023-05-03 13:37 | ED ---
General Adult HPI - General Chief complaint: Neuro Symptoms/Deficit Stated complaint: Dizziness Time Seen by Provider: 05/03/23 12:02 Source: patient, EMS, RN notes reviewed, old records reviewed Mode of arrival: EMS Limitations: no limitations - History of Present Illness Initial comments: 87-year-old male presenting for evaluation of dizziness, lightheadedness. Patient does have a mild bilateral headache. He has remote history of intracranial hemorrhage. He has chronic kidney disease. He denies chest pain or abdominal pain. Denies fever. States he's been unsteady on his feet this began early this morning. - Related Data Home Medications Medication Instructions Recorded Confirmed Gabapentin [Neurontin] 600 mg PO HS 04/28/20 03/10/23 Insulin Glargine,Hum.rec.anlog 25 unit SQ HS 04/28/20 03/10/23 [Lantus Solostar Pen] allopurinoL 100 mg PO DAILY 01/06/22 03/10/23 Vitamin D3(Unknown Dose) 1 tab PO DAILY 03/10/23 03/10/23 Previous Rx's Medication Instructions Recorded Apixaban [Eliquis] 2.5 mg PO BID 30 Days #60 tab 01/11/22 amLODIPine [Norvasc] 5 mg PO DAILY 90 Days #90 tab 03/12/23 Allergies Allergy/AdvReac Type Severity Reaction Status Date / Time No Known Allergies Allergy Verified 05/03/23 11:46 Review of Systems ROS Statement: Those systems with pertinent positive or pertinent negative responses have been documented in the HPI. ROS Other: All systems not noted in ROS Statement are negative. Past Medical History Past Medical History: Atrial Fibrillation, Diabetes Mellitus, Pneumonia History of Any Multi-Drug Resistant Organisms: None Reported Past Surgical History: Appendectomy Additional Past Surgical History / Comment(s): dental Past Anesthesia/Blood Transfusion Reactions: No Reported Reaction Past Psychological History: No Psychological Hx Reported Smoking Status: Former smoker Past Alcohol Use History: Rare Past Drug Use History: None Reported - Past Family History Mother History Unknown: Yes Family Medical History: Unable to Obtain Additional Family Medical History / Comment(s): patient confused and does not give clear answers General Exam Limitations: no limitations General appearance: alert, in no apparent distress Head exam: Present: atraumatic, normocephalic Eye exam: Present: normal appearance, PERRL ENT exam: Present: normal exam Neck exam: Present: normal inspection. Absent: tenderness Respiratory exam: Present: normal lung sounds bilaterally. Absent: respiratory distress, wheezes Cardiovascular Exam: Present: regular rate, normal rhythm GI/Abdominal exam: Present: soft. Absent: distended, tenderness Extremities exam: Present: normal inspection, normal capillary refill Neurological exam: Present: alert, oriented X3, CN II-XII intact. Absent: motor sensory deficit Psychiatric exam: Present: normal affect, normal mood Skin exam: Present: warm, dry, intact. Absent: cyanosis, diaphoretic Course Vital Signs 05/03/23 05/03/23 05/03/23 11:38 12:00 12:30 Temperature 97.7 F Pulse Rate 78 73 79 Respiratory 16 24 21 Rate Blood Pressure 173/84 173/84 161/81 O2 Sat by Pulse 98 98 97 Oximetry 05/03/23 05/03/23 13:30 14:30 Temperature 97.6 F Pulse Rate 81 94 Respiratory 14 16 Rate Blood Pressure 159/109 181/85 O2 Sat by Pulse 97 93 L Oximetry Medical Decision Making - Medical Decision Making Was pt. sent in by a medical professional or institution (, PA, RAISE MINER, urgent care, hospital, or senior care...) When possible be specific @ -No Did you speak to anyone other than the patient for history (EMS, parent, family, police, friend...)? What history was obtained from this source @ -No Did you review nursing and triage notes (agree or disagree)? Why? @ -I reviewed and agree with nursing and triage notes Were old charts reviewed (outside hosp., previous admission, EMS record, old EKG, old radiological studies, urgent care reports/EKG's, senior care records)? Report findings @ -No old charts were reviewed Differential Diagnosis (chest pain, altered mental status, abdominal pain women, abdominal pain men, vaginal bleeding, weakness, fever, dyspnea, syncope, headache, dizziness, GI bleed, back pain, seizure, CVA, palpatations, mental health, musculoskeletal)? @ -[Differential Weakness: Hypoglycemia, shock, sepsis, hyponatremia, anemia, infection, IN, ETOH, adverse medicine reaction, overdose, stroke, this is not meant to be an all-inclusive list. EKG interpreted by me (3pts min.). @ -Sinus rhythm rate of 72, RI interval 145, QRS duration 106, QTC [address] segment elevation. X-rays interpreted by me (1pt min.). @ -X-ray negative for pneumothorax, no focal pneumonia, mild heart failure. CT interpreted by me (1pt min.). @ The brain ct negative for intracranial hemorrhage or mass effect U/S interpreted by me (1pt. min.). @ -None done What testing was considered but not performed or refused? (CT, X-rays, U/S, labs)? Why? @ -None What meds were considered but not given or refused? Why? @ -None Did you discuss the management of the patient with other professionals (professionals i.e. , PA, RAISE MINER, lab, RT, psych nurse, mental health social worker, college hire, teacher, medical laboratory technical officer, block and case maker)? Give summary @ -No Was smoking cessation discussed for >3mins.? @ -No Was critical care preformed (if so, how long)? @ -No Were there social determinants of health that impacted care today? How? (Home lessness, low income, unemployed, alcoholism, drug addiction, transportation, low edu. Level, literacy, decrease access to med. care, custodial, rehab)? @ -No Was there de-escalation of care discussed even if they declined (Discuss DNR or withdrawal of care, Hospice)? DNR status @ -No What co-morbidities impacted this encounter? (DM, HTN, Smoking, COPD, CAD, Cancer, CVA, ARF, Chemo, Hep., AIDS, mental health diagnosis, sleep apnea, morbid obesity)? @ -None] Was patient admitted / discharged? Hospital course, mention meds given and route, prescriptions, significant lab abnormalities, going to OR and other pertinent info. @ Patient eager for discharge, states that his symptoms likely related to family stress. His workup is stable in the emergency department. He has a normal CBC, stable chronic creatinine elevation at 1.8. Lactic acid at 2.3 likely related to dehydration. Normal urinalysis. Negative troponin. Head CT negative for intracranial hemorrhage or mass effect. Chest x-ray negative for focal pneumonia, small effusion. Patient and family are requesting discharge. They will monitor symptoms at home and return as necessary. Undiagnosed new problem with uncertain prognosis? @ -[No] Drug Therapy requiring intensive monitoring for toxicity (Heparin, Nitro, Insulin, Cardizem)? @ -[No] Were any procedures done? @ -[No] Diagnosis/symptom? @ Weakness Acute, or Chronic, or Acute on Chronic? @ -Acute on chronic Uncomplicated (without systemic symptoms) or Complicated (systemic symptoms)? @ -[default] Side effects of treatment? @ -[No] Exacerbation, Progression, or Severe Exacerbation? @ -[No] Poses a threat to life or bodily function? How? (Chest pain, USA, IN, pneumonia, PE, COPD, DKA, ARF, appy, cholecystitis, CVA, Diverticulitis, Homicidal, Suicidal, threat to staff... and all critical care pts) @ -Low risk at this time - Lab Data Result diagrams: 05/03/23 12:15 05/03/23 12:15 Lab Results 05/03/23 05/03/23 05/03/23 Range/Units 12:10 12:15 12:15 WBC 10.2 (3.8-10.6) k/uL RBC 4.66 (4.30-5.90) m/uL Hgb 13.9 (13.0-17.5) gm/dL Hct 43.1 (39.0-53.0) % MCV 92.5 (80.0-100.0) fL MCH 29.9 (25.0-35.0) pg MCHC 32.3 (31.0-37.0) g/dL RDW 13.8 (11.5-15.5) % Plt Count 297 (150-450) k/uL MPV 9.3 Neutrophils % 68 % Lymphocytes % 21 % Monocytes % 7 % Eosinophils % 3 % Basophils % 0 % Neutrophils # 6.9 (1.3-7.7) k/uL Lymphocytes # 2.1 (1.0-4.8) k/uL Monocytes # 0.7 (0-1.0) k/uL Eosinophils # 0.3 (0-0.7) k/uL Basophils # 0.0 (0-0.2) k/uL PT 10.6 (10.0-12.5) sec INR 1.0 (<1.2) APTT 26.2 (22.0-30.0) sec Sodium (137-145) mmol/L Potassium (3.5-5.1) mmol/L Chloride (98-107) mmol/L Carbon Dioxide (22-30) mmol/L Anion Gap mmol/L BUN (9-20) mg/dL Creatinine (0.66-1.25) mg/dL Est GFR (CKD-EPI)AfAm (>60 ml/min/1.73 sqM) Est GFR (CKD-EPI)NonAf (>60 ml/min/1.73 sqM) Glucose (74-99) mg/dL POC Glucose (mg/dL) 201 H (70-110) mg/dL POC Glu Health Occupations Instructor CEFERINO Virgie Yates Corie Lactic Ac Sepsis Rflx Plasma Lactic Acid Jeffery (0.7-2.0) mmol/L Calcium (8.4-10.2) mg/dL Magnesium (1.6-2.3) mg/dL Total Bilirubin (0.2-1.3) mg/dL AST (17-59) U/L ALT (4-49) U/L Alkaline Phosphatase (38-126) U/L Troponin I (0.000-0.034) ng/mL Total Protein (6.3-8.2) g/dL Albumin (3.5-5.0) g/dL Urine Color Urine Appearance (Clear) Urine pH (5.0-8.0) Ur Specific [place] (1.001-1.035) Urine Protein (Negative) Urine Glucose (UA) (Negative) Urine Ketones (Negative) Urine Blood (Negative) Urine Nitrite (Negative) Urine Bilirubin (Negative) Urine Urobilinogen (<2.0) mg/dL Ur Leukocyte Esterase (Negative) Urine WBC (0-5) /hpf 05/03/23 05/03/23 05/03/23 Range/Units 12:15 12:15 12:15 WBC (3.8-10.6) k/uL RBC (4.30-5.90) m/uL Hgb (13.0-17.5) gm/dL Hct (39.0-53.0) % MCV (80.0-100.0) fL MCH (25.0-35.0) pg MCHC (31.0-37.0) g/dL RDW (11.5-15.5) % Plt Count (150-450) k/uL MPV Neutrophils % % Lymphocytes % % Monocytes % % Eosinophils % % Basophils % % Neutrophils # (1.3-7.7) k/uL Lymphocytes # (1.0-4.8) k/uL Monocytes # (0-1.0) k/uL Eosinophils # (0-0.7) k/uL Basophils # (0-0.2) k/uL PT (10.0-12.5) sec INR (<1.2) APTT (22.0-30.0) sec Sodium 138 (137-145) mmol/L Potassium 5.3 H (3.5-5.1) mmol/L Chloride 108 H (98-107) mmol/L Carbon Dioxide 22 (22-30) mmol/L Anion Gap 8 mmol/L BUN 17 (9-20) mg/dL Creatinine 1.80 H (0.66-1.25) mg/dL Est GFR (CKD-EPI)AfAm 39 (>60 ml/min/1.73 sqM) Est GFR (CKD-EPI)NonAf 34 (>60 ml/min/1.73 sqM) Glucose 183 H (74-99) mg/dL POC Glucose (mg/dL) (70-110) mg/dL POC Glu Health Occupations Instructor ID Lactic Ac Sepsis Rflx Plasma Lactic Acid Jeffery 3.3 H* (0.7-2.0) mmol/L Calcium 8.8 (8.4-10.2) mg/dL Magnesium 2.0 (1.6-2.3) mg/dL Total Bilirubin 0.9 (0.2-1.3) mg/dL AST 21 (17-59) U/L ALT 16 (4-49) U/L Alkaline Phosphatase 79 (38-126) U/L Troponin I (0.000-0.034) ng/mL Total Protein 6.6 (6.3-8.2) g/dL Albumin 3.4 L (3.5-5.0) g/dL Urine Color Colorless Urine Appearance Clear (Clear) Urine pH 7.5 (5.0-8.0) Ur Specific [place] 1.010 (1.001-1.035) Urine Protein Negative (Negative) Urine Glucose (UA) 1+ (Negative) Urine Ketones Negative (Negative) Urine Blood Negative (Negative) Urine Nitrite Negative (Negative) Urine Bilirubin Negative (Negative) Urine Urobilinogen <2.0 (<2.0) mg/dL Ur Leukocyte Esterase Negative (Negative) Urine WBC 1 (0-5) /hpf 05/03/23 05/03/23 Range/Units 12:15 13:47 WBC (3.8-10.6) k/uL RBC (4.30-5.90) m/uL Hgb (13.0-17.5) gm/dL Hct (39.0-53.0) % MCV (80.0-100.0) fL MCH (25.0-35.0) pg MCHC (31.0-37.0) g/dL RDW (11.5-15.5) % Plt Count (150-450) k/uL MPV Neutrophils % % Lymphocytes % % Monocytes % % Eosinophils % % Basophils % % Neutrophils # (1.3-7.7) k/uL Lymphocytes # (1.0-4.8) k/uL Monocytes # (0-1.0) k/uL Eosinophils # (0-0.7) k/uL Basophils # (0-0.2) k/uL PT (10.0-12.5) sec INR (<1.2) APTT (22.0-30.0) sec Sodium (137-145) mmol/L Potassium (3.5-5.1) mmol/L Chloride (98-107) mmol/L Carbon Dioxide (22-30) mmol/L Anion Gap mmol/L BUN (9-20) mg/dL Creatinine (0.66-1.25) mg/dL Est GFR (CKD-EPI)AfAm (>60 ml/min/1.73 sqM) Est GFR (CKD-EPI)NonAf (>60 ml/min/1.73 sqM) Glucose (74-99) mg/dL POC Glucose (mg/dL) (70-110) mg/dL POC Glu Health Occupations Instructor ID Lactic Ac Sepsis Rflx Y Plasma Lactic Acid Jeffery (0.7-2.0) mmol/L Calcium (8.4-10.2) mg/dL Magnesium (1.6-2.3) mg/dL Total Bilirubin (0.2-1.3) mg/dL AST (17-59) U/L ALT (4-49) U/L Alkaline Phosphatase (38-126) U/L Troponin I <0.012 (0.000-0.034) ng/mL Total Protein (6.3-8.2) g/dL Albumin (3.5-5.0) g/dL Urine Color Urine Appearance (Clear) Urine pH (5.0-8.0) Ur Specific [place] (1.001-1.035) Urine Protein (Negative) Urine Glucose (UA) (Negative) Urine Ketones (Negative) Urine Blood (Negative) Urine Nitrite (Negative) Urine Bilirubin (Negative) Urine Urobilinogen (<2.0) mg/dL Ur Leukocyte Esterase (Negative) Urine WBC (0-5) /hpf Disposition Clinical Impression: Weakness Disposition: HOME SELF-CARE Condition: Fair Instructions (If sedation given, give patient instructions): Weakness (ED) Is patient prescribed a controlled substance at d/c from ED?: No Referrals: [facility],Clinic [Primary Care Provider] - 1-2 days Time of Disposition: 14:43
[2023-05-03 13:46] LABS: Potassium 5.3 mmol/L (3.5-5.1)
[2023-05-03 13:55] LABS: Appearance,Urine Clear (Clear); Color,Urine Colorless; PH, Urine 7.5 (5.0-8.0)
[2023-05-03 13:56] LABS: Bilirubin,Urine Negative (Negative); Blood,Urine Negative (Negative); Glucose,Urine (UA) 1+ (Negative); Ketones,Urine Negative (Negative); Leukocyte Esterase,Urine Negative (Negative); Nitrite,Urine Negative (Negative); Protein,Urine Negative (Negative); Urobilinogen,Urine <2.0 mg/dL (<2.0)
--- NOTE | 2023-05-03 14:10 | XR ---
EXAMINATION TYPE: XR chest 2V DATE OF EXAM: 05/03/2023 1:11 PM CLINICAL INDICATION:Male, 87 years old with history of Weakness; [facility] COMPARISON: 01/07/2020 TECHNIQUE: XR chest 2V. Frontal PA and lateral views of the chest. FINDINGS: Lines/Tubes: EKG leads overlie the chest. No indwelling lines are seen. Heart/mediastinum: Cardiac silhouette appears mildly enlarged and somewhat more prominent than before . Partially calcified mildly tortuous aorta. Pulmonary vascularity: Pulmonary vascular congestion. Lungs/Pleura: Lungs again appear somewhat hyperinflated with areas of relative lucency and interstiti al coarsening suggestive of emphysema/COPD. Some sort of edge projects over the left mid to upper chaitanya g, possibly skin fold. There is no evidence of significant pleural effusion, focal consolidation, or pneumothorax. Trace left effusion cannot be ruled out. Musculoskeletal: No acute osseous abnormality demonstrated in the limits of the exam. Mild degenerat ofelia changes of the spine and shoulders. Asymmetric elevation of the left hemidiaphragm. Other findings: None. IMPRESSION: Enlarged cardiac silhouette, could be related to cardiomegaly with pericardial effusion possible. Pulmonary vascular congestion. Correlate for mild CHF/fluid overload.
[2023-05-03 15:15] VITALS: BP 181/85; PULSE 94; RESP 16; TEMP 97.6
== END 2023-05-03 15:10 | disposition home or self-care (01) ==
LOC: EC 11:28
DX: R53.1 Weakness (principal); I48.91 Unspecified atrial fibrillation; E11.22 Type 2 diabetes mellitus with diabetic chronic kidney disease; N18.9 Chronic kidney disease, unspecified; Z87.891 Personal history of nicotine dependence; Z79.4 Long term (current) use of insulin; Z79.899 Other long term (current) drug therapy
CPT/HCPCS: 36415; 70450; 71046; 80053; 81003; 83605; 83735; 84484; 85025; 85610; 85730; 93005; 99285

== ENCOUNTER 2023-12-07 12:01 | Emergency (ER) | payer MEDICARE ==
[2023-12-07 12:09] LABS: Glucose,Whole Blood 220 mg/dL (70-110)
--- NOTE | 2023-12-07 12:36 | ED ---
Skin/Abscess/FB HPI - General Chief complaint: Skin/Abscess/Foreign Body Stated complaint: finger infection Time Seen by Provider: 12/07/23 12:18 Source: patient, RN notes reviewed Mode of arrival: wheelchair Limitations: no limitations - History of Present Illness Initial comments: This is an 88-year-old male with a history of type 2 diabetes who presents to the with a chief complaint of skin infection to his left index finger. Patient believes that he was bit by a spider approximately 10 days ago, and experienced worsening erythema, edema and pain of this area. Patient was seen at urgent care on 12/02/23, was given a dose of steroids and sent home with prescription for Keflex that he is continue to take. Patient states that the erythema has regressed however he is still experiencing edema of the area. He denies fevers, chills, nausea, vomiting, abdominal pain. Patient's at bedside states the patient has been sleeping more frequently. Additionally, patient has a rash on his bottom that has been pruritic over the past week. - Related Data Home Medications Medication Instructions Recorded Confirmed Gabapentin [Neurontin] 600 mg PO HS 04/28/20 03/10/23 Insulin Glargine,Hum.rec.anlog 25 unit SQ HS 04/28/20 03/10/23 [Lantus Solostar Pen] allopurinoL 100 mg PO DAILY 01/06/22 03/10/23 Vitamin D3(Unknown Dose) 1 tab PO DAILY 03/10/23 03/10/23 Previous Rx's Medication Instructions Recorded Apixaban [Eliquis] 2.5 mg PO BID 30 Days #60 tab 01/11/22 amLODIPine [Norvasc] 5 mg PO DAILY 90 Days #90 tab 03/12/23 clindamycin HCL 300 mg PO QID #40 cap 12/07/23 Allergies Allergy/AdvReac Type Severity Reaction Status Date / Time No Known Allergies Allergy Verified 12/07/23 12:11 Review of Systems ROS Statement: Those systems with pertinent positive or pertinent negative responses have been documented in the HPI. ROS Other: All systems not noted in ROS Statement are negative. Past Medical History Past Medical History: Atrial Fibrillation, Diabetes Mellitus, Pneumonia History of Any Multi-Drug Resistant Organisms: None Reported Past Surgical History: Appendectomy Additional Past Surgical History / Comment(s): dental Past Anesthesia/Blood Transfusion Reactions: No Reported Reaction Past Psychological History: No Psychological Hx Reported Smoking Status: Former smoker Past Alcohol Use History: Rare Past Drug Use History: None Reported - Past Family History Mother History Unknown: Yes Family Medical History: Unable to Obtain Additional Family Medical History / Comment(s): patient confused and does not give clear answers General Exam Limitations: no limitations General appearance: alert, in no apparent distress Head exam: Present: atraumatic, normocephalic, normal inspection Eye exam: Present: normal appearance, PERRL, EOMI. Absent: scleral icterus, conjunctival injection, periorbital swelling ENT exam: Present: normal exam, mucous membranes moist Neck exam: Present: normal inspection. Absent: tenderness, meningismus, lymphadenopathy Respiratory exam: Present: normal lung sounds bilaterally. Absent: respiratory distress, wheezes, rales, rhonchi, stridor Cardiovascular Exam: Present: regular rate, normal rhythm, normal heart sounds. Absent: systolic murmur, diastolic murmur, rubs, gallop, clicks GI/Abdominal exam: Present: soft, normal bowel sounds. Absent: distended, tenderness, guarding, rebound, rigid Left Hand Wrist exam: Present: tenderness, swelling, erythema (index finger, no noted area of purulence) Neuro motor exam: Present: wrist extension intact, thumb opposition intact, thumb IP flexion intact Vascular: Present: normal capillary refill. Absent: vascular compromise Back exam: Present: normal inspection Neurological exam: Present: alert, oriented X3, CN II-XII intact Psychiatric exam: Present: normal affect, normal mood Skin exam: Present: warm, dry, intact, rash (gluteal erythematous excoriated rash) Course Vital Signs 12/07/23 12:04 Temperature 97.5 F L Pulse Rate 103 H Respiratory 18 Rate Blood Pressure 121/72 O2 Sat by Pulse 97 Oximetry Medical Decision Making - Medical Decision Making Was pt. sent in by a medical professional or institution (, PA, UNIVERSITY PRESIDENT, urgent care, hospital, or assisted...) When possible be specific @ -No Did you speak to anyone other than the patient for history (EMS, parent, family, police, friend...)? What history was obtained from this source @ -No Did you review nursing and triage notes (agree or disagree)? Why? @ -I reviewed and agree with nursing and triage notes Were old charts reviewed (outside hosp., previous admission, EMS record, old EKG, old radiological studies, urgent care reports/EKG's, assisted records)? Report findings @ -No old charts were reviewed Differential Diagnosis (chest pain, altered mental status, abdominal pain women, abdominal pain men, vaginal bleeding, weakness, fever, dyspnea, syncope, headache, dizziness, GI bleed, back pain, seizure, CVA, palpatations, mental health, musculoskeletal)? @ -Cellulitis, dermatitis, insect bite, contact dermaitis, this list is not all inclusive. EKG interpreted by me (3pts min.). @ -none X-rays interpreted by me (1pt min.). @ -None done CT interpreted by me (1pt min.). @ -None done U/S interpreted by me (1pt. min.). @ -None done What testing was considered but not performed or refused? (CT, X-rays, U/S, labs)? Why? @ -None What meds were considered but not given or refused? Why? @ -None Did you discuss the management of the patient with other professionals (professionals i.e. , PA, UNIVERSITY PRESIDENT, lab, RT, psych nurse, manager social work, head of maintenance, teacher, chief investment officer, counter caser)? Give summary @ -No Was smoking cessation discussed for >3mins.? @ -No Was critical care preformed (if so, how long)? @ -No Were there social determinants of health that impacted care today? How? (Home lessness, low income, unemployed, alcoholism, drug addiction, transportation, low edu. Level, literacy, decrease access to med. care, fci, rehab)? @ -No Was there de-escalation of care discussed even if they declined (Discuss DNR or withdrawal of care, Hospice)? DNR status @ -No What co-morbidities impacted this encounter? (DM, HTN, Smoking, COPD, CAD, Cancer, CVA, ARF, Chemo, Hep., AIDS, mental health diagnosis, sleep apnea, morbid obesity)? @ -DM Was patient admitted / discharged? Hospital course, mention meds given and route, prescriptions, significant lab abnormalities, going to OR and other pertinent info. @ -Discharged. 88-year-old male with edema, pain, and edema of the left index finger. On examination there is noted erythema over the proximal left finger with no signs of active purulence or drainage. Vitals are stable upon arrival. [place] cardinal signs of flexor sheath infection are negative. Patient will be symptomatically treated with IV fluids pending labs. Leukocytosis of 11.7 and neutrophils of 8.1, CMP unremarkable, lactic acid 1.5. Cytosis consistent with steroid injection given . At this time patient is stable for discharged home with oral antibiotics. Prescription for clindamycin to the pharmacy. Additionally, rash on patient's gluteal region is consistent with dermatitis due to there being marked excoriation, mild erythema. This does not appear to be infectious in nature. Zinc oxide ointment send to use as a protective barrier as needed. All questions answered at bedside and strict return parameters discussed with the patient he is verbalized understanding. Recommend patient follows up with his primary care provider next week for further evaluation. Complete full course of antibiotics as prescribed. Discussed with Dr. Baker Undiagnosed new problem with uncertain prognosis? @ -No Drug Therapy requiring intensive monitoring for toxicity (Heparin, Nitro, Insulin, Cardizem)? @ -No Were any procedures done? @ -No Diagnosis/symptom? @ -cellulitis, dermatitis Acute, or Chronic, or Acute on Chronic? @ -acute Uncomplicated (without systemic symptoms) or Complicated (systemic symptoms)? @ -uncomplicated Side effects of treatment? @ -No Exacerbation, Progression, or Severe Exacerbation? @ -No Poses a threat to life or bodily function? How? (Chest pain, [place], [place], pneumonia, PE, COPD, DKA, ARF, appy, cholecystitis, CVA, Diverticulitis, Homicidal, Suicidal, threat to staff... and all critical care pts) @ -No - Lab Data Result diagrams: 12/07/23 12:41 12/07/23 12:41 Lab Results 12/07/23 12/07/23 12/07/23 Range/Units 12:08 12:41 12:41 WBC 11.7 H (3.8-10.6) k/uL RBC 4.62 (4.30-5.90) m/uL Hgb 13.7 (13.0-17.5) gm/dL Hct 42.2 (39.0-53.0) % MCV 91.4 (80.0-100.0) fL MCH 29.6 (25.0-35.0) pg MCHC 32.4 (31.0-37.0) g/dL RDW 13.7 (11.5-15.5) % Plt Count 372 (150-450) k/uL MPV 8.1 Neutrophils % 69 % Lymphocytes % 19 % Monocytes % 7 % Eosinophils % 4 % Basophils % 0 % Neutrophils # 8.1 H (1.3-7.7) k/uL Lymphocytes # 2.2 (1.0-4.8) k/uL Monocytes # 0.8 (0-1.0) k/uL Eosinophils # 0.4 (0-0.7) k/uL Basophils # 0.0 (0-0.2) k/uL Sodium 136 L (137-145) mmol/L Potassium 4.4 (3.5-5.1) mmol/L Chloride 105 (98-107) mmol/L Carbon Dioxide 24 (22-30) mmol/L Anion Gap 7 mmol/L BUN 21 H (9-20) mg/dL Creatinine 1.82 H (0.66-1.25) mg/dL Est GFR (CKD-EPI)AfAm 38 (>60 ml/min/1.73 sqM) Est GFR (CKD-EPI)NonAf 33 (>60 ml/min/1.73 sqM) Glucose 199 H (74-99) mg/dL POC Glucose (mg/dL) 220 H (70-110) mg/dL POC Glu Nurse Special ID Jose Kelby Plasma Lactic Acid Jeffery (0.7-2.0) mmol/L Calcium 8.7 (8.4-10.2) mg/dL Total Bilirubin 0.5 (0.2-1.3) mg/dL AST 14 L (17-59) U/L ALT 12 (4-49) U/L Alkaline Phosphatase 84 (38-126) U/L Total Protein 6.0 L (6.3-8.2) g/dL Albumin 3.4 L (3.5-5.0) g/dL 12/07/23 Range/Units 12:41 WBC (3.8-10.6) k/uL RBC (4.30-5.90) m/uL Hgb (13.0-17.5) gm/dL Hct (39.0-53.0) % MCV (80.0-100.0) fL MCH (25.0-35.0) pg MCHC (31.0-37.0) g/dL RDW (11.5-15.5) % Plt Count (150-450) k/uL MPV Neutrophils % % Lymphocytes % % Monocytes % % Eosinophils % % Basophils % % Neutrophils # (1.3-7.7) k/uL Lymphocytes # (1.0-4.8) k/uL Monocytes # (0-1.0) k/uL Eosinophils # (0-0.7) k/uL Basophils # (0-0.2) k/uL Sodium (137-145) mmol/L Potassium (3.5-5.1) mmol/L Chloride (98-107) mmol/L Carbon Dioxide (22-30) mmol/L Anion Gap mmol/L BUN (9-20) mg/dL Creatinine (0.66-1.25) mg/dL Est GFR (CKD-EPI)AfAm (>60 ml/min/1.73 sqM) Est GFR (CKD-EPI)NonAf (>60 ml/min/1.73 sqM) Glucose (74-99) mg/dL POC Glucose (mg/dL) (70-110) mg/dL POC Glu Nurse Special ID Plasma Lactic Acid Jeffery 1.5 (0.7-2.0) mmol/L Calcium (8.4-10.2) mg/dL Total Bilirubin (0.2-1.3) mg/dL AST (17-59) U/L ALT (4-49) U/L Alkaline Phosphatase (38-126) U/L Total Protein (6.3-8.2) g/dL Albumin (3.5-5.0) g/dL Disposition Clinical Impression: Cellulitis, Dermatitis Disposition: HOME SELF-CARE Condition: Good Instructions (If sedation given, give patient instructions): Cellulitis (ED) Additional Instructions: Complete full course of antibiotics as prescribed. Return to the emergency department for any new or worsening symptoms. Recommend follow-up with your primary care provider within the next 3 to 5 days for further evaluation. Prescriptions: clindamycin HCL 300 mg PO QID #40 cap Is patient prescribed a controlled substance at d/c from ED?: No Referrals: [facility],Clinic [Primary Care Provider] - 1-2 days Time of Disposition: 13:38
[2023-12-07] MEDS: SODIUM CHLORIDE 0.9% 500 ML 500 ML IV STA (12:47)
[2023-12-07 12:51] LABS: Basophils % (A) 0 %; Eosinophils # (A) 0.4 k/uL (0-0.7); Eosinophils % (A) 4 %; HCT 42.2 % (39.0-53.0); HGB 13.7 gm/dL (13.0-17.5); Lymphocytes # (A) 2.2 k/uL (1.0-4.8); Lymphocytes % (A) 19 %; MCH 29.6 pg (25.0-35.0); MCHC 32.4 g/dL (31.0-37.0); MCV 91.4 fL (80.0-100.0); Mean Platelet Volume 8.1; Monocytes # (A) 0.8 k/uL (0-1.0); Monocytes % (A) 7 %; Neutrophils # (A) 8.1 k/uL (1.3-7.7); Neutrophils % (A) 69 %; Platelet Count 372 k/uL (150-450); RBC 4.62 m/uL (4.30-5.90); RDW 13.7 % (11.5-15.5); WBC 11.7 k/uL (3.8-10.6)
[2023-12-07 13:27] LABS: ALT 12 U/L (4-49); AST 14 U/L (17-59); African American GFR (CKD) 38 (>60 ml/min/1.73 sqM); Albumin 3.4 g/dL (3.5-5.0); Alkaline Phosphatase 84 U/L (38-126); Anion Gap 7 mmol/L; Blood Urea Nitrogen 21 mg/dL (9-20); Calcium 8.7 mg/dL (8.4-10.2); Carbon Dioxide 24 mmol/L (22-30); Chloride 105 mmol/L (98-107); Glucose 199 mg/dL (74-99); Non-African American GFR(CKD) 33 (>60 ml/min/1.73 sqM); Potassium 4.4 mmol/L (3.5-5.1); Sodium 136 mmol/L (137-145); Total Bilirubin 0.5 mg/dL (0.2-1.3)
[2023-12-07] MEDS ORDERED: ZINC OXIDE 20% OINT 28.4 GM TUBE TOPICAL PRN (13:44)
[2023-12-07 14:17] VITALS: BP 129/70; PULSE 98; RESP 16; TEMP 97.8
== END 2023-12-07 14:15 | disposition home or self-care (01) ==
LOC: EC 12:01
DX: L03.012 Cellulitis of left finger (principal); L30.9 Dermatitis, unspecified; E11.9 Type 2 diabetes mellitus without complications; Z79.4 Long term (current) use of insulin; Z87.891 Personal history of nicotine dependence
CPT/HCPCS: 36415; 80053; 83605; 85025; 96360; 99283

== ENCOUNTER 2024-02-10 14:53 | Inpatient (IN) | payer OTHER, MEDICARE ==
[2024-02-10] MEDS: ACETAMINOPHEN TAB 500 MG TAB PO STA (15:08)
[2024-02-10] MEDS: SODIUM CHLORIDE 0.9% 1,000 ML IV STA ×3 (15:08→17:58)
[2024-02-10 15:22] LABS: VBG PH 7.43 (7.31-7.41)
[2024-02-10 15:23] LABS: Basophils % (A) 0 %; Eosinophils # (A) 0.1 k/uL (0-0.7); Eosinophils % (A) 1 %; HCT 40.7 % (39.0-53.0); Hypochromasia Slight; Lymphocytes # (A) 0.6 k/uL (1.0-4.8); Lymphocytes % (A) 4 %; MCH 29.7 pg (25.0-35.0); MCHC 31.9 g/dL (31.0-37.0); MCV 93.1 fL (80.0-100.0); Mean Platelet Volume 8.1; Monocytes # (A) 0.2 k/uL (0-1.0); Monocytes % (A) 1 %; Neutrophils % (A) 94 %; Platelet Count 272 k/uL (150-450); RBC 4.37 m/uL (4.30-5.90); RDW 14.1 % (11.5-15.5); WBC 13.9 k/uL (3.8-10.6)
--- NOTE | 2024-02-10 15:32 | ED ---
General Adult HPI - General Chief complaint: Urogenital Stated complaint: urogenital Time Seen by Provider: 02/10/24 14:55 Source: patient, RN notes reviewed, old records reviewed Mode of arrival: EMS Limitations: no limitations - History of Present Illness Initial comments: Patient is an 88-year-old male with past medical history for recurrent UTIs, atrial fibrillation, diabetes. Currently not on antibiotics. Presents with weakness, dysuria, as well as fevers at home. Symptoms more or less started today. Denies any falls or injuries. Endorses some mild nonfocal abdominal discomfort. Denies nausea, vomiting, diarrhea. Denies any blood in his urine but does endorse dysuria. Also endorses increased frequency. Patient presents for further evaluation at this time. - Related Data Home Medications Medication Instructions Recorded Confirmed Gabapentin [Neurontin] 600 mg PO HS 04/28/20 02/10/24 Insulin Glargine,Hum.rec.anlog 20 unit SQ DAILY 04/28/20 02/10/24 [Lantus Solostar Pen] allopurinoL 100 mg PO DAILY 01/06/22 02/10/24 Amiodarone [Cordarone] 100 mg PO DAILY 02/10/24 02/10/24 Cholecalciferol [Vitamin D3 (125 125 mcg PO DAILY 02/10/24 02/10/24 Mcg = 5000 Iu)] Insulin Aspart [NovoLOG Flexpen] 6 units SQ TID-W/MEALS 02/10/24 02/10/24 Insulin Aspart [NovoLOG Flexpen] See Protocol SQ TID-W/MEALS PRN 02/10/24 02/10/24 Previous Rx's Medication Instructions Recorded amLODIPine [Norvasc] 5 mg PO DAILY 90 Days #90 tab 03/12/23 Allergies Allergy/AdvReac Type Severity Reaction Status Date / Time No Known Allergies Allergy Verified 02/10/24 16:32 Review of Systems ROS Statement: Those systems with pertinent positive or pertinent negative responses have been documented in the HPI. Review of Systems: CONST: Endorses fever EYES: Denies blurry vision ENT: Denies nasal congestion C/V: Denies Chest pain RESP: Denies shortness of breath GI: Denies abdominal pain : Endorses dysuria SKIN: Denies rash. MSK: Denies joint pain. NEURO: Denies headache ROS Other: All systems not noted in ROS Statement are negative. Past Medical History Past Medical History: Atrial Fibrillation, Diabetes Mellitus, Pneumonia History of Any Multi-Drug Resistant Organisms: None Reported Past Surgical History: Appendectomy Additional Past Surgical History / Comment(s): dental Past Anesthesia/Blood Transfusion Reactions: No Reported Reaction Past Psychological History: No Psychological Hx Reported Smoking Status: Former smoker Past Alcohol Use History: Rare Past Drug Use History: None Reported - Past Family History Mother History Unknown: Yes Family Medical History: Unable to Obtain Additional Family Medical History / Comment(s): patient confused and does not give clear answers General Exam - General Exam Comments Initial Comments: General: Appears in no acute distress. Febrile. HEAD: Normal with no signs of head trauma. EYES: PERRLA, EOMI, conjunctiva normal, no discharge. ENT: Hearing grossly intact, normal oropharynx. RESPIRATORY: Clear breath sounds bilaterally. No wheezes, rales, or rhonchi. C/V: Regular rate and rhythm. S1 and S2 auscultated, no edema, peripheral pulses 2+ and intact throughout ABD: Abd is soft, nontender, nondistended. No obvious tenderness to palpation. EXT: Normal range of motion, no obvious deformity SKIN: No rashes or lesions observed on exposed skin. NEURO: Alert and oriented x 4. Limitations: no limitations Course Vital Signs 02/10/24 02/10/24 02/10/24 14:56 15:00 15:30 Temperature 102.7 F H Pulse Rate 101 H 100 Respiratory 16 20 20 Rate Blood Pressure 145/75 130/68 O2 Sat by Pulse 95 98 Oximetry 02/10/24 02/10/24 02/10/24 15:50 16:59 17:59 Temperature 99.2 F Pulse Rate 100 80 80 Respiratory 20 16 20 Rate Blood Pressure 130/60 105/60 109/70 O2 Sat by Pulse 98 95 95 Oximetry Medical Decision Making - Medical Decision Making Was pt. sent in by a medical professional or institution (, PA, BALLER TENDER, urgent care, hospital, or retirement...) When possible be specific @ -No Did you speak to anyone other than the patient for history (EMS, parent, family, police, friend...)? What history was obtained from this source @ -No Did you review nursing and triage notes (agree or disagree)? Why? @ -I reviewed and agree with nursing and triage notes Were old charts reviewed (outside hosp., previous admission, EMS record, old EKG, old radiological studies, urgent care reports/EKG's, retirement records)? Report findings @ -Reviewed old charts to confirm patient's medications which includes Eliquis, insulin. Differential Diagnosis (chest pain, altered mental status, abdominal pain women, abdominal pain men, vaginal bleeding, weakness, fever, dyspnea, syncope, headache, dizziness, GI bleed, back pain, seizure, CVA, palpatations, mental health, musculoskeletal)? @ -Differential Weakness: Hypoglycemia, shock, sepsis, hyponatremia, anemia, infection, ID, ETOH, adverse medicine reaction, overdose, stroke, this is not meant to be an all-inclusive list. EKG interpreted by me (3pts min.). @ -As above X-rays interpreted by me (1pt min.). @ -Chest x-ray reveals no obvious acute cardiopulmonary process. CT interpreted by me (1pt min.). @ CT abdomen pelvis shows left renal cyst but no other obvious acute intra-a bdominal process. U/S interpreted by me (1pt. min.). @ -None done What testing was considered but not performed or refused? (CT, X-rays, U/S, labs)? Why? @ -None What meds were considered but not given or refused? Why? @ -None Did you discuss the management of the patient with other professionals (professionals i.e. , PA, BALLER TENDER, lab, RT, psych nurse, social and human services assistant, mammalogy teacher, teacher, medical corps officer, outsole caser)? Give summary @ - I spoke with the admitting provider, Dr. Carlson of [facility] who accepted the admission. Was smoking cessation discussed for >3mins.? @ -No Was critical care preformed (if so, how long)? @ -No Were there social determinants of health that impacted care today? How? (Homelessness, low income, unemployed, alcoholism, drug addiction, transportation, low edu. Level, literacy, decrease access to med. care, fdc, rehab)? @ -No Was there de-escalation of care discussed even if they declined (Discuss DNR or withdrawal of care, Hospice)? DNR status @ -No What co-morbidities impacted this encounter? (DM, HTN, Smoking, COPD, CAD, Cancer, CVA, ARF, Chemo, Hep., AIDS, mental health diagnosis, sleep apnea, morbid obesity)? @ -Recurrent UTIs Was patient admitted / discharged? Hospital course, mention meds given and route, prescriptions, significant lab abnormalities, going to OR and other pertinent info. @ -Patient presents emergency department for fevers, weakness, as well as concern for possible UTI. Has a history of recurrent UTIs. Patient is febrile. Also hyperglycemic at home. Discussed with the patient we will screen the patient for possible DKA but also obtain infectious labs as well as chest x-ray. Screen EKG will also be obtained. Patient was in agreement this plan. Patient will receive IV fluids as well as Tylenol for his current fever. Remainder the vital signs are within acceptable limits. EKG shows no signs of acute ischemia.Imaging including CT of the abdomen pelvis negative for any obvious acute process. Labs remarkable for leukocytosis of 13.9. Lactic acidosis of 2.9. Patient has CKD at baseline creatinine. No evidence of DKA on workup. Negative viral swabs. At this time, fevers improved. Heart rate is improved. Eric hemodynamically stable. I discussed results with him as well as family. Technically, patient has 3 SIRS criteria with an elevated lactic acidosis. Patient meets sepsis criteria at 1740. Blood cultures already obtained and sent. Vitals within acceptable limits. Patient started on empiric vancomycin and cefepime. He has all received 2 L fluid bolus and will be placed on maintenance fluids. Patient was in agreement this plan. He wanted to go home, however I did discuss the concern for sepsis as well as fever of unknown origin. We will admit the patient on empiric antibiotics and follow-up on cultures. I spoke with the admitting provider, Dr. Carlson of [facility] who accepted the admission. Undiagnosed new problem with uncertain prognosis? @ -No Drug Therapy requiring intensive monitoring for toxicity (Heparin, Nitro, Insulin, Cardizem)? @ -No Were any procedures done? @ -No Diagnosis/symptom? @ -Sepsis, fever of unknown origin Acute, or Chronic, or Acute on Chronic? @ -Acute Uncomplicated (without systemic symptoms) or Complicated (systemic symptoms)? @ -Complicated Side effects of treatment? @ -None Exacerbation, Progression, or Severe Exacerbation] @ -No Poses a threat to life or bodily function? @ -Yes - Lab Data Result diagrams: 02/10/24 15:04 02/10/24 15:04 Lab Results 02/10/24 02/10/24 02/10/24 Range/Units 15:04 15:04 15:04 WBC 13.9 H (3.8-10.6) k/uL RBC 4.37 (4.30-5.90) m/uL Hgb 13.0 (13.0-17.5) gm/dL Hct 40.7 (39.0-53.0) % MCV 93.1 (80.0-100.0) fL MCH 29.7 (25.0-35.0) pg MCHC 31.9 (31.0-37.0) g/dL RDW 14.1 (11.5-15.5) % Plt Count 272 (150-450) k/uL MPV 8.1 Neutrophils % 94 % Lymphocytes % 4 % Monocytes % 1 % Eosinophils % 1 % Basophils % 0 % Neutrophils # 13.0 H (1.3-7.7) k/uL Lymphocytes # 0.6 L (1.0-4.8) k/uL Monocytes # 0.2 (0-1.0) k/uL Eosinophils # 0.1 (0-0.7) k/uL Basophils # 0.0 (0-0.2) k/uL Hypochromasia Slight PT 10.4 (10.0-12.5) sec INR 0.9 (<1.2) APTT 20.9 L (22.0-30.0) sec VBG pH (7.31-7.41) VBG pCO2 (37-51) mmHg VBG HCO3 (24-28) mmol/L Sodium 134 L (137-145) mmol/L Potassium 4.6 (3.5-5.1) mmol/L Chloride 102 (98-107) mmol/L Carbon Dioxide 23 (22-30) mmol/L Anion Gap 9 mmol/L BUN 16 (9-20) mg/dL Creatinine 1.85 H (0.66-1.25) mg/dL Est GFR (CKD-EPI)AfAm 37 (>60 ml/min/1.73 sqM) Est GFR (CKD-EPI)NonAf 32 (>60 ml/min/1.73 sqM) Glucose 312 H (74-99) mg/dL Lactic Ac Sepsis Rflx Plasma Lactic Acid Jeffery (0.7-2.0) mmol/L Calcium 8.9 (8.4-10.2) mg/dL Magnesium 1.7 (1.6-2.3) mg/dL Total Bilirubin 0.7 (0.2-1.3) mg/dL AST 22 (17-59) U/L ALT 13 (4-49) U/L Alkaline Phosphatase 109 (38-126) U/L Total Protein 6.1 L (6.3-8.2) g/dL Albumin 3.4 L (3.5-5.0) g/dL Lipase (23-300) U/L Urine Color Urine Appearance (Clear) Urine pH (5.0-8.0) Ur Specific Duncan (1.001-1.035) Urine Protein (Negative) Urine Glucose (UA) (Negative) Urine Ketones (Negative) Urine Blood (Negative) Urine Nitrite (Negative) Urine Bilirubin (Negative) Urine Urobilinogen (<2.0) mg/dL Ur Leukocyte Esterase (Negative) Acetone, Qual Negative (Negative) Influenza Type A (PCR) (Not Detectd) Influenza Type B (PCR) (Not Detectd) RSV (PCR) (Not Detectd) SARS-CoV-2 (PCR) (Not Detectd) 02/10/24 02/10/24 02/10/24 Range/Units 15:04 15:04 15:04 WBC (3.8-10.6) k/uL RBC (4.30-5.90) m/uL Hgb (13.0-17.5) gm/dL Hct (39.0-53.0) % MCV (80.0-100.0) fL MCH (25.0-35.0) pg MCHC (31.0-37.0) g/dL RDW (11.5-15.5) % Plt Count (150-450) k/uL MPV Neutrophils % % Lymphocytes % % Monocytes % % Eosinophils % % Basophils % % Neutrophils # (1.3-7.7) k/uL Lymphocytes # (1.0-4.8) k/uL Monocytes # (0-1.0) k/uL Eosinophils # (0-0.7) k/uL Basophils # (0-0.2) k/uL Hypochromasia PT (10.0-12.5) sec INR (<1.2) APTT (22.0-30.0) sec VBG pH (7.31-7.41) VBG pCO2 (37-51) mmHg VBG HCO3 (24-28) mmol/L Sodium (137-145) mmol/L Potassium (3.5-5.1) mmol/L Chloride (98-107) mmol/L Carbon Dioxide (22-30) mmol/L Anion Gap mmol/L BUN (9-20) mg/dL Creatinine (0.66-1.25) mg/dL Est GFR (CKD-EPI)AfAm (>60 ml/min/1.73 sqM) Est GFR (CKD-EPI)NonAf (>60 ml/min/1.73 sqM) Glucose (74-99) mg/dL Lactic Ac Sepsis Rflx Plasma Lactic Acid Jeffery 2.9 H* (0.7-2.0) mmol/L Calcium (8.4-10.2) mg/dL Magnesium (1.6-2.3) mg/dL Total Bilirubin (0.2-1.3) mg/dL AST (17-59) U/L ALT (4-49) U/L Alkaline Phosphatase (38-126) U/L Total Protein (6.3-8.2) g/dL Albumin (3.5-5.0) g/dL Lipase 26 (23-300) U/L Urine Color Urine Appearance (Clear) Urine pH (5.0-8.0) Ur Specific Duncan (1.001-1.035) Urine Protein (Negative) Urine Glucose (UA) (Negative) Urine Ketones (Negative) Urine Blood (Negative) Urine Nitrite (Negative) Urine Bilirubin (Negative) Urine Urobilinogen (<2.0) mg/dL Ur Leukocyte Esterase (Negative) Acetone, Qual (Negative) Influenza Type A (PCR) Not Detected (Not Detectd) Influenza Type B (PCR) Not Detected (Not Detectd) RSV (PCR) Not Detected (Not Detectd) SARS-CoV-2 (PCR) Not Detected (Not Detectd) 02/10/24 02/10/24 02/10/24 Range/Units 15:11 15:25 15:55 WBC (3.8-10.6) k/uL RBC (4.30-5.90) m/uL Hgb (13.0-17.5) gm/dL Hct (39.0-53.0) % MCV (80.0-100.0) fL MCH (25.0-35.0) pg MCHC (31.0-37.0) g/dL RDW (11.5-15.5) % Plt Count (150-450) k/uL MPV Neutrophils % % Lymphocytes % % Monocytes % % Eosinophils % % Basophils % % Neutrophils # (1.3-7.7) k/uL Lymphocytes # (1.0-4.8) k/uL Monocytes # (0-1.0) k/uL Eosinophils # (0-0.7) k/uL Basophils # (0-0.2) k/uL Hypochromasia PT (10.0-12.5) sec INR (<1.2) APTT (22.0-30.0) sec VBG pH 7.43 H (7.31-7.41) VBG pCO2 37 (37-51) mmHg VBG HCO3 24 (24-28) mmol/L Sodium (137-145) mmol/L Potassium (3.5-5.1) mmol/L Chloride (98-107) mmol/L Carbon Dioxide (22-30) mmol/L Anion Gap mmol/L BUN (9-20) mg/dL Creatinine (0.66-1.25) mg/dL Est GFR (CKD-EPI)AfAm (>60 ml/min/1.73 sqM) Est GFR (CKD-EPI)NonAf (>60 ml/min/1.73 sqM) Glucose (74-99) mg/dL Lactic Ac Sepsis Rflx Y Plasma Lactic Acid Jeffery (0.7-2.0) mmol/L Calcium (8.4-10.2) mg/dL Magnesium (1.6-2.3) mg/dL Total Bilirubin (0.2-1.3) mg/dL AST (17-59) U/L ALT (4-49) U/L Alkaline Phosphatase (38-126) U/L Total Protein (6.3-8.2) g/dL Albumin (3.5-5.0) g/dL Lipase (23-300) U/L Urine Color Colorless Urine Appearance Clear (Clear) Urine pH 6.5 (5.0-8.0) Ur Specific Duncan 1.007 (1.001-1.035) Urine Protein Trace H (Negative) Urine Glucose (UA) 4+ H (Negative) Urine Ketones Negative (Negative) Urine Blood Negative (Negative) Urine Nitrite Negative (Negative) Urine Bilirubin Negative (Negative) Urine Urobilinogen <2.0 (<2.0) mg/dL Ur Leukocyte Esterase Negative (Negative) Acetone, Qual (Negative) Influenza Type A (PCR) (Not Detectd) Influenza Type B (PCR) (Not Detectd) RSV (PCR) (Not Detectd) SARS-CoV-2 (PCR) (Not Detectd) 02/10/24 Range/Units 17:45 WBC (3.8-10.6) k/uL RBC (4.30-5.90) m/uL Hgb (13.0-17.5) gm/dL Hct (39.0-53.0) % MCV (80.0-100.0) fL MCH (25.0-35.0) pg MCHC (31.0-37.0) g/dL RDW (11.5-15.5) % Plt Count (150-450) k/uL MPV Neutrophils % % Lymphocytes % % Monocytes % % Eosinophils % % Basophils % % Neutrophils # (1.3-7.7) k/uL Lymphocytes # (1.0-4.8) k/uL Monocytes # (0-1.0) k/uL Eosinophils # (0-0.7) k/uL Basophils # (0-0.2) k/uL Hypochromasia PT (10.0-12.5) sec INR (<1.2) APTT (22.0-30.0) sec VBG pH (7.31-7.41) VBG pCO2 (37-51) mmHg VBG HCO3 (24-28) mmol/L Sodium (137-145) mmol/L Potassium (3.5-5.1) mmol/L Chloride (98-107) mmol/L Carbon Dioxide (22-30) mmol/L Anion Gap mmol/L BUN (9-20) mg/dL Creatinine (0.66-1.25) mg/dL Est GFR (CKD-EPI)AfAm (>60 ml/min/1.73 sqM) Est GFR (CKD-EPI)NonAf (>60 ml/min/1.73 sqM) Glucose (74-99) mg/dL Lactic Ac Sepsis Rflx Plasma Lactic Acid Jeffery 1.5 (0.7-2.0) mmol/L Calcium (8.4-10.2) mg/dL Magnesium (1.6-2.3) mg/dL Total Bilirubin (0.2-1.3) mg/dL AST (17-59) U/L ALT (4-49) U/L Alkaline Phosphatase (38-126) U/L Total Protein (6.3-8.2) g/dL Albumin (3.5-5.0) g/dL Lipase (23-300) U/L Urine Color Urine Appearance (Clear) Urine pH (5.0-8.0) Ur Specific Duncan (1.001-1.035) Urine Protein (Negative) Urine Glucose (UA) (Negative) Urine Ketones (Negative) Urine Blood (Negative) Urine Nitrite (Negative) Urine Bilirubin (Negative) Urine Urobilinogen (<2.0) mg/dL Ur Leukocyte Esterase (Negative) Acetone, Qual (Negative) Influenza Type A (PCR) (Not Detectd) Influenza Type B (PCR) (Not Detectd) RSV (PCR) (Not Detectd) SARS-CoV-2 (PCR) (Not Detectd) - EKG Data -: EKG Interpreted by Me EKG Comments: 12-lead Electrocardiogram Interpretation Note EKG was reviewed and interpreted by myself. 12-lead ECG performed at 1509 is interpreted by me as revealing normal sinus rhythm at a rate of 94 beats per minute. [place] is normal. UT interval is 135 ms, QRS duration is 96 ms, QTc is 409 ms.. There were no ST or T wave abnormalities to suggest myocardial ischemia or injury. R wave progression across the precordium was satisfactory. By my interpretation this EKG is non-diagnostic for acute ischemia.Compared with EKG from April 2023 with no significant change. Disposition Clinical Impression: CKD (chronic kidney disease), Fever, Sepsis Disposition: ADMITTED IP TO THIS HOSP Condition: Stable Time of Disposition: 17:40
[2024-02-10 15:50] LABS: Appearance,Urine Clear (Clear); Bilirubin,Urine Negative (Negative); Blood,Urine Negative (Negative); Color,Urine Colorless; Glucose,Urine (UA) 4+ (Negative); Ketones,Urine Negative (Negative); Leukocyte Esterase,Urine Negative (Negative); Nitrite,Urine Negative (Negative); PH, Urine 6.5 (5.0-8.0); Protein,Urine Trace (Negative); Specific Gravity,Urine 1.007 (1.001-1.035); Urobilinogen,Urine <2.0 mg/dL (<2.0)
[2024-02-10 15:52] LABS: ALT 13 U/L (4-49); AST 22 U/L (17-59); African American GFR (CKD) 37 (>60 ml/min/1.73 sqM); Albumin 3.4 g/dL (3.5-5.0); Alkaline Phosphatase 109 U/L (38-126); Anion Gap 9 mmol/L; Blood Urea Nitrogen 16 mg/dL (9-20); Calcium 8.9 mg/dL (8.4-10.2); Carbon Dioxide 23 mmol/L (22-30); Chloride 102 mmol/L (98-107); Glucose 312 mg/dL (74-99); Magnesium 1.7 mg/dL (1.6-2.3); Non-African American GFR(CKD) 32 (>60 ml/min/1.73 sqM); Potassium 4.6 mmol/L (3.5-5.1); Sodium 134 mmol/L (137-145); Total Bilirubin 0.7 mg/dL (0.2-1.3); Total Protein 6.1 g/dL (6.3-8.2)
[2024-02-10 15:53] LABS: INR 0.9 (<1.2); Prothrombin Time 10.4 sec (10.0-12.5)
[2024-02-10 15:55] LABS: Partial Thromboplastin Time 20.9 sec (22.0-30.0)
--- NOTE | 2024-02-10 16:06 | XR ---
EXAMINATION TYPE: XR chest 2V DATE OF EXAM: 02/10/2024 COMPARISON: 05/03/2023 HISTORY: Shortness of breath TECHNIQUE: Frontal and lateral views of the chest are obtained. FINDINGS: Scattered senescent parenchymal changes noted. Hyperinflation compatible with COPD. No evidence for infiltrate. No evidence for atelectasis. Heart size is stable. Mediastinal structures are stable and grossly unremarkable. No evidence for hilar prominence. Degenerative changes dorsal spine. IMPRESSION: 1. No evidence for acute pulmonary disease. [facility], , 02/10/2024 4:04 PM
--- NOTE | 2024-02-10 17:31 | CT ---
EXAMINATION TYPE: CT abdomen pelvis w con DATE OF EXAM: 02/10/2024 COMPARISON: 01/09/2022 INDICATION: abdominal pain, fever DLP: 923.3 mGycm, Automated exposure control for dose reduction was used. CONTRAST: 80 mL of Isovue 300. Study performed without Oral Contrast TECHNIQUE: Axial images were obtained from above the diaphragm to the pubic rami in the axial plane a t 5 mm thick sections. Reconstructed images are reviewed on the computer in the coronal plane. FINDINGS: Limited CT sections are obtained the lung bases. The lung bases are clear. Urinary calcification is present. CT ABDOMEN: Liver: Normal Spleen: Normal Pancreas: Fatty infiltration to the pancreas. Adrenal glands: The adrenal glands are normal. Gallbladder: Normal Kidneys: No masses are evident. No hydronephrosis is present. There is a 2.6 cm lateral and superio r pole right renal cyst. Small cortical renal cyst on the left kidney. Delayed images were obtained t hrough the kidneys, which remain unremarkable. Aorta: Vascular calcification is within the aorta. Inferior vena cava: Normal. CT PELVIS: Diverticular changes are within the sigmoid colon. No adjacent inflammatory changes to suggest acute diverticulitis. This study is a lateral contrast limiting evaluation. Appendix: Normal as visualized. Urinary bladder: Normal. Genitourinary structures: Prostate is normal. Osseous structures: No suspicious lytic or sclerotic lesions. IMPRESSION: 1. Diverticulosis without acute diverticulitis. 2. Renal cysts. [facility], , 02/10/2024 5:29 PM
[2024-02-10] MEDS ORDERED: VANCOMYCIN IV PER PHARMACY 1 EACH MISC MISCELLANE PRN (17:43)
[2024-02-10] MEDS: CEFEPIME 2 GM in SODIUM CHLORIDE 0.9% 100 ML IVPB STA (17:58)
[2024-02-10] MEDS ORDERED: ONDANSETRON 4 MG/2 ML VIAL IVP PRN (18:01)
[2024-02-10] MEDS ORDERED: ACETAMINOPHEN TAB 325 MG TAB PO PRN (18:01)
[2024-02-10] MEDS ORDERED: NALOXONE 0.4 MG/ML 1 ML VIAL IV PRN (18:01)
[2024-02-10] MEDS ORDERED: DEXTROSE 50% SYRINGE 50 ML IVP PRN ×2 (18:04)
[2024-02-10] MEDS: VANCOMYCIN 1,250 MG in SODIUM CHLORIDE 0.9% 250 ML IVPB ONE (18:34)
[2024-02-10] MEDS: GABAPENTIN 300 MG CAP PO SCH (20:09)
--- NOTE | 2024-02-10 21:47 | P.HPIM ---
History of Present Illness H&P Date: 02/10/24 Chief Complaint: Dysuria and weakness Patient is a 88-year-old male with past medical history of recurrent UTI presenting to the ED with complains of dysuria and weakness. He mentions of burning with urination for 2 weeks. He also had increased frequency of urination. He also complains of weakness and chills around the same time. Denies abdominal pain, nausea, vomiting, diarrhea, blood in the urine, chest pain, shortness of breath. Reports a mild chronic unchanged non productive cough. He states that he uses a cane at home and lives with his girlfriend who manages his medications. ED workup revelaed WBC 13.8, lactic acid 1.5 and UA revealing trace protein and 4+ glucose. Blood culture was ordered and he was treated with cefepime, vancomycin and 0.9% normal saline in the ED. Vitals: T 102.7F, P 101bpm, RR 16, BP 109/70, O2 sat 95% on RA Labs: APTT 20.9, Na 134, Creatinine 1.85, glucose 312, total protein 6.1, albumin 3.4 VBG: pH 7.43, pCO2 37, HCO3 24 Respiratory panel: Negative EKG: Independtly interpreted shows sinus rhythm, left ventricular hypertrophy, rate of 94 bpm and QTc 409 ms. CXR:No evidence of acute pulmonary disease. CTAP:Diverticulosis without acute diverticulitis and renal cysts ED documentation reviewed. Review of systems: Pertinent positives and negatives as discussed in HPI, a complete review of systems was performed and all other systems are negative. PMH: Atrial fibrillation, Insulin dependent Diabetes mellitus, Hypertension, Go ut PS: Appendicectomy Social history: Tobacco: Former smoker Alcohol: Denies use Recreational drugs: Denies use Travel: No recent travel history Sick contacts: None Occupation: Not obtained Physical examination: Vital signs reviewed General: non toxic, no distress, appears at stated age, normal weight Derm: no unusual rashes/lesions, warm Head: atraumatic, normocephalic, symmetric Eyes: EOMI, no lid lag, anicteric sclera, pupils equal round reactive to light ENT: Nose and ears atraumatic Neck: No cervical lymphadenopathy, supple Mouth: no lip lesion Cardiovascular: S1S2 reg, no murmur, positive dorsalis pedis pulse bilateral, no edema Lungs: CTA bilateral, no rhonchi, no rales, no accessory muscle use Abdominal: soft, nontender to palpation, no guarding Ext: muscle strength 5 out of 5 in all 4 extremities grossly, no gross muscle atrophy, no contractures, Neuro: CN II-XI grossly intact, no gross focal neuro deficits Psych: Alert and oriented, appropriate affect Assessment/Plan: Patient is a 88-year-old male with past medical history of recurrent UTIs presenting to the ED with dysuria and weakness and has been admitted for further workup of bacteremia. #. SIRS without obvious source of infection, r/o bacteremia - WBC 13.9, T 102.7F, P 101, RR 16 - F/u blood cultures - C/w empiric broard spectrum abx coverage with Cefepime 2gm IVPB Q12 HR and vancomycin IVPB Q 24H - Consult ID - C/w IVFs NS 130 mL/hr - S/p 2 L NS bolus in ED # CKD Stage 3b - At baseline #. Lactic acidosis, resolved #. Nausea and vomiting, likely due to above - C/w Ondansetron 4mg IVP Q8HR PRn #. Insulin dependent Diabetes mellitus - A1c ordered - Insulin sliding scale with blood glucose monitoring ACHS #. Hypertension - C/w amlodipine 5 mg PO daily #. Pain management - C/w Gabapentin 600mg PO HS and acetaminophen 650 mg PO Q6HR PRN #. Gout - C/w Allopurinol 100mg PO daily F:None E:Replete as required N:Heart healthy diet A:Ambulatory DVT prophylaxis: SCD The patient is admitted with an anticipated more than 2 midnight stay for evaluation of bacteremia CODE STATUS: Full Code Discussed with: Patient Anticipated discharge place: Home Past Medical History Past Medical History: Atrial Fibrillation, Diabetes Mellitus, Pneumonia History of Any Multi-Drug Resistant Organisms: None Reported Past Surgical History: Appendectomy Additional Past Surgical History / Comment(s): dental Past Anesthesia/Blood Transfusion Reactions: No Reported Reaction Past Psychological History: No Psychological Hx Reported Smoking Status: Former smoker Past Alcohol Use History: Rare Past Drug Use History: None Reported - Past Family History Mother History Unknown: Yes Family Medical History: Hypertension Medications and Allergies Home Medications Medication Instructions Recorded Confirmed Type Gabapentin [Neurontin] 600 mg PO HS 04/28/20 02/10/24 History Insulin Glargine,Hum.rec.anlog 20 unit SQ DAILY 04/28/20 02/10/24 History [Lantus Solostar Pen] allopurinoL 100 mg PO DAILY 01/06/22 02/10/24 History amLODIPine [Norvasc] 5 mg PO DAILY 90 Days #90 tab 03/12/23 02/10/24 Rx Amiodarone [Cordarone] 100 mg PO DAILY 02/10/24 02/10/24 History Cholecalciferol [Vitamin D3 (125 125 mcg PO DAILY 02/10/24 02/10/24 History Mcg = 5000 Iu)] Insulin Aspart [NovoLOG Flexpen] 6 units SQ TID-W/MEALS 02/10/24 02/10/24 History Insulin Aspart [NovoLOG Flexpen] See Protocol SQ TID-W/MEALS PRN 02/10/24 02/10/24 History Allergies Allergy/AdvReac Type Severity Reaction Status Date / Time No Known Allergies Allergy Verified 02/10/24 16:32 Physical Exam Vitals: Vital Signs Temp Pulse Resp BP Pulse Ox 02/10/24 17:59 80 20 109/70 95 02/10/24 16:59 80 16 105/60 95 02/10/24 15:50 99.2 F 100 20 130/60 98 02/10/24 15:30 20 02/10/24 15:00 100 20 130/68 98 02/10/24 14:56 102.7 F H 101 H 16 145/75 95 Intake and Output 02/10/24 02/10/24 02/10/24 06:59 14:59 22:59 Other: Weight 72.575 kg Results CBC & Chem 7: 02/10/24 15:04 02/10/24 15:04 Labs: Abnormal Lab Results - Last 24 Hours (Table) 02/10/24 02/10/24 02/10/24 Range/Units 15:04 15:04 15:04 WBC 13.9 H (3.8-10.6) k/uL Neutrophils # 13.0 H (1.3-7.7) k/uL Lymphocytes # 0.6 L (1.0-4.8) k/uL APTT 20.9 L (22.0-30.0) sec VBG pH (7.31-7.41) Sodium 134 L (137-145) mmol/L Creatinine 1.85 H (0.66-1.25) mg/dL Glucose 312 H (74-99) mg/dL Plasma Lactic Acid Jeffery (0.7-2.0) mmol/L Total Protein 6.1 L (6.3-8.2) g/dL Albumin 3.4 L (3.5-5.0) g/dL Urine Protein (Negative) Urine Glucose (UA) (Negative) 02/10/24 02/10/24 02/10/24 Range/Units 15:04 15:11 15:25 WBC (3.8-10.6) k/uL Neutrophils # (1.3-7.7) k/uL Lymphocytes # (1.0-4.8) k/uL APTT (22.0-30.0) sec VBG pH 7.43 H (7.31-7.41) Sodium (137-145) mmol/L Creatinine (0.66-1.25) mg/dL Glucose (74-99) mg/dL Plasma Lactic Acid Jeffery 2.9 H* (0.7-2.0) mmol/L Total Protein (6.3-8.2) g/dL Albumin (3.5-5.0) g/dL Urine Protein Trace H (Negative) Urine Glucose (UA) 4+ H (Negative)
[2024-02-11] MEDS ORDERED: CEFEPIME 2 GM in SODIUM CHLORIDE 0.9% 100 ML IVPB SCH
[2024-02-11] MEDS: CEFEPIME 2 GM in SODIUM CHLORIDE 0.9% 100 ML IVPB SCH (06:27)
[2024-02-11] MEDS: INSULIN ASPART (NovoLOG) 100 UNIT/ML VIAL SQ SCH (08:00)
[2024-02-11] MEDS: INSULIN DETEMIR (LEVEMIR) 100 UNIT/ML SYR SQ SCH (09:27)
[2024-02-11 11:05] LABS: ALT 21 U/L (10-49); AST 21 U/L (14-35); Albumin 3.8 g/dL (3.8-4.9); Albumin/Globulin Ratio 1.52 Ratio (1.60-3.17); Alkaline Phosphatase 113 U/L (41-126); BUN/Creat Ratio 8.06 Ratio (12.00-20.00); Blood Urea Nitrogen 14.5 mg/dL (9.0-27.0); Calcium 8.7 mg/dL (8.7-10.3); Carbon Dioxide 23.1 mmol/L (21.6-31.8); Chloride 108 mmol/L (96-109); Globulin 2.5 g/dL (1.6-3.3); Glucose 107 mg/dL (70-110); Potassium 4.2 mmol/L (3.5-5.5); Sodium 141 mmol/L (135-145); Total Bilirubin 0.6 mg/dL (0.3-1.2); Total Protein 6.3 g/dL (6.2-8.2)
[2024-02-11 11:08] LABS: Basophils # (A) 0.11 X 10*3/uL (0.00-0.10); Basophils % (A) 0.5 %; Eosinophils # (A) 0.23 X 10*3/uL (0.04-0.35); HCT 40.4 % (39.6-50.0); HGB 12.7 g/dL (13.0-17.0); Lymphocytes # (A) 2.38 X 10*3/uL (0.90-5.00); Lymphocytes % (A) 10.4 %; MCH 29.3 pg (27.0-32.0); MCHC 31.4 g/dL (32.0-37.0); MCV 93.3 FL (80.0-97.0); Mean Platelet Volume 11.4 FL (9.5-12.2); Monocytes % (A) 6.6 %; NRBC Per 100 WBC 0 X 10*3/uL (0.00-0.01); Neutrophils # (A) 18.46 X 10*3/uL (1.80-7.70); Platelet Count 257 X 10*3/uL (140-440); RBC 4.33 X 10*6/uL (4.40-5.60); RDW 14.9 % (11.5-14.5); WBC 22.79 X 10*3/uL (4.50-10.00)
[2024-02-11] MEDS: amLODIPine 5 MG TAB PO SCH (12:44)
[2024-02-11] MEDS: allopurinoL 100 MG TAB PO SCH (12:44)
[2024-02-11] MEDS: AMIODARONE 100 MG TAB PO SCH (12:44)
--- NOTE | 2024-02-11 13:19 | P.PN ---
Subjective Progress Note Date: 02/11/24 88 year old M with PMH recurrent UTI, AFib, DM presented to the ED for weakness, chills and dysuria. In the ED he underwent extensive evaluation. BP 145/75, HR 101, T 102.7F, RR 16, 95% on RA. CBC, Coag panel, CMP significant for WBC 13.9, APTT 20.9, Na 134, Cr 1.85, glu 312, alb 3.4. Lipase 26. Mag 1.7. Lactic acid 2.9. UA 4+ glucose and trace protein. Flu, RSV, COVID negative. Acetone negative. EKG sinus rhythm. CXR negative. CT AP diverticulosis and renal cysts. Given 2L NS bolus, started on broad spectrum antibiotics and admitted for further workup and management. 02/10 Patient was seen and examined. He reports feeling better. Wants to go home. Mild dysuria. No other complaints. CBC, CMP significant for WBC 22.79, RBC 4.33, Hg 12.7, Cr 1.8. A1c 10.2. General: non toxic, no distress, appears at stated age Derm: warm, dry Head: atraumatic, normocephalic, symmetric Eyes: EOMI, no lid lag, anicteric sclera Mouth: no lip lesion, mucus membranes moist Cardiovascular: S1S2 reg, no murmur Lungs: Clear to auscultation bilaterally, no rhonchi, no rales , no accessory muscle use Abd: Non distended. Non tender to palpation Ext: no gross muscle atrophy, no edema, no contractures Neuro: no focal neuro deficits Psych: Alert, oriented, appropriate affect Based on my assessment of this patient, this patient meets a high complexity level of care. Severe sepsis: No obvious source of infection. Continue Vancomycin dosed per pharmacy and Cefepime 2g IV TID. Now off IVF with BP maintaining. Telemetry monitoring. Follow BCx. ID consulted. Diabetes mellitus with hyperglycemia: A1c 10.2. Uncontrolled. Continue Levemir 20 units SQ QD and ISS. Accuchecks ACHS. Hypoglycemic precautions. A-Fib: Rate controlled. Amiodarone 100 mg PO QD. Not on AC. Hypertension: Amlodipine 5 mg PO QD. Chronic kidney disease: Appears at baseline. CODE STATUS: FULL CODE. DVT Prophylaxis: Heparin SQ GI Prophylaxis: Designated medical POA if patient is not able to make medical decisions for themselves: I have reviewed the following nutrition consultant notes: I have reviewed the results of the following tests: CBC, CMP, A1c. I have ordered the following tests: BCx pending. I have discussed the care of this patient with the following independent historian: I have independently interpreted the following test below: I have discussed the management of this patient with the following physician: Objective - Vital Signs Vital signs: Vital Signs Temp 97.8 F 02/11/24 08:00 Pulse 72 02/11/24 08:00 Resp 20 02/11/24 08:00 BP 141/62 02/11/24 08:00 Pulse Ox 95 02/11/24 08:00 FiO2 Intake & Output 02/10/24 02/11/24 02/11/24 18:59 06:59 18:59 Weight 72.575 kg 72.575 kg Other: Voiding Method Urinal Diaper Incontinent # Voids 3 - Labs CBC & Chem 7: 02/11/24 06:38 02/11/24 06:38 Labs: Abnormal Lab Results - Last 24 Hours (Table) 02/10/24 02/10/24 02/10/24 Range/Units 15:04 15:04 15:04 WBC 13.9 H (3.8-10.6) k/uL RBC (4.40-5.60) X 10*6/uL Hgb (13.0-17.0) g/dL MCHC (32.0-37.0) g/dL RDW (11.5-14.5) % Immature Gran # (0.00-0.04) X 10*3/uL Neutrophils # 13.0 H (1.3-7.7) k/uL Lymphocytes # 0.6 L (1.0-4.8) k/uL Monocytes # (0.20-1.00) X 10*3/uL Basophils # (0.00-0.10) X 10*3/uL APTT 20.9 L (22.0-30.0) sec VBG pH (7.31-7.41) Sodium 134 L (137-145) mmol/L Creatinine 1.85 H (0.66-1.25) mg/dL Est GFR (CKD-EPI) (>=60) BUN/Creatinine Ratio (12.00-20.00) Ratio Glucose 312 H (74-99) mg/dL Hemoglobin A1c (<=6.0) % Plasma Lactic Acid Jeffery (0.7-2.0) mmol/L Total Protein 6.1 L (6.3-8.2) g/dL Albumin 3.4 L (3.5-5.0) g/dL Albumin/Globulin Ratio (1.60-3.17) Ratio Urine Protein (Negative) Urine Glucose (UA) (Negative) 02/10/24 02/10/24 02/10/24 Range/Units 15:04 15:11 15:25 WBC (3.8-10.6) k/uL RBC (4.40-5.60) X 10*6/uL Hgb (13.0-17.0) g/dL MCHC (32.0-37.0) g/dL RDW (11.5-14.5) % Immature Gran # (0.00-0.04) X 10*3/uL Neutrophils # (1.3-7.7) k/uL Lymphocytes # (1.0-4.8) k/uL Monocytes # (0.20-1.00) X 10*3/uL Basophils # (0.00-0.10) X 10*3/uL APTT (22.0-30.0) sec VBG pH 7.43 H (7.31-7.41) Sodium (137-145) mmol/L Creatinine (0.66-1.25) mg/dL Est GFR (CKD-EPI) (>=60) BUN/Creatinine Ratio (12.00-20.00) Ratio Glucose (74-99) mg/dL Hemoglobin A1c (<=6.0) % Plasma Lactic Acid Jeffery 2.9 H* (0.7-2.0) mmol/L Total Protein (6.3-8.2) g/dL Albumin (3.5-5.0) g/dL Albumin/Globulin Ratio (1.60-3.17) Ratio Urine Protein Trace H (Negative) Urine Glucose (UA) 4+ H (Negative) 02/11/24 02/11/24 02/11/24 Range/Units 06:38 06:38 06:38 WBC 22.79 H (3.8-10.6) k/uL RBC 4.33 L (4.40-5.60) X 10*6/uL Hgb 12.7 L (13.0-17.0) g/dL MCHC 31.4 L (32.0-37.0) g/dL RDW 14.9 H (11.5-14.5) % Immature Gran # 0.11 H (0.00-0.04) X 10*3/uL Neutrophils # 18.46 H (1.3-7.7) k/uL Lymphocytes # (1.0-4.8) k/uL Monocytes # 1.50 H (0.20-1.00) X 10*3/uL Basophils # 0.11 H (0.00-0.10) X 10*3/uL APTT (22.0-30.0) sec VBG pH (7.31-7.41) Sodium (137-145) mmol/L Creatinine 1.8 H (0.66-1.25) mg/dL Est GFR (CKD-EPI) 36 L (>=60) BUN/Creatinine Ratio 8.06 L (12.00-20.00) Ratio Glucose (74-99) mg/dL Hemoglobin A1c 10.2 H (<=6.0) % Plasma Lactic Acid Jeffery (0.7-2.0) mmol/L Total Protein (6.3-8.2) g/dL Albumin (3.5-5.0) g/dL Albumin/Globulin Ratio 1.52 L (1.60-3.17) Ratio Urine Protein (Negative) Urine Glucose (UA) (Negative)
[2024-02-11] MEDS: VANCOMYCIN 1,250 MG in SODIUM CHLORIDE 0.9% 250 ML IVPB SCH (16:38)
[2024-02-11 17:17] LABS: Appearance,Urine Clear (Clear); Bilirubin,Urine Negative (Negative); Blood,Urine Negative (Negative); Color,Urine Colorless; Glucose,Urine (UA) 1+ (Negative); Ketones,Urine Negative (Negative); Leukocyte Esterase,Urine Negative (Negative); Nitrite,Urine Negative (Negative); Protein,Urine Negative (Negative); Urobilinogen,Urine <2.0 mg/dL (<2.0)
[2024-02-11] MEDS: HEPARIN SODIUM,PORCINE 5,000 UNIT/ML 1 ML VIAL SQ SCH (20:59)
--- NOTE | 2024-02-11 23:03 | P.CONS ---
History of Present Illness - Reason for Consult Consult date: 02/11/24 SIRS without obvious infectious source Requesting physician: Kitty Fajardo - Chief Complaint Rigors and chills x 1 day - History of Present Illness Patient is a 88-year-old male with a past medical history significant for atrial fibrillation diabetes mellitus history of prostate cancer and UTI patient has been brought to the hospital concerning for weakness dysuria and fever at home patient symptom has been going on for a day before the patient has been brought to the hospital patient was having rigors and chills and unable to get warm patient was complaining of weakness did have dysuria and difficulty urination but no suprapubic or flank pain patient denies having any headache or URI symptoms no chest pain shortness with or cough no nausea no vomiting or diarrhea on presentation to the hospital patient did have a temperature of 102.7 F, patient was not tachycardic hypotensive or hypoxic and no need for supplemental oxygen patient did have a white count of 13.9 which is up to 22.79 mildly elevated electrolytes are normal liver isms are normal patient did have a negative UA influenza RSV COVID testing was negative patient did have a chest x- ray no evidence for acute pulmonary process CT abdominal pelvis lung bases were clear diverticulosis without diverticulitis and renal cyst patient has been started on cefepime and vancomycin infectious was consulted for further management of antibiotic therapy blood cultures obtained which are currently p ending Review of Systems Positive point and negatives has been mentioned in the HPI, complete review of systems was performed and all other systems are negative Past Medical History Past Medical History: Atrial Fibrillation, Diabetes Mellitus, Pneumonia History of Any Multi-Drug Resistant Organisms: None Reported Past Surgical History: Appendectomy Additional Past Surgical History / Comment(s): dental Past Anesthesia/Blood Transfusion Reactions: No Reported Reaction Past Psychological History: No Psychological Hx Reported Smoking Status: Former smoker Past Alcohol Use History: None Reported, Rare Past Drug Use History: None Reported - Past Family History Mother History Unknown: Yes Family Medical History: Hypertension Additional Family Medical History / Comment(s): patient confused and does not give clear answers Medications and Allergies Home Medications Medication Instructions Recorded Confirmed Type Gabapentin [Neurontin] 600 mg PO HS 04/28/20 02/10/24 History Insulin Glargine,Hum.rec.anlog 20 unit SQ DAILY 04/28/20 02/10/24 History [Lantus Solostar Pen] allopurinoL 100 mg PO DAILY 01/06/22 02/10/24 History amLODIPine [Norvasc] 5 mg PO DAILY 90 Days #90 tab 03/12/23 02/10/24 Rx Amiodarone [Cordarone] 100 mg PO DAILY 02/10/24 02/10/24 History Cholecalciferol [Vitamin D3 (125 125 mcg PO DAILY 02/10/24 02/10/24 History Mcg = 5000 Iu)] Insulin Aspart [NovoLOG Flexpen] 6 units SQ TID-W/MEALS 02/10/24 02/10/24 History Insulin Aspart [NovoLOG Flexpen] See Protocol SQ TID-W/MEALS PRN 02/10/24 02/10/24 History Allergies Allergy/AdvReac Type Severity Reaction Status Date / Time No Known Allergies Allergy Verified 02/10/24 16:32 Physical Exam Vitals: Vital Signs Temp Pulse Pulse Resp BP BP Pulse Ox 02/11/24 08:00 97.8 F 72 20 141/62 95 02/10/24 23:24 98.4 F 71 18 127/65 97 02/10/24 22:00 71 18 106/54 91 L 02/10/24 20:00 78 18 122/58 95 02/10/24 17:59 80 20 109/70 95 02/10/24 16:59 80 16 105/60 95 02/10/24 15:50 99.2 F 100 20 130/60 98 02/10/24 15:30 20 02/10/24 15:00 100 20 130/68 98 02/10/24 14:56 102.7 F H 101 H 16 145/75 95 Intake and Output 02/10/24 02/11/24 02/11/24 22:59 06:59 14:59 Other: Voiding Method Urinal Diaper Incontinent # Voids 3 Weight 72.575 kg GENERAL DESCRIPTION: Elderly male lying in bed, no distress. No tachypnea or accessory muscle of respiration use. HEENT: Shows Pallor , no scleral icterus. Oral mucous membrane is dry. No pharyngeal erythema or thrush NECK: Trachea central, no thyromegaly. LUNGS: Unlabored breathing. Clear to auscultation anteriorly. No wheeze or crackle. HEART: S1, S2, regular rate and rhythm. No loud murmur ABDOMEN: Soft, no tenderness , guarding or rigidity, no organomegaly EXTREMITIES: No edema of feet. SKIN: No rash, no masses palpable. NEUROLOGICAL: The patient is awake, alert, oriented x3, mood and affect normal. Results CBC & Chem 7: 02/11/24 06:38 02/11/24 06:38 Labs: Abnormal Lab Results - Last 24 Hours (Table) 02/10/24 02/10/24 02/10/24 Range/Units 15:04 15:04 15:04 WBC 13.9 H (3.8-10.6) k/uL RBC (4.40-5.60) X 10*6/uL Hgb (13.0-17.0) g/dL MCHC (32.0-37.0) g/dL RDW (11.5-14.5) % Immature Gran # (0.00-0.04) X 10*3/uL Neutrophils # 13.0 H (1.3-7.7) k/uL Lymphocytes # 0.6 L (1.0-4.8) k/uL Monocytes # (0.20-1.00) X 10*3/uL Basophils # (0.00-0.10) X 10*3/uL APTT 20.9 L (22.0-30.0) sec VBG pH (7.31-7.41) Sodium 134 L (137-145) mmol/L Creatinine 1.85 H (0.66-1.25) mg/dL Est GFR (CKD-EPI) (>=60) BUN/Creatinine Ratio (12.00-20.00) Ratio Glucose 312 H (74-99) mg/dL Hemoglobin A1c (<=6.0) % Plasma Lactic Acid Jeffery (0.7-2.0) mmol/L Total Protein 6.1 L (6.3-8.2) g/dL Albumin 3.4 L (3.5-5.0) g/dL Albumin/Globulin Ratio (1.60-3.17) Ratio Urine Protein (Negative) Urine Glucose (UA) (Negative) 02/10/24 02/10/24 02/10/24 Range/Units 15:04 15:11 15:25 WBC (3.8-10.6) k/uL RBC (4.40-5.60) X 10*6/uL Hgb (13.0-17.0) g/dL MCHC (32.0-37.0) g/dL RDW (11.5-14.5) % Immature Gran # (0.00-0.04) X 10*3/uL Neutrophils # (1.3-7.7) k/uL Lymphocytes # (1.0-4.8) k/uL Monocytes # (0.20-1.00) X 10*3/uL Basophils # (0.00-0.10) X 10*3/uL APTT (22.0-30.0) sec VBG pH 7.43 H (7.31-7.41) Sodium (137-145) mmol/L Creatinine (0.66-1.25) mg/dL Est GFR (CKD-EPI) (>=60) BUN/Creatinine Ratio (12.00-20.00) Ratio Glucose (74-99) mg/dL Hemoglobin A1c (<=6.0) % Plasma Lactic Acid Jeffery 2.9 H* (0.7-2.0) mmol/L Total Protein (6.3-8.2) g/dL Albumin (3.5-5.0) g/dL Albumin/Globulin Ratio (1.60-3.17) Ratio Urine Protein Trace H (Negative) Urine Glucose (UA) 4+ H (Negative) 02/11/24 02/11/24 02/11/24 Range/Units 06:38 06:38 06:38 WBC 22.79 H (3.8-10.6) k/uL RBC 4.33 L (4.40-5.60) X 10*6/uL Hgb 12.7 L (13.0-17.0) g/dL MCHC 31.4 L (32.0-37.0) g/dL RDW 14.9 H (11.5-14.5) % Immature Gran # 0.11 H (0.00-0.04) X 10*3/uL Neutrophils # 18.46 H (1.3-7.7) k/uL Lymphocytes # (1.0-4.8) k/uL Monocytes # 1.50 H (0.20-1.00) X 10*3/uL Basophils # 0.11 H (0.00-0.10) X 10*3/uL APTT (22.0-30.0) sec VBG pH (7.31-7.41) Sodium (137-145) mmol/L Creatinine 1.8 H (0.66-1.25) mg/dL Est GFR (CKD-EPI) 36 L (>=60) BUN/Creatinine Ratio 8.06 L (12.00-20.00) Ratio Glucose (74-99) mg/dL Hemoglobin A1c 10.2 H (<=6.0) % Plasma Lactic Acid Jeffery (0.7-2.0) mmol/L Total Protein (6.3-8.2) g/dL Albumin (3.5-5.0) g/dL Albumin/Globulin Ratio 1.52 L (1.60-3.17) Ratio Urine Protein (Negative) Urine Glucose (UA) (Negative) Assessment and Plan (1) Fever Current Visit: Yes Status: Acute Code(s): R50.9 - FEVER, UNSPECIFIED SNOMED Code(s): 366188026 Plan: 1patient presented to the hospital with fever in this patient who did have dysuria and urinary symptoms history of recurrent UTI high clinical suspicious for urinary source even though initial evaluation for negative patient did have a negative chest x-ray influenza RSV COVID test was negative CT abdominal pelvis also did not show any acute abnormality 2-we will repeat a UA and check inflammatory markers 3-continue with the cefepime and vancomycin while waiting for the workup to be completed at the bedside questions answered We will follow on clinical condition and cultures to further adjust medication if needed Thank you for this consultation we will follow the patient along with you Dictation was produced using Goji dictation software. please excuse any grammatical, word or spelling errors. Time with Patient: Greater than 30
[2024-02-12 07:32] LABS: African American GFR (CKD) 43 (>60 ml/min/1.73 sqM); Non-African American GFR(CKD) 38 (>60 ml/min/1.73 sqM)
[2024-02-12 09:06] LABS: HCT 38.1 % (39.0-53.0); HGB 12.7 gm/dL (13.0-17.5); MCH 30.8 pg (25.0-35.0); MCHC 33.2 g/dL (31.0-37.0); MCV 92.8 fL (80.0-100.0); Mean Platelet Volume 9.6; Platelet Count 253 k/uL (150-450); RBC 4.11 m/uL (4.30-5.90); RDW 14.7 % (11.5-15.5)
--- NOTE | 2024-02-12 11:03 | P.PN ---
Subjective Progress Note Date: 02/12/24 88 year old M with PMH recurrent UTI, AFib, DM presented to the ED for weakness, chills and dysuria. In the ED he underwent extensive evaluation. BP 145/75, HR 101, T 102.7F, RR 16, 95% on RA. CBC, Coag panel, CMP significant for WBC 13.9, APTT 20.9, Na 134, Cr 1.85, glu 312, alb 3.4. Lipase 26. Mag 1.7. Lactic acid 2.9. UA 4+ glucose and trace protein. Flu, RSV, COVID negative. Acetone negative. EKG sinus rhythm. CXR negative. CT AP diverticulosis and renal cysts. Given 2L NS bolus, started on broad spectrum antibiotics and admitted for further workup and management. 02/10 Patient was seen and examined. He reports feeling better. Wants to go home. Mild dysuria. No other complaints. CBC, CMP significant for WBC 22.79, RBC 4.33, Hg 12.7, Cr 1.8. A1c 10.2. 02/11 Patient was seen and examined. He reports a rash in his inguinal area. Feeling better. Still with mild dysuria. Repeat UA negative. BCx prelim negative. Discussed with Dr. Shi, continue monitoring for 1 more day. CBC significant for WBC 14, RBC 4.11, Hg 12.7, Hct 38.1. Cr 1.63. General: non toxic, no distress, appears at stated age Derm: warm, dry Head: atraumatic, normocephalic, symmetric Eyes: EOMI, no lid lag, anicteric sclera Mouth: no lip lesion, mucus membranes moist Cardiovascular: S1S2 reg, no murmur Lungs: Clear to auscultation bilaterally, no rhonchi, no rales , no accessory muscle use Abd: Non distended. Non tender to palpation, tinea cruris Ext: no gross muscle atrophy, no edema, no contractures Neuro: no focal neuro deficits Psych: Alert, oriented, appropriate affect Based on my assessment of this patient, this patient meets a high complexity level of care. Severe sepsis: No obvious source of infection. Continue Vancomycin dosed per pharmacy and Cefepime 2g IV TID. Now off IVF with BP maintaining. Telemetry monitoring. Follow BCx. ID consulted. Tinea cruris: Nystatin powder ordered. Diabetes mellitus with hyperglycemia: A1c 10.2. Uncontrolled. Continue Levemir 20 units SQ QD and ISS. Accuchecks ACHS. Hypoglycemic precautions. A-Fib: Rate controlled. Amiodarone 100 mg PO QD. Not on AC. Hypertension: Amlodipine 5 mg PO QD. Chronic kidney disease: Appears at baseline. CODE STATUS: FULL CODE. DVT Prophylaxis: Heparin SQ GI Prophylaxis: Designated medical POA if patient is not able to make medical decisions for themselves: I have reviewed the following rehab consultant notes: ID note. I have reviewed the results of the following tests: CBC, renal function, BCx. I have ordered the following tests: BCx pending. I have discussed the care of this patient with the following independent historian: I have independently interpreted the following test below: I have discussed the management of this patient with the following physician: Dr. Shi. Objective - Vital Signs Vital signs: Vital Signs Temp 97.4 F L 02/12/24 07:38 Pulse 61 02/12/24 07:38 Resp 16 02/12/24 07:38 BP 146/66 02/12/24 07:38 Pulse Ox 96 02/12/24 07:38 FiO2 Intake & Output 02/11/24 02/12/24 02/12/24 18:59 06:59 18:59 Intake Total 658 Output Total 275 125 Balance 383 -125 Intake: Oral 658 Output: Urine 275 125 Other: Voiding Method Urinal Urinal Diaper Diaper Incontinent Incontinent # Voids 1 - Labs CBC & Chem 7: 02/12/24 06:18 02/12/24 06:18 Labs: Abnormal Lab Results - Last 24 Hours (Table) 02/11/24 02/11/24 02/11/24 Range/Units 06:38 06:38 06:38 WBC 22.79 H (4.50-10.00) X 10*3/uL RBC 4.33 L (4.40-5.60) X 10*6/uL Hgb 12.7 L (13.0-17.0) g/dL Hct (39.0-53.0) % MCHC 31.4 L (32.0-37.0) g/dL RDW 14.9 H (11.5-14.5) % Immature Gran # 0.11 H (0.00-0.04) X 10*3/uL Neutrophils # 18.46 H (1.80-7.70) X 10*3/uL Monocytes # 1.50 H (0.20-1.00) X 10*3/uL Basophils # 0.11 H (0.00-0.10) X 10*3/uL Creatinine 1.8 H (0.6-1.5) mg/dL Est GFR (CKD-EPI) 36 L (>=60) BUN/Creatinine Ratio 8.06 L (12.00-20.00) Ratio Hemoglobin A1c 10.2 H (<=6.0) % Albumin/Globulin Ratio 1.52 L (1.60-3.17) Ratio Urine Glucose (UA) (Negative) 02/11/24 02/12/24 02/12/24 Range/Units 16:45 06:18 06:18 WBC 14.0 H (4.50-10.00) X 10*3/uL RBC 4.11 L (4.40-5.60) X 10*6/uL Hgb 12.7 L (13.0-17.0) g/dL Hct 38.1 L (39.0-53.0) % MCHC (32.0-37.0) g/dL RDW (11.5-14.5) % Immature Gran # (0.00-0.04) X 10*3/uL Neutrophils # (1.80-7.70) X 10*3/uL Monocytes # (0.20-1.00) X 10*3/uL Basophils # (0.00-0.10) X 10*3/uL Creatinine 1.63 H (0.6-1.5) mg/dL Est GFR (CKD-EPI) (>=60) BUN/Creatinine Ratio (12.00-20.00) Ratio Hemoglobin A1c (<=6.0) % Albumin/Globulin Ratio (1.60-3.17) Ratio Urine Glucose (UA) 1+ H (Negative) Microbiology - Last 24 Hours (Table) 02/10/24 15:00 Blood Culture - Preliminary Blood
[2024-02-12 11:20] VITALS: BMI 21.7
[2024-02-12] MEDS ORDERED: ALPRAZolam 0.5 MG TAB PO PRN (11:50)
[2024-02-12] MEDS: NYSTATIN 100,000 UNIT/GM POWD 15 GM TOPICAL SCH (11:59)
--- NOTE | 2024-02-12 17:28 | P.PN ---
Subjective Progress Note Date: 02/12/24 Principal diagnosis: Reason for follow-up is fever Patient is a 88-year-old male with a past medical history significant for atrial fibrillation diabetes mellitus history of prostate cancer and UTI patient has been brought to the hospital concerning for weakness dysuria and fever at home, patient was febrile on presentation to the hospital however initial workup was negative including CT abdominal pelvis prompting this consultation. On today's evaluation that is 02/12/2024, patient did have resolution of his fever and the patient remains to be afebrile patient is breathing comfortably on room air P denies having any chest pain shortness of the cough no nausea v omiting no abdominal pain and did have improvement of urinary symptoms. Patient white count is down to 14,000, creatinine is 1.6 3 repeat UA is negative blood cultures are pending Objective - Vital Signs Vital signs: Vital Signs Temp 97.8 F 02/12/24 14:00 Pulse 67 02/12/24 14:00 Resp 17 02/12/24 14:00 BP 146/62 02/12/24 14:00 Pulse Ox 96 02/12/24 14:00 FiO2 Intake & Output 02/11/24 02/12/24 02/12/24 18:59 06:59 18:59 Intake Total 658 Output Total 275 125 Balance 383 -125 Weight 72.575 kg Intake: Oral 658 Output: Urine 275 125 Other: Voiding Method Urinal Urinal Urinal Diaper Diaper Diaper Incontinent Incontinent Incontinent # Voids 1 - Exam GENERAL DESCRIPTION: An elderly male lying in bed in no distress RESPIRATORY SYSTEM: Unlabored breathing , decreased breath sounds at bases HEART: S1 S2 regular rate and rhythm , ABDOMEN: Soft , no tenderness EXTREMITIES: No edema feet - Labs CBC & Chem 7: 02/12/24 06:18 02/12/24 06:18 Labs: Abnormal Lab Results - Last 24 Hours (Table) 02/11/24 02/12/24 02/12/24 Range/Units 16:45 06:18 06:18 WBC 14.0 H (3.8-10.6) k/uL RBC 4.11 L (4.30-5.90) m/uL Hgb 12.7 L (13.0-17.5) gm/dL Hct 38.1 L (39.0-53.0) % Creatinine 1.63 H (0.66-1.25) mg/dL Urine Glucose (UA) 1+ H (Negative) Microbiology - Last 24 Hours (Table) 02/10/24 15:00 Blood Culture - Preliminary Blood Assessment and Plan (1) Fever Current Visit: Yes Status: Acute Code(s): R50.9 - FEVER, UNSPECIFIED SNOMED Code(s): 157410891 Plan: 1patient presented to the hospital with fever in this patient who did have dysuria and urinary symptoms history of recurrent UTI high clinical suspicious for urinary source even though initial evaluation for negative patient did have a negative chest x-ray influenza RSV COVID test was negative CT abdominal pelvis also did not show any acute abnormality 2-patient repeat UA remains to be negative and the patient white count is trend ing down 3-we will discontinue cefepime and vancomycin start the patient on her Rocephin 2 g daily if the patient remains to be afebrile and white count is down to normal tomorrow May transition to oral Ceftin on discharge at the bedside questions answered Dictation was produced using [employer] dictation software. please excuse any grammatical, word or spelling errors. Time with Patient: Less than 30
[2024-02-13 01:34] VITALS: TEMP 97.9
[2024-02-13 07:54] LABS: African American GFR (CKD) 37 (>60 ml/min/1.73 sqM); Non-African American GFR(CKD) 32 (>60 ml/min/1.73 sqM)
[2024-02-13 07:54] LABS: HCT 41.6 % (39.0-53.0); HGB 13.2 gm/dL (13.0-17.5); Hypochromasia Slight; MCH 29.9 pg (25.0-35.0); MCHC 31.8 g/dL (31.0-37.0); Mean Platelet Volume 8.4; Platelet Count 299 k/uL (150-450); RBC 4.43 m/uL (4.30-5.90); RDW 14.3 % (11.5-15.5); WBC 12.6 k/uL (3.8-10.6)
[2024-02-13 08:01] VITALS: BP 164/73; PULSE 78; RESP 16
--- NOTE | 2024-02-13 11:43 | P.DS ---
Providers Date of admission: 02/10/24 18:03 Expected date of discharge: 02/13/24 Attending physician: Justino Carlson Consults: 02/11/24 01:23 Consult Physician Urgent Consulting Provider: Brigido Shi Consult Reason/Comments: SIRS without obvious infection source Do you want consulting provider notified?: Yes Primary care physician: [facility] Course: 88 year old M with PMH recurrent UTI, AFib, DM presented to the ED for weakness, chills and dysuria. In the ED he underwent extensive evaluation. BP 145/75, HR 101, T 102.7F, RR 16, 95% on RA. CBC, Coag panel, CMP significant for WBC 13.9, APTT 20.9, Na 134, Cr 1.85, glu 312, alb 3.4. Lipase 26. Mag 1.7. Lactic acid 2.9. UA 4+ glucose and trace protein. Flu, RSV, COVID negative. Acetone negative. EKG sinus rhythm. CXR negative. CT AP diverticulosis and renal cysts. Given 2L NS bolus, started on broad spectrum antibiotics and admitted for further workup and management. 02/10 Patient was seen and examined. He reports feeling better. Wants to go home. Mild dysuria. No other complaints. CBC, CMP significant for WBC 22.79, RBC 4.33, Hg 12.7, Cr 1.8. A1c 10.2. 02/11 Patient was seen and examined. He reports a rash in his inguinal area. Feeling better. Still with mild dysuria. Repeat UA negative. BCx prelim negative. Discussed with Dr. Shi, continue monitoring for 1 more day. CBC significant for WBC 14, RBC 4.11, Hg 12.7, Hct 38.1. Cr 1.63. 02/12 Patient was seen and examined. No complaints. Anxious to go home. Vancomycin and Cefepime switched to Rocephin yesterday by ID. BCx negative at 48H. CBC WBC 12.6. Dr. Shi recommends Ceftin for 7 days. Discharge Instructions: Ceftin 500 mg PO BID x 7 days prescribed along with Nystatin powder. Advised follow up with PCP within 1-[address] Shi within 1 week of discharge. General: non toxic, no distress, appears at stated age Derm: warm, dry Head: atraumatic, normocephalic, symmetric Eyes: EOMI, no lid lag, anicteric sclera Mouth: no lip lesion, mucus membranes moist Cardiovascular: S1S2 reg, no murmur Lungs: Clear to auscultation bilaterally, no rhonchi, no rales , no accessory muscle use Abd: Non distended. Non tender to palpation, tinea cruris Ext: no gross muscle atrophy, no edema, no contractures Neuro: no focal neuro deficits Psych: Alert, oriented, appropriate affect Discharge Diagnosis: SIRS Tinea cruris Diabetes mellitus with hyperglycemia A-Fib Hypertension Chronic kidney disease stage IIIb This complex discharge took 35 minutes to complete. Patient Condition at Discharge: Stable Plan - Discharge Summary Discharge Rx Participant: Yes New Discharge Prescriptions: No Action Insulin Glargine,Hum.rec.anlog [Lantus Solostar Pen] 20 unit SQ DAILY Gabapentin [Neurontin] 600 mg PO HS Insulin Aspart [NovoLOG Flexpen] 6 units SQ TID-W/MEALS allopurinoL 100 mg PO DAILY amLODIPine [Norvasc] 5 mg PO DAILY 90 Days #90 tab Amiodarone [Cordarone] 100 mg PO DAILY Cholecalciferol [Vitamin D3 (125 Mcg = 5000 Iu)] 125 mcg PO DAILY Insulin Aspart [NovoLOG Flexpen] See Protocol SQ TID-W/MEALS PRN PRN Reason: HIGH BLOOD SUGAR Discharge Medication List Gabapentin [Neurontin] 600 mg PO HS 04/28/20 [History] Insulin Glargine,Hum.rec.anlog [Lantus Solostar Pen] 20 unit SQ DAILY 04/28/20 [History] allopurinoL 100 mg PO DAILY 01/06/22 [History] amLODIPine [Norvasc] 5 mg PO DAILY 90 Days #90 tab 03/12/23 [Rx] Amiodarone [Cordarone] 100 mg PO DAILY 02/10/24 [History] Cholecalciferol [Vitamin D3 (125 Mcg = 5000 Iu)] 125 mcg PO DAILY 02/10/24 [History] Insulin Aspart [NovoLOG Flexpen] 6 units SQ TID-W/MEALS 02/10/24 [History] Insulin Aspart [NovoLOG Flexpen] See Protocol SQ TID-W/MEALS PRN 02/10/24 [History] Follow up Appointment(s)/Referral(s): [facility],Clinic [Primary Care Provider] - 1-2 days
[2024-02-13] MEDS: ALPRAZolam 0.5 MG TAB PO STA (12:07)
[2024-02-18 15:05] LABS: Glucose,Whole Blood 140 mg/dL (70-110)
[2024-02-18 15:06] LABS: Glucose,Whole Blood 243 mg/dL (70-110)
[2024-02-18 15:06] LABS: Glucose,Whole Blood 127 mg/dL (70-110)
[2024-02-18 15:06] LABS: Glucose,Whole Blood 164 mg/dL (70-110)
[2024-02-18 15:06] LABS: Glucose,Whole Blood 128 mg/dL (70-110)
[2024-02-18 15:06] LABS: Glucose,Whole Blood 154 mg/dL (70-110)
[2024-02-18 15:07] LABS: Glucose,Whole Blood 167 mg/dL (70-110)
[2024-02-18 15:07] LABS: Glucose,Whole Blood 331 mg/dL (70-110)
[2024-02-18 15:07] LABS: Glucose,Whole Blood 129 mg/dL (70-110)
== END 2024-02-13 11:55 | disposition home or self-care (01) | DRG 696 ==
LOC: EC 14:53 → 4SSUR 18:03 → 5NMEDONC 20:46
PROVIDERS: ADMIT Student in an Organized Health Care Education/Training Program; ATTEND Student in an Organized Health Care Education/Training Program
DX: R30.0 Dysuria (principal); R65.10 Systemic inflammatory response syndrome (SIRS) of non-infectious origin without acute organ dysfunction; E11.22 Type 2 diabetes mellitus with diabetic chronic kidney disease; I12.9 Hypertensive chronic kidney disease with stage 1 through stage 4 chronic kidney disease, or unspecified chronic kidney disease; N18.32 Chronic kidney disease, stage 3b; E11.65 Type 2 diabetes mellitus with hyperglycemia; B35.6 Tinea cruris; I48.91 Unspecified atrial fibrillation; R53.1 Weakness; K57.30 Diverticulosis of large intestine without perforation or abscess without bleeding; N28.1 Cyst of kidney, acquired; Z79.4 Long term (current) use of insulin; Z79.899 Other long term (current) drug therapy; Z85.46 Personal history of malignant neoplasm of prostate; Z87.440 Personal history of urinary (tract) infections; Z87.891 Personal history of nicotine dependence; Z82.49 Family history of ischemic heart disease and other diseases of the circulatory system
CPT/HCPCS: 36415; 71046; 74177; 80053; 81003; 82009; 82565; 82803; 83036; 83605; 83690; 83735; 85025; 85027; 85610; 85730; 87040; 87636; 93005; 96361; 96365; 96368; 99285

== ENCOUNTER → 2024-02-24 | Outpatient (CLI) | payer OTHER ==
--- NOTE | 2024-02-27 12:57 | PE ---
EXAMINATION TYPE: PET CT fusion skull to thigh DATE OF EXAM: 02/24/2024 COMPARISON: CT abdomen and pelvis 02/10/2024 Prior PET/CT: No prior PET/CT at this location HISTORY: Prostate cancer TECHNIQUE: Following the intravenous administration of 5.3 mCi of gallium 28 PSMA, whole body images are performed from the skull base to the midthigh. Images are reviewed on the computer in the coron al, axial, and sagittal planes. Reconstructed rotating images are created on independent workstation and reviewed on the computer. A localization and attenuation correction CT is performed in conjunc tion with the PET scan. DLP: 499.81 mGycm SCAN: Subsequent FINDINGS: NECK: No abnormal uptake. There is normal salivary gland uptake THORAX: No abnormal intrathoracic uptake ABDOMEN: No abnormal uptake PELVIS: There is intense uptake within the inferior prostate, example image 238, SUV 22.46. OSSEOUS STRUCTURES: There is a small focus of radiotracer along the lateral left seventh rib. 126, MCCAULEY V 6.4. There may be some extremely subtle uptake within the anterior sacrum just to the left of the midline, image [address]: Findings similar to the CT abdomen and pelvis study. No suspicious fracture of the l eft lateral seventh rib. Suspicious underlying abnormality not evident on CT to correlate with the ab normal uptake in this region on PET scan. COMPARISON: No significant interval change IMPRESSION: 1. Abnormal uptake in the posterior prostate compatible patient's prostate neoplasm. 2. Uptake within the left lateral seventh rib suspicious for metastatic disease. 3. Possible uptake within the anterior left upper sacrum. Early metastasis may be present. [facility], Workstation: [email or web address], 02/27/2024 12:55 PM
== END | disposition home or self-care (01) ==
LOC: RADPETMAIN 14:14
PROVIDERS: ATTEND Urology
DX: C61 Malignant neoplasm of prostate (principal); R93.7 Abnormal findings on diagnostic imaging of other parts of musculoskeletal system
CPT/HCPCS: 78815; A9596

== ENCOUNTER → 2024-08-07 | Outpatient (CLI) | payer OTHER, MEDICARE ==
[2024-08-07 15:46] LABS: ALT 14 U/L (10-49); AST 15 U/L (14-35); Albumin 3.6 g/dL (3.8-4.9); Albumin/Globulin Ratio 1.29 Ratio (1.60-3.17); Alkaline Phosphatase 154 U/L (41-126); BUN/Creat Ratio 6.72 Ratio (12.00-20.00); Blood Urea Nitrogen 12.1 mg/dL (9.0-27.0); Calcium 9.2 mg/dL (8.7-10.3); Carbon Dioxide 26.8 mmol/L (21.6-31.8); Chloride 101 mmol/L (96-109); Chol/HDL Ratio 2.99 Ratio; Globulin 2.8 g/dL (1.6-3.3); Glucose 293 mg/dL (70-110); LDL Cholesterol,Calculated 87.5 mg/dL (0.0-131.0); Potassium 4.6 mmol/L (3.5-5.5); Prostate Specific Antigen 2.81 ng/mL (0.000-6.500); Sodium 140 mmol/L (135-145); Testosterone <10.00 ng/dL (86.98-780.10); Total Bilirubin 0.5 mg/dL (0.3-1.2); Total Protein 6.4 g/dL (6.2-8.2)
[2024-08-07 18:40] LABS: Urine Creatinine 53.8 mg/dL (39.0-259.0)
== END | disposition home or self-care (01) ==
LOC: LABWHC1 09:22
PROVIDERS: ATTEND Physician Assistant
DX: C61 Malignant neoplasm of prostate (principal); E11.65 Type 2 diabetes mellitus with hyperglycemia; Z79.4 Long term (current) use of insulin
CPT/HCPCS: 36415; 80053; 80061; 82043; 82570; 83036; 84153; 84403

== ENCOUNTER 2024-09-18 12:19 | Inpatient (IN) | payer OTHER, MEDICARE ==
--- NOTE | 2024-09-18 12:28 | ED ---
General Adult HPI - General Chief complaint: Shortness of Breath Stated complaint: cough Time Seen by Provider: 09/18/24 12:25 Source: patient, EMS, RN notes reviewed, old records reviewed Mode of arrival: EMS Limitations: no limitations - History of Present Illness Initial comments: This is a 88-year-old male who presents to the emergency department stating that he has had about a week long history of coughing quite a bit. Patient states he used to smoke but he quit decades ago. Patient denies knowing he has a fever. Patient also states his primary medical care doctor called and told him he has an abnormal lab value and that he needs to go to the hospital. Patient does not know what that lab value is. Patient denies chest pain or palpitations. Patient denies back pain. Patient states. Patient also states he has been more short of breath lately. Patient denies any swelling to the legs or calf tenderness - Related Data Home Medications Medication Instructions Recorded Confirmed Gabapentin [Neurontin] 600 mg PO HS 04/28/20 02/10/24 Insulin Glargine,Hum.rec.anlog 20 unit SQ DAILY 04/28/20 02/10/24 [Lantus Solostar Pen] allopurinoL 100 mg PO DAILY 01/06/22 02/10/24 Amiodarone [Cordarone] 100 mg PO DAILY 02/10/24 02/10/24 Cholecalciferol [Vitamin D3 (125 125 mcg PO DAILY 02/10/24 02/10/24 Mcg = 5000 Iu)] Insulin Aspart [NovoLOG Flexpen] 6 units SQ TID-W/MEALS 02/10/24 02/10/24 Insulin Aspart [NovoLOG Flexpen] See Protocol SQ TID-W/MEALS PRN 02/10/24 02/10/24 Previous Rx's Medication Instructions Recorded amLODIPine [Norvasc] 5 mg PO DAILY 90 Days #90 tab 03/12/23 Nystatin 100,000 Unit/gm Powd 1 applic TOPICAL TID 7 Days #15 02/13/24 [Mycostatin Powder] gram cefuroxime axetiL [Ceftin] 500 mg PO BID 7 Days #14 tab 02/13/24 Allergies Allergy/AdvReac Type Severity Reaction Status Date / Time No Known Allergies Allergy Verified 09/18/24 12:24 Review of Systems ROS Statement: Those systems with pertinent positive or pertinent negative responses have been documented in the HPI. ROS Other: All systems not noted in ROS Statement are negative. Past Medical History Past Medical History: Atrial Fibrillation, Diabetes Mellitus, Pneumonia History of Any Multi-Drug Resistant Organisms: None Reported Past Surgical History: Appendectomy Additional Past Surgical History / Comment(s): dental Past Anesthesia/Blood Transfusion Reactions: No Reported Reaction Past Psychological History: No Psychological Hx Reported Smoking Status: Former smoker Past Alcohol Use History: None Reported, Rare Past Drug Use History: None Reported - Past Family History Mother History Unknown: Yes Family Medical History: Hypertension Additional Family Medical History / Comment(s): patient confused and does not give clear answers General Exam - General Exam Comments Initial Comments: GENERAL: Patient is well-developed and well-nourished. Patient is nontoxic and well- hydrated and is in mild distress. ENT: Neck is soft and supple. No significant lymphadenopathy is noted. Oropharynx is clear. Moist mucous membranes. Neck has full range of motion without eliciting any pain. EYES: The sclera were anicteric and conjunctiva were pink and moist. Extraocular movements were intact and pupils were equal round and reactive to light. Eyelids were unremarkable. PULMONARY: Unlabored respirations. Good breath sounds bilaterally. No audible rales rhonchi or wheezing was noted. CARDIOVASCULAR: There is a regular rate and rhythm without any murmurs gallops or rubs. ABDOMEN: Soft and nontender with normal bowel sounds. SKIN: Skin is clear with no lesions or rashes and otherwise unremarkable. NEUROLOGIC: Patient is alert and oriented x3. Cranial nerves II through XII are grossly intact. Motor and sensory are also intact. Normal speech, volume and content. Symmetrical smile. MUSCULOSKELETAL: Normal extremities with adequate strength and full range of motion. No lower extremity swelling or edema. No calf tenderness. LYMPHATICS: No significant lymphadenopathy is noted PSYCHIATRIC: Normal psychiatric evaluation. Limitations: no limitations Course Vital Signs 09/18/24 09/18/24 09/18/24 12:21 12:36 13:06 Temperature 100.8 F H Pulse Rate 96 94 Respiratory 18 18 Rate Blood Pressure 151/77 O2 Sat by Pulse 96 98 Oximetry 09/18/24 09/18/24 09/18/24 13:29 13:45 13:53 Temperature 98.4 F Pulse Rate 84 82 Respiratory 20 Rate Blood Pressure 142/69 O2 Sat by Pulse 96 Oximetry 09/18/24 14:02 Temperature Pulse Rate 82 Respiratory Rate Blood Pressure O2 Sat by Pulse Oximetry Medical Decision Making - Medical Decision Making She is interpreted by myself. EKG shows sinus rhythm at 97 bpm GA interval 130 QRS is 87 QT interval 369 QTc is 424. Patient's EKG shows no ST segment elev ation or depression. Was pt. sent in by a medical professional or institution (RENE Cochran, DIGITAL SALES ASSISTANT, urgent care, hospital, or fdc...) When possible be specific @ -No Did you speak to anyone other than the patient for history (EMS, parent, family, police, friend...)? What history was obtained from this source @ -No Did you review nursing and triage notes (agree or disagree)? Why? @ -I reviewed and agree with nursing and triage notes Were old charts reviewed (outside hosp., previous admission, EMS record, old EKG, old radiological studies, urgent care reports/EKG's, fdc records)? Report findings @ -No old charts were reviewed Differential Diagnosis? @ -Differential Dyspnea: Coronary syndrome, arrhythmia, tamponade, asthma, COPD, pulmonary embolism, pneumonia, pneumothorax, pulmonary effusion, anaphylaxis, diabetic ketoacidosis, flailed chest, pulmonary contusion, diaphragmatic rupture, anemia, neuromuscular, this is not meant to be an all-inclusive list. EKG interpreted by me (3pts min.). @ -As above X-rays interpreted by me (1pt min.). @ -Patient has left-sided infiltrate CT interpreted by me (1pt min.). @ -None done U/S interpreted by me (1pt. min.). @ -None done What testing was considered but not performed or refused? (CT, X-rays, U/S, labs)? Why? @ -None What meds were considered but not given or refused? Why? @ -None Did you discuss the management of the patient with other professionals (professionals i.e. RENE Cochran, DIGITAL SALES ASSISTANT, lab, RT, psych nurse, social security assessor, acid purifier, teacher, assistant chief nursing officer, pillowcase folder)? Give summary @ -Spoke with sound physicians agreed to admit the patient admitted the patient I wrote admitting orders Was smoking cessation discussed for >3mins.? @ -No Was critical care preformed (if so, how long)? @ -No Were there social determinants of health that impacted care today? How? (Homelessness, low income, unemployed, alcoholism, drug addiction, transportation, low edu. Level, literacy, decrease access to med. care, nursing home, rehab)? @ -No Was there de-escalation of care discussed even if they declined (Discuss DNR or withdrawal of care, Hospice)? DNR status @ -No What co-morbidities impacted this encounter? (DM, HTN, Smoking, COPD, CAD, Cancer, CVA, ARF, Chemo, Hep., AIDS, mental health diagnosis, sleep apnea, morbid obesity)? @ -None Was patient admitted / discharged? Hospital course, mention meds given and route, prescriptions, significant lab abnormalities, going to OR and other pertinent info. @ -Patient received antibiotics in the emergency department will be admitted to [facility] for pneumonia Undiagnosed new problem with uncertain prognosis? @ -No Drug Therapy requiring intensive monitoring for toxicity (Heparin, Nitro, Insulin, Cardizem)? @ -No Were any procedures done? @ -No Diagnosis/symptom? @ -Pneumonia Acute, or Chronic, or Acute on Chronic? @ -Acute Uncomplicated (without systemic symptoms) or Complicated (systemic symptoms)? @ -Complicated Side effects of treatment? @ -No Exacerbation, Progression, or Severe Exacerbation? @ -No Poses a threat to life or bodily function? How? (Chest pain, [place], [place], pneumonia, PE, COPD, DKA, ARF, appy, cholecystitis, CVA, Diverticulitis, Homicidal, Suicidal, threat to staff... and all critical care pts) @ -Yes this could lead to sepsis and endorgan dysfunction - Lab Data Result diagrams: 09/18/24 12:48 09/18/24 12:48 Lab Results 09/18/24 09/18/24 09/18/24 Range/Units 12:48 12:48 12:48 WBC 15.32 H (4.50-10.00) 10*3/uL RBC 4.10 L (4.40-5.60) 10*6/uL Hgb 12.9 L (13.0-17.0) g/dL Hct 36.8 L (39.6-50.0) % MCV 89.8 (80.0-97.0) fL MCH 31.5 (27.0-32.0) pg MCHC 35.1 (32.0-37.0) g/dL Plt Count 268 (140-440) 10*3/uL MPV 10.0 (9.5-12.2) fL Immature Gran % (Auto) 0.4 % Neutrophils % 76.1 % Lymphocytes % 11.3 % Monocytes % 10.2 % Eosinophils % 1.8 % Basophils % 0.2 % Immature Gran # 0.06 H (0.00-0.04) 10*3/uL Neutrophils # 11.67 H (1.80-7.70) 10*3/uL Lymphocytes # 1.73 (0.90-5.00) 10*3/uL Monocytes # 1.56 H (0.20-1.00) 10*3/uL Eosinophils # 0.27 (0.04-0.35) 10*3/uL Basophils # 0.03 (0.00-0.10) 10*3/uL PT 10.1 (10.0-12.5) sec INR 0.9 (<1.2) APTT 24.0 (22.0-30.0) sec Sodium 132 L (137-145) mmol/L Potassium 4.1 (3.5-5.1) mmol/L Chloride 103 (98-107) mmol/L Carbon Dioxide 20 L (22-30) mmol/L Anion Gap 9 mmol/L BUN 22 H (9-20) mg/dL Creatinine 1.66 H (0.66-1.25) mg/dL Est GFR (CKD-EPI)AfAm 43 (>60 ml/min/1.73 sqM) Est GFR (CKD-EPI)NonAf 37 (>60 ml/min/1.73 sqM) Glucose 293 H (74-99) mg/dL Plasma Lactic Acid Jeffery (0.7-2.0) mmol/L Calcium 8.4 (8.4-10.2) mg/dL Magnesium 2.1 (1.6-2.3) mg/dL Total Bilirubin 0.5 (0.2-1.3) mg/dL AST 23 (17-59) U/L ALT 14 (4-49) U/L Alkaline Phosphatase 88 (38-126) U/L Troponin I (0.000-0.034) ng/mL NT-Pro-B Natriuret Pep pg/mL Total Protein 5.7 L (6.3-8.2) g/dL Albumin 2.8 L (3.5-5.0) g/dL Influenza Type A (PCR) (Not Detectd) Influenza Type B (PCR) (Not Detectd) RSV (PCR) (Not Detectd) SARS-CoV-2 (PCR) (Not Detectd) 09/18/24 09/18/24 09/18/24 Range/Units 12:48 12:48 12:48 WBC (4.50-10.00) 10*3/uL RBC (4.40-5.60) 10*6/uL Hgb (13.0-17.0) g/dL Hct (39.6-50.0) % MCV (80.0-97.0) fL MCH (27.0-32.0) pg MCHC (32.0-37.0) g/dL Plt Count (140-440) 10*3/uL MPV (9.5-12.2) fL Immature Gran % (Auto) % Neutrophils % % Lymphocytes % % Monocytes % % Eosinophils % % Basophils % % Immature Gran # (0.00-0.04) 10*3/uL Neutrophils # (1.80-7.70) 10*3/uL Lymphocytes # (0.90-5.00) 10*3/uL Monocytes # (0.20-1.00) 10*3/uL Eosinophils # (0.04-0.35) 10*3/uL Basophils # (0.00-0.10) 10*3/uL PT (10.0-12.5) sec INR (<1.2) APTT (22.0-30.0) sec Sodium (137-145) mmol/L Potassium (3.5-5.1) mmol/L Chloride (98-107) mmol/L Carbon Dioxide (22-30) mmol/L Anion Gap mmol/L BUN (9-20) mg/dL Creatinine (0.66-1.25) mg/dL Est GFR (CKD-EPI)AfAm (>60 ml/min/1.73 sqM) Est GFR (CKD-EPI)NonAf (>60 ml/min/1.73 sqM) Glucose (74-99) mg/dL Plasma Lactic Acid Jeffery 1.3 (0.7-2.0) mmol/L Calcium (8.4-10.2) mg/dL Magnesium (1.6-2.3) mg/dL Total Bilirubin (0.2-1.3) mg/dL AST (17-59) U/L ALT (4-49) U/L Alkaline Phosphatase (38-126) U/L Troponin I 0.018 (0.000-0.034) ng/mL NT-Pro-B Natriuret Pep pg/mL Total Protein (6.3-8.2) g/dL Albumin (3.5-5.0) g/dL Influenza Type A (PCR) Not Detected (Not Detectd) Influenza Type B (PCR) Not Detected (Not Detectd) RSV (PCR) Not Detected (Not Detectd) SARS-CoV-2 (PCR) Not Detected (Not Detectd) 09/18/24 Range/Units 12:48 WBC (4.50-10.00) 10*3/uL RBC (4.40-5.60) 10*6/uL Hgb (13.0-17.0) g/dL Hct (39.6-50.0) % MCV (80.0-97.0) fL MCH (27.0-32.0) pg MCHC (32.0-37.0) g/dL Plt Count (140-440) 10*3/uL MPV (9.5-12.2) fL Immature Gran % (Auto) % Neutrophils % % Lymphocytes % % Monocytes % % Eosinophils % % Basophils % % Immature Gran # (0.00-0.04) 10*3/uL Neutrophils # (1.80-7.70) 10*3/uL Lymphocytes # (0.90-5.00) 10*3/uL Monocytes # (0.20-1.00) 10*3/uL Eosinophils # (0.04-0.35) 10*3/uL Basophils # (0.00-0.10) 10*3/uL PT (10.0-12.5) sec INR (<1.2) APTT (22.0-30.0) sec Sodium (137-145) mmol/L Potassium (3.5-5.1) mmol/L Chloride (98-107) mmol/L Carbon Dioxide (22-30) mmol/L Anion Gap mmol/L BUN (9-20) mg/dL Creatinine (0.66-1.25) mg/dL Est GFR (CKD-EPI)AfAm (>60 ml/min/1.73 sqM) Est GFR (CKD-EPI)NonAf (>60 ml/min/1.73 sqM) Glucose (74-99) mg/dL Plasma Lactic Acid Jeffery (0.7-2.0) mmol/L Calcium (8.4-10.2) mg/dL Magnesium (1.6-2.3) mg/dL Total Bilirubin (0.2-1.3) mg/dL AST (17-59) U/L ALT (4-49) U/L Alkaline Phosphatase (38-126) U/L Troponin I (0.000-0.034) ng/mL NT-Pro-B Natriuret Pep 806 pg/mL Total Protein (6.3-8.2) g/dL Albumin (3.5-5.0) g/dL Influenza Type A (PCR) (Not Detectd) Influenza Type B (PCR) (Not Detectd) RSV (PCR) (Not Detectd) SARS-CoV-2 (PCR) (Not Detectd) Disposition Clinical Impression: Pneumonia Disposition: ADMITTED IP TO THIS HOSP Referrals: Tylor Lofton DO [Primary Care Provider] - 1-2 days Time of Disposition: 14:31
[2024-09-18] MEDS: ACETAMINOPHEN TAB 500 MG TAB PO STA (12:58)
[2024-09-18 12:59] LABS: Basophils # (A) 0.03 10*3/uL (0.00-0.10); Basophils % (A) 0.2 %; Eosinophils # (A) 0.27 10*3/uL (0.04-0.35); Eosinophils % (A) 1.8 %; HCT 36.8 % (39.6-50.0); HGB 12.9 g/dL (13.0-17.0); Lymphocytes # (A) 1.73 10*3/uL (0.90-5.00); Lymphocytes % (A) 11.3 %; MCH 31.5 pg (27.0-32.0); MCHC 35.1 g/dL (32.0-37.0); MCV 89.8 fL (80.0-97.0); Monocytes # (A) 1.56 10*3/uL (0.20-1.00); Monocytes % (A) 10.2 %; Neutrophils # (A) 11.67 10*3/uL (1.80-7.70); Neutrophils % (A) 76.1 %; Platelet Count 268 10*3/uL (140-440); RDW 13.2 % (11.5-14.5); WBC 15.32 10*3/uL (4.50-10.00)
[2024-09-18] MEDS: IBUPROFEN 600 MG TAB PO STA (12:59)
[2024-09-18] MEDS: cefTRIAXone IN SWFI 1,000 MG/10 ML SYRINGE IVP STA ×2 (12:59→13:03)
[2024-09-18] MEDS: LACTATED RINGERS 1,000 ML IV ONE (13:00)
--- NOTE | 2024-09-18 13:04 | XR ---
EXAMINATION TYPE: XR chest 2V DATE OF EXAM: 09/18/2024 12:58 PM COMPARISON: Chest radiographs from 02/10/2024, PET CT 02/24/2024 TECHNIQUE: XR chest 2V Frontal and lateral views of the chest. CLINICAL INDICATION:Male, 88 years old with history of difficulty breathing; FINDINGS: Lungs/Pleura: There is no evidence of pleural effusion, focal consolidation, or pneumothorax. Chroni c elevation of the left hemidiaphragm. Pulmonary vascularity: Unremarkable. Heart/mediastinum: Cardiomediastinal silhouette is unremarkable. Musculoskeletal: Multiple level degenerative disc disease changes seen throughout the spine. IMPRESSION: No acute cardiopulmonary disease/process. [facility], , 09/18/2024 1:02 PM
[2024-09-18 13:08] LABS: INR 0.9 (<1.2); Prothrombin Time 10.1 sec (10.0-12.5)
[2024-09-18 13:11] LABS: ALT 14 U/L (4-49); AST 23 U/L (17-59); African American GFR (CKD) 43 (>60 ml/min/1.73 sqM); Albumin 2.8 g/dL (3.5-5.0); Alkaline Phosphatase 88 U/L (38-126); Anion Gap 9 mmol/L; Blood Urea Nitrogen 22 mg/dL (9-20); Calcium 8.4 mg/dL (8.4-10.2); Carbon Dioxide 20 mmol/L (22-30); Chloride 103 mmol/L (98-107); Glucose 293 mg/dL (74-99); Magnesium 2.1 mg/dL (1.6-2.3); Non-African American GFR(CKD) 37 (>60 ml/min/1.73 sqM); Potassium 4.1 mmol/L (3.5-5.1); Sodium 132 mmol/L (137-145); Total Bilirubin 0.5 mg/dL (0.2-1.3); Total Protein 5.7 g/dL (6.3-8.2)
[2024-09-18 13:36] LABS: Influenza A Not Detected (Not Detectd); Influenza B Not Detected (Not Detectd); RSV Not Detected (Not Detectd)
[2024-09-18] MEDS: IPRATROPIUM-ALBUTEROL 3 ML NEB INHALATION STA (13:53)
[2024-09-18] MEDS ORDERED: PNEUMONIA PROTOCOL UTILIZED 1 EACH MISC PO PRN (14:31)
[2024-09-18] MEDS: AZITHROMYCIN 500 MG TAB PO SCH (14:35)
[2024-09-18] MEDS ORDERED: DEXTROSE 50% SYRINGE 50 ML IVP PRN ×2 (14:45)
--- NOTE | 2024-09-18 14:48 | P.HPIM ---
History of Present Illness H&P Date: 09/18/24 Patient is a 88-year-old male with past medical history of prostate cancer, recurrent UTIs, A-fib, type II DM on insulin, hypertension, gout, CKD 3B, who presented to the ER with cough that started 1 week ago. Patient saw his primary care provider and was notified that he has abnormal lab results and was recommended to go to the hospital. History is obtained from patient, his as a collateral historian. Patient has been having cough for the past several weeks, cough is productive with clear to creamy sputum, there is associated shortness of breath, patient has had low- grade fever over the past couple days as well as multiple episodes of diarrhea, no associated nausea, vomiting, abdominal pain. Patient also has decreased appetite. Noted recurrent burning with urination, there is lower abdominal tenderness on exam. On arrival afebrile, heart rate in 90s, BP 151/77, satting well on room air. On lab work patient noted significant leukocytosis 15.3, hemoglobin 12.9, around baseline, platelet count normal, coagulation panel normal, sodium low 132, bicarb 28, creatinine 1.66, at baseline, GFR 37, glucose elevated 293, calcium 8.4, troponin 0.018, BNP 806, Cepheid negative. EKG showed sinus rhythm, QTc 424, no ST elevation or depression Chest x-ray reported as no acute process, chronically elevated left hemidiaphragm, personally reviewed clinic cannot exclude left lower lobe consolidation. Pertinent positives and negatives as discussed in HPI, a complete review of systems was performed and all other systems are negative. Patient seen and examined at bedside. [] Vital signs reviewed General: nontoxic, no distress, appears at stated age Derm: warm, dry Head: atraumatic, normocephalic, symmetric Eyes: EOMI, no lid lag, anicteric sclera, pupils equal round reactive to light ENT: Nose and ears atraumatic Neck: No thyromegaly, supple Mouth: no lip lesion, mucus membranes moist Cardiovascular: S1S2 reg, no murmur, no edema Lungs: clear to auscultation bilateral, no rhonchi, no rales, no wheeze, no accessory muscle use Abdominal: soft, nontender to palpation, no guarding, no appreciable organomegaly Ext: no gross muscle atrophy, muscle strength muscle strength 5 out of 5 in all 4 extremities, no contractures Neuro: CN II-XII grossly intact Psych: Alert, oriented, appropriate affect Assessment/Plan: Leukocytosis Community-acquired pneumonia -Continue with ceftriaxone 1 g IV daily and azithromycin 500 POaily SOT /5 -Follow-up urine Legionella -Follow-up blood cultures -Procalcitonin ordered and pending -Follow-up CBC daily Diarrhea, likely viral gastroenteritis Hyponatremia likely secondary to above -2-4 loose bowel movements a day, last BM this a.m., -Check C. difficile - Start NS at 75 cc/h, monitor BMP daily Dysuria History of recurrent UTIs History of prostate cancer, on hormonal therapy -Check UA, already on Rocephin to cover for UTI -Previous urine cultures growing E. 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 Hypertension Gout paroxysmal afib not on anticogulation -Resume home medications once reconciled -Accu-Cheks, SSI as, Lantus 10 units, mealtime 3 units, adjust as needed I have reviewed the following valuation consultant notes: Notes from previous admissions including ID note, IM notes I have reviewed the results of the following tests: Outpatient PET scan, chest x-ray, personally reviewed, CBC, CMP I have ordered the following tests: Procalcitonin, urine Legionella, daily BMP and CBC I have discussed the care of this patient with the following independent historian: Patient's , RN I have independently interpreted the following test below: As above I have discussed the management of this patient with the following physician: ER provider The patient is admitted with an anticipated less than 2 midnight stay as observation status for evaluation of community-acquired pneumonia. Surrogate decision-maker: CODE STATUS: DNR/DNI DVT prophylaxis: Heparin Anticipated discharge date: TBD Anticipated discharge place: TBD A total of [40inutes was spent on the care of this complex patient more than 50% of the time was spent in counseling and care coordination. Past Medical History Past Medical History: Atrial Fibrillation, Diabetes Mellitus, Pneumonia History of Any Multi-Drug Resistant Organisms: None Reported Past Surgical History: Appendectomy Additional Past Surgical History / Comment(s): dental Past Anesthesia/Blood Transfusion Reactions: No Reported Reaction Past Psychological History: No Psychological Hx Reported Smoking Status: Former smoker Past Alcohol Use History: None Reported, Rare Past Drug Use History: None Reported - Past Family History Mother History Unknown: Yes Family Medical History: Hypertension Additional Family Medical History / Comment(s): patient confused and does not give clear answers Medications and Allergies Home Medications Medication Instructions Recorded Confirmed Type Gabapentin [Neurontin] 600 mg PO HS 04/28/20 02/10/24 History Insulin Glargine,Hum.rec.anlog 20 unit SQ DAILY 04/28/20 02/10/24 History [Lantus Solostar Pen] allopurinoL 100 mg PO DAILY 01/06/22 02/10/24 History amLODIPine [Norvasc] 5 mg PO DAILY 90 Days #90 tab 03/12/23 02/10/24 Rx Amiodarone [Cordarone] 100 mg PO DAILY 02/10/24 02/10/24 History Cholecalciferol [Vitamin D3 (125 125 mcg PO DAILY 02/10/24 02/10/24 History Mcg = 5000 Iu)] Insulin Aspart [NovoLOG Flexpen] 6 units SQ TID-W/MEALS 02/10/24 02/10/24 History Insulin Aspart [NovoLOG Flexpen] See Protocol SQ TID-W/MEALS PRN 02/10/24 02/10/24 History Nystatin 100,000 Unit/gm Powd 1 applic TOPICAL TID 7 Days #15 02/13/24 Rx [Mycostatin Powder] gram cefuroxime axetiL [Ceftin] 500 mg PO BID 7 Days #14 tab 02/13/24 Rx Allergies Allergy/AdvReac Type Severity Reaction Status Date / Time No Known Allergies Allergy Verified 09/18/24 12:24 Physical Exam Vitals: Vital Signs Temp Pulse Resp BP Pulse Ox 09/18/24 14:02 82 09/18/24 13:53 82 09/18/24 13:45 98.4 F 09/18/24 13:29 84 20 142/69 96 09/18/24 13:06 94 18 151/77 98 09/18/24 12:36 96 18 96 09/18/24 12:21 100.8 F H Intake and Output 09/17/24 09/18/24 09/18/24 22:59 06:59 14:59 Other: Weight 72.575 kg Results CBC & Chem 7: 09/18/24 12:48 09/18/24 12:48 Labs: Abnormal Lab Results - Last 24 Hours (Table) 09/18/24 09/18/24 Range/Units 12:48 12:48 WBC 15.32 H (4.50-10.00) 10*3/uL RBC 4.10 L (4.40-5.60) 10*6/uL Hgb 12.9 L (13.0-17.0) g/dL Hct 36.8 L (39.6-50.0) % Immature Gran # 0.06 H (0.00-0.04) 10*3/uL Neutrophils # 11.67 H (1.80-7.70) 10*3/uL Monocytes # 1.56 H (0.20-1.00) 10*3/uL Sodium 132 L (137-145) mmol/L Carbon Dioxide 20 L (22-30) mmol/L BUN 22 H (9-20) mg/dL Creatinine 1.66 H (0.66-1.25) mg/dL Glucose 293 H (74-99) mg/dL Total Protein 5.7 L (6.3-8.2) g/dL Albumin 2.8 L (3.5-5.0) g/dL
[2024-09-18] MEDS: guaiFENesin 600 MG TABLET.ER PO SCH (15:11)
[2024-09-18] MEDS: SODIUM CHLORIDE 0.9% 1,000 ML IV SCH (15:12)
[2024-09-18 17:36] LABS: Glucose,Whole Blood 230 mg/dL (70-110)
[2024-09-18] MEDS: INSULIN LISPRO (HumaLOG) 100 UNIT/ML 10 mL VL SQ SCH ×2 (17:55)
[2024-09-18 18:59] LABS: Appearance,Urine Clear (Clear); Bacteria,Urine Rare /hpf; Bilirubin,Urine Negative (Negative); Blood,Urine Trace (Negative); Color,Urine Light Yellow; Glucose,Urine (UA) 3+ (Negative); Ketones,Urine Negative (Negative); Leukocyte Esterase,Urine Large (Negative); Nitrite,Urine Negative (Negative); Protein,Urine 1+ (Negative); RBC,Urine 3 /hpf (0-5); Specific Gravity,Urine 1.012 (1.001-1.035); Urobilinogen,Urine <2.0 mg/dL (<2.0); WBC,Urine 44 /hpf (0-5)
[2024-09-18 21:22] LABS: Glucose,Whole Blood 92 mg/dL (70-110)
[2024-09-18] MEDS: HEPARIN SODIUM,PORCINE 5,000 UNIT/ML 1 ML VIAL SQ SCH (21:52)
[2024-09-18] MEDS: ALPRAZolam 1 MG TAB PO PRN (21:52)
[2024-09-18] MEDS: INSULIN GLARGINE (LANTUS) 100 UNIT/ML SYR SQ SCH (21:58)
[2024-09-19] MEDS: MELATONIN 3 MG TABLET PO PRN (00:26)
[2024-09-19 06:14] LABS: Glucose,Whole Blood 161 mg/dL (70-110)
[2024-09-19 07:39] LABS: Basophils # (A) 0.04 10*3/uL (0.00-0.10); Basophils % (A) 0.2 %; Eosinophils # (A) 0.11 10*3/uL (0.04-0.35); Eosinophils % (A) 0.5 %; HCT 34.1 % (39.6-50.0); HGB 11.7 g/dL (13.0-17.0); Lymphocytes # (A) 2.04 10*3/uL (0.90-5.00); Lymphocytes % (A) 9.1 %; MCH 31.1 pg (27.0-32.0); MCHC 34.3 g/dL (32.0-37.0); MCV 90.7 fL (80.0-97.0); Mean Platelet Volume 10.1 fL (9.5-12.2); Monocytes # (A) 1.58 10*3/uL (0.20-1.00); Neutrophils # (A) 18.58 10*3/uL (1.80-7.70); Neutrophils % (A) 82.5 %; Platelet Count 266 10*3/uL (140-440); RBC 3.76 10*6/uL (4.40-5.60); RDW 13.2 % (11.5-14.5)
--- NOTE | 2024-09-19 08:58 | XR ---
EXAMINATION TYPE: XR chest 2V DATE OF EXAM: 09/19/2024 8:37 AM COMPARISON: Chest radiographs from 09/18/2024, PET/CT 02/24/2024 TECHNIQUE: XR chest 2V Frontal and lateral views of the chest. CLINICAL INDICATION:Male, 88 years old with history of pneumonia; FINDINGS: Lungs/Pleura: No pleural effusion or pneumothorax. Right medial basilar airspace opacities. Chronic e levation of the left hemidiaphragm. Pulmonary vascularity: Unremarkable. Heart/mediastinum: Cardiomediastinal silhouette is unremarkable. Atherosclerotic calcifications are seen in the aorta. Musculoskeletal: Multiple level degenerative disc disease changes seen throughout the spine. IMPRESSION: Right medial basilar airspace opacities concerning for pneumonia versus atelectasis. [facility], , 09/19/2024 8:55 AM
[2024-09-19 10:53] LABS: Calcium 8.2 mg/dL (8.7-10.3); Carbon Dioxide 18.4 mmol/L (21.6-31.8); Chloride 106 mmol/L (96-109); Glucose 159 mg/dL (70-110); Potassium 4.1 mmol/L (3.5-5.5); Sodium 139 mmol/L (135-145)
--- NOTE | 2024-09-19 11:03 | P.PN ---
Subjective Progress Note Date: 09/19/24 Hospital Course: Patient is a 88-year-old male with past medical history of prostate cancer, re current UTIs, A-fib, type II DM on insulin, hypertension, gout, CKD 3B, who presented to the ER with cough that started 1 week ago. Patient saw his primary care provider and was notified that he has abnormal lab results and was recommended to go to the hospital. History is obtained from patient, his as a collateral historian. Patient has been having cough for the past several weeks, cough is productive with clear to creamy sputum, there is associated shortness of breath, patient has had low- grade fever over the past couple days as well as multiple episodes of diarrhea, no associated nausea, vomiting, abdominal pain. Patient also has decreased appetite. Noted recurrent burning with urination, there is lower abdominal tenderness on exam. On arrival afebrile, heart rate in 90s, BP 151/77, satting well on room air. On lab work patient noted significant leukocytosis 15.3, hemoglobin 12.9, around baseline, platelet count normal, coagulation panel normal, sodium low 132, bicarb 28, creatinine 1.66, at baseline, GFR 37, glucose elevated 293, calcium 8.4, troponin 0.018, BNP 806, Cepheid negative. EKG showed sinus rhythm, QTc 424, no ST elevation or depression Chest x-ray reported as no acute process, chronically elevated left hemidiaphragm, personally reviewed clinic cannot exclude left lower lobe consolidation. 5/6 had an episode of agitation and confusion overnight, patient's family said that it happens a lot to him, safety risk lead at bedside, patient was seen and examined at bedside, complains of ongoing cough, WBCs are rising up to 22.5, repeat chest x-ray showed possible developing right lower lobe pneumonia. Due to rising WBCs and need for ongoing IV antibiotics, patient was switched to inpatient Pertinent positives and negatives as discussed above, a complete review of systems was performed and all other systems are negative. Vitals Signs Reviewed. General: [nontoxic], [no distress], [appears at stated age] Derm: [warm], [dry] Head: [atraumatic], [normocephalic], [symmetric] Eyes: [EOMI], [no lid lag], [anicteric sclera] Mouth: [no lip lesion], [mucus membranes moist] Cardiovascular: [S1S2 reg], [no murmur] Lungs: Bilateral soft rhonchi, coughing throughout exam, [no accessory muscle use] Abdominal: [soft], [ nontender to palpation], [no guarding], [no appreciable organomegaly] Ext: [no gross muscle atrophy], [no edema], [no contractures] Neuro: [ CN II-XI grossly intact], [no focal neuro deficits] Psych: [Alert], [oriented], [appropriate affect] Assessment and Plan:Leukocytosis Community-acquired pneumonia - Increase ceftriaxone to 2 g and continue azithromycin 500 POaily SOT 09/18 -Follow-up urine Legionella negative -Follow-up blood cultures -Procalcitonin ordered and negative although due to ongoing leukocytosis, patient having fever on admission, antibiotics will be continued -Follow-up CBC daily Diarrhea, likely viral gastroenteritis Hyponatremia likely secondary to above -Sodium improved to 139 -2-4 loose bowel movements a day, last BM this a.m., -Check C. difficile, pending Discontinue e NS at 75 cc/h, monitor BMP daily Dysuria History of recurrent UTIs History of prostate cancer, on hormonal therapy -Check UA, already on Rocephin to cover for UTI-UA with WBCs over 44 and rare bacteria, unlikely to be UTI -Previous urine cultures growing E. 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 Hypertension Gout paroxysmal afib not on anticogulation -Resume home medications once reconciled -Accu-Cheks, SSI as, Lantus 10 units, mealtime 3 units, adjust as needed I have reviewed the following implementation consultant notes: I have reviewed the results of the following tests: Chest x-ray, CBC CMP I have ordered the following tests: Procalcitonin, urine Legionella, daily BMP and CBC I have discussed the care of this patient with the following independent historian: I have independently interpreted the following test below: As above I have discussed the management of this patient with the following physician: Surrogate decision-maker: CODE STATUS: DNR/DNI DVT prophylaxis: Heparin Anticipated discharge date: home Anticipated discharge place: TBD Objective - Vital Signs Vital signs: Vital Signs Temp 99.3 F 09/19/24 07:10 Pulse 98 09/19/24 07:10 Resp 22 09/19/24 07:10 BP 154/60 09/19/24 07:10 Pulse Ox 94 L 09/19/24 07:10 FiO2 Intake & Output 09/18/24 09/19/24 09/19/24 18:59 06:59 18:59 Weight 72.575 kg 72.575 kg Other: Voiding Method Toilet Urinal # Voids 5 2 - Labs CBC & Chem 7: 09/19/24 07:02 09/19/24 07:02 Labs: Abnormal Lab Results - Last 24 Hours (Table) 09/18/24 09/18/24 09/18/24 Range/Units 12:48 12:48 17:35 WBC 15.32 H (4.50-10.00) 10*3/uL RBC 4.10 L (4.40-5.60) 10*6/uL Hgb 12.9 L (13.0-17.0) g/dL Hct 36.8 L (39.6-50.0) % Immature Gran # 0.06 H (0.00-0.04) 10*3/uL Neutrophils # 11.67 H (1.80-7.70) 10*3/uL Monocytes # 1.56 H (0.20-1.00) 10*3/uL Sodium 132 L (137-145) mmol/L Carbon Dioxide 20 L (22-30) mmol/L Anion Gap (4.00-12.00) mmol/L BUN 22 H (9-20) mg/dL Creatinine 1.66 H (0.66-1.25) mg/dL Est GFR (CKD-EPI) (>=60) Glucose 293 H (74-99) mg/dL POC Glucose (mg/dL) 230 H (70-110) mg/dL Calcium (8.7-10.3) mg/dL Total Protein 5.7 L (6.3-8.2) g/dL Albumin 2.8 L (3.5-5.0) g/dL Urine Protein (Negative) Urine Glucose (UA) (Negative) Urine Blood (Negative) Ur Leukocyte Esterase (Negative) Urine WBC (0-5) /hpf Urine Bacteria (None) /hpf 09/18/24 09/19/24 09/19/24 Range/Units 18:50 06:13 07:02 WBC 22.50 H (4.50-10.00) 10*3/uL RBC 3.76 L (4.40-5.60) 10*6/uL Hgb 11.7 L (13.0-17.0) g/dL Hct 34.1 L (39.6-50.0) % Immature Gran # 0.15 H (0.00-0.04) 10*3/uL Neutrophils # 18.58 H (1.80-7.70) 10*3/uL Monocytes # 1.58 H (0.20-1.00) 10*3/uL Sodium (137-145) mmol/L Carbon Dioxide (22-30) mmol/L Anion Gap (4.00-12.00) mmol/L BUN (9-20) mg/dL Creatinine (0.66-1.25) mg/dL Est GFR (CKD-EPI) (>=60) Glucose (74-99) mg/dL POC Glucose (mg/dL) 161 H (70-110) mg/dL Calcium (8.7-10.3) mg/dL Total Protein (6.3-8.2) g/dL Albumin (3.5-5.0) g/dL Urine Protein 1+ H (Negative) Urine Glucose (UA) 3+ H (Negative) Urine Blood Trace H (Negative) Ur Leukocyte Esterase Large H (Negative) Urine WBC 44 H (0-5) /hpf Urine Bacteria Rare H (None) /hpf 09/19/24 Range/Units 07:02 WBC (4.50-10.00) 10*3/uL RBC (4.40-5.60) 10*6/uL Hgb (13.0-17.0) g/dL Hct (39.6-50.0) % Immature Gran # (0.00-0.04) 10*3/uL Neutrophils # (1.80-7.70) 10*3/uL Monocytes # (0.20-1.00) 10*3/uL Sodium (137-145) mmol/L Carbon Dioxide 18.4 L (22-30) mmol/L Anion Gap 14.60 H (4.00-12.00) mmol/L BUN (9-20) mg/dL Creatinine (0.66-1.25) mg/dL Est GFR (CKD-EPI) 45 L (>=60) Glucose 159 H (74-99) mg/dL POC Glucose (mg/dL) (70-110) mg/dL Calcium 8.2 L (8.7-10.3) mg/dL Total Protein (6.3-8.2) g/dL Albumin (3.5-5.0) g/dL Urine Protein (Negative) Urine Glucose (UA) (Negative) Urine Blood (Negative) Ur Leukocyte Esterase (Negative) Urine WBC (0-5) /hpf Urine Bacteria (None) /hpf
[2024-09-19 11:40] LABS: Glucose,Whole Blood 220 mg/dL (70-110)
[2024-09-19] MEDS: ALPRAZolam 1 MG TAB PO PRN (14:55)
[2024-09-19 17:17] LABS: Glucose,Whole Blood 135 mg/dL (70-110)
[2024-09-19 20:27] LABS: Glucose,Whole Blood 199 mg/dL (70-110)
[2024-09-20 06:12] LABS: Glucose,Whole Blood 170 mg/dL (70-110)
[2024-09-20 08:30] LABS: BUN/Creat Ratio 10.43 Ratio (12.00-20.00); Blood Urea Nitrogen 14.6 mg/dL (9.0-27.0); Calcium 8.4 mg/dL (8.7-10.3); Carbon Dioxide 19.5 mmol/L (21.6-31.8); Chloride 106 mmol/L (96-109); Glucose 109 mg/dL (70-110); Potassium 3.9 mmol/L (3.5-5.5); Sodium 140 mmol/L (135-145)
[2024-09-20 08:34] LABS: HCT 35.4 % (39.6-50.0); HGB 11.9 g/dL (13.0-17.0); MCH 30.8 pg (27.0-32.0); MCHC 33.6 g/dL (32.0-37.0); MCV 91.7 FL (80.0-97.0); Mean Platelet Volume 10.5 FL (9.5-12.2); NRBC Per 100 WBC 0 X 10*3/uL (0.00-0.01); Platelet Count 298 X 10*3/uL (140-440); RBC 3.86 X 10*6/uL (4.40-5.60); RDW 13.5 % (11.5-14.5); WBC 21.77 X 10*3/uL (4.50-10.00)
[2024-09-20] MEDS: cefTRIAXone 2 GM in DEXTROSE 5% IN WATER 50 ML IVPB SCH (09:07)
[2024-09-20 10:01] LABS: Basophils # (A) 0.07 X 10*3/uL (0.00-0.10); Basophils % (A) 0.3 %; Eosinophils # (A) 0.32 X 10*3/uL (0.04-0.35); Eosinophils % (A) 1.5 %; Lymphocytes % (A) 13.8 %; Monocytes # (A) 1.98 X 10*3/uL (0.20-1.00); Monocytes % (A) 9.1 %; Neutrophils # (A) 16.17 X 10*3/uL (1.80-7.70); Neutrophils % (A) 74.2 %; RBC Morphology Normal (Normal)
[2024-09-20 11:34] LABS: Glucose,Whole Blood 175 mg/dL (70-110)
[2024-09-20] MEDS ORDERED: guaiFENesin-Coden 100-10MG/5ML 10 ML CUP PO PRN (16:23)
--- NOTE | 2024-09-20 16:24 | P.PN ---
Subjective Progress Note Date: 09/20/24 Hospital Course: Patient is a 88-year-old male with past medical history of prostate cancer, re current UTIs, A-fib, type II DM on insulin, hypertension, gout, CKD 3B, who presented to the ER with cough that started 1 week ago. Patient saw his primary care provider and was notified that he has abnormal lab results and was recommended to go to the hospital. History is obtained from patient, his as a collateral historian. Patient has been having cough for the past several weeks, cough is productive with clear to creamy sputum, there is associated shortness of breath, patient has had low- grade fever over the past couple days as well as multiple episodes of diarrhea, no associated nausea, vomiting, abdominal pain. Patient also has decreased appetite. Noted recurrent burning with urination, there is lower abdominal tenderness on exam. On arrival afebrile, heart rate in 90s, BP 151/77, satting well on room air. On lab work patient noted significant leukocytosis 15.3, hemoglobin 12.9, around baseline, platelet count normal, coagulation panel normal, sodium low 132, bicarb 28, creatinine 1.66, at baseline, GFR 37, glucose elevated 293, calcium 8.4, troponin 0.018, BNP 806, Cepheid negative. EKG showed sinus rhythm, QTc 424, no ST elevation or depression Chest x-ray reported as no acute process, chronically elevated left hemidiaphragm, personally reviewed clinic cannot exclude left lower lobe consolidation. 5 had an episode of agitation and confusion overnight, patient's family said that it happens a lot to him, safety director at bedside, patient was seen and examined at bedside, complains of ongoing cough, WBCs are rising up to 22.5, repeat chest x-ray showed possible developing right lower lobe pneumonia. Due to rising WBCs and need for ongoing IV antibiotics, patient was switched to inpatient 09/20: Patient insisting on going home, he only has mild improvement in his WBCs, remained afebrile, agreed to stay overnight, repeat CBC in the morning, monitor for fevers, Seroquel added to manage hospital-acquired delirium, continued on Xanax as needed Pertinent positives and negatives as discussed above, a complete review of systems was performed and all other systems are negative. Vitals Signs Reviewed. General: [nontoxic], [no distress], [appears at stated age] Derm: [warm], [dry] Head: [atraumatic], [normocephalic], [symmetric] Eyes: [EOMI], [no lid lag], [anicteric sclera] Mouth: [no lip lesion], [mucus membranes moist] Cardiovascular: [S1S2 reg], [no murmur] Lungs: Bilateral soft rhonchi, coughing throughout exam, [no accessory muscle use] Abdominal: [soft], [ nontender to palpation], [no guarding], [no appreciable organomegaly] Ext: [no gross muscle atrophy], [no edema], [no contractures] Neuro: [ CN II-XI grossly intact], [no focal neuro deficits] Psych: [Alert], [oriented], [appropriate affect] Assessment and Plan:Leukocytosis Community-acquired pneumonia - Increase ceftriaxone to 2 g and continue azithromycin 500 POaily SOT 09/18 -Follow-up urine Legionella negative -Follow-up blood cultures -Procalcitonin ordered and negative although due to ongoing leukocytosis, patient having fever on admission, antibiotics will be continued -Follow-up CBC daily, WBC mildly down to 21.77 Diarrhea, likely viral gastroenteritis Hyponatremia likely secondary to above -Sodium improved to 140 -Check C. difficile, negative Discontinue e NS at 75 cc/h, monitor BMP daily Hospital-acquired delirium -Ativan 1 mg twice a day as needed -Will try Seroquel 50 mg p.o. nightly -Discussed delirium prevention measures with family Dysuria History of recurrent UTIs History of prostate cancer, on hormonal therapy -Check UA, already on Rocephin to cover for UTI-UA with WBCs over 44 and rare bacteria, unlikely to be UTI -Previous urine cultures growing E. 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 Hypertension Gout paroxysmal afib not on anticogulation -Resume home medications, amlodipine 5 mg p.o. daily, gabapentin 600 mg p.o. nightly, megestrol 20 mg p.o. daily -Accu-Cheks, SSI as, Lantus 10 units, mealtime 3 units, adjust as needed I have reviewed the following websphere commerce consultant notes: I have reviewed the results of the following tests: , CBC CMP I have ordered the following tests: , daily BMP and CBC I have discussed the care of this patient with the following independent historian: Patient's , daughter, RN, case management regarding discharge plan and current management I have independently interpreted the following test below: As above I have discussed the management of this patient with the following physician: Surrogate decision-maker: CODE STATUS: DNR/DNI DVT prophylaxis: Heparin Anticipated discharge date: 09/[address]: TBD Objective - Vital Signs Vital signs: Vital Signs Temp 98.9 F 09/20/24 13:38 Pulse 103 H 09/20/24 13:38 Resp 17 09/20/24 13:38 BP 160/74 09/20/24 13:38 Pulse Ox 94 L 09/20/24 13:38 FiO2 Intake & Output 09/19/24 09/20/24 09/20/24 18:59 06:59 18:59 Intake Total 170 Balance 170 Intake: Oral 170 Other: Voiding Method Toilet Toilet # Voids 8 6 1 # Bowel Movements 1 1 - Labs CBC & Chem 7: 09/20/24 02:57 09/20/24 02:57 Labs: Abnormal Lab Results - Last 24 Hours (Table) 09/19/24 09/19/24 09/20/24 Range/Units 17:16 20:26 02:57 WBC 21.77 H (4.50-10.00) X 10*3/uL RBC 3.86 L (4.40-5.60) X 10*6/uL Hgb 11.9 L (13.0-17.0) g/dL Hct 35.4 L (39.6-50.0) % Immature Gran # 0.23 H (0.00-0.04) X 10*3/uL Neutrophils # 16.17 H (1.80-7.70) X 10*3/uL Monocytes # 1.98 H (0.20-1.00) X 10*3/uL Carbon Dioxide (21.6-31.8) mmol/L Anion Gap (4.00-12.00) mmol/L Est GFR (CKD-EPI) (>=60) BUN/Creatinine Ratio (12.00-20.00) Ratio POC Glucose (mg/dL) 135 H 199 H (70-110) mg/dL Calcium (8.7-10.3) mg/dL 05/07/25 05/07/25 05/07/25 Range/Units 02:57 06:11 11:33 WBC (4.50-10.00) X 10*3/uL RBC (4.40-5.60) X 10*6/uL Hgb (13.0-17.0) g/dL Hct (39.6-50.0) % Immature Gran # (0.00-0.04) X 10*3/uL Neutrophils # (1.80-7.70) X 10*3/uL Monocytes # (0.20-1.00) X 10*3/uL Carbon Dioxide 19.5 L (21.6-31.8) mmol/L Anion Gap 14.50 H (4.00-12.00) mmol/L Est GFR (CKD-EPI) 49 L (>=60) BUN/Creatinine Ratio 10.43 L (12.00-20.00) Ratio POC Glucose (mg/dL) 170 H 175 H (70-110) mg/dL Calcium 8.4 L (8.7-10.3) mg/dL Microbiology - Last 24 Hours (Table) 09/18/24 18:50 Urine Culture - Preliminary Urine,Voided Presumptive Staph aureus 09/18/24 12:48 Blood Culture - Preliminary Blood
[2024-09-20 16:47] LABS: Glucose,Whole Blood 95 mg/dL (70-110)
[2024-09-20 20:06] LABS: Glucose,Whole Blood 174 mg/dL (70-110)
[2024-09-20] MEDS: QUEtiapine 50 MG TAB PO SCH (20:34)
[2024-09-20] MEDS: GABAPENTIN 300 MG CAP PO SCH (20:34)
[2024-09-21 06:23] LABS: Glucose,Whole Blood 79 mg/dL (70-110)
[2024-09-21 08:32] LABS: Basophils # (A) 0.06 X 10*3/uL (0.00-0.10); Basophils % (A) 0.3 %; Eosinophils # (A) 0.56 X 10*3/uL (0.04-0.35); Eosinophils % (A) 3.2 %; HCT 36.5 % (39.6-50.0); HGB 11.7 g/dL (13.0-17.0); Lymphocytes # (A) 3.23 X 10*3/uL (0.90-5.00); Lymphocytes % (A) 18.4 %; MCH 29.8 pg (27.0-32.0); MCHC 32.1 g/dL (32.0-37.0); MCV 93.1 FL (80.0-97.0); Mean Platelet Volume 10.4 FL (9.5-12.2); Monocytes # (A) 1.69 X 10*3/uL (0.20-1.00); Monocytes % (A) 9.6 %; NRBC Per 100 WBC 0 X 10*3/uL (0.00-0.01); Neutrophils # (A) 11.83 X 10*3/uL (1.80-7.70); Neutrophils % (A) 67.4 %; Platelet Count 338 X 10*3/uL (140-440); RBC 3.92 X 10*6/uL (4.40-5.60); RDW 13.4 % (11.5-14.5); WBC 17.57 X 10*3/uL (4.50-10.00)
[2024-09-21] MEDS: amLODIPine 5 MG TAB PO SCH (10:46)
[2024-09-21] MEDS: CHOLECALCIFEROL 125 MCG (5000 IU) TABLET PO SCH (10:46)
[2024-09-21] MEDS: AMIODARONE 200 MG TAB PO SCH (10:46)
[2024-09-21] MEDS: allopurinoL 100 MG TAB PO SCH (10:47)
[2024-09-21] MEDS: MEGESTROL 40 MG TAB PO SCH (10:48)
[2024-09-21 11:06] LABS: Glucose,Whole Blood 89 mg/dL (70-110)
--- NOTE | 2024-09-21 14:41 | P.PN ---
Subjective Progress Note Date: 09/21/24 Hospital Course: Patient is a 88-year-old male with past medical history of prostate cancer, re current UTIs, A-fib, type II DM on insulin, hypertension, gout, CKD 3B, who presented to the ER with cough that started 1 week ago. Patient saw his primary care provider and was notified that he has abnormal lab results and was recommended to go to the hospital. History is obtained from patient, his as a collateral historian. Patient has been having cough for the past several weeks, cough is productive with clear to creamy sputum, there is associated shortness of breath, patient has had low- grade fever over the past couple days as well as multiple episodes of diarrhea, no associated nausea, vomiting, abdominal pain. Patient also has decreased appetite. Noted recurrent burning with urination, there is lower abdominal tenderness on exam. On arrival afebrile, heart rate in 90s, BP 151/77, satting well on room air. On lab work patient noted significant leukocytosis 15.3, hemoglobin 12.9, around baseline, platelet count normal, coagulation panel normal, sodium low 132, bicarb 28, creatinine 1.66, at baseline, GFR 37, glucose elevated 293, calcium 8.4, troponin 0.018, BNP 806, Cepheid negative. EKG showed sinus rhythm, QTc 424, no ST elevation or depression Chest x-ray reported as no acute process, chronically elevated left hemidiaphragm, personally reviewed clinic cannot exclude left lower lobe consolidation. 5/6 had an episode of agitation and confusion overnight, patient's family said that it happens a lot to him, safety and security manager at bedside, patient was seen and examined at bedside, complains of ongoing cough, WBCs are rising up to 22.5, repeat chest x-ray showed possible developing right lower lobe pneumonia. Due to rising WBCs and need for ongoing IV antibiotics, patient was switched to inpatient 09/20: Patient insisting on going home, he only has mild improvement in his WBCs, remained afebrile, agreed to stay overnight, repeat CBC in the morning, monitor for fevers, Seroquel added to manage hospital-acquired delirium, continued on Xanax as needed 09/21: Patient is more weak, PT OT consulted, recommended [facility], afebrile, WBC trending down, cough improved Pertinent positives and negatives as discussed above, a complete review of systems was performed and all other systems are negative. Vitals Signs Reviewed. General: [nontoxic], [no distress], [appears at stated age] Derm: [warm], [dry] Head: [atraumatic], [normocephalic], [symmetric] Eyes: [EOMI], [no lid lag], [anicteric sclera] Mouth: [no lip lesion], [mucus membranes moist] Cardiovascular: [S1S2 reg], [no murmur] Lungs: Bilateral soft rhonchi, coughing throughout exam, [no accessory muscle use] Abdominal: [soft], [ nontender to palpation], [no guarding], [no appreciable organomegaly] Ext: [no gross muscle atrophy], [no edema], [no contractures] Neuro: [ CN II-XI grossly intact], [no focal neuro deficits] Psych: [Alert], [oriented], [appropriate affect] Assessment and Plan: Leukocytosis Community-acquired pneumonia - Increase ceftriaxone to 2 g and continue azithromycin 500 POaily SOT 09/18 -Follow-up urine Legionella negative -Follow-up blood cultures negative -Procalcitonin ordered and negative although due to ongoing leukocytosis, patient having fever on admission, antibiotics will be continued -Follow-up CBC daily, WBC mildly down to 17.5 - Will complete antibiotics on 09/22, PT OT recommends SNF, plan to discharge on 09/22 Diarrhea, likely viral gastroenteritis Hyponatremia likely secondary to above -Sodium improved to 140 -Check C. difficile, negative Discontinue e NS at 75 cc/h, monitor BMP daily Hospital-acquired delirium -Ativan 1 mg twice a day as needed -Will try Seroquel 50 mg p.o. nightly -Discussed delirium prevention measures with family Dysuria History of recurrent UTIs History of prostate cancer, on hormonal therapy -Check UA, already on Rocephin to cover for UTI-UA with WBCs over 44 and rare bacteria, unlikely to be UTI -Previous urine cultures growing E. 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 Hypertension Gout paroxysmal afib not on anticogulation -Resume home medications, amlodipine 5 mg p.o. daily, gabapentin 600 mg p.o. nightly, megestrol 20 mg p.o. daily -Blood glucose reviewed, it is decreased to 5 units nightly, mealtime discontinued, continue with low intensity SSI I have reviewed the following identity management consultant notes: I have reviewed the results of the following tests: , CBC I have ordered the following tests: , daily CBC I have discussed the care of this patient with the following independent historian: Patient's , RN, case management regarding discharge plan and current management, plan to go to rehab I have independently interpreted the following test below: As above I have discussed the management of this patient with the following physician: Surrogate decision-maker: CODE STATUS: DNR/DNI DVT prophylaxis: Heparin Anticipated discharge date: 09/[address]: [facility] Objective - Vital Signs Vital signs: Vital Signs Temp 97.6 F 09/21/24 14:00 Pulse 71 09/21/24 14:00 Resp 16 09/21/24 14:00 BP 159/72 09/21/24 14:00 Pulse Ox 94 L 09/21/24 14:00 FiO2 Intake & Output 09/20/24 09/21/24 09/21/24 18:59 06:59 18:59 Other: Voiding Method Toilet # Voids 1 2 2 # Bowel Movements 1 0 - Labs CBC & Chem 7: 09/21/24 05:04 09/20/24 02:57 Labs: Abnormal Lab Results - Last 24 Hours (Table) 09/20/24 09/21/24 Range/Units 20:05 05:04 WBC 17.57 H (4.50-10.00) X 10*3/uL RBC 3.92 L (4.40-5.60) X 10*6/uL Hgb 11.7 L (13.0-17.0) g/dL Hct 36.5 L (39.6-50.0) % Immature Gran # 0.20 H (0.00-0.04) X 10*3/uL Neutrophils # 11.83 H (1.80-7.70) X 10*3/uL Monocytes # 1.69 H (0.20-1.00) X 10*3/uL Eosinophils # 0.56 H (0.04-0.35) X 10*3/uL POC Glucose (mg/dL) 174 H (70-110) mg/dL Microbiology - Last 24 Hours (Table) 09/18/24 12:48 Blood Culture - Preliminary Blood
[2024-09-21 16:12] LABS: Glucose,Whole Blood 231 mg/dL (70-110)
[2024-09-21] MEDS: INSULIN GLARGINE (LANTUS) 100 UNIT/ML SYR SQ SCH (21:24)
[2024-09-22] MEDS: ACETAMINOPHEN TAB 325 MG TAB PO PRN (00:21)
[2024-09-22 06:10] LABS: Glucose,Whole Blood 92 mg/dL (70-110)
[2024-09-22 06:10] LABS: Glucose,Whole Blood 101 mg/dL (70-110)
[2024-09-22 06:25] LABS: Glucose,Whole Blood 220 mg/dL (70-110)
[2024-09-22 08:20] LABS: Basophils # (A) 0.07 X 10*3/uL (0.00-0.10); Basophils % (A) 0.4 %; Eosinophils # (A) 0.48 X 10*3/uL (0.04-0.35); Eosinophils % (A) 2.8 %; HCT 34.6 % (39.6-50.0); HGB 11.3 g/dL (13.0-17.0); MCH 30.1 pg (27.0-32.0); MCHC 32.7 g/dL (32.0-37.0); MCV 92.3 FL (80.0-97.0); Mean Platelet Volume 10.3 FL (9.5-12.2); Monocytes # (A) 1.91 X 10*3/uL (0.20-1.00); Monocytes % (A) 11.2 %; NRBC Per 100 WBC 0 X 10*3/uL (0.00-0.01); Neutrophils # (A) 11.38 X 10*3/uL (1.80-7.70); Neutrophils % (A) 66.7 %; Platelet Count 374 X 10*3/uL (140-440); RBC 3.75 X 10*6/uL (4.40-5.60); RDW 13.2 % (11.5-14.5); WBC 17.07 X 10*3/uL (4.50-10.00)
[2024-09-22 11:23] LABS: Glucose,Whole Blood 191 mg/dL (70-110)
--- NOTE | 2024-09-22 14:55 | P.PN ---
Subjective Progress Note Date: 09/22/24 Hospital Course: Patient is a 88-year-old male with past medical history of prostate cancer, re current UTIs, A-fib, type II DM on insulin, hypertension, gout, CKD 3B, who presented to the ER with cough that started 1 week ago. Patient saw his primary care provider and was notified that he has abnormal lab results and was recommended to go to the hospital. History is obtained from patient, his as a collateral historian. Patient has been having cough for the past several weeks, cough is productive with clear to creamy sputum, there is associated shortness of breath, patient has had low- grade fever over the past couple days as well as multiple episodes of diarrhea, no associated nausea, vomiting, abdominal pain. Patient also has decreased appetite. Noted recurrent burning with urination, there is lower abdominal tenderness on exam. On arrival afebrile, heart rate in 90s, BP 151/77, satting well on room air. On lab work patient noted significant leukocytosis 15.3, hemoglobin 12.9, around baseline, platelet count normal, coagulation panel normal, sodium low 132, bicarb 28, creatinine 1.66, at baseline, GFR 37, glucose elevated 293, calcium 8.4, troponin 0.018, BNP 806, Cepheid negative. EKG showed sinus rhythm, QTc 424, no ST elevation or depression Chest x-ray reported as no acute process, chronically elevated left hemidiaphragm, personally reviewed clinic cannot exclude left lower lobe consolidation. 5/6 had an episode of agitation and confusion overnight, patient's family said that it happens a lot to him, product safety technician at bedside, patient was seen and examined at bedside, complains of ongoing cough, WBCs are rising up to 22.5, repeat chest x-ray showed possible developing right lower lobe pneumonia. Due to rising WBCs and need for ongoing IV antibiotics, patient was switched to inpatient 09/20: Patient insisting on going home, he only has mild improvement in his WBCs, remained afebrile, agreed to stay overnight, repeat CBC in the morning, monitor for fevers, Seroquel added to manage hospital-acquired delirium, continued on Xanax as needed 09/21: Patient is more weak, PT OT consulted, recommended TANVI, afebrile, WBC trending down, cough improved 09/22: Yesterday evening patient was noted to have aspiration, n.p.o. ordered, speech consulted, diagnosed with mild oral dysphagia, started with dysphagia level 2 diet by SUPERVISOR POWDERED METAL. Urine cultures growing MRSA, patient completed 5 days of ceftriaxone for community-acquired pneumonia, thus, will be started on Bactrim 160/800 twice daily for 7 days oral. Long discussion with patient's family had placed today. Patient's daughter expressed high level of frustration due to her father being weaker than on admission, she states that he should have physical therapy involved from the very beginning, also says that been up in recliner and up using the bathroom is not enough level of physical activity for her that, she believes that he should be walked by medical staff. She also was very frustrated that he had to be kept n.p.o. while awaiting for SUPERVISOR POWDERED METAL, I extensively explained the process of dysphagia management, explained why patient is n.p.o. and what are the next steps possible. She multiple time says " nobody cares about her father and their concerns". I also explained the nature of hospital-acquired delirium, hospital- acquired weakness in elderly patients, none of my responses were satisfying to the family. She said that previously he never required rehab placement, I again explained that patient has been dealing with a lot of agitation during this hospitalization and had sleepless nights. She answered it he was not agitated because he was not let out of the bed, I was getting reports from the nursing staff the patient was becoming aggressive towards the staff. They requested sedate of medications several times throughout the admission, I explained the risks of oversedation, we tried 1 dose of Seroquel 50, had a very good night of sleep, however, was still sedated throughout the day on 09/21. Now holding Seroquel. Patient was also swearing during my examination, the requested Xanax or Ativan, I explained that those medications can alter his ability to participate in speech evaluation, demonstrated understanding. Pertinent positives and negatives as discussed above, a complete review of systems was performed and all other systems are negative. Vitals Signs Reviewed. General: [nontoxic], [no distress], [appears at stated age] Derm: [warm], [dry] Head: [atraumatic], [normocephalic], [symmetric] Eyes: [EOMI], [no lid lag], [anicteric sclera] Mouth: [no lip lesion], [mucus membranes moist] Cardiovascular: [S1S2 reg], [no murmur] Lungs: Bilateral soft rhonchi, coughing throughout exam, [no accessory muscle use] Abdominal: [soft], [ nontender to palpation], [no guarding], [no appreciable organomegaly] Ext: [no gross muscle atrophy], [no edema], [no contractures] Neuro: [ CN II-XI grossly intact], [no focal neuro deficits] Psych: [Alert], [oriented], [angry affect] Assessment and Plan: Leukocytosis Community-acquired pneumonia MRSA UTI - Increase ceftriaxone to 2 g and continue azithromycin 500 POaily SOT 09/18 -Follow-up urine Legionella negative -Follow-up blood cultures negative -Procalcitonin ordered and negative although due to ongoing leukocytosis, p atient having fever on admission, antibiotics will be continued -Follow-up CBC daily, WBC down to 17.07 - Will complete antibiotics on 09/23, PT OT recommends SNF, plan to discharge on 09/22 Diarrhea, likely viral gastroenteritis Hyponatremia likely secondary to above -Sodium improved to 140 -Check C. difficile, negative Overall dysphagia -SUPERVISOR POWDERED METAL consulted, appreciate recommendations -Started patient on level 2 dysphagia diet Hospital-acquired delirium -Ativan 1 mg twice a day as needed -Will try Seroquel 50 mg p.o. nightly, patient became overly sedated, will hold for now -Discussed delirium prevention measures with family MRSA UTI History of recurrent UTIs History of prostate cancer, on hormonal therapy - Bactrim 160/800 twice daily oral SOT 09/22 -Previous urine cultures growing E. 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 Hypertension Gout paroxysmal afib not on anticogulation -Resume home medications, amlodipine 5 mg p.o. daily, gabapentin 600 mg p.o. nightly, megestrol 20 mg p.o. daily -Blood glucose reviewed, it is decreased to 5 units nightly, mealtime discontinued, continue with low intensity SSI I have reviewed the following application consultant notes: Speech therapist I have reviewed the results of the following tests: , CBC I have ordered the following tests: CBC I have discussed the care of this patient with the following independent historian: Patient's , daughter and other family members RN, case management I have independently interpreted the following test below: As above I have discussed the management of this patient with the following physician: Surrogate decision-maker: CODE STATUS: DNR/DNI DVT prophylaxis: Heparin Anticipated discharge date: 09/[address]: [facility] Objective - Vital Signs Vital signs: Vital Signs Temp 98.6 F 09/22/24 06:56 Pulse 91 09/22/24 06:56 Resp 17 09/22/24 06:56 BP 152/66 09/22/24 06:56 Pulse Ox 92 L 09/22/24 06:56 FiO2 Intake & Output 09/21/24 09/22/24 09/22/24 18:59 06:59 18:59 Intake Total 0 Balance 0 Intake: Oral 0 Other: Voiding Method Toilet Toilet # Voids 2 2 # Bowel Movements 0 - Labs CBC & Chem 7: 09/22/24 05:17 09/20/24 02:57 Labs: Abnormal Lab Results - Last 24 Hours (Table) 09/21/24 09/22/24 09/22/24 Range/Units 16:10 05:17 06:23 WBC 17.07 H (4.50-10.00) X 10*3/uL RBC 3.75 L (4.40-5.60) X 10*6/uL Hgb 11.3 L (13.0-17.0) g/dL Hct 34.6 L (39.6-50.0) % Immature Gran # 0.33 H (0.00-0.04) X 10*3/uL Neutrophils # 11.38 H (1.80-7.70) X 10*3/uL Monocytes # 1.91 H (0.20-1.00) X 10*3/uL Eosinophils # 0.48 H (0.04-0.35) X 10*3/uL POC Glucose (mg/dL) 231 H 220 H (70-110) mg/dL 09/22/24 Range/Units 11:22 WBC (4.50-10.00) X 10*3/uL RBC (4.40-5.60) X 10*6/uL Hgb (13.0-17.0) g/dL Hct (39.6-50.0) % Immature Gran # (0.00-0.04) X 10*3/uL Neutrophils # (1.80-7.70) X 10*3/uL Monocytes # (0.20-1.00) X 10*3/uL Eosinophils # (0.04-0.35) X 10*3/uL POC Glucose (mg/dL) 191 H (70-110) mg/dL Microbiology - Last 24 Hours (Table) 09/18/24 12:48 Blood Culture - Preliminary Blood 09/18/24 18:50 Urine Culture - Final Urine,Voided Methicillin resist S. aureus
[2024-09-22 16:29] LABS: Glucose,Whole Blood 323 mg/dL (70-110)
[2024-09-22] MEDS: SODIUM CHLORIDE 0.9% 1,000 ML IV SCH (16:46)
[2024-09-22 22:49] LABS: Glucose,Whole Blood 152 mg/dL (70-110)
[2024-09-22] MEDS: SULFAMETHOX-TMP 800-160MG 1 EACH TAB PO SCH (23:19)
[2024-09-23 06:37] LABS: Glucose,Whole Blood 161 mg/dL (70-110)
[2024-09-23 10:34] LABS: Basophils # (A) 0.06 X 10*3/uL (0.00-0.10); Basophils % (A) 0.4 %; Eosinophils # (A) 0.52 X 10*3/uL (0.04-0.35); Eosinophils % (A) 3.1 %; HCT 34.2 % (39.6-50.0); HGB 11.1 g/dL (13.0-17.0); Lymphocytes # (A) 2.35 X 10*3/uL (0.90-5.00); Lymphocytes % (A) 14.1 %; MCH 29.7 pg (27.0-32.0); MCHC 32.5 g/dL (32.0-37.0); MCV 91.4 FL (80.0-97.0); Mean Platelet Volume 10.3 FL (9.5-12.2); Monocytes # (A) 2.07 X 10*3/uL (0.20-1.00); Monocytes % (A) 12.4 %; NRBC Per 100 WBC 0 X 10*3/uL (0.00-0.01); Neutrophils # (A) 11.23 X 10*3/uL (1.80-7.70); Neutrophils % (A) 67.2 %; Platelet Count 402 X 10*3/uL (140-440); RBC 3.74 X 10*6/uL (4.40-5.60); RDW 13.2 % (11.5-14.5); WBC 16.69 X 10*3/uL (4.50-10.00)
[2024-09-23 11:53] LABS: Glucose,Whole Blood 354 mg/dL (70-110)
--- NOTE | 2024-09-23 14:11 | P.PN ---
Subjective Progress Note Date: 09/23/24 Principal diagnosis: weakness 88-year-old male with past medical history of prostate cancer, recurrent UTIs, A-fib, type II DM on insulin, hypertension, gout, CKD 3B, who presented to the ER with cough that started 1 week ago. Patient saw his primary care provider and was notified that he has abnormal lab results and was recommended to go to the hospital. History is obtained from patient, his as a collateral historian. Patient has been having cough for the past several weeks, cough is productive with clear to creamy sputum, there is associated shortness of breath, patient has had low-grade fever over the past couple days as well as multiple episodes of diarrhea, no associated nausea, vomiting, abdominal pain. Patient also has decreased appetite. Noted recurrent burning with urination, there is lower abdominal tenderness on exam. On arrival afebrile, heart rate in 90s, BP 151/77, satting well on room air. On lab work patient noted significant leukocytosis 15.3, hemoglobin 12.9, around baseline, platelet count normal, coagulation panel normal, sodium low 132, bicarb 28, creatinine 1.66, at baseline, GFR 37, glucose elevated 293, calcium 8.4, troponin 0.018, BNP 806, Cepheid negative. EKG showed sinus rhythm, QTc 424, no ST elevation or depression. Chest x-ray reported as no acute process, chronically elevated left hemidiaphragm, personally reviewed clinic cannot exclude left lower lobe consolidation. 5/6 had an episode of agitation and confusion overnight, patient's family said that it happens a lot to him, drug safety scientist at bedside, patient was seen and examined at bedside, complains of ongoing cough, WBCs are rising up to 22.5, repeat chest x-ray showed possible developing right lower lobe pneumonia. Due t o rising WBCs and need for ongoing IV antibiotics, patient was switched to inpatient 09/20: Patient insisting on going home, he only has mild improvement in his WBCs, remained afebrile, agreed to stay overnight, repeat CBC in the morning, monitor for fevers, Seroquel added to manage hospital-acquired delirium, continued on Xanax as needed 09/21: Patient is more weak, PT OT consulted, recommended TANVI, afebrile, WBC trending down, cough improved 09/22: Yesterday evening patient was noted to have aspiration, n.p.o. ordered, speech consulted, diagnosed with mild oral dysphagia, started with dysphagia le diane 2 diet by SOFTWARE BUSINESS ANALYST. Urine cultures growing MRSA, patient completed 5 days of ceftriaxone for community-acquired pneumonia, thus, will be started on Bactrim 160/800 twice daily for 7 days oral. Long discussion with patient's family had placed today. Patient's daughter expressed high level of frustration due to her father being weaker than on admission, she states that he should have physical therapy involved from the very beginning, also says that been up in recliner and up using the bathroom is not enough level of physical activity for her that, she believes that he should be walked by medical staff. She also was very frustrated that he had to be kept n.p.o. while awaiting for SOFTWARE BUSINESS ANALYST, I extensively explained the process of dysphagia management, explained why patient is n.p.o. and what are the next steps possible. She multiple time says " nobody cares about her father and their concerns". I also explained the nature of hospital-acquired delirium, hospital- acquired weakness in elderly patients, none of my responses were satisfying to the family. She said that previously he never required rehab placement, I again explained that patient has been dealing with a lot of agitation during this hospitalization and had sleepless nights. She answered it he was not agitated because he was not let out of the bed, I was getting reports from the nursing staff the patient was becoming aggressive towards the staff. They requested sedate of medications several times throughout the admission, I explained the risks of oversedation, we tried 1 dose of Seroquel 50, had a very good night of sleep, however, was still sedated throughout the day on 09/21. Now holding Seroquel. Patient was also swearing during my examination, the requested Xanax or Ativan, I explained that those medications can alter his ability to participate in speech evaluation, demonstrated understanding. 09/23: Patient states he is doing well, still a little weak, eating better. No overnight issues. Objective - Vital Signs Vital signs: Vital Signs Temp 99.3 F 09/23/24 02:11 Pulse 86 09/23/24 08:00 Resp 16 09/23/24 07:39 BP 135/70 09/23/24 07:39 Pulse Ox 96 09/23/24 07:39 FiO2 Intake & Output 09/22/24 09/23/24 09/23/24 18:59 06:59 18:59 Intake Total 540 Balance 540 Intake: Oral 540 Other: Voiding Method Toilet Toilet # Voids 4 4 # Bowel Movements 1 - Exam General: [nontoxic], [no distress], [appears at stated age] Derm: [warm], [dry] Head: [atraumatic], [normocephalic], [symmetric] Eyes: [EOMI], [no lid lag], [anicteric sclera] Mouth: [no lip lesion], [mucus membranes moist] Cardiovascular: [S1S2 reg], [no murmur] Lungs: Bilateral soft rhonchi, coughing throughout exam, [no accessory muscle use] Abdominal: [soft], [ nontender to palpation], [no guarding], [no appreciable organomegaly] Ext: [no gross muscle atrophy], [no edema], [no contractures] Neuro: [ CN II-XI grossly intact], [no focal neuro deficits] Psych: [Alert], [oriented], [angry affect] - Labs CBC & Chem 7: 09/23/24 03:12 09/20/24 02:57 Labs: Abnormal Lab Results - Last 24 Hours (Table) 09/22/24 09/22/24 09/23/24 Range/Units 16:28 22:47 03:12 WBC 16.69 H (4.50-10.00) X 10*3/uL RBC 3.74 L (4.40-5.60) X 10*6/uL Hgb 11.1 L (13.0-17.0) g/dL Hct 34.2 L (39.6-50.0) % Immature Gran # 0.46 H (0.00-0.04) X 10*3/uL Neutrophils # 11.23 H (1.80-7.70) X 10*3/uL Monocytes # 2.07 H (0.20-1.00) X 10*3/uL Eosinophils # 0.52 H (0.04-0.35) X 10*3/uL POC Glucose (mg/dL) 323 H 152 H (70-110) mg/dL 09/23/24 09/23/24 Range/Units 06:36 11:52 WBC (4.50-10.00) X 10*3/uL RBC (4.40-5.60) X 10*6/uL Hgb (13.0-17.0) g/dL Hct (39.6-50.0) % Immature Gran # (0.00-0.04) X 10*3/uL Neutrophils # (1.80-7.70) X 10*3/uL Monocytes # (0.20-1.00) X 10*3/uL Eosinophils # (0.04-0.35) X 10*3/uL POC Glucose (mg/dL) 161 H 354 H (70-110) mg/dL Assessment and Plan Plan: Assessment and Plan: Leukocytosis Community-acquired pneumonia MRSA UTI History of recurrent UTIs History of prostate cancer, on hormonal therapy -Finished course of ceftriaxone and azithromycin for pneumonia, now on bactrim ds for MRSA UTI, SOT 09/22 -Follow-up urine Legionella negative -Follow-up blood cultures negative -Follow-up CBC daily, WBC down to 17.07 Diarrhea, likely viral gastroenteritis Hyponatremia likely secondary to above -Sodium improved to 140 -Check C. difficile, negative Dysphagia -SOFTWARE BUSINESS ANALYST consulted, appreciate recommendations -Started patient on level 2 dysphagia diet Hospital-acquired delirium -Ativan 1 mg twice a day as needed -Was given some seroquel earlier, now he is ok, no agitation. Chronic CKD stage IIIb, at baseline Type 2 insulin-dependent diabetes mellitus complicated by diabetic neuropathy Hypertension Gout paroxysmal afib not on anticogulation -Resume home medications, amlodipine 5 mg p.o. daily, gabapentin 600 mg p.o. nightly, megestrol 20 mg p.o. daily -Blood glucose reviewed, most recent 364, will increase lantus to 10 units nightly, mealtime discontinued, continue with low intensity SSI I have reviewed the results of the following tests: , CBC BMP I have ordered the following tests: CBC, CMP in am I have discussed the care of this patient with the following independent historian: Patient's , daughter and other family members RN, case management I have independently interpreted the following test below: As above I have discussed the management of this patient with the following physician: Surrogate decision-maker: CODE STATUS: DNR/DNI DVT prophylaxis: Heparin Anticipated discharge date: Patient currently medically cleared for discharge, physical therapy advised feeling either home with 24/ support versus rehab. Family requesting rehabilitation. Will ask physical therapy to reevaluate tomorrow, care management to work on discharge to rehab. Anticipated discharge place: SNF
[2024-09-23 16:23] LABS: Glucose,Whole Blood 90 mg/dL (70-110)
[2024-09-23 17:37] LABS: Glucose,Whole Blood 243 mg/dL (70-110)
[2024-09-23 20:25] LABS: Glucose,Whole Blood 289 mg/dL (70-110)
[2024-09-23] MEDS: INSULIN GLARGINE (LANTUS) 100 UNIT/ML SYR SQ SCH (21:01)
[2024-09-24 01:13] LABS: Glucose,Whole Blood 207 mg/dL (70-110)
[2024-09-24 06:18] LABS: Glucose,Whole Blood 170 mg/dL (70-110)
[2024-09-24 09:22] LABS: Basophils # (A) 0.08 10*3/uL (0.00-0.10); Basophils % (A) 0.5 %; Eosinophils % (A) 3.5 %; HCT 36.1 % (39.6-50.0); HGB 11.8 g/dL (13.0-17.0); Lymphocytes # (A) 2.09 10*3/uL (0.90-5.00); MCH 30.3 pg (27.0-32.0); MCHC 32.7 g/dL (32.0-37.0); MCV 92.6 fL (80.0-97.0); Mean Platelet Volume 9.9 fL (9.5-12.2); Monocytes # (A) 2.19 10*3/uL (0.20-1.00); Monocytes % (A) 12.6 %; Neutrophils # (A) 11.81 10*3/uL (1.80-7.70); Neutrophils % (A) 67.9 %; Platelet Count 442 10*3/uL (140-440); RDW 13.2 % (11.5-14.5); WBC 17.37 10*3/uL (4.50-10.00)
[2024-09-24 09:35] LABS: African American GFR (CKD) 39 (>60 ml/min/1.73 sqM); Anion Gap 8 mmol/L; Blood Urea Nitrogen 19 mg/dL (9-20); Carbon Dioxide 25 mmol/L (22-30); Chloride 105 mmol/L (98-107); Glucose 226 mg/dL (74-99); Non-African American GFR(CKD) 34 (>60 ml/min/1.73 sqM); Potassium 4.2 mmol/L (3.5-5.1); Sodium 138 mmol/L (137-145)
[2024-09-24 11:40] LABS: Glucose,Whole Blood 372 mg/dL (70-110)
[2024-09-24] MEDS: IPRATROPIUM-ALBUTEROL 3 ML NEB INHALATION SCH (12:04)
--- NOTE | 2024-09-24 12:34 | P.PN ---
Subjective Progress Note Date: 09/24/24 Principal diagnosis: weakness 88-year-old male with past medical history of prostate cancer, recurrent UTIs, A-fib, type II DM on insulin, hypertension, gout, CKD 3B, who presented to the ER with cough that started 1 week ago. Patient saw his primary care provider and was notified that he has abnormal lab results and was recommended to go to the hospital. History is obtained from patient, his as a collateral historian. Patient has been having cough for the past several weeks, cough is productive with clear to creamy sputum, there is associated shortness of breath, patient has had low-grade fever over the past couple days as well as multiple episodes of diarrhea, no associated nausea, vomiting, abdominal pain. Patient also has decreased appetite. Noted recurrent burning with urination, there is lower abdominal tenderness on exam. On arrival afebrile, heart rate in 90s, BP 151/77, satting well on room air. On lab work patient noted significant leukocytosis 15.3, hemoglobin 12.9, around baseline, platelet count normal, coagulation panel normal, sodium low 132, bicarb 28, creatinine 1.66, at baseline, GFR 37, glucose elevated 293, calcium 8.4, troponin 0.018, BNP 806, Cepheid negative. EKG showed sinus rhythm, QTc 424, no ST elevation or depression. Chest x-ray reported as no acute process, chronically elevated left hemidiaphragm, personally reviewed clinic cannot exclude left lower lobe consolidation. 5/6 had an episode of agitation and confusion overnight, patient's family said that it happens a lot to him, chief safety officer at bedside, patient was seen and examined at bedside, complains of ongoing cough, WBCs are rising up to 22.5, repeat chest x-ray showed possible developing right lower lobe pneumonia. Due t o rising WBCs and need for ongoing IV antibiotics, patient was switched to inpatient 09/20: Patient insisting on going home, he only has mild improvement in his WBCs, remained afebrile, agreed to stay overnight, repeat CBC in the morning, monitor for fevers, Seroquel added to manage hospital-acquired delirium, continued on Xanax as needed 09/21: Patient is more weak, PT OT consulted, recommended TANVI, afebrile, WBC trending down, cough improved 09/22: Yesterday evening patient was noted to have aspiration, n.p.o. ordered, speech consulted, diagnosed with mild oral dysphagia, started with dysphagia le diane 2 diet by FLIGHT ATTENDANT/INFLIGHT SUPERVISOR. Urine cultures growing MRSA, patient completed 5 days of ceftriaxone for community-acquired pneumonia, thus, will be started on Bactrim 160/800 twice daily for 7 days oral. Long discussion with patient's family had placed today. Patient's daughter expressed high level of frustration due to her father being weaker than on admission, she states that he should have physical therapy involved from the very beginning, also says that been up in recliner and up using the bathroom is not enough level of physical activity for her that, she believes that he should be walked by medical staff. She also was very frustrated that he had to be kept n.p.o. while awaiting for FLIGHT ATTENDANT/INFLIGHT SUPERVISOR, I extensively explained the process of dysphagia management, explained why patient is n.p.o. and what are the next steps possible. She multiple time says " nobody cares about her father and their concerns". I also explained the nature of hospital-acquired delirium, hospital- acquired weakness in elderly patients, none of my responses were satisfying to the family. She said that previously he never required rehab placement, I again explained that patient has been dealing with a lot of agitation during this hospitalization and had sleepless nights. She answered it he was not agitated because he was not let out of the bed, I was getting reports from the nursing staff the patient was becoming aggressive towards the staff. They requested sedate of medications several times throughout the admission, I explained the risks of oversedation, we tried 1 dose of Seroquel 50, had a very good night of sleep, however, was still sedated throughout the day on 09/21. Now holding Seroquel. Patient was also swearing during my examination, the requested Xanax or Ativan, I explained that those medications can alter his ability to participate in speech evaluation, demonstrated understanding. 09/23: Patient states he is doing well, still a little weak, eating better. No overnight issues. 09/24: Last night he became agitated and received some Xanax. Spoke with daughter this morning about his condition in detail. According to her he is little confused and forgetful but reasonable. She was expecting him to go to the rehab yesterday at 4 PM however I was not notified of the transfer si [facility]. According to nursing staff he is very weak and cannot hold hold himself up. He is denying having any pain currently. He continues to have cough productive of yellow phlegm. Objective - Vital Signs Vital signs: Vital Signs Temp 99.0 F 09/24/24 07:26 Pulse 82 09/24/24 12:15 Resp 16 09/24/24 07:26 BP 125/54 09/24/24 07:26 Pulse Ox 91 L 09/24/24 07:26 FiO2 Intake & Output 09/23/24 09/24/24 09/24/24 18:59 06:59 18:59 Intake Total 1080 Balance 1080 Intake: Oral 1080 Other: Voiding Method Toilet # Voids 7 - Exam General: [nontoxic], [no distress], [appears at stated age] Derm: [warm], [dry] Head: [atraumatic], [normocephalic], [symmetric] Eyes: [EOMI], [no lid lag], [anicteric sclera] Mouth: [no lip lesion], [mucus membranes moist] Cardiovascular: [S1S2 reg], [no murmur] Lungs: Bilateral soft rhonchi, coughing throughout exam, [no accessory muscle use] Abdominal: [soft], [ nontender to palpation], [no guarding], [no appreciable organomegaly] Ext: [no gross muscle atrophy], [no edema], [no contractures] Neuro: [ CN II-XI grossly intact], [no focal neuro deficits] Psych: [Alert], [oriented], [angry affect] - Labs CBC & Chem 7: 09/24/24 08:30 09/24/24 08:30 Labs: Abnormal Lab Results - Last 24 Hours (Table) 09/23/24 09/23/24 09/24/24 Range/Units 17:36 20:24 01:11 WBC (4.50-10.00) 10*3/uL RBC (4.40-5.60) 10*6/uL Hgb (13.0-17.0) g/dL Hct (39.6-50.0) % Plt Count (140-440) 10*3/uL Immature Gran # (0.00-0.04) 10*3/uL Neutrophils # (1.80-7.70) 10*3/uL Monocytes # (0.20-1.00) 10*3/uL Eosinophils # (0.04-0.35) 10*3/uL Creatinine (0.66-1.25) mg/dL Glucose (74-99) mg/dL POC Glucose (mg/dL) 243 H 289 H 207 H (70-110) mg/dL 09/24/24 09/24/24 09/24/24 Range/Units 06:16 08:30 08:30 WBC 17.37 H (4.50-10.00) 10*3/uL RBC 3.90 L (4.40-5.60) 10*6/uL Hgb 11.8 L (13.0-17.0) g/dL Hct 36.1 L (39.6-50.0) % Plt Count 442 H (140-440) 10*3/uL Immature Gran # 0.60 H (0.00-0.04) 10*3/uL Neutrophils # 11.81 H (1.80-7.70) 10*3/uL Monocytes # 2.19 H (0.20-1.00) 10*3/uL Eosinophils # 0.60 H (0.04-0.35) 10*3/uL Creatinine 1.78 H (0.66-1.25) mg/dL Glucose 226 H (74-99) mg/dL POC Glucose (mg/dL) 170 H (70-110) mg/dL 09/24/24 Range/Units 11:39 WBC (4.50-10.00) 10*3/uL RBC (4.40-5.60) 10*6/uL Hgb (13.0-17.0) g/dL Hct (39.6-50.0) % Plt Count (140-440) 10*3/uL Immature Gran # (0.00-0.04) 10*3/uL Neutrophils # (1.80-7.70) 10*3/uL Monocytes # (0.20-1.00) 10*3/uL Eosinophils # (0.04-0.35) 10*3/uL Creatinine (0.66-1.25) mg/dL Glucose (74-99) mg/dL POC Glucose (mg/dL) 372 H (70-110) mg/dL Microbiology - Last 24 Hours (Table) 09/18/24 12:48 Blood Culture - Final Blood Assessment and Plan Plan: Assessment and Plan: Leukocytosis Community-acquired pneumonia MRSA UTI History of recurrent UTIs History of prostate cancer, on hormonal therapy -Finished course of ceftriaxone and azithromycin for pneumonia, now on bactrim ds for MRSA UTI, SOT 09/22 -Follow-up urine Legionella negative -Follow-up blood cultures negative -Follow-up CBC still elevated around 17,000 Diarrhea, likely viral gastroenteritis Hyponatremia likely secondary to above -Sodium improved -C. difficile, negative Dysphagia -FLIGHT ATTENDANT/INFLIGHT SUPERVISOR consulted, appreciate recommendations -Started patient on level 2 dysphagia diet Hospital-acquired delirium -Was treated with benzodiazepine and Seroquel earlier in the hospitalization Chronic CKD stage IIIb, at baseline Type 2 insulin-dependent diabetes mellitus complicated by diabetic neuropathy Hypertension Gout paroxysmal afib not on anticogulation -Resume home medications, amlodipine 5 mg p.o. daily, gabapentin 600 mg p.o. nightly, megestrol 20 mg p.o. daily -Blood glucose reviewed, still elevated, p.o. intake okay I will increase Lantus to 15 units daily, continue with low intensity SSI I have reviewed the results of the following tests: , CBC BMP I have ordered the following tests: CBC, CMP in am I have discussed the care of this patient with the following independent historian: Patient's daughter, RN Surrogate decision-maker: CODE STATUS: DNR/DNI DVT prophylaxis: Heparin Anticipated discharge date: Patient currently medically cleared for discharge, physical therapy advised either home with 24/ support versus rehab. Family requesting rehabilitation. Case management to work on discharging him tomorrow Anticipated discharge place: Anticipate going to [facility] in [place] can't send him today they don't accept patients on Wednesday
[2024-09-24 16:41] LABS: Glucose,Whole Blood 406 mg/dL (70-110)
[2024-09-24 20:42] LABS: Glucose,Whole Blood 255 mg/dL (70-110)
[2024-09-24] MEDS: INSULIN GLARGINE (LANTUS) 100 UNIT/ML SYR SQ SCH (21:26)
[2024-09-25 06:26] LABS: Glucose,Whole Blood 211 mg/dL (70-110)
[2024-09-25 07:50] VITALS: BP 149/64; RESP 19; TEMP 98.3
[2024-09-25 11:21] LABS: Glucose,Whole Blood 239 mg/dL (70-110)
--- NOTE | 2024-09-25 11:35 | P.DS ---
Providers Date of admission: 09/18/24 14:34 Expected date of discharge: 09/25/24 Attending physician: America Avilez MD Primary care physician: Tylor [facility] Course: 88 year old M with PMH of prostate CA following Dr. Alonzo, recurrent UTIs, A- fib, type II DM on insulin, hypertension, gout, CKD 3B, who presented to the ER with cough that started 1 week ago along with dysuria. In the ED he underwent extensive evaluation. Tmax 100.8F, BP 151/77, HR 94, RR 18, 98% on RA. CBC, Coag panel, CMP significant for WBC 15.32, RBC 4.1, Hg 12.9, Hct 36.8, Na 132, bicarb 20, BUN 22, Cr 1.66, glu 292, alb 2.8. Procal 0.27. Mag 2.1. Lactic acid 1.3. UA large LE with 44 WBCs. COVID, RSV, Flu neg. Legionella Ag neg. CXR showed right medial basilar airspace opacity. EKG NSR with no ST T wave changes. Trop 0.018. BNP 806. Patient was started on Rocephin + Azithromycin and admitted for further workup and management. Noted to have diarrhea, C. diff was negative. BCx negative. UCx growing MRSA for which he was started on Bactrim. He completed his course of antibiotics for pneumonia. Evaluated by PT and OT recommending SNF. 09/25 Patient was seen and examined. Daughter and at bedside. He is wanting to go home. No new labs done today. Discharge Plan: Continue Bactrim for 6 days to complete a total of 10 days antibiotics for complicated UTI. Follow up with PCP within 1-[address] Alonzo within 1 week of discharge for evaluation of prostatitis. Diet: NDD2. General: no distress, appears at stated age Derm: warm, dry Head: atraumatic, normocephalic, symmetric Mouth: no lip lesion, mucus membranes moist Cardiovascular: S1 S2 reg. No murmur. Lungs: Decreased BS bilaterally, no accessory muscle use Ext: no gross muscle atrophy, no edema, no contractures Neuro: No focal neurologic deficits. Psych: Alert and oriented. Discharge Diagnosis: Sepsis secondary to PNA + MRSA UTI Hospital acquired delirium Diarrhea, resolved, C. diff negative Dysphagia History of prostate CA following Dr. Alonzo CKD stage IIIb Type 2 insulin-dependent diabetes mellitus complicated by diabetic neuropathy Hypertension Gout Paroxysmal afib not on anticogulation This complex discharge took 35 minutes to complete. Patient Condition at Discharge: Stable Plan - Discharge Summary Discharge Rx Participant: No New Discharge Prescriptions: New Sulfamethox-Tmp 800-160Mg [Bactrim DS 800-160 mg] 1 tab PO Q12HR #12 tab Ipratropium-Albuterol Nebulize [Duoneb 0.5 mg-3 mg/3 ml Soln] 3 ml INHALATION RT-QID each guaiFENesin [Mucinex] 600 mg PO Q12HR PRN tab PRN Reason: Cough Continue Gabapentin [Neurontin] 600 mg PO HS Megestrol Acetate 20 mg PO DAILY Glucagon [Gvoke Pfs 1-Pack Syringe] 1 mg SQ DIRECTED PRN PRN Reason: Hypoglycemia allopurinoL 100 mg PO DAILY amLODIPine [Norvasc] 5 mg PO DAILY 90 Days #90 tab Amiodarone [Cordarone] 100 mg PO DAILY Cholecalciferol [Vitamin D3 (125 Mcg = 5000 Iu)] 125 mcg PO DAILY Insulin Glargine/Lixisenatide [Soliqua 100 Unit-33 Mcg/ml Pen] 24 units SQ DAILY Changed Insulin Aspart [NovoLOG Flexpen] 3 units SQ TID-W/MEALS #0 Discharge Medication List Gabapentin [Neurontin] 600 mg PO HS 04/28/20 [History] allopurinoL 100 mg PO DAILY 01/06/22 [History] amLODIPine [Norvasc] 5 mg PO DAILY 90 Days #90 tab 03/12/23 [Rx] Amiodarone [Cordarone] 100 mg PO DAILY 02/10/24 [History] Cholecalciferol [Vitamin D3 (125 Mcg = 5000 Iu)] 125 mcg PO DAILY 02/10/24 [History] Glucagon [Gvoke Pfs 1-Pack Syringe] 1 mg SQ DIRECTED PRN 09/18/24 [History] Insulin Glargine/Lixisenatide [Soliqua 100 Unit-33 Mcg/ml Pen] 24 units SQ DAILY 09/18/24 [History] Megestrol Acetate 20 mg PO DAILY 09/18/24 [History] Sulfamethox-Tmp 800-160Mg [Bactrim DS 800-160 mg] 1 tab PO Q12HR #12 tab 09/22/24 [Rx] Insulin Aspart [NovoLOG Flexpen] 3 units SQ TID-W/MEALS #0 09/25/24 [Rx] Ipratropium-Albuterol Nebulize [Duoneb 0.5 mg-3 mg/3 ml Soln] 3 ml INHALATION RT-QID each 09/25/24 [Rx] guaiFENesin [Mucinex] 600 mg PO Q12HR PRN tab 09/25/24 [Rx] Follow up Appointment(s)/Referral(s): Catia Corley, [NON-STAFF] - As Needed Tylor Lofton DO [Primary Care Provider] - 1-2 days Timi Alonzo MD [STAFF PHYSICIAN] - 1 Week Activity/Diet/Wound Care/Special Instructions: please, follow up with your PCP Discharge Disposition: TRANSFER TO SNF/ECF
[2024-09-25 11:52] VITALS: PULSE 92
[2024-09-26 14:55] LABS: Glucose,Whole Blood 148 mg/dL (70-110)
== END 2024-09-25 14:00 | DRG 871 ==
LOC: EC 12:19 → 4SSUR 14:33 → OBSVTOIN 14:34 → 4SSUR 16:03
PROVIDERS: ADMIT Student in an Organized Health Care Education/Training Program; ATTEND Student in an Organized Health Care Education/Training Program
DX: A41.9 Sepsis, unspecified organism (principal); J18.9 Pneumonia, unspecified organism; F05 Delirium due to known physiological condition; Z66 Do not resuscitate; E87.1 Hypo-osmolality and hyponatremia; N39.0 Urinary tract infection, site not specified; E11.22 Type 2 diabetes mellitus with diabetic chronic kidney disease; N18.32 Chronic kidney disease, stage 3b; E11.40 Type 2 diabetes mellitus with diabetic neuropathy, unspecified; I12.9 Hypertensive chronic kidney disease with stage 1 through stage 4 chronic kidney disease, or unspecified chronic kidney disease; I48.0 Paroxysmal atrial fibrillation; Z79.4 Long term (current) use of insulin; B95.62 Methicillin resistant Staphylococcus aureus infection as the cause of diseases classified elsewhere; M10.9 Gout, unspecified; R13.10 Dysphagia, unspecified; A08.4 Viral intestinal infection, unspecified; Z79.890 Hormone replacement therapy; Z79.899 Other long term (current) drug therapy; Z85.46 Personal history of malignant neoplasm of prostate; Z87.440 Personal history of urinary (tract) infections; Z87.891 Personal history of nicotine dependence
CPT/HCPCS: 36415; 71046; 80048; 80053; 81001; 83605; 83735; 83880; 84145; 84484; 85025; 85610; 85730; 87040; 87077; 87086; 87186; 87324; 87449; 87636; 93005; 94640; 94760; 96361; 96374; 99285

== ENCOUNTER 2024-09-26 14:33 | Inpatient (IN) | payer OTHER, MEDICARE ==
--- NOTE | 2024-09-26 14:58 | ED ---
General Adult HPI - General Source: patient, EMS, RN notes reviewed, old records reviewed Mode of arrival: EMS Limitations: altered mental status <Ramos Lopez - Last Filed: 09/26/24 14:55> - General Source: patient, EMS, RN notes reviewed, old records reviewed Mode of arrival: EMS Limitations: altered mental status - History of Present Illness -: unknown Consistency: constant Improves with: none Worsens with: none Associated Symptoms: denies other symptoms Treatments Prior to Arrival: none <Dusty White - Last Filed: 10/03/24 18:59> - General Chief complaint: Fall Stated complaint: Fall Time Seen by Provider: 09/26/24 14:45 - History of Present Illness Initial comments: Patient is a 88-year-old male who presents emergency department complaining of multiple falls at his nursing facility. Has had 3 falls in the last 24 hours. Is not on blood thinners. States he did not lose consciousness. States he does not think he hit his head. Endorses some mild neck discomfort as well as some right elbow pain. Has a skin tear/abrasion over the right elbow. He is not complaining of anything obvious but seems to be extremely weak. Presents for further evaluation at this time. Apparently was recently treated for UTI. Is not on blood thinners. (Ramos Lopez) This is an 88-year-old male for weakness multiple falls falls in the last few hours poor historian overall significant weakness here in the emergency department (Dusty White) - Related Data Home Medications Medication Instructions Recorded Confirmed allopurinoL 100 mg PO DAILY@0800 01/06/22 09/26/24 Cholecalciferol [Vitamin D3 (125 125 mcg PO DAILY@0800 02/10/24 09/26/24 Mcg = 5000 Iu)] Glucagon [Gvoke Pfs 1-Pack Syringe] 1 mg SQ DIRECTED PRN 09/18/24 09/26/24 Insulin Glargine/Lixisenatide 24 units SQ DAILY@0809/18/24 09/26/24 [Soliqua 100 Unit-33 Mcg/ml Pen] Megestrol Acetate 20 mg PO DAILY@0800 09/18/24 09/26/24 Insulin Aspart [NovoLOG Flexpen] 3 units SQ ACHS 09/26/24 09/26/24 Ipratropium-Albuterol Nebulize 3 ml INHALATION RT-Q6H 09/26/24 09/26/24 [Duoneb 0.5 mg-3 mg/3 ml Soln] Magnesium Hydroxide [Milk of 7,200 mg PO DAILY PRN 09/26/24 09/26/24 Magnesia Concentrate] Na Phos,M-B/Na Phos,Di-Ba [Fleet 133 ml RECTAL DAILY PRN 09/26/24 09/26/24 Adult] amLODIPine [Norvasc] 5 mg PO DAILY@0800 09/26/24 09/26/24 bisacodyL [Dulcolax] 10 mg RECTAL Q24H PRN 09/26/24 09/26/24 Previous Rx's Medication Instructions Recorded guaiFENesin [Mucinex] 600 mg PO Q12HR PRN tab 09/25/24 Aspirin 81 mg PO DAILY tab 10/03/24 Folic Acid 1 mg PO DAILY@1200 tab 10/03/24 Heparin Sodium,Porcine (1 ml) 5,000 unit SQ Q12HR each 10/03/24 [Heparin Sodium] INSULIN LISPRO (HumaLOG) [HumaLOG] 0 unit SQ ACHS each 10/03/24 Ipratropium-Albuterol Nebulize 3 ml INHALATION RT-Q2H PRN each 10/03/24 [Duoneb 0.5 mg-3 mg/3 ml Soln] Metoprolol Tartrate [Lopressor] 100 mg PO BID tab 10/03/24 Multivitamins, Thera [Multivitamin 1 each PO DAILY@1200 tab 10/03/24 (formulary)] Sodium Bicarbonate Tab 650 mg PO BID tab 10/03/24 Thiamine [Vitamin B-1] 100 mg PO DAILY@1200 tab 10/03/24 hydroCHLOROthiazide [Hydrodiuril] 25 mg PO DAILY tab 10/03/24 methIMAzole [Tapazole] 5 mg PO TID tab 10/03/24 Allergies Allergy/AdvReac Type Severity Reaction Status Date / Time No Known Allergies Allergy Verified 09/26/24 18:54 Review of Systems ROS Other: All systems not noted in ROS Statement are negative. <Ramos Lopez - Last Filed: 09/26/24 14:55> ROS Other: All systems not noted in ROS Statement are negative. <Dusty White - Last Filed: 10/03/24 18:59> ROS Statement: Those systems with pertinent positive or pertinent negative responses have been documented in the HPI. Review of Systems: CONST: Denies fever EYES: Denies blurry vision ENT: Denies nasal congestion C/V: Denies Chest pain RESP: Denies shortness of breath GI: Denies abdominal pain : Denies dysuria SKIN: Endorses right elbow abrasion MSK: Denies joint pain. NEURO: Denies headache (Ramos Lopez) Past Medical History Past Medical History: Atrial Fibrillation, Diabetes Mellitus, Hypertension, Pneumonia History of Any Multi-Drug Resistant Organisms: MRSA Date of last positivie culture/infection: 09/18/24 MDRO Source:: urine Past Surgical History: Appendectomy Additional Past Surgical History / Comment(s): dental Past Anesthesia/Blood Transfusion Reactions: No Reported Reaction Past Psychological History: No Psychological Hx Reported Smoking Status: Former smoker Past Alcohol Use History: None Reported, Rare Past Drug Use History: None Reported - Past Family History Mother History Unknown: Yes Family Medical History: Hypertension Additional Family Medical History / Comment(s): patient confused and does not give clear answers <Ramos Lopez - Last Filed: 09/26/24 14:55> General Exam Limitations: altered mental status <Ramos Lopez - Last Filed: 09/26/24 14:55> General appearance: alert, in no apparent distress Head exam: Present: atraumatic, normocephalic, normal inspection Eye exam: Present: normal appearance, PERRL, EOMI. Absent: scleral icterus, conjunctival injection, periorbital swelling ENT exam: Present: normal exam, mucous membranes moist Neck exam: Present: normal inspection. Absent: tenderness, meningismus, lymphadenopathy Respiratory exam: Present: normal lung sounds bilaterally. Absent: respiratory distress, wheezes, rales, rhonchi, stridor Cardiovascular Exam: Present: regular rate, normal rhythm, normal heart sounds. Absent: systolic murmur, diastolic murmur, rubs, gallop, clicks GI/Abdominal exam: Present: soft, normal bowel sounds. Absent: distended, tenderness, guarding, rebound, rigid Extremities exam: Present: normal inspection, full ROM, normal capillary refill. Absent: tenderness, pedal edema, joint swelling, calf tenderness Back exam: Present: normal inspection Neurological exam: Present: alert, oriented X3, CN II-XII intact Psychiatric exam: Present: normal affect, normal mood Skin exam: Present: warm, dry, intact, normal color. Absent: rash <Dusty White - Last Filed: 10/03/24 18:59> - General Exam Comments Initial Comments: General: Appears in no acute distress. HEAD: Normal with no signs of head trauma. Negative New sign. Negative raccoon eyes. EYES: PERRLA, EOMI, conjunctiva normal, no discharge. Pupils are 3 mm and equal bilaterally. ENT: Hearing grossly intact, normal oropharynx. RESPIRATORY: Clear breath sounds bilaterally. No wheezes, rales, or rhonchi. C/V: Regular rate and rhythm. S1 and S2 auscultated, no edema, peripheral pulses 2+ and intact throughout ABD: Abd is soft, nontender, nondistended EXT: Normal range of motion, no obvious deformity. Tenderness to palpation of the midline as well as paraspinal muscles of the cervical spine. Pelvis is stable. No midline thoracic or lumbar spine tenderness to palpation. SKIN: Skin abrasions located over the posterior right elbow. NEURO: Alert and oriented x 4. No obvious focal deficits. Generalized weakness present. GCS of 15. (Ramos Lopez) Course <Dusty White - Last Filed: 10/03/24 18:59> Vital Signs 09/26/24 09/26/24 09/26/24 14:36 16:15 16:17 Temperature 98.9 F 98.0 F Pulse Rate 84 82 Respiratory 18 21 21 Rate Blood Pressure 130/60 165/68 O2 Sat by Pulse 94 L 94 L Oximetry 09/26/24 09/27/24 22:22 00:18 Temperature 98.9 F Pulse Rate 90 96 Respiratory 17 20 Rate Blood Pressure 128/66 151/64 O2 Sat by Pulse 95 92 L Oximetry - Reevaluation(s) Reevaluation #1: Medical records reviewed (Dusty White) Reevaluation #2: Patient symptoms unchanged (Dusty White) Reevaluation #3: Patient informed of results and questions answered (Dusty White) - Consultations Consultation #1: Spoke with admitting physicians who agreed to admit this patient (Roskopp,Ch ristophe B) EKG Findings - EKG Comments: EKG Findings:: EKG is sinus 82 OH 136 QRS 100 QTc 450 - EKG Results: EKG: interpreted by ERMD <Dusty White - Last Filed: 10/03/24 18:59> Medical Decision Making <Gavin Lopezrey - Last Filed: 09/26/24 14:55> - Lab Data Result diagrams: 10/02/24 05:19 10/02/24 05:19 <Dusty White - Last Filed: 10/03/24 18:59> - Medical Decision Making Was pt. sent in by a medical professional or institution (, PA, RECYCLING ATTENDANT, urgent care, hospital, or fci...) When possible be specific @ -No Did you speak to anyone other than the patient for history (EMS, parent, family, police, friend...)? What history was obtained from this source @ -No Did you review nursing and triage notes (agree or disagree)? Why? @ -I reviewed and agree with nursing and triage notes Were old charts reviewed (outside hosp., previous admission, EMS record, old EKG, old radiological studies, urgent care reports/EKG's, fci records)? Report findings @ -Reviewed paperwork from nursing facility at [facility] which confirmed patient is not on blood thinners. Differential Diagnosis (chest pain, altered mental status, abdominal pain women, abdominal pain men, vaginal bleeding, weakness, fever, dyspnea, syncope, headache, dizziness, GI bleed, back pain, seizure, CVA, palpatations, mental health, musculoskeletal)? @ -Differential Weakness: Hypoglycemia, shock, sepsis, hyponatremia, anemia, infection, AL, ETOH, adverse medicine reaction, overdose, stroke, this is not meant to be an all-inclusive list. EKG interpreted by me (3pts min.). @ -Pending X-rays interpreted by me (1pt min.). @ -Pending CT interpreted by me (1pt min.). @ -Pending U/S interpreted by me (1pt. min.). @ -None done What testing was considered but not performed or refused? (CT, X-rays, U/S, labs)? Why? @ -None What meds were considered but not given or refused? Why? @ -None Did you discuss the management of the patient with other professionals (professionals i.e. DrIvonne, PA, RECYCLING ATTENDANT, lab, RT, psych nurse, social problems specialist, emerging solutions executive, teacher, sergeant of officers, case consultant)? Give summary @ -No Was smoking cessation discussed for >3mins.? @ -No Was critical care preformed (if so, how long)? @ -No Were there social determinants of health that impacted care today? How? (Homelessness, low income, unemployed, alcoholism, drug addiction, transportation, low edu. Level, literacy, decrease access to med. care, shelter, rehab)? @ -No Was there de-escalation of care discussed even if they declined (Discuss DNR or withdrawal of care, Hospice)? DNR status @ -No What co-morbidities impacted this encounter? (DM, HTN, Smoking, COPD, CAD, Cancer, CVA, ARF, Chemo, Hep., AIDS, mental health diagnosis, sleep apnea, morbid obesity)? @ -None Was patient admitted / discharged? Hospital course, mention meds given and route, prescriptions, significant lab abnormalities, going to OR and other pertinent info. @ -Patient presents for weakness with numerous falls over the last 24 hours. Recently admitted to the hospital and treated for UTI. He currently is no acute complaints other than skin tears over his right elbow. Is alert and oriented x 4 with generalized weakness. Will obtain general workup as well as CT brain, C-spine, chest x-ray, pelvis x-ray, right elbow x-ray. Patient was in agreement this plan. Patient will be administered IV fluids, a dose of Tylenol, and tetanus will be updated with Tdap. Patient was in agreement this plan. At this time is the end my shift. Patient signed out to Dr. White Pending results of workup. Undiagnosed new problem with uncertain prognosis? @ -No Drug Therapy requiring intensive monitoring for toxicity (Heparin, Nitro, Insulin, Cardizem)? @ -No Were any procedures done? @ -No (Ramos Lopez) 88 male to the ER for evaluation will be admitted for weakness multiple falls hyperkalemia dehydration (Dusty White) - Lab Data Lab Results 09/26/24 09/26/24 09/26/24 Range/Units 14:53 15:07 15:19 WBC 16.99 H (4.50-10.00) 10*3/uL RBC 3.82 L (4.40-5.60) 10*6/uL Hgb 11.7 L (13.0-17.0) g/dL Hct 35.1 L (39.6-50.0) % MCV 91.9 (80.0-97.0) fL MCH 30.6 (27.0-32.0) pg MCHC 33.3 (32.0-37.0) g/dL Plt Count 403 (140-440) 10*3/uL MPV 9.8 (9.5-12.2) fL Immature Gran % (Auto) 2.2 % Neutrophils % 71.6 % Lymphocytes % 13.0 % Monocytes % 10.1 % Eosinophils % 2.6 % Basophils % 0.5 % Immature Gran # 0.37 H (0.00-0.04) 10*3/uL Neutrophils # 12.17 H (1.80-7.70) 10*3/uL Lymphocytes # 2.21 (0.90-5.00) 10*3/uL Monocytes # 1.71 H (0.20-1.00) 10*3/uL Eosinophils # 0.44 H (0.04-0.35) 10*3/uL Basophils # 0.09 (0.00-0.10) 10*3/uL PT (10.0-12.5) sec INR (<1.2) APTT (22.0-30.0) sec Sodium 136 L (137-145) mmol/L Potassium 6.6 H* (3.5-5.1) mmol/L Chloride 104 (98-107) mmol/L Carbon Dioxide 20 L (22-30) mmol/L Anion Gap 12 mmol/L BUN 20 (9-20) mg/dL Creatinine 2.01 H (0.66-1.25) mg/dL Est GFR (CKD-EPI)AfAm 34 (>60 ml/min/1.73 sqM) Est GFR (CKD-EPI)NonAf 29 (>60 ml/min/1.73 sqM) Glucose 112 H (74-99) mg/dL Calcium 9.6 (8.4-10.2) mg/dL Total Bilirubin 0.8 (0.2-1.3) mg/dL AST 47 (17-59) U/L ALT 41 (4-49) U/L Alkaline Phosphatase 102 (38-126) U/L Total Protein 6.7 (6.3-8.2) g/dL Albumin 3.1 L (3.5-5.0) g/dL Urine Color Urine Appearance (Clear) Urine pH (5.0-8.0) Ur Specific [place] (1.001-1.035) Urine Protein (Negative) Urine Glucose (UA) (Negative) Urine Ketones (Negative) Urine Blood (Negative) Urine Nitrite (Negative) Urine Bilirubin (Negative) Urine Urobilinogen (<2.0) mg/dL Ur Leukocyte Esterase (Negative) Influenza Type A (PCR) Not Detected (Not Detectd) Influenza Type B (PCR) Not Detected (Not Detectd) RSV (PCR) Not Detected (Not Detectd) SARS-CoV-2 (PCR) Not Detected (Not Detectd) 09/26/24 09/26/24 Range/Units 15:19 16:05 WBC (4.50-10.00) 10*3/uL RBC (4.40-5.60) 10*6/uL Hgb (13.0-17.0) g/dL Hct (39.6-50.0) % MCV (80.0-97.0) fL MCH (27.0-32.0) pg MCHC (32.0-37.0) g/dL Plt Count (140-440) 10*3/uL MPV (9.5-12.2) fL Immature Gran % (Auto) % Neutrophils % % Lymphocytes % % Monocytes % % Eosinophils % % Basophils % % Immature Gran # (0.00-0.04) 10*3/uL Neutrophils # (1.80-7.70) 10*3/uL Lymphocytes # (0.90-5.00) 10*3/uL Monocytes # (0.20-1.00) 10*3/uL Eosinophils # (0.04-0.35) 10*3/uL Basophils # (0.00-0.10) 10*3/uL PT 12.0 (10.0-12.5) sec INR 1.1 (<1.2) APTT 19.9 L (22.0-30.0) sec Sodium (137-145) mmol/L Potassium (3.5-5.1) mmol/L Chloride (98-107) mmol/L Carbon Dioxide (22-30) mmol/L Anion Gap mmol/L BUN (9-20) mg/dL Creatinine (0.66-1.25) mg/dL Est GFR (CKD-EPI)AfAm (>60 ml/min/1.73 sqM) Est GFR (CKD-EPI)NonAf (>60 ml/min/1.73 sqM) Glucose (74-99) mg/dL Calcium (8.4-10.2) mg/dL Total Bilirubin (0.2-1.3) mg/dL AST (17-59) U/L ALT (4-49) U/L Alkaline Phosphatase (38-126) U/L Total Protein (6.3-8.2) g/dL Albumin (3.5-5.0) g/dL Urine Color Colorless Urine Appearance Clear (Clear) Urine pH 7.5 (5.0-8.0) Ur Specific [place] 1.007 (1.001-1.035) Urine Protein Negative (Negative) Urine Glucose (UA) Negative (Negative) Urine Ketones Negative (Negative) Urine Blood Negative (Negative) Urine Nitrite Negative (Negative) Urine Bilirubin Negative (Negative) Urine Urobilinogen <2.0 (<2.0) mg/dL Ur Leukocyte Esterase Negative (Negative) Influenza Type A (PCR) (Not Detectd) Influenza Type B (PCR) (Not Detectd) RSV (PCR) (Not Detectd) SARS-CoV-2 (PCR) (Not Detectd) Disposition <Ramos Lopez - Last Filed: 09/26/24 14:55> Is patient prescribed a controlled substance at d/c from ED?: No Time of Disposition: 17:00 <Dusty White - Last Filed: 10/03/24 18:59> Clinical Impression: Fall, CKD (chronic kidney disease), Weakness, AMS (altered mental status), Hyperkalemia Disposition: ADMITTED IP TO THIS HOSP Condition: Fair
[2024-09-26 15:28] LABS: ALT 41 U/L (4-49); African American GFR (CKD) 34 (>60 ml/min/1.73 sqM); Anion Gap 12 mmol/L; Blood Urea Nitrogen 20 mg/dL (9-20); Calcium 9.6 mg/dL (8.4-10.2); Carbon Dioxide 20 mmol/L (22-30); Chloride 104 mmol/L (98-107); Glucose 112 mg/dL (74-99); Non-African American GFR(CKD) 29 (>60 ml/min/1.73 sqM); Sodium 136 mmol/L (137-145); Total Bilirubin 0.8 mg/dL (0.2-1.3)
[2024-09-26 15:38] LABS: Albumin 3.1 g/dL (3.5-5.0); Potassium 6.6 mmol/L (3.5-5.1); Total Protein 6.7 g/dL (6.3-8.2)
[2024-09-26 15:39] LABS: AST 47 U/L (17-59); Alkaline Phosphatase 102 U/L (38-126)
--- NOTE | 2024-09-26 15:41 | CT ---
EXAMINATION TYPE: CT brain darlene wo con DATE OF EXAM: 09/26/2024 COMPARISON: 03/10/2023 CLINICAL INDICATION: Male, 88 years old with history of fall, pain; PHH, Fall x3. No LOC. No thinners . Did not hit head. TECHNIQUE: CT scan of the head and cervical spine are performed without contrast. CT DLP: [address] CTDI: mGy Automated exposure control for dose reduction was used. Findings: Head CT: Ventricles, basal cisterns and sulci over convexities are moderately enlarged consistent with moderat e generalized atrophy. There is no mass effect or shift of midline structures. There is mild decreased density in periventricular white matter consistent with mild chronic ischemic white matter demyelination. There is no acute intra or extra-axial hemorrhage. Posterior fossa including the brainstem, fourth ventricle and cerebellar pontine angles are grossly n ormal. The intraorbital contents appear normal and symmetric. Visualized paranasal sinuses are well aerated. CT cervical spine: Craniovertebral junction relationships and prevertebral soft tissues are normal. The cervical vertebral segments are normal in height and alignment and there is no fracture subluxati on. There is mild to moderate disc space narrowing and spondylosis at C5-6 and C6-7 indicating mild to mo derate degenerative disc disease. There is moderate to marked osteoarthritis of the uncovertebral arin nts in the lower cervical spine. The bony cervical canal is widely patent. There is multilevel neural foraminal encroachment as follows; severe at C4-5 on the left, and moderat e at C6-7 bilaterally. IMPRESSION: 1. Head CT: No acute bleed or mass effect. Moderate generalized atrophy and mild chronic ischemic whi te matter demyelination. 2. CT cervical spine: No acute trauma. Degenerative disc disease and osteoarthritis as described tamiko martinez [facility], , 09/26/2024 3:39 PM
--- NOTE | 2024-09-26 15:43 | XR ---
EXAMINATION TYPE: XR chest 1V portable DATE OF EXAM: 09/26/2024 3:37 PM COMPARISON: 09/20/2019. CLINICAL INDICATION: Male, 88 years old with history of fall, pain, , FINDINGS: Heart mildly enlarged. Interstitial prominence. Focal medial right basilar opacity persists. No other consolidation or pleural effusion. IMPRESSION: 1. Mild cardiomegaly. Given interstitial prominence, correlate to exclude mild pulmonary vascular con gestion. 2. Focal patchy medial right basilar opacity persists from 09/19/2024. Pneumonia not excluded. Ongoing follow-up to ensure complete clearance following treatment. [facility], Workstation: [email or web address], 09/26/2024 3:40 PM
--- NOTE | 2024-09-26 15:46 | XR ---
EXAMINATION TYPE: XR elbow limited RT DATE OF EXAM: 09/26/2024 3:37 PM COMPARISON: 2 views CLINICAL INDICATION: Male, 88 years old with history of fall, pain; PHH, pain FINDINGS: Some minimal bony spurring at the lateral epicondyle. Small posterior olecranon spur. These 2 views s how no acute fracture, subluxation, dislocation. No significant joint effusion. IMPRESSION: 2 views without acute osseous abnormality seen. [facility], Workstation: [id number], 09/26/2024 3:44 PM
--- NOTE | 2024-09-26 15:47 | XR ---
EXAMINATION TYPE: XR pelvis AP view DATE OF EXAM: 09/26/2024 3:37 PM COMPARISON: None CLINICAL INDICATION: Male, 88 years old with history of fall, pain; PHH, pain FINDINGS: Mild axial joint space narrowing of both hips. Vascular calcifications. Imaging is limited due to ost eopenia, the pelvis being tilted, and the lateral aspect of the proximal right femur excluded from vi ew. No displaced fractures seen. IMPRESSION: Exam limitations as above. No displaced fracture seen. [facility], Workstation: [facility], 09/26/2024 3:45 PM
[2024-09-26] MEDS: SODIUM CHLORIDE 0.9% 1,000 ML IV ONE (15:48)
[2024-09-26] MEDS: ACETAMINOPHEN TAB 325 MG TAB PO STA (15:50)
[2024-09-26] MEDS: DIPH,PERTUS(ACELL)TETVAC-LF 0.5 ML VIAL IM ONE (15:51)
[2024-09-26 15:52] LABS: Influenza A Not Detected (Not Detectd); Influenza B Not Detected (Not Detectd); RSV Not Detected (Not Detectd)
[2024-09-26 15:56] LABS: Basophils # (A) 0.09 10*3/uL (0.00-0.10); Basophils % (A) 0.5 %; Eosinophils # (A) 0.44 10*3/uL (0.04-0.35); Eosinophils % (A) 2.6 %; HCT 35.1 % (39.6-50.0); HGB 11.7 g/dL (13.0-17.0); Lymphocytes # (A) 2.21 10*3/uL (0.90-5.00); MCH 30.6 pg (27.0-32.0); MCHC 33.3 g/dL (32.0-37.0); MCV 91.9 fL (80.0-97.0); Mean Platelet Volume 9.8 fL (9.5-12.2); Monocytes # (A) 1.71 10*3/uL (0.20-1.00); Monocytes % (A) 10.1 %; Neutrophils # (A) 12.17 10*3/uL (1.80-7.70); Neutrophils % (A) 71.6 %; Platelet Count 403 10*3/uL (140-440); RBC 3.82 10*6/uL (4.40-5.60); RDW 13.2 % (11.5-14.5); WBC 16.99 10*3/uL (4.50-10.00)
[2024-09-26 16:12] LABS: Appearance,Urine Clear (Clear); Bilirubin,Urine Negative (Negative); Blood,Urine Negative (Negative); Color,Urine Colorless; Glucose,Urine (UA) Negative (Negative); Ketones,Urine Negative (Negative); Leukocyte Esterase,Urine Negative (Negative); Nitrite,Urine Negative (Negative); PH, Urine 7.5 (5.0-8.0); Protein,Urine Negative (Negative); Specific Gravity,Urine 1.007 (1.001-1.035); Urobilinogen,Urine <2.0 mg/dL (<2.0)
[2024-09-26 16:16] LABS: INR 1.1 (<1.2)
[2024-09-26 16:25] LABS: Partial Thromboplastin Time 19.9 sec (22.0-30.0)
[2024-09-26] MEDS ORDERED: ONDANSETRON 4 MG/2 ML VIAL IVP PRN (17:06)
[2024-09-26] MEDS ORDERED: NALOXONE 0.4 MG/ML 1 ML VIAL IV PRN (17:06)
[2024-09-26] MEDS ORDERED: IPRATROPIUM-ALBUTEROL 3 ML NEB INHALATION PRN (17:07)
[2024-09-27 08:29] LABS: Basophils # (A) 0.08 X 10*3/uL (0.00-0.10); Basophils % (A) 0.5 %; Eosinophils # (A) 0.54 X 10*3/uL (0.04-0.35); Eosinophils % (A) 3.4 %; HCT 35.6 % (39.6-50.0); HGB 11.4 g/dL (13.0-17.0); Lymphocytes # (A) 2.13 X 10*3/uL (0.90-5.00); Lymphocytes % (A) 13.3 %; MCH 30.1 pg (27.0-32.0); MCV 93.9 FL (80.0-97.0); Mean Platelet Volume 9.9 FL (9.5-12.2); Monocytes # (A) 1.39 X 10*3/uL (0.20-1.00); Monocytes % (A) 8.7 %; NRBC Per 100 WBC 0 X 10*3/uL (0.00-0.01); Neutrophils # (A) 11.64 X 10*3/uL (1.80-7.70); Neutrophils % (A) 72.4 %; Platelet Count 435 X 10*3/uL (140-440); RBC 3.79 X 10*6/uL (4.40-5.60); RDW 13.2 % (11.5-14.5); WBC 16.06 X 10*3/uL (4.50-10.00)
[2024-09-27 08:43] LABS: ALT 34 U/L (10-49); AST 27 U/L (14-35); Albumin 2.7 g/dL (3.8-4.9); Alkaline Phosphatase 101 U/L (41-126); Blood Urea Nitrogen 17.2 mg/dL (9.0-27.0); Calcium 8.9 mg/dL (8.7-10.3); Carbon Dioxide 21.4 mmol/L (21.6-31.8); Chloride 107 mmol/L (96-109); Glucose 158 mg/dL (70-110); Magnesium 2.1 mg/dL (1.5-2.4); Sodium 140 mmol/L (135-145); Total Bilirubin 0.3 mg/dL (0.3-1.2); Total Protein 5.7 g/dL (6.2-8.2)
[2024-09-27] MEDS ORDERED: GLUCAGON 1 MG/ML VIAL SQ PRN (10:50)
[2024-09-27] MEDS ORDERED: guaiFENesin 600 MG TABLET.ER PO PRN (10:50)
[2024-09-27] MEDS ORDERED: bisacodyL 10 MG SUPP RECTAL PRN (10:50)
[2024-09-27] MEDS ORDERED: MAGNESIUM HYDROXIDE 2,400 MG/30 ML CUP PO PRN (10:50)
[2024-09-27] MEDS ORDERED: DEXTROSE 50% SYRINGE 50 ML IVP PRN (10:52)
[2024-09-27] MEDS: Soliqua 100 Unit-33 Mcg/Ml Pen SQ SCH (11:27)
[2024-09-27] MEDS: IPRATROPIUM-ALBUTEROL 3 ML NEB INHALATION SCH (12:18)
[2024-09-27] MEDS: AMIODARONE 100 MG TAB PO SCH (13:31)
[2024-09-27] MEDS: allopurinoL 100 MG TAB PO SCH (13:31)
[2024-09-27] MEDS: INSULIN LISPRO (HumaLOG) 100 UNIT/ML 10 mL VL SQ SCH ×2 (13:32→13:34)
[2024-09-27] MEDS: amLODIPine 5 MG TAB PO SCH (13:32)
[2024-09-27 17:15] LABS: Glucose,Whole Blood 216 mg/dL (70-110)
[2024-09-27 20:14] LABS: Glucose,Whole Blood 144 mg/dL (70-110)
[2024-09-27] MEDS ORDERED: GABAPENTIN 300 MG CAP PO SCH (21:00)
[2024-09-27] MEDS: HEPARIN SODIUM,PORCINE 5,000 UNIT/ML 1 ML VIAL SQ SCH (22:06)
--- NOTE | 2024-09-27 22:07 | P.CONS ---
History of Present Illness - Reason for Consult Consult date: 09/27/24 Recent pneumonia Requesting physician: Elijah Cm - Chief Complaint Weakness and multiple fall x 1 day - History of Present Illness patient is a 88-year-old male with a past medical history significant for diabetes mellitus hypertension atrial fibrillation recurrent UTI as well as pneumonia patient has been brought into the hospital from a local nursing facil ity concern for multiple falls apparently patient did have 3 falls within 24 hours there was no loss of consciousness or hitting his head patient was complaining of some discomfort to the right elbow and neck area and apparently patient recently completed a course of antibiotic for UTI on presentation to the hospital patient was afebrile and no fever have been called subsequently patient was mildly tachycardic but not hypotensive or hypoxic and no need for supplemental oxygen patient did have elevated white count 16.99 with a left shift creatinine has been elevated electrolytes has been normal liver enzymes normal urine has been negative influenza RSV COVID testing was negative patient did have a chest x-ray that was reported mild cardiomegaly focal patchy medial right basilar opacity pneumonia not excluded patient has been admitted to the hospital infectious disease was consulted concerning for recent pneumonia patient himself not a very good historian and is not very clear why he is in the hospital patient denies any headache or URI symptoms no chest pain shortness of breath or cough no abdominal pain no diarrhea Review of Systems Positive points has been mentioned in HPI complete review could not be obtained because of his underlying mental status Past Medical History Past Medical History: Atrial Fibrillation, Diabetes Mellitus, Hypertension, Pneumonia History of Any Multi-Drug Resistant Organisms: MRSA Year Discovered:: 09/18/24 MDRO Source:: urine Past Surgical History: Appendectomy Additional Past Surgical History / Comment(s): dental Past Anesthesia/Blood Transfusion Reactions: No Reported Reaction Past Psychological History: No Psychological Hx Reported Smoking Status: Former smoker Past Alcohol Use History: None Reported, Rare Past Drug Use History: None Reported - Past Family History Mother History Unknown: Yes Family Medical History: Hypertension Additional Family Medical History / Comment(s): patient confused and does not give clear answers Medications and Allergies Home Medications Medication Instructions Recorded Confirmed Type Gabapentin [Neurontin] 600 mg PO HS@2100 04/28/20 09/26/24 History allopurinoL 100 mg PO DAILY@0800 01/06/22 09/26/24 History Amiodarone [Cordarone] 100 mg PO DAILY@0800 02/10/24 09/26/24 History Cholecalciferol [Vitamin D3 (125 125 mcg PO DAILY@0800 02/10/24 09/26/24 History Mcg = 5000 Iu)] Glucagon [Gvoke Pfs 1-Pack Syringe] 1 mg SQ DIRECTED PRN 09/18/24 09/26/24 History Insulin Glargine/Lixisenatide 24 units SQ DAILY@0800 09/18/24 09/26/24 History [Soliqua 100 Unit-33 Mcg/ml Pen] Megestrol Acetate 20 mg PO DAILY@0800 09/18/24 09/26/24 History guaiFENesin [Mucinex] 600 mg PO Q12HR PRN tab 09/25/24 09/26/24 Rx Insulin Aspart [NovoLOG Flexpen] 3 units SQ ACHS 09/26/24 09/26/24 History Ipratropium-Albuterol Nebulize 3 ml INHALATION RT-Q6H 09/26/24 09/26/24 History [Duoneb 0.5 mg-3 mg/3 ml Soln] Magnesium Hydroxide [Milk of 7,200 mg PO DAILY PRN 09/26/24 09/26/24 History Magnesia Concentrate] Na Phos,M-B/Na Phos,Di-Ba [Fleet 133 ml RECTAL DAILY PRN 09/26/24 09/26/24 History Adult] Sulfamethox-Tmp 800-160Mg [Bactrim 1 tab PO Q12HR@0800,2100 09/26/24 09/26/24 History DS 800-160 mg] amLODIPine [Norvasc] 5 mg PO DAILY@0800 09/26/24 09/26/24 History bisacodyL [Dulcolax] 10 mg RECTAL Q24H PRN 09/26/24 09/26/24 History Allergies Allergy/AdvReac Type Severity Reaction Status Date / Time No Known Allergies Allergy Verified 09/26/24 18:54 Physical Exam Vitals: Vital Signs Temp Pulse Pulse Resp BP BP Pulse Ox 09/27/24 12:29 96 09/27/24 12:18 96 09/27/24 07:30 97.7 F 99 18 143/54 94 L 09/27/24 02:00 18 09/27/24 01:00 98.1 F 102 H 18 142/53 96 09/27/24 00:18 98.9 F 96 20 151/64 92 L 09/26/24 22:22 90 17 128/66 95 09/26/24 16:17 21 09/26/24 16:15 98.0 F 82 21 165/68 94 L 09/26/24 14:36 98.9 F 84 18 130/60 94 L Intake and Output 09/26/24 09/27/24 09/27/24 22:59 06:59 14:59 Intake Total 240 Output Total 300 Balance -300 240 Intake: Oral 240 Output: Urine 300 Other: # Voids 3 1 # Bowel Movements 1 Weight 74.843 kg GENERAL DESCRIPTION: Elderly male lying in bed, no distress. No tachypnea or acc essory muscle of respiration use. HEENT: Shows Pallor , no scleral icterus. Oral mucous membrane is dry. NECK: Trachea central, no thyromegaly. LUNGS: Unlabored breathing. Decreased breath sounds at base HEART: S1, S2, regular rate and rhythm. ABDOMEN: Soft, no tenderness , guarding or rigidity, no organomegaly EXTREMITIES: No edema of feet. SKIN: No rash, no masses palpable. NEUROLOGICAL: The patient is awake, , mood and affect normal. Results CBC & Chem 7: 09/29/24 04:57 09/29/24 04:57 Labs: Abnormal Lab Results - Last 24 Hours (Table) 09/26/24 09/26/24 09/26/24 Range/Units 15:07 15:19 15:19 WBC 16.99 H (4.50-10.00) 10*3/uL RBC 3.82 L (4.40-5.60) 10*6/uL Hgb 11.7 L (13.0-17.0) g/dL Hct 35.1 L (39.6-50.0) % Immature Gran # 0.37 H (0.00-0.04) 10*3/uL Neutrophils # 12.17 H (1.80-7.70) 10*3/uL Monocytes # 1.71 H (0.20-1.00) 10*3/uL Eosinophils # 0.44 H (0.04-0.35) 10*3/uL APTT 19.9 L (22.0-30.0) sec Sodium 136 L (137-145) mmol/L Potassium 6.6 H* (3.5-5.1) mmol/L Carbon Dioxide 20 L (22-30) mmol/L Creatinine 2.01 H (0.66-1.25) mg/dL Est GFR (CKD-EPI) (>=60) BUN/Creatinine Ratio (12.00-20.00) Ratio Glucose 112 H (74-99) mg/dL Total Protein (6.2-8.2) g/dL Albumin 3.1 L (3.5-5.0) g/dL Albumin/Globulin Ratio (1.60-3.17) Ratio 09/27/24 09/27/24 Range/Units 04:22 04:22 WBC 16.06 H (4.50-10.00) 10*3/uL RBC 3.79 L (4.40-5.60) 10*6/uL Hgb 11.4 L (13.0-17.0) g/dL Hct 35.6 L (39.6-50.0) % Immature Gran # 0.28 H (0.00-0.04) 10*3/uL Neutrophils # 11.64 H (1.80-7.70) 10*3/uL Monocytes # 1.39 H (0.20-1.00) 10*3/uL Eosinophils # 0.54 H (0.04-0.35) 10*3/uL APTT (22.0-30.0) sec Sodium (137-145) mmol/L Potassium (3.5-5.1) mmol/L Carbon Dioxide 21.4 L (22-30) mmol/L Creatinine 2.0 H (0.66-1.25) mg/dL Est GFR (CKD-EPI) 32 L (>=60) BUN/Creatinine Ratio 8.60 L (12.00-20.00) Ratio Glucose 158 H (74-99) mg/dL Total Protein 5.7 L (6.2-8.2) g/dL Albumin 2.7 L (3.5-5.0) g/dL Albumin/Globulin Ratio 0.90 L (1.60-3.17) Ratio Assessment and Plan (1) Leukocytosis Current Visit: Yes Status: Acute Code(s): D72.829 - ELEVATED WHITE BLOOD CELL COUNT, UNSPECIFIED SNOMED Code(s): 513255948 Plan: 1patient presented the hospital with weakness and did have multiple falls noticed to have some abnormality on the chest x-ray and concern for possible pneumonia however patient did not have significant respiratory symptoms he is not hypoxic on abnormality has been elevated white count questionably reactive as no clear focus of infection on clinical examination and initial workup including a UA negative abdominal soft on clinical examination and no evidence of any cellulitis or joint swelling 2-will obtain inflammatory markers including CRP and procalcitonin and repeat a CBC with a.m. lab 3-for now we will monitor closely off antibiotic therapy as the patient does not look toxic and no obvious focus of infection We will follow on clinical condition and cultures to further adjust medication if needed Thank you for this consultation we will follow the patient along with you Dictation was produced using [employer] dictation software. please excuse any grammatical, word or spelling errors. Time with Patient: Greater than 30
[2024-09-28 00:48] LABS: Basophils % (A) 0.6 %; Eosinophils # (A) 0.39 10*3/uL (0.04-0.35); Eosinophils % (A) 2.5 %; HCT 34.9 % (39.6-50.0); HGB 11.6 g/dL (13.0-17.0); Lymphocytes # (A) 2.81 10*3/uL (0.90-5.00); MCH 30.7 pg (27.0-32.0); MCHC 33.2 g/dL (32.0-37.0); MCV 92.3 fL (80.0-97.0); Mean Platelet Volume 9.7 fL (9.5-12.2); Monocytes % (A) 8.3 %; Neutrophils # (A) 10.85 10*3/uL (1.80-7.70); Neutrophils % (A) 69.7 %; Platelet Count 457 10*3/uL (140-440); RBC 3.78 10*6/uL (4.40-5.60); RDW 13.2 % (11.5-14.5); WBC 15.59 10*3/uL (4.50-10.00)
[2024-09-28 01:01] LABS: ALT 28 U/L (4-49); AST 23 U/L (17-59); African American GFR (CKD) 33 (>60 ml/min/1.73 sqM); Albumin 2.8 g/dL (3.5-5.0); Albumin/Globulin Ratio 0.8; Alkaline Phosphatase 106 U/L (38-126); Anion Gap 20 mmol/L; Blood Urea Nitrogen 18 mg/dL (9-20); C Reactive Protein 4.3 mg/dL (<1.0); Calcium 9.7 mg/dL (8.4-10.2); Carbon Dioxide 19 mmol/L (22-30); Chloride 105 mmol/L (98-107); Globulin 3.3 g/dL; Glucose 168 mg/dL (74-99); Non-African American GFR(CKD) 29 (>60 ml/min/1.73 sqM); Potassium 4.7 mmol/L (3.5-5.1); Sodium 144 mmol/L (137-145); Total Bilirubin 0.6 mg/dL (0.2-1.3); Total Protein 6.1 g/dL (6.3-8.2)
[2024-09-28 05:50] LABS: Glucose,Whole Blood 194 mg/dL (70-110)
[2024-09-28] MEDS: MORPHINE SULFATE 4 MG/ML SYRINGE IV PRN (06:28)
--- NOTE | 2024-09-28 09:24 | HP ---
HISTORY AND PHYSICAL CHIEF COMPLAINT: Fall and weakness and change in mental status and confusion. HISTORY OF PRESENT ILLNESS: This 88-year-old gentleman who was recently admitted with sepsis secondary to pneumonia and MRSA UTI, [facility]. In the penitentiary, the patient was confused. The patient had a fall and the patient was taken to [facility] and further evaluation and treatment. The white count is still elevated, potassium 6.6, creatinine is also elevated up to 2 indicating acute renal failure. There is no history of fever, rigors, or chills at this time. PAST MEDICAL HISTORY: Reviewed include history of recent sepsis, atrial fibrillation, diabetes mellitus type 2, MRSA. Rest of the chart is also reviewed. HOME MEDICATIONS: Reviewed include Mucinex. Dose and rest of medications reviewed. ALLERGIES: None. FAMILY HISTORY: Could not be taken because of confusion. SOCIAL HISTORY: Could not be taken because of confusion. REVIEW OF SYSTEMS: Could not be taken because of confusion. PHYSICAL EXAMINATION: VITAL SIGNS: Pulse is 96, blood pressure 143/50, and respirations 18. HEENT: Conjunctivae normal. NECK: No jugular venous distention. CARDIOVASCULAR: S1, S2 muffled. RESPIRATION: Breath sounds diminished at the bases. A few scattered rhonchi and crackles. ABDOMEN: Soft, nontender. LEGS: No edema. NERVOUS SYSTEM: Diffusely weak. LABORATORY DATA: WBCs 16.6. ASSESSMENT: 1. Acute renal failure with acute hyperkalemia for evaluation. 2. Change in mental status, metabolic encephalopathy. 3. Falls and gait dysfunction. 4. History of recent sepsis secondary to pneumonia as well as MRSA UTI. 5. Elevated WBC. 6. Diabetes mellitus, type 2. 7. Atrial fibrillation. 8. Hypertension. 9. Multiple complex medical issues. 10.Full code. RECOMMENDATIONS: This 88-year-old gentleman presented with multiple complex medical issues. We will monitor the patient closely. I would recommend avoid Bactrim and monitor closely. Monitor potassium closely. We would recommend repeat cultures. Infectious Disease for antibiotic selection. Neurology for change in mental status. Nephrology for elevation of the creatinine. We will avoid nephrotoxic medications. Prognosis extremely guarded because of multiple complex medical issues. Discussed with the family and further recommendations to follow. MMODL / IJN: [id number] /
[2024-09-28] MEDS: MEGESTROL 40 MG TAB PO SCH (09:38)
[2024-09-28] MEDS: CHOLECALCIFEROL 125 MCG (5000 IU) TABLET PO SCH (09:39)
[2024-09-28 10:54] VITALS: BMI 23.6
[2024-09-28 12:24] LABS: Glucose,Whole Blood 217 mg/dL (70-110)
--- NOTE | 2024-09-28 12:48 | P.CRDCN ---
History of Present Illness Consult date: 09/28/24 History of present illness: - . HPI: This is a 88-year-old gentleman with a known history of MRSA UTI sepsis was sent to the [facility] recently. He has recurrent falls he has paroxysmal atrial fibrillation was in sinus rhythm when he came in but has not been anticoagulated because of a fall risk. While he was here going to the bathroom and back he developed a rapid heart rate was found to be in atrial fibrillation at a rapid ventricular rate and I was asked to see him in this regard. His recent history includes sepsis atrial fibrillation diabetes and MRSA infection. He is not a good historian has some dementia and appears to be confused. His rate is about 120/min but the activity goes up to 140. He is on a small dose of amiodarone. I am recommending that we add metoprolol to tartrate 50 mg twice daily and obtain a limited echo to assess LV function and initiate him on D5.9 saline at 75 cc/h for hydration. Patient appears malnourished. He has no chest pain complaints of palpitations and generalized weakness. RELEVANT PAST MEDICAL HISTORY: Known history of paroxysmal atrial fibrillation, recent episodes of pneumonia, has history of chronic kidney disease. Was on Eliquis 2.5 mg twice daily but apparently this was discontinued because of re current falls. He also has a type 2 diabetes mellitus and hypertension. MEDICATIONS: Home medications included insulin amiodarone amlodipine allopurinol megestrol acetate and amlodipine ALLERGIES: No known drug allergy. REVIEW OF SYSTEMS: Unable to obtain meaningful information. Complains of fe eling weak tired exhausted and falling episodes no chest pain or shortness of breath or palpitations. PHYSICIAL EXAM: Vitals are stable no JVD S1-S2 heard normally irregular rate and rhythm tachycardia noted lungs reveal bilateral diminished air entry abdomen is soft lower extremities reveal diminished pulses Central nervous system no focal deficits but generalized weakness. Patient is malnourished. IMPRESSION: 1. Atrial fibrillation rapid ventricular rate. 2. Known history of paroxysmal A-fib. 3. Type 2 diabetes mellitus. 4. History of recurrent falls. 5.. RECOMMENDATIONS: I am recommending that we add beta-james increase amiodarone obtain echocardiogram and give him some D5.9 saline 75 cc/h. Prognosis remains guarded. Will follow.. Past Medical History Past Medical History: Atrial Fibrillation, Diabetes Mellitus, Hypertension, Pneumonia History of Any Multi-Drug Resistant Organisms: MRSA Date of last positivie culture/infection: 09/18/24 MDRO Source:: urine Past Surgical History: Appendectomy Additional Past Surgical History / Comment(s): dental Past Anesthesia/Blood Transfusion Reactions: No Reported Reaction Past Psychological History: No Psychological Hx Reported Smoking Status: Former smoker Past Alcohol Use History: None Reported, Rare Past Drug Use History: None Reported - Past Family History Mother History Unknown: Yes Family Medical History: Hypertension Additional Family Medical History / Comment(s): patient confused and does not give clear answers Medications and Allergies Home Medications Medication Instructions Recorded Confirmed Type Gabapentin [Neurontin] 600 mg PO HS@2100 04/28/20 09/26/24 History allopurinoL 100 mg PO DAILY@0800 01/06/22 09/26/24 History Amiodarone [Cordarone] 100 mg PO DAILY@0800 02/10/24 09/26/24 History Cholecalciferol [Vitamin D3 (125 125 mcg PO DAILY@0800 02/10/24 09/26/24 History Mcg = 5000 Iu)] Glucagon [Gvoke Pfs 1-Pack Syringe] 1 mg SQ DIRECTED PRN 09/18/24 09/26/24 History Insulin Glargine/Lixisenatide 24 units SQ DAILY@0800 09/18/24 09/26/24 History [Soliqua 100 Unit-33 Mcg/ml Pen] Megestrol Acetate 20 mg PO DAILY@0800 09/18/24 09/26/24 History guaiFENesin [Mucinex] 600 mg PO Q12HR PRN tab 09/25/24 09/26/24 Rx Insulin Aspart [NovoLOG Flexpen] 3 units SQ ACHS 09/26/24 09/26/24 History Ipratropium-Albuterol Nebulize 3 ml INHALATION RT-Q6H 09/26/24 09/26/24 History [Duoneb 0.5 mg-3 mg/3 ml Soln] Magnesium Hydroxide [Milk of 7,200 mg PO DAILY PRN 09/26/24 09/26/24 History Magnesia Concentrate] Na Phos,M-B/Na Phos,Di-Ba [Fleet 133 ml RECTAL DAILY PRN 09/26/24 09/26/24 History Adult] Sulfamethox-Tmp 800-160Mg [Bactrim 1 tab PO Q12HR@0800,2100 09/26/24 09/26/24 History DS 800-160 mg] amLODIPine [Norvasc] 5 mg PO DAILY@0800 09/26/24 09/26/24 History bisacodyL [Dulcolax] 10 mg RECTAL Q24H PRN 09/26/24 09/26/24 History Allergies Allergy/AdvReac Type Severity Reaction Status Date / Time No Known Allergies Allergy Verified 09/26/24 18:54 Physical Exam Vitals: Vital Signs Temp Pulse Pulse Resp BP BP Pulse Ox 09/28/24 08:46 83 09/28/24 08:33 80 09/28/24 07:25 98.2 F 99 18 133/52 94 L 09/28/24 06:28 143/66 09/28/24 01:32 98.2 F 110 H 17 145/72 93 L 09/28/24 00:00 150 H 09/27/24 20:21 82 18 09/27/24 20:14 85 18 09/27/24 19:30 98.1 F 100 17 133/57 97 09/27/24 14:19 97.5 F L 101 H 16 156/81 95 09/27/24 13:29 98.2 F 117 H 16 151/64 96 Intake and Output 09/27/24 09/28/24 09/28/24 22:59 06:59 14:59 Other: # Voids 2 3 Weight 74.843 kg Results 09/28/24 00:32 09/28/24 00:32 Cardiac Enzymes 09/28/24 09/28/24 Range/Units 00:30 00:32 AST 23 (17-59) U/L Troponin I <0.012 (0.000-0.034) ng/mL CBC 09/28/24 Range/Units 00:32 WBC 15.59 H (4.50-10.00) 10*3/uL RBC 3.78 L (4.40-5.60) 10*6/uL Hgb 11.6 L (13.0-17.0) g/dL Hct 34.9 L (39.6-50.0) % Plt Count 457 H (140-440) 10*3/uL Comprehensive Metabolic Panel 09/28/24 Range/Units 00:32 Sodium 144 (137-145) mmol/L Potassium 4.7 (3.5-5.1) mmol/L Chloride 105 (98-107) mmol/L Carbon Dioxide 19 L (22-30) mmol/L BUN 18 (9-20) mg/dL Creatinine 2.05 H (0.66-1.25) mg/dL Glucose 168 H (74-99) mg/dL Calcium 9.7 (8.4-10.2) mg/dL AST 23 (17-59) U/L ALT 28 (4-49) U/L Alkaline Phosphatase 106 (38-126) U/L Total Protein 6.1 L (6.3-8.2) g/dL Albumin 2.8 L (3.5-5.0) g/dL Current Medications Generic Name Dose Route Start Last Admin Trade Name Freq PRN Reason Stop Dose Admin Albuterol/Ipratropium 3 ml 09/26/24 17:07 Ipratropium-Albuterol 3 Ml Neb INHALATION RT-QID PRN Shortness Of Breath Or Wheezing Albuterol/Ipratropium 3 ml 09/27/24 14:00 09/28/24 08:32 Ipratropium-Albuterol 3 Ml Neb INHALATION 3 ml RT-Q6H DAVID Administration Allopurinol 100 mg 09/27/24 10:50 09/28/24 09:39 Allopurinol 100 Mg Tab PO 100 mg DAILY@0800 DAVID Administration Amiodarone HCl 200 mg 09/29/24 09:00 Amiodarone 200 Mg Tab PO DAILY [facility] Amlodipine Besylate 5 mg 09/27/24 10:50 09/28/24 09:39 Amlodipine 5 Mg Tab PO 5 mg DAILY@0800 DAVID Administration Bisacodyl 10 mg 09/27/24 10:50 Bisacodyl 10 Mg Supp RECTAL Q24H PRN Constipation Cholecalciferol 125 mcg 09/28/24 08:00 09/28/24 09:39 Cholecalciferol 125 Mcg (5000 Iu) Tablet PO 125 mcg DAILY@0800 DAVID Administration Dextrose/Water 25 ml 09/27/24 10:52 Dextrose 50% Syringe 50 Ml IVP PER PROTOCOL PRN Hypoglycemia Protocol Dextrose/Water 50 ml 09/27/24 10:52 Dextrose 50% Syringe 50 Ml IVP PER PROTOCOL PRN Hypoglycemia Protocol Folic Acid 1 mg 09/28/24 12:00 Folic Acid 1 Mg Tab PO DAILY@1200 [facility] Glucagon 1 mg 09/27/24 10:50 Glucagon 1 Mg/Ml Vial SQ DAILY PRN Hypoglycemia Guaifenesin 600 mg 09/27/24 10:50 Guaifenesin 600 Mg Tablet.Er PO Q12HR PRN Cough Heparin Sodium (Porcine) 5,000 unit 09/27/24 21:00 09/28/24 09:38 Heparin Sodium,Porcine 5,000 Unit/Ml 1 Ml Vial SQ 5,000 unit Q12HR [facility] Administration Dextrose/Sodium Chloride 1,000 mls @ 75 mls/hr 09/28/24 12:30 Dextrose 5%-Ns Iv Soln IV .[id number] [facility] Insulin Human Lispro 3 unit 09/27/24 12:30 09/28/24 09:32 Insulin Lispro (Humalog) 100 Unit/Ml 10 Ml Vl SQ Not Given ACHS [facility] Insulin Human Lispro 0 unit 09/27/24 12:30 09/28/24 06:21 Insulin Lispro (Humalog) 100 Unit/Ml 10 Ml Vl SQ 2 unit ACHS [facility] Administration Protocol Magnesium Hydroxide 7,200 mg 09/27/24 10:50 Magnesium Hydroxide 2,400 Mg/30 Ml Cup PO DAILY PRN 2 days no bm Megestrol Acetate 20 mg 09/28/24 08:00 09/28/24 09:38 Megestrol 40 Mg Tab PO 20 mg DAILY@0800 [facility] Administration Metoprolol Tartrate 50 mg 09/28/24 12:30 Metoprolol Tartrate 50 Mg Tab PO BID [facility] Morphine Sulfate 4 mg 09/26/24 17:06 09/28/24 06:28 Morphine Sulfate 4 Mg/Ml Syringe IV 4 mg Q4HR PRN Administration Severe Pain (Scale 7 to 10) Multivitamins 1 each 09/28/24 12:00 Multivitamins, Thera 1 Each Tab PO DAILY@1200 [facility] Naloxone HCl 0.2 mg 09/26/24 17:06 Naloxone 0.4 Mg/Ml 1 Ml Vial IV Q2M PRN Opioid Reversal Soliqua 100 Unit-33 1 each 09/27/24 10:50 09/28/24 09:39 Mcg/Ml Pen SQ Not Given DAILY@0800 [facility] Ondansetron HCl 4 mg 09/26/24 17:06 Ondansetron 4 Mg/2 Ml Vial IVP Q8HR PRN Nausea And Vomiting Thiamine HCl 100 mg 09/28/24 12:00 Thiamine 100 Mg Tab PO DAILY@1200 DAVID Intake and Output 09/27/24 09/28/24 09/28/24 22:59 06:59 14:59 Other: # Voids 2 3 Weight 74.843 kg Patient Weight 09/29/24 06:59 Weight 74.843 kg 09/28/24 00:32 09/28/24 00:32
[2024-09-28] MEDS: METOPROLOL TARTRATE 50 MG TAB PO SCH (13:07)
[2024-09-28] MEDS: THIAMINE 100 MG TAB PO SCH (13:07)
[2024-09-28] MEDS: FOLIC ACID 1 MG TAB PO SCH (13:07)
[2024-09-28] MEDS: MULTIVITAMINS, THERA 1 EACH TAB PO SCH (13:07)
--- NOTE | 2024-09-28 13:07 | P.NPCON ---
History of Present Illness - Reason for Consult acute renal failure - History of Present Illness Patient is an 88-year-old male with history of chronic kidney disease stage IIIb with baseline creatinine about 1.5 - 1.8 mg/dL. Patient was sent from [facility] to the hospital after a fall. Blood pressure was not low No fever noted Chest x-ray showed possible underlying pneumonia with mild pulmonary vascular congestion. Serum creatinine has been at 2.0 mg/dL for the last 3 days. Potassium was elevated at 6.6, now decreased to 4.7. Bactrim noted on med list Currently not on IV fluids Patient has been voiding. Patient was just discharged from the hospital on 09/25/2024 after hospitalization for weakness. He was noted to have MRSA infection in the urine and was discharged on Bactrim Past Medical History Past Medical History: Atrial Fibrillation, Diabetes Mellitus, Hypertension, Pneumonia History of Any Multi-Drug Resistant Organisms: MRSA Date of last positivie culture/infection: 09/18/24 MDRO Source:: urine Past Surgical History: Appendectomy Additional Past Surgical History / Comment(s): dental Past Anesthesia/Blood Transfusion Reactions: No Reported Reaction Past Psychological History: No Psychological Hx Reported Smoking Status: Former smoker Past Alcohol Use History: None Reported, Rare Past Drug Use History: None Reported - Past Family History Mother History Unknown: Yes Family Medical History: Hypertension Additional Family Medical History / Comment(s): patient confused and does not g ofelia clear answers Medications and Allergies Home Medications Medication Instructions Recorded Confirmed Type Gabapentin [Neurontin] 600 mg PO HS@2100 04/28/20 09/26/24 History allopurinoL 100 mg PO DAILY@79901/06/22 09/26/24 History Amiodarone [Cordarone] 100 mg PO DAILY@79902/10/24 09/26/24 History Cholecalciferol [Vitamin D3 (125 125 mcg PO DAILY@79902/10/24 09/26/24 History Mcg = 5000 Iu)] Glucagon [Gvoke Pfs 1-Pack Syringe] 1 mg SQ DIRECTED PRN 09/18/24 09/26/24 History Insulin Glargine/Lixisenatide 24 units SQ DAILY@79909/18/24 09/26/24 History [Soliqua 100 Unit-33 Mcg/ml Pen] Megestrol Acetate 20 mg PO DAILY@79909/18/24 09/26/24 History guaiFENesin [Mucinex] 600 mg PO Q12HR PRN tab 09/25/24 09/26/24 Rx Insulin Aspart [NovoLOG Flexpen] 3 units SQ ACHS 09/26/24 09/26/24 History Ipratropium-Albuterol Nebulize 3 ml INHALATION RT-Q6H 09/26/24 09/26/24 History [Duoneb 0.5 mg-3 mg/3 ml Soln] Magnesium Hydroxide [Milk of 7,200 mg PO DAILY PRN 09/26/24 09/26/24 History Magnesia Concentrate] Na Phos,M-B/Na Phos,Di-Ba [Fleet 133 ml RECTAL DAILY PRN 09/26/24 09/26/24 History Adult] Sulfamethox-Tmp 800-160Mg [Bactrim 1 tab PO Q12HR@0800,2100 09/26/24 09/26/24 History DS 800-160 mg] amLODIPine [Norvasc] 5 mg PO DAILY@0800 09/26/24 09/26/24 History bisacodyL [Dulcolax] 10 mg RECTAL Q24H PRN 09/26/24 09/26/24 History Allergies Allergy/AdvReac Type Severity Reaction Status Date / Time No Known Allergies Allergy Verified 09/26/24 18:54 Physical Exam Vitals: Vital Signs Temp Pulse Pulse Resp BP BP Pulse Ox 09/28/24 08:46 83 09/28/24 08:33 80 09/28/24 07:25 98.2 F 99 18 133/52 94 L 09/28/24 06:28 143/66 09/28/24 01:32 98.2 F 110 H 17 145/72 93 L 09/28/24 00:00 150 H 09/27/24 20:21 82 18 09/27/24 20:14 85 18 09/27/24 19:30 98.1 F 100 17 133/57 97 09/27/24 14:19 97.5 F L 101 H 16 156/81 95 09/27/24 13:29 98.2 F 117 H 16 151/64 96 Intake and Output 09/27/24 09/28/24 09/28/24 22:59 06:59 14:59 Other: # Voids 2 3 Weight 74.843 kg Patient is awake, comfortable, no acute distress Examination of the heart S1 and S2 Examination of the lungs decreased breath sounds at the bases Abdomen is soft nontender Examination of lower extremities shows no significant edema [place] exam shows patient is moving all 4 extremities Results - Lab Results Most recent lab results Calcium 9.7 mg/dL (8.4-10.2) 09/28/24 00:32 Phosphorus 5.0 mg/dL (2.4-5.1) 09/27/24 04:22 Magnesium 2.1 mg/dL (1.5-2.4) 09/27/24 04:22 09/28/24 00:32 09/28/24 00:32 Assessment and Plan Assessment: 1. Acute kidney injury, nonoliguric, rule out urine retention. Most likely ATN. It appears her serum creatinine has been at about 1.8 to 2 mg/dL with lowest reading at 1.4 on 09/20/2024. Current UA is quite benign. Check ultrasound of the kidneys 2. Recent MRSA infection in the urine status post Bactrim. Currently UA is negative 3. Possible pneumonia 4. Generalized debility 5. Chronic kidney disease stage IIIb with baseline creatinine 1.5 to 1.8 mg/dL secondary to nephrosclerosis Plan: Challenge with IV fluids Repeat labs in a.m. Continue to hold off on Bactrim Encourage increased oral intake Check ultrasound of the kidneys Thank you for the consultation. We will continue to follow the patient with you during his hospitalization.
[2024-09-28] MEDS: DEXTROSE 5%-0.9% NACL 1,000 ML IV SCH (13:08)
--- NOTE | 2024-09-28 15:03 | US ---
EXAMINATION TYPE: US kidneys/renal and bladder DATE OF EXAM: 09/28/2024 COMPARISON: CT 02/10/2024, US 01/13/2021 CLINICAL INDICATION: Male, 88 years old with history of PHILLIP TECHNIQUE: Grayscale imaging of the bilateral kidneys and urinary bladder: FINDINGS: EXAM MEASUREMENTS: Right Kidney: 6.7x3.4x4.4 cm Left Kidney: 9.6x4.0x5.0 cm Right Kidney: A cyst at the upper pole measures 2.7x2.4x2.9cm and may have thin internal septation. N o hydronephrosis. Left Kidney: No hydronephrosis or masses seen Bladder: Trabeculated bladder wall with right posterior bladder wall diverticulum measuring 2.3x1.8x2 .5cm Bilateral Jets seen: Yes Manager Emergency Department notes: Exam limited by patient cooperation, bowel gas IMPRESSION: 1. No hydronephrosis. 2. A benign 2.9 cm cyst upper pole right kidney. 3. Trabeculated appearance to the bladder wall suggesting bladder wall hypertrophy/chronic bladder ou tlet obstruction. Clinically correlate. 4. 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 [facility], , 09/28/2024 3:01 PM
[2024-09-28 17:22] LABS: Glucose,Whole Blood 106 mg/dL (70-110)
[2024-09-28 19:59] LABS: Glucose,Whole Blood 157 mg/dL (70-110)
[2024-09-28] MEDS: SODIUM CHLORIDE 0.9% 1,000 ML IV SCH (21:44)
--- NOTE | 2024-09-29 02:42 | PN ---
PROGRESS NOTE DATE OF SERVICE: 09/28/2024 This is an 88-year-old gentleman, who was admitted with fall and weakness and change in mental status and confusion. Was thought to have acute renal failure. The patient also had recent UTI also. Multiple consultants are following the patient closely. The patient also has atrial fibrillation with fast ventricular rate. Cultures are negative so far. PAST MEDICAL HISTORY: Reviewed. REVIEW OF SYSTEMS: Could not be taken. CURRENT MEDICATIONS: Reviewed. PHYSICAL EXAMINATION: VITAL SIGNS: Pulse is 99, blood pressure 133/52, respirations 18. CHEST: Few scattered rhonchi and crackles. ABDOMEN: Soft, nontender. EXTREMITIES: Legs: No edema. NERVOUS SYSTEM: Nonfocal. LABORATORY DATA: WBC 15. Creatinine is 2.05. ASSESSMENT: 1. Acute renal failure with acute hyperkalemia, possibly from medications. 2. Atrial fibrillation with fast ventricular rate. 3. Change in mental status, acute metabolic encephalopathy. 4. Elevated white blood count. 5. Falls and gait dysfunction. 6. History of recent sepsis secondary to pneumonia as well as methicillin-resistant Staphylococcus aureus urinary tract infection. 7. Diabetes mellitus, type 2. 8. Hypertension. 9. Multiple complex medical issues. RECOMMENDATIONS: Recommend to continue current management and treatment. Closely follow up with Cardiology. The patient is on amiodarone at this time. We will continue to monitor. The cultures are negative so far. PT/OT evaluation, possible ECF rehab. Guarded prognosis. Further recommendations to follow. DVT prophylaxis. MMODL / IJN: [id number] /
[2024-09-29 06:13] LABS: Glucose,Whole Blood 140 mg/dL (70-110)
[2024-09-29 08:08] LABS: Basophils # (A) 0.09 X 10*3/uL (0.00-0.10); Basophils % (A) 0.6 %; Eosinophils # (A) 0.38 X 10*3/uL (0.04-0.35); Eosinophils % (A) 2.7 %; HCT 36.7 % (39.6-50.0); HGB 11.8 g/dL (13.0-17.0); Lymphocytes # (A) 3.54 X 10*3/uL (0.90-5.00); Lymphocytes % (A) 25.2 %; MCH 29.8 pg (27.0-32.0); MCHC 32.2 g/dL (32.0-37.0); MCV 92.7 FL (80.0-97.0); Mean Platelet Volume 10.2 FL (9.5-12.2); Monocytes # (A) 1.32 X 10*3/uL (0.20-1.00); Monocytes % (A) 9.4 %; NRBC Per 100 WBC 0 X 10*3/uL (0.00-0.01); Neutrophils # (A) 8.65 X 10*3/uL (1.80-7.70); Neutrophils % (A) 61.6 %; Platelet Count 481 X 10*3/uL (140-440); RBC 3.96 X 10*6/uL (4.40-5.60); RDW 13.1 % (11.5-14.5); WBC 14.05 X 10*3/uL (4.50-10.00)
--- NOTE | 2024-09-29 08:19 | CA ---
Transthoracic Echo Report Name: Piero Cook Age: 88 Gender: M : 1935 Exam Date: 09/28/2024 14:13 Exam Location: [facility] Ht (in): 70 Wt (lb): 165 Ordering Physician: Marycruz Kimball MD ([id number]) Attending/Referring Phys: Cash Applications Analyst [place] Chen, TEZ Procedure CPT: Indications: afib rvr Cardiac Hx: Limited Technical Quality: Good Contrast 1: Total Dose (mL): Contrast 2: Total Dose (mL): MEASUREMENTS (Male / Female) Normal Values 2D ECHO LV Diastolic Volume MOD BP 90.6 cm??? 67 - 155 / 56 - 104 cm??? LV Systolic Volume MOD BP 48.6 cm??? 22 - 58 / 19 - 49 cm??? LV Ejection Fraction MOD BP 46.3 % >= 55 % LV Cardiac Index MOD BP 2528.8 cm???/min???m??? LV Diastolic Volume MOD 4C 80.6 cm??? LV Systolic Volume MOD 4C 40.7 cm??? LV Ejection Fraction MOD 4C 49.5 % LV Cardiac Index MOD 4C 2401.5 cm???/min???m??? LV Diastolic Length 4C 7.9 cm LV Systolic Length 4C 7.2 cm LV Diastolic Volume MOD 2C 99.0 cm??? LV Systolic Volume MOD 2C 55.4 cm??? LV Ejection Fraction MOD 2C 44.1 % LV Cardiac Index MOD 2C 2629.0 cm???/min???m??? LV Diastolic Length 2C 8.1 cm LV Systolic Length 2C 6.8 cm DOPPLER AI Peak Velocity 316.0 cm/s AI Peak Gradient 39.9 mmHg AI Pressure Half Time 379.8 ms MV Peak Velocity 152.7 cm/s MV Peak Gradient 9.3 mmHg MV Mean Velocity 80.1 cm/s MV Mean Gradient 3.1 mmHg MV Velocity Time Integral 26.8 cm TR Peak Velocity 283.6 cm/s TR Peak Gradient 32.2 mmHg Right Atrial Pressure 5.0 mmHg Pulmonary Artery Systolic Pressu 37.2 mmHg Right Ventricular Systolic Press 37.2 mmHg FINDINGS Left Ventricle Left ventricular ejection fraction is estimated at 40-45 %. Mildly decreased left ventricular ejection fraction.Moderately reduced global left ventricular systolic function. Right Ventricle Mild right ventricular dilatation. Mild pulmonary hypertension. Right Atrium Left Atrium Mitral Valve Mitral annular calcification. Mitral valve thickened. No mitral stenosis. Trace mitral regurgitation. Aortic Valve Trileaflet aortic valve. Diffuse thickening (sclerosis) of the aortic valve cusps without reduced excursion. [id number] aortic regurgitation. Tricuspid Valve Structurally normal tricuspid valve. No tricuspid stenosis. Mild tricuspid regurgitation. Pulmonic Valve Pulmonic valve not well visualized. Pericardium No pericardial effusion. Aorta CONCLUSIONS Patient is in atrial fibrillation with tachycardia. LV function assessment is not accurate ejection fraction is in the 40 to 45% range with a global decrease in contractility. Aortic sclerosis with mild to moderate regurgitation mild mitral and tricuspid regurgitation no pericardial effusion Previewed by: Dr. Marycruz Kimball MD (Electronically Signed) Final Date: 29 Sep 2024 08:19
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
[2024-09-29 08:36] LABS: BUN/Creat Ratio 10.45 Ratio (12.00-20.00); Blood Urea Nitrogen 20.9 mg/dL (9.0-27.0); Calcium 9.5 mg/dL (8.7-10.3); Carbon Dioxide 15.9 mmol/L (21.6-31.8); Chloride 106 mmol/L (96-109); Glucose 152 mg/dL (70-110); Potassium 5.2 mmol/L (3.5-5.5); Sodium 138 mmol/L (135-145)
--- NOTE | 2024-09-29 10:19 | US ---
EXAMINATION TYPE: US carotid duplex BILAT DATE OF EXAM: 09/29/2024 COMPARISON: NONE CLINICAL INDICATION: Male, 88 years old with history of frequent falls,; frequent falls , AMS Additional History: .... TECHNIQUE: Grayscale, color Doppler and spectral Doppler evaluation of the bilateral carotid systems and vertebral arteries. Indirect Doppler criteria was utilized. 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 Spectral waveforms are within normal limits. IMPRESSION: 1. No hemodynamically significant internal carotid artery stenosis on either side. 2. Unable to visualize the right vertebral artery. Criteria for Assigning % of Stenosis / Diameter reduction (Estimation based on the indirect measurements of the internal carotid artery velocities (ICA PSV). 1. Normal (no stenosis)=ICA PSV < 180 cm/s: ratio < 2.0: ICA EDV<40 cm/s. 2. Less than 50% stenosis=ICA PSV < 180 cm/s: ratio < 2.0: ICA EDV<40 cm/s. 3. 50 to 69% stenosis=ICA PSV of 180 to 230 cm/s: ration 2.0 ? 4.0: ICA EDV 40-100 cm/s. PSV 125-180 cm/sec and ICA/CCA PSV Ratio ? 2.0 is also consistent with 50-69% stenosis 4. Greater than 70% stenosis to near occlusion= ICA PSV > 230 cm/s: ratio > 4.0: ICA EDV > 100 cm/s. 5. Near occlusion= ICA PSV velocities may be low or undetectable: variable ratio and ICA EDV. 6. Total occlusion=unable to detect flow. [facility], , 09/29/2024 10:17 AM
[2024-09-29] MEDS: hydroCHLOROthiazide 25 MG TAB PO SCH (10:37)
[2024-09-29] MEDS: ASPIRIN 81 MG PO SCH (10:37)
[2024-09-29] MEDS: methIMAzole 5 MG TAB PO SCH (10:37)
[2024-09-29] MEDS: METOPROLOL TARTRATE 50 MG TAB PO SCH (10:39)
[2024-09-29] MEDS: AMIODARONE 200 MG TAB PO SCH (11:01)
[2024-09-29 12:08] LABS: Glucose,Whole Blood 208 mg/dL (70-110)
--- NOTE | 2024-09-29 15:27 | P.PN ---
Subjective Progress Note Date: 09/28/24 Principal diagnosis: Reason for follow-up is leukocytosis and question of pneumonia patient is a 88-year-old male with a past medical history significant for diabetes mellitus hypertension atrial fibrillation recurrent UTI as well as pneumonia patient has been brought into the hospital from a local nursing facility concern for multiple falls, patient also have a cough chest x-ray with a focal patchy medial right basilar opacity concerning for pneumonia prompted this consultation. On today's evaluation that is 09/28/2024, patient has been afebrile, patient is breathing comfortably and is currently on room air, patient denies having any chest pain occasional cough, patient denies nausea vomiting or diarrhea and no abdominal pain. The patient white count is down to 15.59 creatinine is 2.05 Objective - Vital Signs Vital signs: Vital Signs Temp 98.2 F 09/28/24 07:25 Pulse 83 09/28/24 08:46 Resp 18 09/28/24 07:25 BP 133/52 09/28/24 07:25 Pulse Ox 94 L 09/28/24 07:25 FiO2 Intake & Output 09/27/24 09/28/24 09/28/24 18:59 06:59 18:59 Intake Total 240 Balance 240 Weight 74.843 kg Intake: Oral 240 Other: # Voids 1 3 - Exam GENERAL DESCRIPTION: An elderly male lying in bed in no distress RESPIRATORY SYSTEM: Unlabored breathing , decreased breath sounds at bases HEART: S1 S2 regular rate and rhythm , ABDOMEN: Soft , no tenderness EXTREMITIES: No edema feet - Labs CBC & Chem 7: 09/29/24 04:57 09/29/24 04:57 Labs: Abnormal Lab Results - Last 24 Hours (Table) 09/27/24 09/27/24 09/27/24 Range/Units 14:20 17:10 20:11 WBC (4.50-10.00) 10*3/uL RBC (4.40-5.60) 10*6/uL Hgb (13.0-17.0) g/dL Hct (39.6-50.0) % Plt Count (140-440) 10*3/uL Immature Gran # (0.00-0.04) 10*3/uL Neutrophils # (1.80-7.70) 10*3/uL Monocytes # (0.20-1.00) 10*3/uL Eosinophils # (0.04-0.35) 10*3/uL Carbon Dioxide (22-30) mmol/L Creatinine (0.66-1.25) mg/dL Glucose (74-99) mg/dL POC Glucose (mg/dL) 216 H 144 H (70-110) mg/dL Hemoglobin A1c 10.5 H (<=6.0) % C-Reactive Protein (<1.0) mg/dL Total Protein (6.3-8.2) g/dL Albumin (3.5-5.0) g/dL 09/28/24 09/28/24 09/28/24 Range/Units 00:32 00:32 05:49 WBC 15.59 H (4.50-10.00) 10*3/uL RBC 3.78 L (4.40-5.60) 10*6/uL Hgb 11.6 L (13.0-17.0) g/dL Hct 34.9 L (39.6-50.0) % Plt Count 457 H (140-440) 10*3/uL Immature Gran # 0.14 H (0.00-0.04) 10*3/uL Neutrophils # 10.85 H (1.80-7.70) 10*3/uL Monocytes # 1.30 H (0.20-1.00) 10*3/uL Eosinophils # 0.39 H (0.04-0.35) 10*3/uL Carbon Dioxide 19 L (22-30) mmol/L Creatinine 2.05 H (0.66-1.25) mg/dL Glucose 168 H (74-99) mg/dL POC Glucose (mg/dL) 194 H (70-110) mg/dL Hemoglobin A1c (<=6.0) % C-Reactive Protein 4.3 H (<1.0) mg/dL Total Protein 6.1 L (6.3-8.2) g/dL Albumin 2.8 L (3.5-5.0) g/dL Assessment and Plan (1) Leukocytosis Current Visit: Yes Status: Acute Code(s): D72.829 - ELEVATED WHITE BLOOD CELL COUNT, UNSPECIFIED SNOMED Code(s): 534462920 Plan: 1patient presented the hospital with weakness and did have multiple falls noticed to have some abnormality on the chest x-ray and concern for possible pneumonia however patient did not have significant respiratory symptoms he is not hypoxic on abnormality has been elevated white count questionably reactive as no clear focus of infection on clinical examination and initial workup including a UA negative abdominal soft on clinical examination and no evidence of any cellulitis or joint swelling 2-patient did have normal procalcitonin and the patient white count is trending down without antibiotic therapy hence we will monitor closely off antibiotic Dictation was produced using [employer] dictation software. please excuse any grammatical, word or spelling errors. Time with Patient: Less than 30
--- NOTE | 2024-09-29 15:28 | P.PN ---
Subjective Progress Note Date: 09/29/24 Principal diagnosis: Reason for follow-up is leukocytosis and question of pneumonia patient is a 88-year-old male with a past medical history significant for diabetes mellitus hypertension atrial fibrillation recurrent UTI as well as pneumonia patient has been brought into the hospital from a local nursing facility concern for multiple falls, patient also have a cough chest x-ray with a focal patchy medial right basilar opacity concerning for pneumonia prompted this consultation. On today's evaluation that is 09/29/2024, Patient is afebrile this morning patient denies having any chest pain shortness of breath or any worsening cough, the patient is currently on room air, patient denies any abdominal pain no diarrhea no nausea no vomiting, has been complaining of feeling weak. Patient white count is down to 14.05 creatinine is 2.0 blood cultures so far negative Objective - Vital Signs Vital signs: Vital Signs Temp 97.8 F 09/29/24 07:00 Pulse 80 09/29/24 08:54 Resp 16 09/29/24 07:00 BP 145/55 09/29/24 07:00 Pulse Ox 96 09/29/24 07:00 FiO2 Intake & Output 09/28/24 09/29/24 09/29/24 18:59 06:59 18:59 Intake Total 118 Output Total 94 Balance -94 118 Weight 74.843 kg Intake: Oral 118 Output: Post Void Residual 94 Other: # Voids 3 3 - Exam GENERAL DESCRIPTION: An elderly male lying in bed in no distress RESPIRATORY SYSTEM: Unlabored breathing , decreased breath sounds at bases HEART: S1 S2 regular rate and rhythm , ABDOMEN: Soft , no tenderness EXTREMITIES: No edema feet - Labs CBC & Chem 7: 09/29/24 04:57 09/29/24 04:57 Labs: Abnormal Lab Results - Last 24 Hours (Table) 09/28/24 09/28/24 09/28/24 Range/Units 00:32 12:20 19:58 WBC (4.50-10.00) X 10*3/uL RBC (4.40-5.60) X 10*6/uL Hgb (13.0-17.0) g/dL Hct (39.6-50.0) % Plt Count (140-440) X 10*3/uL Immature Gran # (0.00-0.04) X 10*3/uL Neutrophils # (1.80-7.70) X 10*3/uL Monocytes # (0.20-1.00) X 10*3/uL Eosinophils # (0.04-0.35) X 10*3/uL Carbon Dioxide (21.6-31.8) mmol/L Anion Gap (4.00-12.00) mmol/L Creatinine (0.6-1.5) mg/dL Est GFR (CKD-EPI) (>=60) BUN/Creatinine Ratio (12.00-20.00) Ratio Glucose (70-110) mg/dL POC Glucose (mg/dL) 217 H 157 H (70-110) mg/dL TSH 0.009 L (0.350-5.500) UIU/ML Free (T4) Reflex I 4.15 H (0.80-1.80) ng/dL 09/29/24 09/29/24 09/29/24 Range/Units 04:57 04:57 06:11 WBC 14.05 H (4.50-10.00) X 10*3/uL RBC 3.96 L (4.40-5.60) X 10*6/uL Hgb 11.8 L (13.0-17.0) g/dL Hct 36.7 L (39.6-50.0) % Plt Count 481 H (140-440) X 10*3/uL Immature Gran # 0.07 H (0.00-0.04) X 10*3/uL Neutrophils # 8.65 H (1.80-7.70) X 10*3/uL Monocytes # 1.32 H (0.20-1.00) X 10*3/uL Eosinophils # 0.38 H (0.04-0.35) X 10*3/uL Carbon Dioxide 15.9 L (21.6-31.8) mmol/L Anion Gap 16.10 H (4.00-12.00) mmol/L Creatinine 2.0 H (0.6-1.5) mg/dL Est GFR (CKD-EPI) 32 L (>=60) BUN/Creatinine Ratio 10.45 L (12.00-20.00) Ratio Glucose 152 H (70-110) mg/dL POC Glucose (mg/dL) 140 H (70-110) mg/dL TSH (0.350-5.500) UIU/ML Free (T4) Reflex I (0.80-1.80) ng/dL Microbiology - Last 24 Hours (Table) 09/27/24 14:13 Blood Culture - Preliminary Blood Assessment and Plan (1) Leukocytosis Current Visit: Yes Status: Acute Code(s): D72.829 - ELEVATED WHITE BLOOD CELL COUNT, UNSPECIFIED SNOMED Code(s): 248844563 Plan: 1patient presented the hospital with weakness and did have multiple falls noticed to have some abnormality on the chest x-ray and concern for possible pneumonia however patient did not have significant respiratory symptoms he is not hypoxic on abnormality has been elevated white count questionably reactive as no clear focus of infection on clinical examination and initial workup including a UA negative abdominal soft on clinical examination and no evidence of any cellulitis or joint swelling 2-patient did have normal procalcitonin and the patient white count is trending down without use of any systemic antibiotics hence we will monitor the patient closely off antibiotic at this point Dictation was produced using [employer] dictation software. please excuse any grammatical, word or spelling errors. Time with Patient: Less than 30
[2024-09-29 17:27] LABS: Glucose,Whole Blood 122 mg/dL (70-110)
--- NOTE | 2024-09-29 17:54 | P.PN ---
Subjective Patient is seen for follow-up for chronic kidney disease and mild acute kidney injury. He has been confused Started on IV fluids yesterday Serum creatinine staying at 2.0. Postvoid residual was only 98 Objective - Vital Signs Vital signs: Vital Signs Temp 97.0 F L 09/29/24 14:30 Pulse 76 09/29/24 15:45 Resp 16 09/29/24 14:30 BP 135/51 09/29/24 14:30 Pulse Ox 97 09/29/24 14:30 FiO2 Intake & Output 09/28/24 09/29/24 09/29/24 18:59 06:59 18:59 Intake Total 118 Output Total 94 Balance -94 118 Weight 74.843 kg Intake: Oral 118 Output: Post Void Residual 94 Other: # Voids 3 3 5 - Exam Patient is sleeping but arousable Examination of the heart S1 and S2 Examination of the lungs bilateral breath sounds are heard Abdomen is soft nontender Examination of lower extremities shows no evidence of edema - Labs CBC & Chem 7: 09/29/24 04:57 09/29/24 04:57 Labs: Abnormal Lab Results - Last 24 Hours (Table) 09/28/24 09/28/24 09/29/24 Range/Units 00:32 19:58 04:57 WBC 14.05 H (4.50-10.00) X 10*3/uL RBC 3.96 L (4.40-5.60) X 10*6/uL Hgb 11.8 L (13.0-17.0) g/dL Hct 36.7 L (39.6-50.0) % Plt Count 481 H (140-440) X 10*3/uL Immature Gran # 0.07 H (0.00-0.04) X 10*3/uL Neutrophils # 8.65 H (1.80-7.70) X 10*3/uL Monocytes # 1.32 H (0.20-1.00) X 10*3/uL Eosinophils # 0.38 H (0.04-0.35) X 10*3/uL Carbon Dioxide (21.6-31.8) mmol/L Anion Gap (4.00-12.00) mmol/L Creatinine (0.6-1.5) mg/dL Est GFR (CKD-EPI) (>=60) BUN/Creatinine Ratio (12.00-20.00) Ratio Glucose (70-110) mg/dL POC Glucose (mg/dL) 157 H (70-110) mg/dL TSH 0.009 L (0.350-5.500) UIU/ML Free (T4) Reflex I 4.15 H (0.80-1.80) ng/dL 09/29/24 09/29/24 09/29/24 Range/Units 04:57 06:11 12:06 WBC (4.50-10.00) X 10*3/uL RBC (4.40-5.60) X 10*6/uL Hgb (13.0-17.0) g/dL Hct (39.6-50.0) % Plt Count (140-440) X 10*3/uL Immature Gran # (0.00-0.04) X 10*3/uL Neutrophils # (1.80-7.70) X 10*3/uL Monocytes # (0.20-1.00) X 10*3/uL Eosinophils # (0.04-0.35) X 10*3/uL Carbon Dioxide 15.9 L (21.6-31.8) mmol/L Anion Gap 16.10 H (4.00-12.00) mmol/L Creatinine 2.0 H (0.6-1.5) mg/dL Est GFR (CKD-EPI) 32 L (>=60) BUN/Creatinine Ratio 10.45 L (12.00-20.00) Ratio Glucose 152 H (70-110) mg/dL POC Glucose (mg/dL) 140 H 208 H (70-110) mg/dL TSH (0.350-5.500) UIU/ML Free (T4) Reflex I (0.80-1.80) ng/dL 09/29/24 Range/Units 17:25 WBC (4.50-10.00) X 10*3/uL RBC (4.40-5.60) X 10*6/uL Hgb (13.0-17.0) g/dL Hct (39.6-50.0) % Plt Count (140-440) X 10*3/uL Immature Gran # (0.00-0.04) X 10*3/uL Neutrophils # (1.80-7.70) X 10*3/uL Monocytes # (0.20-1.00) X 10*3/uL Eosinophils # (0.04-0.35) X 10*3/uL Carbon Dioxide (21.6-31.8) mmol/L Anion Gap (4.00-12.00) mmol/L Creatinine (0.6-1.5) mg/dL Est GFR (CKD-EPI) (>=60) BUN/Creatinine Ratio (12.00-20.00) Ratio Glucose (70-110) mg/dL POC Glucose (mg/dL) 122 H (70-110) mg/dL TSH (0.350-5.500) UIU/ML Free (T4) Reflex I (0.80-1.80) ng/dL Microbiology - Last 24 Hours (Table) 09/27/24 14:13 Blood Culture - Preliminary Blood Assessment and Plan Assessment: 1. Acute kidney injury, nonoliguric. Most likely ATN. Serum creatinine has been at about 1.8 to 2 mg/dL with lowest reading at 1.4 on 09/20/2024. Current UA is quite benign. Ultrasound does not show any evidence of obstructive uropathy. 2. Recent MRSA infection in the urine status post Bactrim. Currently UA is negative 3. Possible pneumonia 4. Generalized debility 5. Chronic kidney disease stage IIIb with baseline creatinine 1.5 to 1.8 mg/dL secondary to nephrosclerosis Plan: Continue with IV fluids Repeat labs in a.m. Continue to hold off on Bactrim Encourage increased oral intake
--- NOTE | 2024-09-29 18:08 | P.PN ---
Subjective Progress Note Date: 09/29/24 09/28/24 This is a 88-year-old gentleman with a known history of MRSA UTI sepsis was sent to the assisted recently. He has recurrent falls he has paroxysmal atrial fibrillation was in sinus rhythm when he came in but has not been anticoagulated because of a fall risk. While he was here going to the bathroom and back he developed a rapid heart rate was found to be in atrial fibrillation at a rapid ventricular rate and I was asked to see him in this regard. His recent history includes sepsis atrial fibrillation diabetes and MRSA infection. He is not a good historian has some dementia and appears to be confused. His rate is about 120/min but the activity goes up to 140. He is on a small dose of amiodarone. I am recommending that we add metoprolol to tartrate 50 mg twice daily and obtain a limited echo to assess LV function and initiate him on D5.9 saline at 75 cc/h for hydration. Patient appears malnourished. He has no chest pain complaints of palpitations and generalized weakness. RELEVANT PAST MEDICAL HISTORY: Known history of paroxysmal atrial fibrillation, recent episodes of pneumonia, has history of chronic kidney disease. Was on Eliquis 2.5 mg twice daily but apparently this was discontinued because of recurrent falls. He also has a type 2 diabetes mellitus and hypertension. MEDICATIONS: Home medications included insulin amiodarone amlodipine allopurinol megestrol acetate and amlodipine ALLERGIES: No known drug allergy. REVIEW OF SYSTEMS: Unable to obtain meaningful information. Complains of feeling weak tired exhausted and falling episodes no chest pain or shortness of breath or palpitations. PHYSICIAL EXAM: Vitals are stable no JVD S1-S2 heard normally irregular rate and rhythm tachycardia noted lungs reveal bilateral diminished air entry abdomen is soft lower extremities reveal diminished pulses Central nervous system no focal deficits but generalized weakness. Patient is malnourished. IMPRESSION: 1. Atrial fibrillation rapid ventricular rate. 2. Known history of paroxysmal A-fib. 3. Type 2 diabetes mellitus. 4. History of recurrent falls. 5.. RECOMMENDATIONS: I am recommending that we add beta-james increase amiodarone obtain echocardiogram and give him some D5.9 saline 75 cc/h. Prognosis remains guarded. Will follow.. 09/28/24 This gentleman was seen by me yesterday with atrial fibrillation and rapid ventricular rate. This morning he is in sinus rhythm. I reviewed his laboratory data including thyroid function tests and noted that he is hyperthyroid. I will discontinue amiodarone and start him on Tapazole 5 mg 3 times daily and I personally spoke to the admitting doctor Dr. Cm and he will follow-up in this regard with regard with his hyperthyroid management. I will increase his metoprolol to tartrate to 50 mg twice daily. He is with his daughter he feels better he has eaten something but overall his appetite is poor which is unusual with hyperthyroidism but he may have some other issues as well. Maintaining sinus rhythm hemodynamically stable still does not wish to eat appears a bit malnourished. I am recommending that we continue current therapy except discontinue amiodarone increase metoprolol to tartrate to 50 mg 3 times daily and add Tapazole 5 mg 3 times daily and watch his white count closely which will be addressed by his admitting doctor Dr. Cm with whom I have spoken by telephone today. Physical exam revealed vital signs are stable S1-S2 heard normally rhythm is regular lungs reveal bilateral decent air entry the bases are diminished abdomen is soft lower extremities reveal diminished pulses Central nervous system does not reveal focal deficits. Prognosis remains guarde d Objective - Vital Signs Vital signs: Vital Signs Temp 97.0 F L 09/29/24 14:30 Pulse 76 09/29/24 15:45 Resp 16 09/29/24 14:30 BP 135/51 09/29/24 14:30 Pulse Ox 97 09/29/24 14:30 FiO2 Intake & Output 09/28/24 09/29/24 09/29/24 18:59 06:59 18:59 Intake Total 118 Output Total 94 Balance -94 118 Weight 74.843 kg Intake: Oral 118 Output: Post Void Residual 94 Other: # Voids 3 3 5 - Labs CBC & Chem 7: 09/29/24 04:57 09/29/24 04:57 Labs: Abnormal Lab Results - Last 24 Hours (Table) 09/28/24 09/28/24 09/29/24 Range/Units 00:32 19:58 04:57 WBC 14.05 H (4.50-10.00) X 10*3/uL RBC 3.96 L (4.40-5.60) X 10*6/uL Hgb 11.8 L (13.0-17.0) g/dL Hct 36.7 L (39.6-50.0) % Plt Count 481 H (140-440) X 10*3/uL Immature Gran # 0.07 H (0.00-0.04) X 10*3/uL Neutrophils # 8.65 H (1.80-7.70) X 10*3/uL Monocytes # 1.32 H (0.20-1.00) X 10*3/uL Eosinophils # 0.38 H (0.04-0.35) X 10*3/uL Carbon Dioxide (21.6-31.8) mmol/L Anion Gap (4.00-12.00) mmol/L Creatinine (0.6-1.5) mg/dL Est GFR (CKD-EPI) (>=60) BUN/Creatinine Ratio (12.00-20.00) Ratio Glucose (70-110) mg/dL POC Glucose (mg/dL) 157 H (70-110) mg/dL TSH 0.009 L (0.350-5.500) UIU/ML Free (T4) Reflex I 4.15 H (0.80-1.80) ng/dL 09/29/24 09/29/24 09/29/24 Range/Units 04:57 06:11 12:06 WBC (4.50-10.00) X 10*3/uL RBC (4.40-5.60) X 10*6/uL Hgb (13.0-17.0) g/dL Hct (39.6-50.0) % Plt Count (140-440) X 10*3/uL Immature Gran # (0.00-0.04) X 10*3/uL Neutrophils # (1.80-7.70) X 10*3/uL Monocytes # (0.20-1.00) X 10*3/uL Eosinophils # (0.04-0.35) X 10*3/uL Carbon Dioxide 15.9 L (21.6-31.8) mmol/L Anion Gap 16.10 H (4.00-12.00) mmol/L Creatinine 2.0 H (0.6-1.5) mg/dL Est GFR (CKD-EPI) 32 L (>=60) BUN/Creatinine Ratio 10.45 L (12.00-20.00) Ratio Glucose 152 H (70-110) mg/dL POC Glucose (mg/dL) 140 H 208 H (70-110) mg/dL TSH (0.350-5.500) UIU/ML Free (T4) Reflex I (0.80-1.80) ng/dL 09/29/24 Range/Units 17:25 WBC (4.50-10.00) X 10*3/uL RBC (4.40-5.60) X 10*6/uL Hgb (13.0-17.0) g/dL Hct (39.6-50.0) % Plt Count (140-440) X 10*3/uL Immature Gran # (0.00-0.04) X 10*3/uL Neutrophils # (1.80-7.70) X 10*3/uL Monocytes # (0.20-1.00) X 10*3/uL Eosinophils # (0.04-0.35) X 10*3/uL Carbon Dioxide (21.6-31.8) mmol/L Anion Gap (4.00-12.00) mmol/L Creatinine (0.6-1.5) mg/dL Est GFR (CKD-EPI) (>=60) BUN/Creatinine Ratio (12.00-20.00) Ratio Glucose (70-110) mg/dL POC Glucose (mg/dL) 122 H (70-110) mg/dL TSH (0.350-5.500) UIU/ML Free (T4) Reflex I (0.80-1.80) ng/dL Microbiology - Last 24 Hours (Table) 09/27/24 14:13 Blood Culture - Preliminary Blood
[2024-09-29 20:17] LABS: Glucose,Whole Blood 267 mg/dL (70-110)
[2024-09-30 00:27] LABS: Glucose,Whole Blood 51 mg/dL (70-110)
[2024-09-30] MEDS: DEXTROSE 50% SYRINGE 50 ML IVP PRN (00:28)
[2024-09-30 00:42] LABS: Glucose,Whole Blood 253 mg/dL (70-110)
--- NOTE | 2024-09-30 04:21 | PN ---
PROGRESS NOTE DATE OF SERVICE: 09/29/2024 This is an 88-year-old gentleman, who was admitted with fall and weakness and change in mental status, also had atrial ablation with fast ventricular rate. The patient also had renal failure, also the patient is being closely monitored. The patient is able to ambulate with some weakness. Multiple consultants are following the patient closely. A carotid ultrasound showed no significant lesions. PAST MEDICAL HISTORY: Reviewed. REVIEW OF SYSTEMS: Fourteen-point review of systems negative. CURRENT MEDICATIONS: Reviewed. PHYSICAL EXAMINATION: VITAL SIGNS: Pulse is 81, blood pressure 135/80, respirations 16. CHEST: Few scattered rhonchi and crackles. ABDOMEN: Soft, nontender. LABORATORY DATA: WBC 14.05. The creatinine is 2. UA unremarkable. ASSESSMENT: 1. Acute renal failure with acute hyperkalemia, possibly from medication. 2. Atrial fibrillation, fast ventricular rate. 3. Elevated WBC. 4. Change in mental status, acute metabolic encephalopathy. 5. Fall and gait dysfunction. 6. History of recent sepsis secondary to pneumonia as well as. 7. methicillin-resistant Staphylococcus aureus urinary tract infection. 8. Diabetes mellitus, type 2. 9. Hypertension. 10.Multiple complex medical issues. RECOMMENDATIONS: I recommend to continue current management and symptomatic treatment. Repeat labs. Cultures are negative so far. The patient is on cautious IV fluids. The patient also has elevated basophils, eosinophils and monocytes also. I would also recommend hematology/oncology consultation for continued followup. MMODL / IJN: [id number] / MTDD
--- NOTE | 2024-09-30 06:06 | P.PN ---
Subjective Progress Note Date: 09/29/24 Patient was seen for a follow-up. Patient is sitting comfortably in the bed. Offers no new complaints. Per sitter, he was slightly agitated, wants to go home. Objective - Vital Signs Vital signs: Vital Signs Temp 97.8 F 09/29/24 07:00 Pulse 80 09/29/24 08:54 Resp 16 09/29/24 07:00 BP 145/55 09/29/24 07:00 Pulse Ox 96 09/29/24 07:00 FiO2 Intake & Output 09/28/24 09/29/24 09/29/24 18:59 06:59 18:59 Intake Total 118 Output Total 94 Balance -94 118 Weight 74.843 kg Intake: Oral 118 Output: Post Void Residual 94 Other: # Voids 3 3 - Exam Unchanged. - Labs CBC & Chem 7: 09/29/24 04:57 09/29/24 04:57 Labs: Abnormal Lab Results - Last 24 Hours (Table) 09/28/24 09/28/24 09/29/24 Range/Units 00:32 19:58 04:57 WBC 14.05 H (4.50-10.00) X 10*3/uL RBC 3.96 L (4.40-5.60) X 10*6/uL Hgb 11.8 L (13.0-17.0) g/dL Hct 36.7 L (39.6-50.0) % Plt Count 481 H (140-440) X 10*3/uL Immature Gran # 0.07 H (0.00-0.04) X 10*3/uL Neutrophils # 8.65 H (1.80-7.70) X 10*3/uL Monocytes # 1.32 H (0.20-1.00) X 10*3/uL Eosinophils # 0.38 H (0.04-0.35) X 10*3/uL Carbon Dioxide (21.6-31.8) mmol/L Anion Gap (4.00-12.00) mmol/L Creatinine (0.6-1.5) mg/dL Est GFR (CKD-EPI) (>=60) BUN/Creatinine Ratio (12.00-20.00) Ratio Glucose (70-110) mg/dL POC Glucose (mg/dL) 157 H (70-110) mg/dL TSH 0.009 L (0.350-5.500) UIU/ML Free (T4) Reflex I 4.15 H (0.80-1.80) ng/dL 09/29/24 09/29/24 09/29/24 Range/Units 04:57 06:11 12:06 WBC (4.50-10.00) X 10*3/uL RBC (4.40-5.60) X 10*6/uL Hgb (13.0-17.0) g/dL Hct (39.6-50.0) % Plt Count (140-440) X 10*3/uL Immature Gran # (0.00-0.04) X 10*3/uL Neutrophils # (1.80-7.70) X 10*3/uL Monocytes # (0.20-1.00) X 10*3/uL Eosinophils # (0.04-0.35) X 10*3/uL Carbon Dioxide 15.9 L (21.6-31.8) mmol/L Anion Gap 16.10 H (4.00-12.00) mmol/L Creatinine 2.0 H (0.6-1.5) mg/dL Est GFR (CKD-EPI) 32 L (>=60) BUN/Creatinine Ratio 10.45 L (12.00-20.00) Ratio Glucose 152 H (70-110) mg/dL POC Glucose (mg/dL) 140 H 208 H (70-110) mg/dL TSH (0.350-5.500) UIU/ML Free (T4) Reflex I (0.80-1.80) ng/dL Microbiology - Last 24 Hours (Table) 09/27/24 14:13 Blood Culture - Preliminary Blood Assessment and Plan Assessment: * Frequent falls, unclear cause. Examination is nonfocal. * Atrial fibrillation * Diabetes * Hypertension * Recent history of sepsis/pneumonia * Chronic renal disease * Acute kidney injury, nephrology on board * Former smoker * Hyperthyroidism Plan: * Patient's examination is relatively nonfocal. * B12 474, folate 6.90, patient started on folic acid 1 mg daily. * TSH 0.009, and free T4 elevated 4.15. We will defer to IM to address hy perthyroidism. * 2-D echo revealed patient in atrial fibrillation, with LV EF 40-45%. Moderately reduced global left ventricular systolic function. Mild right ventricular dilation. Aortic sclerosis with mild to moderate regurgitation. Mild MR. * Carotid Doppler revealed no hemodynamically significant stenosis in the either ICA. Right vertebral artery not seen. Left vertebral had antegrade flow. * Hemoglobin A1c 10.5. Recommend optimize control of diabetes to target A1c < 7.0. * Patient has atrial fibrillation, but currently not on anticoagulation. Cardiology has seen, and was considered not a candidate for anticoagulation because of fall risk. We will start aspirin 81 mg daily. * PT OT evaluate gait. * Neurologically clear for discharge. Dr. Jos Gaston starting neurology service in the morning for any neurological concerns.
[2024-09-30 06:22] LABS: Glucose,Whole Blood 223 mg/dL (70-110)
[2024-09-30 07:19] LABS: Basophils # (A) 0.11 10*3/uL (0.00-0.10); Basophils % (A) 0.7 %; Eosinophils # (A) 0.12 10*3/uL (0.04-0.35); Eosinophils % (A) 0.8 %; HCT 36.2 % (39.6-50.0); HGB 11.8 g/dL (13.0-17.0); Lymphocytes # (A) 2.91 10*3/uL (0.90-5.00); Lymphocytes % (A) 19.3 %; MCH 30.6 pg (27.0-32.0); MCHC 32.6 g/dL (32.0-37.0); Mean Platelet Volume 10.1 fL (9.5-12.2); Monocytes # (A) 1.06 10*3/uL (0.20-1.00); Neutrophils # (A) 10.82 10*3/uL (1.80-7.70); Neutrophils % (A) 71.6 %; Platelet Count 465 10*3/uL (140-440); RBC 3.85 10*6/uL (4.40-5.60); RDW 12.8 % (11.5-14.5); WBC 15.11 10*3/uL (4.50-10.00)
[2024-09-30 07:45] LABS: Carbon Dioxide 15 mmol/L (22-30); Chloride 107 mmol/L (98-107); Glucose 228 mg/dL (74-99); Sodium 137 mmol/L (137-145)
[2024-09-30 07:46] LABS: ALT 22 U/L (4-49); AST 21 U/L (17-59); African American GFR (CKD) 38 (>60 ml/min/1.73 sqM); Albumin 3.3 g/dL (3.5-5.0); Alkaline Phosphatase 93 U/L (38-126); Anion Gap 15 mmol/L; Blood Urea Nitrogen 22 mg/dL (9-20); Globulin 3.3 g/dL; Non-African American GFR(CKD) 33 (>60 ml/min/1.73 sqM); Total Bilirubin 0.6 mg/dL (0.2-1.3); Total Protein 6.6 g/dL (6.3-8.2)
--- NOTE | 2024-09-30 11:24 | P.PN ---
Subjective Progress Note Date: 09/30/24 The patient was seen and evaluated this morning. He remains in sinus mechanism with a slight sinus tachycardia and also hypertensive. I am going to increase the dose of beta-james with obviously he is not on any anticoagulation because of history of falling and possible bleeding. The physical examination is remarkable for regular rhythm with sinus tachycardia and systolic murmur at the right upper sternal border and clear breathing sounds bilaterally and no edema was noted Assessment A-fib with RVR currently the patient is in sinus mechanism with sinus tachycardia Multiple comorbid conditions Plan Increase the dose of beta-james Follow-up with the patient Objective - Vital Signs Vital signs: Vital Signs Temp 98.6 F 09/30/24 07:00 Pulse 70 09/30/24 08:04 Resp 17 09/30/24 07:00 BP 161/70 09/30/24 07:00 Pulse Ox 96 09/30/24 07:00 FiO2 Intake & Output 09/29/24 09/30/24 09/30/24 18:59 06:59 18:59 Intake Total 118 240 Balance 118 240 Intake: Oral 118 240 Other: Voiding Method Toilet # Voids 5 5 - Labs CBC & Chem 7: 09/30/24 06:41 09/30/24 06:41 Labs: Abnormal Lab Results - Last 24 Hours (Table) 09/29/24 09/29/24 09/29/24 Range/Units 12:06 17:25 20:16 WBC (4.50-10.00) 10*3/uL RBC (4.40-5.60) 10*6/uL Hgb (13.0-17.0) g/dL Hct (39.6-50.0) % Plt Count (140-440) 10*3/uL Immature Gran # (0.00-0.04) 10*3/uL Neutrophils # (1.80-7.70) 10*3/uL Monocytes # (0.20-1.00) 10*3/uL Basophils # (0.00-0.10) 10*3/uL Carbon Dioxide (22-30) mmol/L BUN (9-20) mg/dL Creatinine (0.66-1.25) mg/dL Glucose (74-99) mg/dL POC Glucose (mg/dL) 208 H 122 H 267 H (70-110) mg/dL Albumin (3.5-5.0) g/dL 09/30/24 09/30/24 09/30/24 Range/Units 00:26 00:41 06:21 WBC (4.50-10.00) 10*3/uL RBC (4.40-5.60) 10*6/uL Hgb (13.0-17.0) g/dL Hct (39.6-50.0) % Plt Count (140-440) 10*3/uL Immature Gran # (0.00-0.04) 10*3/uL Neutrophils # (1.80-7.70) 10*3/uL Monocytes # (0.20-1.00) 10*3/uL Basophils # (0.00-0.10) 10*3/uL Carbon Dioxide (22-30) mmol/L BUN (9-20) mg/dL Creatinine (0.66-1.25) mg/dL Glucose (74-99) mg/dL POC Glucose (mg/dL) 51 L 253 H 223 H (70-110) mg/dL Albumin (3.5-5.0) g/dL 09/30/24 09/30/24 Range/Units 06:41 06:41 WBC 15.11 H (4.50-10.00) 10*3/uL RBC 3.85 L (4.40-5.60) 10*6/uL Hgb 11.8 L (13.0-17.0) g/dL Hct 36.2 L (39.6-50.0) % Plt Count 465 H (140-440) 10*3/uL Immature Gran # 0.09 H (0.00-0.04) 10*3/uL Neutrophils # 10.82 H (1.80-7.70) 10*3/uL Monocytes # 1.06 H (0.20-1.00) 10*3/uL Basophils # 0.11 H (0.00-0.10) 10*3/uL Carbon Dioxide 15 L (22-30) mmol/L BUN 22 H (9-20) mg/dL Creatinine 1.82 H (0.66-1.25) mg/dL Glucose 228 H (74-99) mg/dL POC Glucose (mg/dL) (70-110) mg/dL Albumin 3.3 L (3.5-5.0) g/dL Microbiology - Last 24 Hours (Table) 09/27/24 14:13 Blood Culture - Preliminary Blood
[2024-09-30 12:19] LABS: Glucose,Whole Blood 290 mg/dL (70-110)
--- NOTE | 2024-09-30 13:54 | P.PN ---
Subjective Progress Note Date: 09/30/24 Patient is seen for follow-up for chronic kidney disease and mild acute kidney injury. Patient is sleeping but arousable Examination of the heart S1 and S2 Examination of the lungs bilateral breath sounds are heard Abdomen is soft nontender Examination of lower extremities shows no evidence of edema Objective - Vital Signs Vital signs: Vital Signs Temp 98.6 F 09/30/24 07:00 Pulse 70 09/30/24 08:04 Resp 17 09/30/24 07:00 BP 161/70 09/30/24 07:00 Pulse Ox 96 09/30/24 07:00 FiO2 Intake & Output 09/29/24 09/30/24 09/30/24 18:59 06:59 18:59 Intake Total 118 240 Balance 118 240 Intake: Oral 118 240 Other: Voiding Method Toilet # Voids 5 5 - Labs CBC & Chem 7: 09/30/24 06:41 09/30/24 06:41 Labs: Abnormal Lab Results - Last 24 Hours (Table) 09/29/24 09/29/24 09/30/24 Range/Units 17: 20:16 00:26 WBC (4.50-10.00) 10*3/uL RBC (4.40-5.60) 10*6/uL Hgb (13.0-17.0) g/dL Hct (39.6-50.0) % Plt Count (140-440) 10*3/uL Immature Gran # (0.00-0.04) 10*3/uL Neutrophils # (1.80-7.70) 10*3/uL Monocytes # (0.20-1.00) 10*3/uL Basophils # (0.00-0.10) 10*3/uL Carbon Dioxide (22-30) mmol/L BUN (9-20) mg/dL Creatinine (0.66-1.25) mg/dL Glucose (74-99) mg/dL POC Glucose (mg/dL) 122 H 267 H 51 L (70-110) mg/dL Albumin (3.5-5.0) g/dL 09/30/24 09/30/24 09/30/24 Range/Units 00:41 06:21 06:41 WBC 15.11 H (4.50-10.00) 10*3/uL RBC 3.85 L (4.40-5.60) 10*6/uL Hgb 11.8 L (13.0-17.0) g/dL Hct 36.2 L (39.6-50.0) % Plt Count 465 H (140-440) 10*3/uL Immature Gran # 0.09 H (0.00-0.04) 10*3/uL Neutrophils # 10.82 H (1.80-7.70) 10*3/uL Monocytes # 1.06 H (0.20-1.00) 10*3/uL Basophils # 0.11 H (0.00-0.10) 10*3/uL Carbon Dioxide (22-30) mmol/L BUN (9-20) mg/dL Creatinine (0.66-1.25) mg/dL Glucose (74-99) mg/dL POC Glucose (mg/dL) 253 H 223 H (70-110) mg/dL Albumin (3.5-5.0) g/dL 09/30/24 09/30/24 Range/Units 06:41 12:17 WBC (4.50-10.00) 10*3/uL RBC (4.40-5.60) 10*6/uL Hgb (13.0-17.0) g/dL Hct (39.6-50.0) % Plt Count (140-440) 10*3/uL Immature Gran # (0.00-0.04) 10*3/uL Neutrophils # (1.80-7.70) 10*3/uL Monocytes # (0.20-1.00) 10*3/uL Basophils # (0.00-0.10) 10*3/uL Carbon Dioxide 15 L (22-30) mmol/L BUN 22 H (9-20) mg/dL Creatinine 1.82 H (0.66-1.25) mg/dL Glucose 228 H (74-99) mg/dL POC Glucose (mg/dL) 290 H (70-110) mg/dL Albumin 3.3 L (3.5-5.0) g/dL Microbiology - Last 24 Hours (Table) 09/27/24 14:13 Blood Culture - Preliminary Blood Assessment and Plan Assessment: 1. Acute kidney injury, nonoliguric. Most likely ATN. Serum creatinine has been at about 1.8 to 2 mg/dL with lowest reading at 1.4 on 09/20/2024. Current UA is quite benign. Ultrasound does not show any evidence of obstructive uropathy. 2. Recent MRSA infection in the urine status post Bactrim. Currently UA is n egative 3. Possible pneumonia 4. Generalized debility 5. Chronic kidney disease stage IIIb with baseline creatinine 1.5-1.8 mg/dL secondary to nephrosclerosis Plan: Continue with gentle IV fluids Repeat labs in a.m. Continue to hold off on Bactrim Encourage increased oral intake
--- NOTE | 2024-09-30 17:03 | P.PN ---
Subjective Progress Note Date: 09/30/24 Principal diagnosis: Reason for follow-up is leukocytosis and question of pneumonia patient is a 88-year-old male with a past medical history significant for diabetes mellitus hypertension atrial fibrillation recurrent UTI as well as pneumonia patient has been brought into the hospital from a local nursing facility concern for multiple falls, patient also have a cough chest x-ray with a focal patchy medial right basilar opacity concerning for pneumonia prompted this consultation. On today's evaluation that is 09/30/2024,the patient denies any fever or any chills, patient is breathing comfortably on room air, the patient denies chest pain shortness of breath and no significant cough, patient denies abdominal pain, no nausea vomiting or diarrhea. Patient white count is up to 14.11 today, creatinine is 1.82 blood culture has been negative Objective - Vital Signs Vital signs: Vital Signs Temp 97.5 F L 09/30/24 15:00 Pulse 72 09/30/24 15:41 Resp 16 09/30/24 15:00 BP 165/69 09/30/24 15:00 Pulse Ox 96 09/30/24 15:00 FiO2 Intake & Output 09/29/24 09/30/24 09/30/24 18:59 06:59 18:59 Intake Total 118 480 Balance 118 480 Intake: Oral 118 480 Other: Voiding Method Toilet # Voids 5 5 6 - Exam GENERAL DESCRIPTION: An elderly male lying in bed in no distress RESPIRATORY SYSTEM: Unlabored breathing , decreased breath sounds at bases HEART: S1 S2 regular rate and rhythm , ABDOMEN: Soft , no tenderness EXTREMITIES: No edema feet - Labs CBC & Chem 7: 09/30/24 06:41 09/30/24 06:41 Labs: Abnormal Lab Results - Last 24 Hours (Table) 09/29/24 09/29/24 09/30/24 Range/Units 17:25 20:16 00:26 WBC (4.50-10.00) 10*3/uL RBC (4.40-5.60) 10*6/uL Hgb (13.0-17.0) g/dL Hct (39.6-50.0) % Plt Count (140-440) 10*3/uL Immature Gran # (0.00-0.04) 10*3/uL Neutrophils # (1.80-7.70) 10*3/uL Monocytes # (0.20-1.00) 10*3/uL Basophils # (0.00-0.10) 10*3/uL Carbon Dioxide (22-30) mmol/L BUN (9-20) mg/dL Creatinine (0.66-1.25) mg/dL Glucose (74-99) mg/dL POC Glucose (mg/dL) 122 H 267 H 51 L (70-110) mg/dL Albumin (3.5-5.0) g/dL 09/30/24 09/30/24 09/30/24 Range/Units 00:41 06:21 06:41 WBC 15.11 H (4.50-10.00) 10*3/uL RBC 3.85 L (4.40-5.60) 10*6/uL Hgb 11.8 L (13.0-17.0) g/dL Hct 36.2 L (39.6-50.0) % Plt Count 465 H (140-440) 10*3/uL Immature Gran # 0.09 H (0.00-0.04) 10*3/uL Neutrophils # 10.82 H (1.80-7.70) 10*3/uL Monocytes # 1.06 H (0.20-1.00) 10*3/uL Basophils # 0.11 H (0.00-0.10) 10*3/uL Carbon Dioxide (22-30) mmol/L BUN (9-20) mg/dL Creatinine (0.66-1.25) mg/dL Glucose (74-99) mg/dL POC Glucose (mg/dL) 253 H 223 H (70-110) mg/dL Albumin (3.5-5.0) g/dL 09/30/24 09/30/24 Range/Units 06:41 12:17 WBC (4.50-10.00) 10*3/uL RBC (4.40-5.60) 10*6/uL Hgb (13.0-17.0) g/dL Hct (39.6-50.0) % Plt Count (140-440) 10*3/uL Immature Gran # (0.00-0.04) 10*3/uL Neutrophils # (1.80-7.70) 10*3/uL Monocytes # (0.20-1.00) 10*3/uL Basophils # (0.00-0.10) 10*3/uL Carbon Dioxide 15 L (22-30) mmol/L BUN 22 H (9-20) mg/dL Creatinine 1.82 H (0.66-1.25) mg/dL Glucose 228 H (74-99) mg/dL POC Glucose (mg/dL) 290 H (70-110) mg/dL Albumin 3.3 L (3.5-5.0) g/dL Microbiology - Last 24 Hours (Table) 09/27/24 14:13 Blood Culture - Preliminary Blood Assessment and Plan (1) Leukocytosis Current Visit: Yes Status: Acute Code(s): D72.829 - ELEVATED WHITE BLOOD CELL COUNT, UNSPECIFIED SNOMED Code(s): 804776343 Plan: 1patient presented the hospital with weakness and did have multiple falls noticed to have some abnormality on the chest x-ray and concern for possible pneumonia however patient did not have significant respiratory symptoms he is not hypoxic on abnormality has been elevated white count questionably reactive as no clear focus of infection on clinical examination and initial workup including a UA negative abdominal soft on clinical examination and no evidence of any cellulitis or joint swelling 2-patient did have normal procalcitonin and the patient white count is trending down as of yesterday but is now trending up I will recheck his inflammatory marker repeat his CBC with a.m. lab Dictation was produced using [employer] dictation software. please excuse any grammatical, word or spelling errors. Time with Patient: Less than 30
--- NOTE | 2024-09-30 17:07 | P.CONS ---
History of Present Illness - Reason for Consult Consult date: 09/30/24 Monocytosis, eosinophilia - History of Present Illness Mr. Cook is an 88-year-old gentleman with a past medical history significant for multiple medical comorbidities including prostate cancer followed with by urology, recurrent UTIs, and diabetes mellitus type 2 for whom we are consulted with regards to eosinophilia and monocytosis. He was admitted to [facility] from 09/20/2024 through 09/25/2024 and was treated for pneumonia in addition to MRSA UTI with Bactrim. He was discharged on 09/25/2024, but due to increased weakness, was subsequently readmitted on 09/26/2024. Review of his CBCs have noted neutrophilic leukocytosis dating back to at least October 2018 with more recent monocytosis and eosinophilia since 09/18/2024. Since he has been admitted in early September 2024, he has been having hemoglobins in the 11 range slightly decreased from 12-13 documented over the past few years. In addition, he has also had recent mild thrombocytosis since 09/24/2024. Currently, he denies any fevers, chills, night sweats, lymphadenopathy, anorexia, unexplained weight loss. He has not smoked cigarettes since the age of 50 and does not smoke marijuana. He is not currently taking any corticosteroids. He denies any prior history of splenectomy. He does endorse drinking alcohol. Review of Systems 14 point review of systems was conducted pertinent positives and negatives as no nakul per HPI Past Medical History Past Medical History: Atrial Fibrillation, Diabetes Mellitus, Hypertension, Pneumonia History of Any Multi-Drug Resistant Organisms: MRSA Year Discovered:: 09/18/24 MDRO Source:: urine Past Surgical History: Appendectomy Additional Past Surgical History / Comment(s): dental Past Anesthesia/Blood Transfusion Reactions: No Reported Reaction Past Psychological History: No Psychological Hx Reported Smoking Status: Former smoker Past Alcohol Use History: None Reported, Rare Past Drug Use History: None Reported - Past Family History Mother History Unknown: Yes Family Medical History: Hypertension Additional Family Medical History / Comment(s): patient confused and does not give clear answers Medications and Allergies Home Medications Medication Instructions Recorded Confirmed Type Gabapentin [Neurontin] 600 mg PO HS@2100 04/28/20 09/26/24 History allopurinoL 100 mg PO DAILY@0800 01/06/22 09/26/24 History Amiodarone [Cordarone] 100 mg PO DAILY@0800 02/10/24 09/26/24 History Cholecalciferol [Vitamin D3 (125 125 mcg PO DAILY@0800 02/10/24 09/26/24 History Mcg = 5000 Iu)] Glucagon [Gvoke Pfs 1-Pack Syringe] 1 mg SQ DIRECTED PRN 09/18/24 09/26/24 History Insulin Glargine/Lixisenatide 24 units SQ DAILY@0800 09/18/24 09/26/24 History [Soliqua 100 Unit-33 Mcg/ml Pen] Megestrol Acetate 20 mg PO DAILY@0800 09/18/24 09/26/24 History guaiFENesin [Mucinex] 600 mg PO Q12HR PRN tab 09/25/24 09/26/24 Rx Insulin Aspart [NovoLOG Flexpen] 3 units SQ ACHS 09/26/24 09/26/24 History Ipratropium-Albuterol Nebulize 3 ml INHALATION RT-Q6H 09/26/24 09/26/24 History [Duoneb 0.5 mg-3 mg/3 ml Soln] Magnesium Hydroxide [Milk of 7,200 mg PO DAILY PRN 09/26/24 09/26/24 History Magnesia Concentrate] Na Phos,M-B/Na Phos,Di-Ba [Fleet 133 ml RECTAL DAILY PRN 09/26/24 09/26/24 History Adult] Sulfamethox-Tmp 800-160Mg [Bactrim 1 tab PO Q12HR@0800,2100 09/26/24 09/26/24 History DS 800-160 mg] amLODIPine [Norvasc] 5 mg PO DAILY@0800 09/26/24 09/26/24 History bisacodyL [Dulcolax] 10 mg RECTAL Q24H PRN 09/26/24 09/26/24 History Allergies Allergy/AdvReac Type Severity Reaction Status Date / Time No Known Allergies Allergy Verified 09/26/24 18:54 Physical Exam Vitals: Vital Signs Temp Pulse Pulse Resp BP BP Pulse Ox 09/30/24 15:41 72 09/30/24 15:31 74 09/30/24 15:00 97.5 F L 98 16 165/69 96 09/30/24 08:04 70 09/30/24 07:51 72 09/30/24 07:00 98.6 F 105 H 17 161/70 96 09/30/24 01:53 97.4 F L 97 17 176/83 95 09/29/24 19:37 97.7 F 85 15 141/72 96 Intake and Output 09/30/24 09/30/24 09/30/24 06:59 14:59 22:59 Intake Total 480 Balance 480 Intake: Oral 480 Other: Voiding Method Toilet Toilet # Voids 5 6 - Constitutional General appearance: cooperative, no acute distress - EENT Poor dentition - Neck Neck: no lymphadenopathy - Respiratory Respiratory: bilateral: CTA - Cardiovascular Rhythm: regular - Gastrointestinal General gastrointestinal: no distended, soft, no tenderness - Integumentary Integumentary: no rash - Neurologic Neurologic: CNII-XII intact Results CBC & Chem 7: 09/30/24 06:41 09/30/24 06:41 Labs: Abnormal Lab Results - Last 24 Hours (Table) 09/29/24 09/29/24 09/30/24 Range/Units 17: 20:16 00:26 WBC (4.50-10.00) 10*3/uL RBC (4.40-5.60) 10*6/uL Hgb (13.0-17.0) g/dL Hct (39.6-50.0) % Plt Count (140-440) 10*3/uL Immature Gran # (0.00-0.04) 10*3/uL Neutrophils # (1.80-7.70) 10*3/uL Monocytes # (0.20-1.00) 10*3/uL Basophils # (0.00-0.10) 10*3/uL Carbon Dioxide (22-30) mmol/L BUN (9-20) mg/dL Creatinine (0.66-1.25) mg/dL Glucose (74-99) mg/dL POC Glucose (mg/dL) 122 H 267 H 51 L (70-110) mg/dL Albumin (3.5-5.0) g/dL 09/30/24 09/30/24 09/30/24 Range/Units 00:41 06:21 06:41 WBC 15.11 H (4.50-10.00) 10*3/uL RBC 3.85 L (4.40-5.60) 10*6/uL Hgb 11.8 L (13.0-17.0) g/dL Hct 36.2 L (39.6-50.0) % Plt Count 465 H (140-440) 10*3/uL Immature Gran # 0.09 H (0.00-0.04) 10*3/uL Neutrophils # 10.82 H (1.80-7.70) 10*3/uL Monocytes # 1.06 H (0.20-1.00) 10*3/uL Basophils # 0.11 H (0.00-0.10) 10*3/uL Carbon Dioxide (22-30) mmol/L BUN (9-20) mg/dL Creatinine (0.66-1.25) mg/dL Glucose (74-99) mg/dL POC Glucose (mg/dL) 253 H 223 H (70-110) mg/dL Albumin (3.5-5.0) g/dL 09/30/24 09/30/24 Range/Units 06:41 12:17 WBC (4.50-10.00) 10*3/uL RBC (4.40-5.60) 10*6/uL Hgb (13.0-17.0) g/dL Hct (39.6-50.0) % Plt Count (140-440) 10*3/uL Immature Gran # (0.00-0.04) 10*3/uL Neutrophils # (1.80-7.70) 10*3/uL Monocytes # (0.20-1.00) 10*3/uL Basophils # (0.00-0.10) 10*3/uL Carbon Dioxide 15 L (22-30) mmol/L BUN 22 H (9-20) mg/dL Creatinine 1.82 H (0.66-1.25) mg/dL Glucose 228 H (74-99) mg/dL POC Glucose (mg/dL) 290 H (70-110) mg/dL Albumin 3.3 L (3.5-5.0) g/dL Microbiology - Last 24 Hours (Table) 09/27/24 14:13 Blood Culture - Preliminary Blood Assessment and Plan (1) Eosinophilia Current Visit: Yes Status: Acute Code(s): D72.10 - EOSINOPHILIA, UNSPECIFIED SNOMED Code(s): 170288542 (2) Reactive monocytosis Current Visit: Yes Status: Acute Code(s): D72.821 - MONOCYTOSIS (SYMPTOMATIC) SNOMED Code(s): 40122510 (3) Neutrophilic leukocytosis Current Visit: Yes Status: Acute Code(s): D72.828 - OTHER ELEVATED WHITE BLOOD CELL COUNT SNOMED Code(s): 423406573 (4) Thrombocytosis Current Visit: Yes Status: Acute Code(s): D75.839 - THROMBOCYTOSIS, UNSPECIFIED SNOMED Code(s): 0772150 Plan: #Monocytosis, eosinophilia, thrombocytosis - Monocytosis and eosinophilia have been present mainly since beginning of September 2024 that appear to be slowly improving - He has had intermittent mild thrombocytosis that was first noted on 09/24/2024 - I do suspect that these findings are secondary to recent pneumonia/MRSA UTI with the monocytosis improving and eosinophilia resolving #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
[2024-09-30 17:38] LABS: Glucose,Whole Blood 90 mg/dL (70-110)
[2024-09-30 19:57] LABS: Glucose,Whole Blood 312 mg/dL (70-110)
[2024-09-30] MEDS ORDERED: IPRATROPIUM-ALBUTEROL 3 ML NEB INHALATION PRN (20:08)
[2024-09-30] MEDS: METOPROLOL TARTRATE 50 MG TAB PO SCH (21:51)
[2024-09-30 22:19] LABS: Appearance,Urine Clear (Clear); Bilirubin,Urine Negative (Negative); Blood,Urine Negative (Negative); Color,Urine Colorless; Glucose,Urine (UA) 1+ (Negative); Ketones,Urine Trace (Negative); Leukocyte Esterase,Urine Negative (Negative); Nitrite,Urine Negative (Negative); PH, Urine 5.5 (5.0-8.0); Protein,Urine Negative (Negative); Specific Gravity,Urine 1.011 (1.001-1.035); Urobilinogen,Urine <2.0 mg/dL (<2.0)
[2024-10-01 00:35] LABS: % Iron Saturation 44.32 (15.00-50.00)
--- NOTE | 2024-10-01 02:33 | PN ---
PROGRESS NOTE DATE OF SERVICE: 09/30/2024 SUBJECTIVE: This is an 88-year-old gentleman, admitted with acute renal failure, also had multiple medical issues include atrial fibrillation and metabolic encephalopathy also. The patient also had recent sepsis, currently sensorium is slightly better, still confused. White count is elevated. Creatinine 1.82, multiple consult following the patient closely. Most recent cultures are negative. PAST MEDICAL HISTORY: Reviewed. REVIEW OF SYSTEMS: 14-point review of systems is negative. CURRENT MEDICATIONS: Reviewed. PHYSICAL EXAMINATION: VITAL SIGNS: Pulse is 105, blood pressure 161/74, respirations 17. CHEST: A few scattered rhonchi and crackles. ABDOMEN: Soft, mild diffuse discomfort. LEGS: No edema. No swelling. LABORATORY DATA: Reviewed, WBC 15.1. ASSESSMENT: 1. Acute renal failure with acute hyperkalemia, possibly from medications, present on admission. 2. Atrial fibrillation, fast ventricular rate. 3. Elevated WBC. 4. Change in mental status, acute metabolic encephalopathy. 5. Fall and gait dysfunction. 6. History of recent sepsis secondary to pneumonia as well as methicillin-resistant Staphylococcus aureus urinary tract infection. 7. Diabetes mellitus, type 2. 8. Hypertension. 9. Multiple complex medical issues. 10.Gait dysfunction. RECOMMENDATIONS: Recommend to continue current management and treatment. Otherwise, at this time, repeat labs. I would recommend PT/OT evaluation and possible ECF rehab. Other than that, repeat labs will be ordered. See orders for further details. Prognosis guarded. Further recommendations to follow. MMODL / IJN: [id number] /
[2024-10-01 06:11] LABS: Glucose,Whole Blood 224 mg/dL (70-110)
[2024-10-01] MEDS: IPRATROPIUM-ALBUTEROL 3 ML NEB INHALATION SCH (07:47)
[2024-10-01 10:19] LABS: Basophils % (A) 0.7 %; Eosinophils # (A) 0.25 10*3/uL (0.04-0.35); Eosinophils % (A) 1.9 %; HCT 33.6 % (39.6-50.0); HGB 11.3 g/dL (13.0-17.0); Lymphocytes # (A) 2.73 10*3/uL (0.90-5.00); Lymphocytes % (A) 20.3 %; MCH 30.8 pg (27.0-32.0); MCHC 33.6 g/dL (32.0-37.0); MCV 91.6 fL (80.0-97.0); Mean Platelet Volume 9.8 fL (9.5-12.2); Monocytes # (A) 1.22 10*3/uL (0.20-1.00); Monocytes % (A) 9.1 %; Neutrophils # (A) 9.12 10*3/uL (1.80-7.70); Neutrophils % (A) 67.6 %; Platelet Count 421 10*3/uL (140-440); RBC 3.67 10*6/uL (4.40-5.60); RDW 12.9 % (11.5-14.5); WBC 13.48 10*3/uL (4.50-10.00)
--- NOTE | 2024-10-01 10:28 | P.PN ---
Subjective Progress Note Date: 10/01/24 The patient was seen and evaluated this morning. He remains in sinus mechanism with a slight sinus tachycardia and also hypertensive. I am going to increase the dose of beta-james with obviously he is not on any anticoagulation because of history of falling and possible bleeding. The physical examination is remarkable for regular rhythm with sinus tachycardia and systolic murmur at the right upper sternal border and clear breathing sounds bilaterally and no edema was noted October 01, 2024 The patient was seen and evaluated this morning the heart rate has improved after we increase the dose of beta-james yesterday. He is asymptomatic and currently hemodynamically stable. The physical examination is remarkable for regular rhythm with clear breathing sounds bilaterally and no edema was noted in the lower extremities Assessment A-fib with RVR currently the patient is in sinus mechanism with sinus tachycardia Multiple comorbid conditions Plan Increase the dose of beta-james Possible discharge in the next 24 hours Objective - Vital Signs Vital signs: Vital Signs Temp 98.3 F 10/01/24 07:00 Pulse 68 10/01/24 07:55 Resp 17 10/01/24 07:00 BP 159/57 10/01/24 07:00 Pulse Ox 96 10/01/24 07:00 FiO2 Intake & Output 09/30/24 10/01/24 10/01/24 18:59 06:59 18:59 Intake Total 480 Balance 480 Intake: Oral 480 Other: Voiding Method Toilet Toilet # Voids 6 5 - Labs CBC & Chem 7: 10/01/24 09:53 09/30/24 06:41 Labs: Abnormal Lab Results - Last 24 Hours (Table) 09/30/24 09/30/24 09/30/24 Range/Units 06:41 12:17 19:55 WBC (4.50-10.00) 10*3/uL RBC (4.40-5.60) 10*6/uL Hgb (13.0-17.0) g/dL Hct (39.6-50.0) % Immature Gran # (0.00-0.04) 10*3/uL Neutrophils # (1.80-7.70) 10*3/uL Monocytes # (0.20-1.00) 10*3/uL POC Glucose (mg/dL) 290 H 312 H (70-110) mg/dL TIBC 185 L (228-460) UG/DL Transferrin 132.0 L (204.0-354.0) mg/dL Ferritin 689.0 H (22.0-322.0) ng/mL Urine Glucose (UA) (Negative) Urine Ketones (Negative) 09/30/24 10/01/24 10/01/24 Range/Units 22:00 06:08 09:53 WBC 13.48 H (4.50-10.00) 10*3/uL RBC 3.67 L (4.40-5.60) 10*6/uL Hgb 11.3 L (13.0-17.0) g/dL Hct 33.6 L (39.6-50.0) % Immature Gran # 0.06 H (0.00-0.04) 10*3/uL Neutrophils # 9.12 H (1.80-7.70) 10*3/uL Monocytes # 1.22 H (0.20-1.00) 10*3/uL POC Glucose (mg/dL) 224 H (70-110) mg/dL TIBC (228-460) UG/DL Transferrin (204.0-354.0) mg/dL Ferritin (22.0-322.0) ng/mL Urine Glucose (UA) 1+ H (Negative) Urine Ketones Trace H (Negative) Microbiology - Last 24 Hours (Table) 09/27/24 14:13 Blood Culture - Preliminary Blood
[2024-10-01 10:35] LABS: Anion Gap 12 mmol/L; Blood Urea Nitrogen 20 mg/dL (9-20); Carbon Dioxide 18 mmol/L (22-30); Chloride 106 mmol/L (98-107); Glucose 186 mg/dL (74-99); Potassium 4.1 mmol/L (3.5-5.1); Sodium 136 mmol/L (137-145)
[2024-10-01 10:36] LABS: ALT 22 U/L (4-49); AST 20 U/L (17-59); African American GFR (CKD) 43 (>60 ml/min/1.73 sqM); Alkaline Phosphatase 79 U/L (38-126); C Reactive Protein 1.4 mg/dL (<1.0); Calcium 9.9 mg/dL (8.4-10.2); Globulin 3.1 g/dL; Non-African American GFR(CKD) 38 (>60 ml/min/1.73 sqM); Total Bilirubin 0.6 mg/dL (0.2-1.3); Total Protein 6.1 g/dL (6.3-8.2)
[2024-10-01 12:11] LABS: Glucose,Whole Blood 268 mg/dL (70-110)
--- NOTE | 2024-10-01 12:22 | P.PN ---
Subjective Progress Note Date: 10/01/24 Patient is seen for follow-up for chronic kidney disease and mild acute kidney injury. No acute events over night. Examination of the heart S1 and S2 Examination of the lungs bilateral breath sounds are heard Abdomen is soft nontender Examination of lower extremities shows no evidence of edema Objective - Vital Signs Vital signs: Vital Signs Temp 98.3 F 10/01/24 07:00 Pulse 68 10/01/24 07:55 Resp 17 10/01/24 07:00 BP 159/57 10/01/24 07:00 Pulse Ox 96 10/01/24 07:00 FiO2 Intake & Output 09/30/24 10/01/24 10/01/24 18:59 06:59 18:59 Intake Total 480 Balance 480 Intake: Oral 480 Other: Voiding Method Toilet Toilet # Voids 6 5 - Labs CBC & Chem 7: 10/01/24 09:53 10/01/24 09:53 Labs: Abnormal Lab Results - Last 24 Hours (Table) 09/30/24 09/30/24 09/30/24 Range/Units 06:41 12:17 19:55 WBC (4.50-10.00) 10*3/uL RBC (4.40-5.60) 10*6/uL Hgb (13.0-17.0) g/dL Hct (39.6-50.0) % Immature Gran # (0.00-0.04) 10*3/uL Neutrophils # (1.80-7.70) 10*3/uL Monocytes # (0.20-1.00) 10*3/uL POC Glucose (mg/dL) 290 H 312 H (70-110) mg/dL TIBC 185 L (228-460) UG/DL Transferrin 132.0 L (204.0-354.0) mg/dL Ferritin 689.0 H (22.0-322.0) ng/mL Urine Glucose (UA) (Negative) Urine Ketones (Negative) 09/30/24 10/01/24 10/01/24 Range/Units 22:00 06:08 09:53 WBC 13.48 H (4.50-10.00) 10*3/uL RBC 3.67 L (4.40-5.60) 10*6/uL Hgb 11.3 L (13.0-17.0) g/dL Hct 33.6 L (39.6-50.0) % Immature Gran # 0.06 H (0.00-0.04) 10*3/uL Neutrophils # 9.12 H (1.80-7.70) 10*3/uL Monocytes # 1.22 H (0.20-1.00) 10*3/uL POC Glucose (mg/dL) 224 H (70-110) mg/dL TIBC (228-460) UG/DL Transferrin (204.0-354.0) mg/dL Ferritin (22.0-322.0) ng/mL Urine Glucose (UA) 1+ H (Negative) Urine Ketones Trace H (Negative) Microbiology - Last 24 Hours (Table) 09/27/24 14:13 Blood Culture - Preliminary Blood Assessment and Plan Assessment: 1. Acute kidney injury, nonoliguric. Most likely ATN. Serum creatinine has been at about 1.8-2.0 mg/dL with lowest reading at 1.4 on 09/20/2024. Current UA is quite benign. Ultrasound does not show any evidence of obstructive uropathy. 2. Recent MRSA infection in the urine status post Bactrim. Currently UA is negative 3. Possible pneumonia 4. Generalized debility 5. Chronic kidney disease stage IIIb with baseline creatinine 1.5-1.8 mg/dL secondary to nephrosclerosis Plan: Continue with gentle IV fluids Repeat labs in a.m. Continue to hold off on Bactrim Encourage increased oral intake
--- NOTE | 2024-10-01 16:05 | P.PN ---
Subjective Progress Note Date: 10/01/24 Principal diagnosis: Reason for follow-up is leukocytosis and question of pneumonia patient is a 88-year-old male with a past medical history significant for diabetes mellitus hypertension atrial fibrillation recurrent UTI as well as pneumonia patient has been brought into the hospital from a local nursing facility concern for multiple falls, patient also have a cough chest x-ray with a focal patchy medial right basilar opacity concerning for pneumonia prompted this consultation. On today's evaluation that is 10/01/2024,the patient remains to be afebrile, patient is on room air not requiring supplemental oxygen and denies any shortness of breath no chest pain or cough.Patient denies having any nausea or vomiting, no abdominal pain and no diarrhea has been reported. White count is down to 13.48, creatinine 1.63 procalcitonin is less than 0.20 and UA has been negative Objective - Vital Signs Vital signs: Vital Signs Temp 97.9 F 10/01/24 15:00 Pulse 70 10/01/24 15:19 Resp 16 10/01/24 15:00 BP 136/61 10/01/24 15:00 Pulse Ox 99 10/01/24 15:00 FiO2 Intake & Output 09/30/24 10/01/24 10/01/24 18:59 06:59 18:59 Intake Total 480 Balance 480 Intake: Oral 480 Other: Voiding Method Toilet Toilet Toilet # Voids 6 5 3 # Bowel Movements 1 - Exam GENERAL DESCRIPTION: An elderly male lying in bed in no distress RESPIRATORY SYSTEM: Unlabored breathing , decreased breath sounds at bases HEART: S1 S2 regular rate and rhythm , ABDOMEN: Soft , no tenderness EXTREMITIES: No edema feet - Labs CBC & Chem 7: 10/01/24 09:53 10/01/24 09:53 Labs: Abnormal Lab Results - Last 24 Hours (Table) 09/30/24 09/30/24 09/30/24 Range/Units 06:41 19:55 22:00 WBC (4.50-10.00) 10*3/uL RBC (4.40-5.60) 10*6/uL Hgb (13.0-17.0) g/dL Hct (39.6-50.0) % Immature Gran # (0.00-0.04) 10*3/uL Neutrophils # (1.80-7.70) 10*3/uL Monocytes # (0.20-1.00) 10*3/uL Sodium (137-145) mmol/L Carbon Dioxide (22-30) mmol/L Creatinine (0.66-1.25) mg/dL Glucose (74-99) mg/dL POC Glucose (mg/dL) 312 H (70-110) mg/dL TIBC 185 L (228-460) UG/DL Transferrin 132.0 L (204.0-354.0) mg/dL Ferritin 689.0 H (22.0-322.0) ng/mL C-Reactive Protein (<1.0) mg/dL Total Protein (6.3-8.2) g/dL Albumin (3.5-5.0) g/dL Urine Glucose (UA) 1+ H (Negative) Urine Ketones Trace H (Negative) 10/01/24 10/01/24 10/01/24 Range/Units 06:08 09:53 09:53 WBC 13.48 H (4.50-10.00) 10*3/uL RBC 3.67 L (4.40-5.60) 10*6/uL Hgb 11.3 L (13.0-17.0) g/dL Hct 33.6 L (39.6-50.0) % Immature Gran # 0.06 H (0.00-0.04) 10*3/uL Neutrophils # 9.12 H (1.80-7.70) 10*3/uL Monocytes # 1.22 H (0.20-1.00) 10*3/uL Sodium 136 L (137-145) mmol/L Carbon Dioxide 18 L (22-30) mmol/L Creatinine 1.63 H (0.66-1.25) mg/dL Glucose 186 H (74-99) mg/dL POC Glucose (mg/dL) 224 H (70-110) mg/dL TIBC (228-460) UG/DL Transferrin (204.0-354.0) mg/dL Ferritin (22.0-322.0) ng/mL C-Reactive Protein 1.4 H (<1.0) mg/dL Total Protein 6.1 L (6.3-8.2) g/dL Albumin 3.0 L (3.5-5.0) g/dL Urine Glucose (UA) (Negative) Urine Ketones (Negative) 10/01/24 Range/Units 12:09 WBC (4.50-10.00) 10*3/uL RBC (4.40-5.60) 10*6/uL Hgb (13.0-17.0) g/dL Hct (39.6-50.0) % Immature Gran # (0.00-0.04) 10*3/uL Neutrophils # (1.80-7.70) 10*3/uL Monocytes # (0.20-1.00) 10*3/uL Sodium (137-145) mmol/L Carbon Dioxide (22-30) mmol/L Creatinine (0.66-1.25) mg/dL Glucose (74-99) mg/dL POC Glucose (mg/dL) 268 H (70-110) mg/dL TIBC (228-460) UG/DL Transferrin (204.0-354.0) mg/dL Ferritin (22.0-322.0) ng/mL C-Reactive Protein (<1.0) mg/dL Total Protein (6.3-8.2) g/dL Albumin (3.5-5.0) g/dL Urine Glucose (UA) (Negative) Urine Ketones (Negative) Microbiology - Last 24 Hours (Table) 09/27/24 14:13 Blood Culture - Preliminary Blood Assessment and Plan (1) Leukocytosis Current Visit: Yes Status: Acute Code(s): D72.829 - ELEVATED WHITE BLOOD CELL COUNT, UNSPECIFIED SNOMED Code(s): 266824488 Plan: 1patient presented the hospital with weakness and did have multiple falls noticed to have some abnormality on the chest x-ray and concern for possible pneumonia however patient did not have significant respiratory symptoms he is not hypoxic on abnormality has been elevated white count questionably reactive as no clear focus of infection on clinical examination and initial workup including a UA negative abdominal soft on clinical examination and no evidence of any cellulitis or joint swelling 2-patient white count is trending down again and did have a normal procalcitonin x 2 UA has been negative we will continue to monitor closely off antibiotic therapy at this point Dictation was produced using [employer] software. please excuse any grammatical, word or spelling errors. Time with Patient: Less than 30
[2024-10-01 17:16] LABS: Glucose,Whole Blood 166 mg/dL (70-110)
[2024-10-01 19:11] LABS: Glucose,Whole Blood 206 mg/dL (70-110)
[2024-10-01 21:11] LABS: Glucose,Whole Blood 183 mg/dL (70-110)
--- NOTE | 2024-10-02 04:21 | PN ---
PROGRESS NOTE DATE OF SERVICE: 10/01/2024 SUBJECTIVE: This 88-year-old gentleman, who was admitted with acute renal failure, multiple other medical problems. He is being closely monitored. No chest pain. No palpitation. PHYSICAL EXAMINATION: VITAL SIGNS: Pulse 76, blood pressure 130/62, and respirations 16. CHEST: Clear to auscultation. CARDIOVASCULAR: S1, S2. ABDOMEN: Soft. LABORATORY DATA: Noted. ASSESSMENT: 1. Acute renal failure with hyperkalemia, possibly from medications, present on admission. 2. Atrial fibrillation, fast ventricular rate. 3. Elevated WBC. 4. Change in mental status, acute metabolic encephalopathy. 5. Fall and gait dysfunction. 6. History of recent sepsis secondary to pneumonia as well as methicillin-resistant Staphylococcus aureus, urinary tract infection.. 7. Diabetes mellitus, type 2. 8. Hypertension. 9. Gait dysfunction. 10.Multiple complex medical issues. 11.Blood abnormalities, possibly secondary to reactive Oncology investigating. RECOMMENDATIONS AND DISCUSSION: I recommend to continue current management and symptomatic treatment. Recommend PT and OT evaluation. Otherwise, possible ECF rehab. Repeat labs. Prognosis guarded. Further recommendations to follow. MMODL / IJN: [id number] /
[2024-10-02 06:26] LABS: Glucose,Whole Blood 191 mg/dL (70-110)
--- NOTE | 2024-10-02 08:11 | P.PN ---
Subjective Patient is seen in follow-up for acute kidney injury on chronic kidney disease. Renal function has improved. Oral intake is good. Off IV fluids. No vomiting or diarrhea. Vital signs are stable. General: No acute distress. HEENT: Head exam is unremarkable. LUNGS: No audible rhonchi or wheezes. HEART: Rate and Rhythm are regular. ABDOMEN: Nontender. EXTREMITITES: No edema. Objective - Vital Signs Vital signs: Vital Signs Temp 97.7 F 10/02/24 01:21 Pulse 92 10/02/24 01:21 Resp 17 10/02/24 01:21 BP 170/78 10/02/24 01:21 Pulse Ox 98 10/02/24 01:21 FiO2 Intake & Output 10/01/24 10/02/24 10/02/24 18:59 06:59 18:59 Intake Total 540 Balance 540 Intake: Oral 540 Other: Voiding Method Toilet Toilet # Voids 3 2 # Bowel Movements 1 - Labs CBC & Chem 7: 10/01/24 09:53 10/01/24 09:53 Labs: Abnormal Lab Results - Last 24 Hours (Table) 10/01/24 10/01/24 10/01/24 Range/Units 09:53 09:53 12:09 WBC 13.48 H (4.50-10.00) 10*3/uL RBC 3.67 L (4.40-5.60) 10*6/uL Hgb 11.3 L (13.0-17.0) g/dL Hct 33.6 L (39.6-50.0) % Immature Gran # 0.06 H (0.00-0.04) 10*3/uL Neutrophils # 9.12 H (1.80-7.70) 10*3/uL Monocytes # 1.22 H (0.20-1.00) 10*3/uL Sodium 136 L (137-145) mmol/L Carbon Dioxide 18 L (22-30) mmol/L Creatinine 1.63 H (0.66-1.25) mg/dL Glucose 186 H (74-99) mg/dL POC Glucose (mg/dL) 268 H (70-110) mg/dL C-Reactive Protein 1.4 H (<1.0) mg/dL Total Protein 6.1 L (6.3-8.2) g/dL Albumin 3.0 L (3.5-5.0) g/dL 10/01/24 10/01/24 10/01/24 Range/Units 17:14 19:09 21:10 WBC (4.50-10.00) 10*3/uL RBC (4.40-5.60) 10*6/uL Hgb (13.0-17.0) g/dL Hct (39.6-50.0) % Immature Gran # (0.00-0.04) 10*3/uL Neutrophils # (1.80-7.70) 10*3/uL Monocytes # (0.20-1.00) 10*3/uL Sodium (137-145) mmol/L Carbon Dioxide (22-30) mmol/L Creatinine (0.66-1.25) mg/dL Glucose (74-99) mg/dL POC Glucose (mg/dL) 166 H 206 H 183 H (70-110) mg/dL C-Reactive Protein (<1.0) mg/dL Total Protein (6.3-8.2) g/dL Albumin (3.5-5.0) g/dL 10/02/24 Range/Units 06:25 WBC (4.50-10.00) 10*3/uL RBC (4.40-5.60) 10*6/uL Hgb (13.0-17.0) g/dL Hct (39.6-50.0) % Immature Gran # (0.00-0.04) 10*3/uL Neutrophils # (1.80-7.70) 10*3/uL Monocytes # (0.20-1.00) 10*3/uL Sodium (137-145) mmol/L Carbon Dioxide (22-30) mmol/L Creatinine (0.66-1.25) mg/dL Glucose (74-99) mg/dL POC Glucose (mg/dL) 191 H (70-110) mg/dL C-Reactive Protein (<1.0) mg/dL Total Protein (6.3-8.2) g/dL Albumin (3.5-5.0) g/dL Assessment and Plan Plan: Assessment: 1. Acute kidney injury secondary to ATN. Creatinine as low as 1.4-1.5 in September 2024 but recent readings closer to 2. No proteinuria on UA. No hydronephrosis noted on ultrasound. 2. Chronic kidney disease stage IIIb with baseline creatinine 1.5-2 secondary to nephrosclerosis. 3. Cardiomyopathy with ejection fraction of 45%. 4. Hypertension with chronic kidney disease. 5. Diabetes mellitus. Plan: Encouraged oral intake. Avoid nephrotoxins. Will hold diuretic if renal function worsens. Morning labs pending.
[2024-10-02 08:24] LABS: Blood Urea Nitrogen 18.4 mg/dL (9.0-27.0); Calcium 9.8 mg/dL (8.7-10.3); Carbon Dioxide 17.8 mmol/L (21.6-31.8); Chloride 104 mmol/L (96-109); Glucose 193 mg/dL (70-110); Potassium 4.6 mmol/L (3.5-5.5); Sodium 136 mmol/L (135-145)
[2024-10-02 09:40] LABS: Basophils % (A) 0.7 %; Eosinophils # (A) 0.21 X 10*3/uL (0.04-0.35); Eosinophils % (A) 1.5 %; HCT 37.4 % (39.6-50.0); Lymphocytes # (A) 3.42 X 10*3/uL (0.90-5.00); Lymphocytes % (A) 24.9 %; MCH 29.6 pg (27.0-32.0); MCHC 32.1 g/dL (32.0-37.0); MCV 92.3 FL (80.0-97.0); Mean Platelet Volume 10.5 FL (9.5-12.2); Monocytes # (A) 1.22 X 10*3/uL (0.20-1.00); Monocytes % (A) 8.9 %; NRBC Per 100 WBC 0 X 10*3/uL (0.00-0.01); Neutrophils # (A) 8.76 X 10*3/uL (1.80-7.70); Neutrophils % (A) 63.6 %; Platelet Count 503 X 10*3/uL (140-440); RBC 4.05 X 10*6/uL (4.40-5.60); RDW 12.8 % (11.5-14.5); WBC 13.76 X 10*3/uL (4.50-10.00)
--- NOTE | 2024-10-02 11:16 | P.PN ---
Subjective HISTORY OF PRESENT ILLNESS: The patient was seen and evaluated this morning. He remains in sinus mechanism with a slight sinus tachycardia and also hypertensive. I am going to increase the dose of beta-james with obviously he is not on any anticoagulation because of history of falling and possible bleeding. The physical examination is hipolito rkable for regular rhythm with sinus tachycardia and systolic murmur at the right upper sternal border and clear breathing sounds bilaterally and no edema was noted October 01, 2024 The patient was seen and evaluated this morning the heart rate has improved after we increase the dose of beta-james yesterday. He is asymptomatic and currently hemodynamically stable. The physical examination is remarkable for regular rhythm with clear breathing sounds bilaterally and no edema was noted in the lower extremities 10/02/2024 Patient examined this morning at bedside. Patient currently has a safety representative present. Patient without complaints of chest pain or shortness of breath. Telemetry reveals sinus mechanism with a heart rate in the 70s. PHYSICAL EXAM: VITAL SIGNS: Reviewed. GENERAL: Well-developed in no acute distress. NECK: Supple. No JVD or thyromegaly LUNGS: Respirations even and unlabored. Lungs essentially clear to auscultation bilaterally. HEART: Regular rate and rhythm. S1 and S2 heard. EXTREMITIES: Normal range of motion. No clubbing or cyanosis. Peripheral pulses intact. No lower extremity edema ASSESSMENT: Paroxysmal atrial fibrillation with RVR, currently maintaining sinus mechanism History of recurrent falls PLAN: Patient is not anticoagulated on outpatient basis due to history of frequent falls. Continue current cardiac medications Patient is stable for discharge from a cardiac standpoint We will sign off. Please reconsult if needed Nurse practitioner note has been reviewed by physician. Signing provider agrees with the documented findings, assessment, and plan of care documented by BUFFING AND SUEDING MACHINE OPERATOR as a scribe. Objective - Vital Signs Vital signs: Vital Signs Temp 98.7 F 10/02/24 06:55 Pulse 94 10/02/24 06:55 Resp 17 10/02/24 06:55 BP 168/60 10/02/24 06:55 Pulse Ox 98 10/02/24 06:55 FiO2 Intake & Output 10/01/24 10/02/24 10/02/24 18:59 06:59 18:59 Intake Total 540 Balance 540 Intake: Oral 540 Other: Voiding Method Toilet Toilet Toilet # Voids 3 2 # Bowel Movements 1 - Labs CBC & Chem 7: 05/19/25 05:19 10/02/24 05:19 Labs: Abnormal Lab Results - Last 24 Hours (Table) 10/01/24 10/01/24 10/01/24 Range/Units 12:09 17:14 19:09 WBC (4.50-10.00) X 10*3/uL RBC (4.40-5.60) X 10*6/uL Hgb (13.0-17.0) g/dL Hct (39.6-50.0) % Plt Count (140-440) X 10*3/uL Immature Gran # (0.00-0.04) X 10*3/uL Neutrophils # (1.80-7.70) X 10*3/uL Monocytes # (0.20-1.00) X 10*3/uL Carbon Dioxide (21.6-31.8) mmol/L Anion Gap (4.00-12.00) mmol/L Creatinine (0.6-1.5) mg/dL Est GFR (CKD-EPI) (>=60) BUN/Creatinine Ratio (12.00-20.00) Ratio Glucose (70-110) mg/dL POC Glucose (mg/dL) 268 H 166 H 206 H (70-110) mg/dL 10/01/24 10/02/24 10/02/24 Range/Units 21:10 05:19 05:19 WBC 13.76 H (4.50-10.00) X 10*3/uL RBC 4.05 L (4.40-5.60) X 10*6/uL Hgb 12.0 L (13.0-17.0) g/dL Hct 37.4 L (39.6-50.0) % Plt Count 503 H (140-440) X 10*3/uL Immature Gran # 0.05 H (0.00-0.04) X 10*3/uL Neutrophils # 8.76 H (1.80-7.70) X 10*3/uL Monocytes # 1.22 H (0.20-1.00) X 10*3/uL Carbon Dioxide 17.8 L (21.6-31.8) mmol/L Anion Gap 14.20 H (4.00-12.00) mmol/L Creatinine 1.6 H (0.6-1.5) mg/dL Est GFR (CKD-EPI) 42 L (>=60) BUN/Creatinine Ratio 11.50 L (12.00-20.00) Ratio Glucose 193 H (70-110) mg/dL POC Glucose (mg/dL) 183 H (70-110) mg/dL 10/02/24 Range/Units 06:25 WBC (4.50-10.00) X 10*3/uL RBC (4.40-5.60) X 10*6/uL Hgb (13.0-17.0) g/dL Hct (39.6-50.0) % Plt Count (140-440) X 10*3/uL Immature Gran # (0.00-0.04) X 10*3/uL Neutrophils # (1.80-7.70) X 10*3/uL Monocytes # (0.20-1.00) X 10*3/uL Carbon Dioxide (21.6-31.8) mmol/L Anion Gap (4.00-12.00) mmol/L Creatinine (0.6-1.5) mg/dL Est GFR (CKD-EPI) (>=60) BUN/Creatinine Ratio (12.00-20.00) Ratio Glucose (70-110) mg/dL POC Glucose (mg/dL) 191 H (70-110) mg/dL
[2024-10-02] MEDS: SODIUM BICARBONATE TAB 650 MG TAB PO SCH (11:46)
[2024-10-02 12:56] LABS: Glucose,Whole Blood 256 mg/dL (70-110)
[2024-10-02 17:22] LABS: Glucose,Whole Blood 248 mg/dL (70-110)
[2024-10-02 19:04] LABS: Glucose,Whole Blood 169 mg/dL (70-110)
[2024-10-03 06:01] LABS: Glucose,Whole Blood 194 mg/dL (70-110)
--- NOTE | 2024-10-03 08:52 | P.PN ---
Subjective Progress Note Date: 10/02/24 This is an 88-year-old male who was recently admitted with acute renal failure, hyperkalemia and significant weakness with dehydration being closely monitored. Patient continues to be extremely weak and has been hospitalized for 1 week evaluated by cardiology and has been cleared for discharge with outpatient follow-up. Patient with significant weakness evaluated by PT/OT therapy recommending rehab and plan is for [facility]. Family at the bedside with concerns of continued weakness and clinical decline. Review of systems: Constitutional: No reports of fatigue, fever, or chills Cardiovascular: No reports of chest pain or palpitations Respiratory: No reports of shortness of breath or cough GI: reports of nausea, no reports of of vomiting, : No reports of dysuria or retention Neurovascular: reports of generalized weakness, gait dysfunction All medications have been reviewed PHYSICAL EXAMINATION: GENERAL: The patient is alert and oriented x 2-3, baseline well developed, elderly appearing, thin built HEENT: Pupils are round and equally reacting to light. EOMI. no scleral icterus. No conjunctival pallor. Normocephalic, atraumatic. No pharyngeal erythema. No thyromegaly. CARDIOVASCULAR: S1 and S2 muffled PULMONARY: diminished breath sounds bilaterally with no wheezing or rhonchi noted. ABDOMEN: soft. Nontender on exam. . non-distended, normoactive bowel sounds. No palpable organomegaly. MUSCULOSKELETAL: No joint swelling or deformity. EXTREMITIES: No cyanosis, clubbing, or pedal edema. NEUROLOGICAL: Gross neurological examination did not reveal any focal deficits. Diffuse weakness SKIN: No rashes. Assessment: Acute renal failure with hyperkalemia, ATN, likely secondary to medications, present on admission, improving History of chronic kidney disease stage III Cardiomyopathy history with an EF of 45% Atrial fibrillation with fast ventricular rate, currently rate controlled, history of paroxysmal Leukocytosis, possibly reactive Change in mental status, acute metabolic encephalopathy likely secondary to dehydration and medications Fall with gait dysfunction and generalized weakness History of recent sepsis secondary to pneumonia as well as MRSA UTI Diabetes mellitus, type II, uncontrolled with hyper and hypoglycemia Hypertension GI prophylaxis DVT prophylaxis Full code Plan: Recommend to continue with current medications and management with cardiology and nephrology following. Adjustments being made to medications and kidney functions improving with a creatinine of 1.6, potassium is 4.6 and sodium is 136. Patient with a mildly elevated white count of 13.76 is trending down and infectious disease following being monitored closely off antibiotic therapy Cardiology following making adjustments to medications recommending outpatient follow-up. Patient with significant weakness and family concerned about going home as he has recently fallen and is extremely weak with prolonged hospitalization, will need ECF on discharge with social work following working on possible [facility]. Referral sent and awaiting acceptance and insurance authorization Possible discharge planning in the next 24 to 48 hours Due to multiple complex medical issues, overall prognosis is guarded The impression and plan of care has been dictated by Delores Guerrero, nurse practitioner as directed. Dr. Toi MD I have performed a history and examination and MDM of this patient, discussed the same with the dictator, and agree with the dictator's assessment and plan as written ,documented as a scribe. Based on total visit time, I have performed more than 50% of the visit. Any additional findings or plans will be noted. Objective - Vital Signs Vital signs: Vital Signs Temp 97.8 F 10/03/24 07:00 Pulse 93 10/03/24 07:00 Resp 16 10/03/24 07:00 BP 114/59 10/03/24 07:00 Pulse Ox 98 10/03/24 07:00 FiO2 Intake & Output 10/02/24 10/03/24 10/03/24 18:59 06:59 18:59 Weight 74.843 kg Other: Voiding Method Toilet Toilet Toilet # Voids 1 3 - Labs CBC & Chem 7: 10/02/24 05:19 10/02/24 05:19 Labs: Abnormal Lab Results - Last 24 Hours (Table) 10/02/24 10/02/24 10/02/24 Range/Units 05:19 12:54 17:21 WBC 13.76 H (4.50-10.00) X 10*3/uL RBC 4.05 L (4.40-5.60) X 10*6/uL Hgb 12.0 L (13.0-17.0) g/dL Hct 37.4 L (39.6-50.0) % Plt Count 503 H (140-440) X 10*3/uL Immature Gran # 0.05 H (0.00-0.04) X 10*3/uL Neutrophils # 8.76 H (1.80-7.70) X 10*3/uL Monocytes # 1.22 H (0.20-1.00) X 10*3/uL POC Glucose (mg/dL) 256 H 248 H (70-110) mg/dL 10/02/24 10/03/24 Range/Units 19:02 05:52 WBC (4.50-10.00) X 10*3/uL RBC (4.40-5.60) X 10*6/uL Hgb (13.0-17.0) g/dL Hct (39.6-50.0) % Plt Count (140-440) X 10*3/uL Immature Gran # (0.00-0.04) X 10*3/uL Neutrophils # (1.80-7.70) X 10*3/uL Monocytes # (0.20-1.00) X 10*3/uL POC Glucose (mg/dL) 169 H 194 H (70-110) mg/dL Microbiology - Last 24 Hours (Table) 09/27/24 14:13 Blood Culture - Final Blood
--- NOTE | 2024-10-03 10:33 | P.PN ---
Subjective Patient is seen in follow-up for acute kidney injury on chronic kidney disease. Renal function has improved. Oral intake is good. Off IV fluids. No vomiting or diarrhea. Vital signs are stable. General: No acute distress. HEENT: Head exam is unremarkable. LUNGS: No audible rhonchi or wheezes. HEART: Rate and Rhythm are regular. ABDOMEN: Nontender. EXTREMITITES: No edema. Objective - Vital Signs Vital signs: Vital Signs Temp 97.8 F 10/03/24 07:00 Pulse 80 10/03/24 10:30 Resp 16 10/03/24 07:00 BP 114/59 10/03/24 07:00 Pulse Ox 98 10/03/24 07:00 FiO2 Intake & Output 10/02/24 10/03/24 10/03/24 18:59 06:59 18:59 Weight 74.843 kg Other: Voiding Method Toilet Toilet Toilet # Voids 1 3 - Labs CBC & Chem 7: 10/02/24 05:19 10/02/24 05:19 Labs: Abnormal Lab Results - Last 24 Hours (Table) 10/02/24 10/02/24 10/02/24 Range/Units 12:54 17:21 19:02 POC Glucose (mg/dL) 256 H 248 H 169 H (70-110) mg/dL 10/03/24 Range/Units 05:52 POC Glucose (mg/dL) 194 H (70-110) mg/dL Microbiology - Last 24 Hours (Table) 09/27/24 14:13 Blood Culture - Final Blood Assessment and Plan Plan: Assessment: 1. Acute kidney injury secondary to ATN. Creatinine as low as 1.4-1.5 in September 2024 but recent readings closer to 2. No proteinuria on UA. No hydronephrosis noted on ultrasound. 2. Chronic kidney disease stage IIIb with baseline creatinine 1.5-2 secondary to nephrosclerosis. 3. Cardiomyopathy with ejection fraction of 45%. 4. Hypertension with chronic kidney disease. 5. Diabetes mellitus. Plan: Encouraged oral intake. Avoid nephrotoxins. Will hold diuretic if renal function worsens. Follow-up outpatient 1 week postdischarge.
[2024-10-03 12:25] LABS: Glucose,Whole Blood 292 mg/dL (70-110)
--- NOTE | 2024-10-03 13:52 | P.PN ---
Subjective Progress Note Date: 10/02/24 Principal diagnosis: Reason for follow-up is leukocytosis and question of pneumonia patient is a 88-year-old male with a past medical history significant for diabetes mellitus hypertension atrial fibrillation recurrent UTI as well as pneumonia patient has been brought into the hospital from a local nursing facility concern for multiple falls, patient also have a cough chest x-ray with a focal patchy medial right basilar opacity concerning for pneumonia prompted this consultation. On today's evaluation that is 10/02/2024, the patient continues to be afebrile, the patient is on room air and breathing comfortably, the Pt denies having any chest pain or cough, the patient denies having any abdominal pain no vomiting or any diarrhea has been reported by the nursing staff. Patient white count is down to 13.76 creatinine 1.6 Objective - Vital Signs Vital signs: Vital Signs Temp 98.7 F 10/02/24 06:55 Pulse 84 10/02/24 11:48 Resp 17 10/02/24 06:55 BP 168/60 10/02/24 06:55 Pulse Ox 98 10/02/24 06:55 FiO2 Intake & Output 10/01/24 10/02/24 10/02/24 18:59 06:59 18:59 Intake Total 540 Balance 540 Intake: Oral 540 Other: Voiding Method Toilet Toilet Toilet # Voids 3 2 # Bowel Movements 1 - Exam GENERAL DESCRIPTION: An elderly male lying in bed in no distress RESPIRATORY SYSTEM: Unlabored breathing , decreased breath sounds at bases HEART: S1 S2 regular rate and rhythm , ABDOMEN: Soft , no tenderness EXTREMITIES: No edema feet - Labs CBC & Chem 7: 10/02/24 05:19 10/02/24 05:19 Labs: Abnormal Lab Results - Last 24 Hours (Table) 10/01/24 10/01/24 10/01/24 Range/Units 17:14 19:09 21:10 WBC (4.50-10.00) X 10*3/uL RBC (4.40-5.60) X 10*6/uL Hgb (13.0-17.0) g/dL Hct (39.6-50.0) % Plt Count (140-440) X 10*3/uL Immature Gran # (0.00-0.04) X 10*3/uL Neutrophils # (1.80-7.70) X 10*3/uL Monocytes # (0.20-1.00) X 10*3/uL Carbon Dioxide (21.6-31.8) mmol/L Anion Gap (4.00-12.00) mmol/L Creatinine (0.6-1.5) mg/dL Est GFR (CKD-EPI) (>=60) BUN/Creatinine Ratio (12.00-20.00) Ratio Glucose (70-110) mg/dL POC Glucose (mg/dL) 166 H 206 H 183 H (70-110) mg/dL 10/02/24 10/02/24 10/02/24 Range/Units 05:19 05:19 06:25 WBC 13.76 H (4.50-10.00) X 10*3/uL RBC 4.05 L (4.40-5.60) X 10*6/uL Hgb 12.0 L (13.0-17.0) g/dL Hct 37.4 L (39.6-50.0) % Plt Count 503 H (140-440) X 10*3/uL Immature Gran # 0.05 H (0.00-0.04) X 10*3/uL Neutrophils # 8.76 H (1.80-7.70) X 10*3/uL Monocytes # 1.22 H (0.20-1.00) X 10*3/uL Carbon Dioxide 17.8 L (21.6-31.8) mmol/L Anion Gap 14.20 H (4.00-12.00) mmol/L Creatinine 1.6 H (0.6-1.5) mg/dL Est GFR (CKD-EPI) 42 L (>=60) BUN/Creatinine Ratio 11.50 L (12.00-20.00) Ratio Glucose 193 H (70-110) mg/dL POC Glucose (mg/dL) 191 H (70-110) mg/dL 10/02/24 Range/Units 12:54 WBC (4.50-10.00) X 10*3/uL RBC (4.40-5.60) X 10*6/uL Hgb (13.0-17.0) g/dL Hct (39.6-50.0) % Plt Count (140-440) X 10*3/uL Immature Gran # (0.00-0.04) X 10*3/uL Neutrophils # (1.80-7.70) X 10*3/uL Monocytes # (0.20-1.00) X 10*3/uL Carbon Dioxide (21.6-31.8) mmol/L Anion Gap (4.00-12.00) mmol/L Creatinine (0.6-1.5) mg/dL Est GFR (CKD-EPI) (>=60) BUN/Creatinine Ratio (12.00-20.00) Ratio Glucose (70-110) mg/dL POC Glucose (mg/dL) 256 H (70-110) mg/dL Assessment and Plan (1) Leukocytosis Current Visit: Yes Status: Acute Code(s): D72.829 - ELEVATED WHITE BLOOD CELL COUNT, UNSPECIFIED SNOMED Code(s): 484233500 Plan: 1patient presented the hospital with weakness and did have multiple falls noticed to have some abnormality on the chest x-ray and concern for possible pneumonia however patient did not have significant respiratory symptoms he is not hypoxic on abnormality has been elevated white count questionably reactive as no clear focus of infection on clinical examination and initial workup including a UA negative abdominal soft on clinical examination and no evidence of any cellulitis or joint swelling 2-patient white count is trending down and did have a normal procalcitonin x 2 UA has been negative we will continue to monitor closely off antibiotic daughter at the bedside question answered Dictation was produced using [email or web address] dictation software. please excuse any grammatical, word or spelling errors. Time with Patient: Less than 30
--- NOTE | 2024-10-03 13:53 | P.PN ---
Subjective Progress Note Date: 10/03/24 Principal diagnosis: Reason for follow-up is leukocytosis and question of pneumonia patient is a 88-year-old male with a past medical history significant for diabetes mellitus hypertension atrial fibrillation recurrent UTI as well as pneumonia patient has been brought into the hospital from a local nursing facility concern for multiple falls, patient also have a cough chest x-ray with a focal patchy medial right basilar opacity concerning for pneumonia prompted this consultation. On today's evaluation that is 10/03/2024, Patient is afebrile patient is currently on room air and denies having any shortness of breath, the patient denies any chest pain or cough, the patient denies any nausea vomiting did not have any abdominal pain and no diarrhea. No lab draw today blood cultures have been negative Objective - Vital Signs Vital signs: Vital Signs Temp 97.8 F 10/03/24 07:00 Pulse 80 10/03/24 10:30 Resp 16 10/03/24 07:00 BP 114/59 10/03/24 07:00 Pulse Ox 98 10/03/24 07:00 FiO2 Intake & Output 10/02/24 10/03/24 10/03/24 18:59 06:59 18:59 Weight 74.843 kg Other: Voiding Method Toilet Toilet Toilet # Voids 1 3 - Exam GENERAL DESCRIPTION: An elderly male lying in bed in no distress RESPIRATORY SYSTEM: Unlabored breathing , decreased breath sounds at bases HEART: S1 S2 regular rate and rhythm , ABDOMEN: Soft , no tenderness EXTREMITIES: No edema feet - Labs CBC & Chem 7: 10/02/24 05:19 10/02/24 05:19 Labs: Abnormal Lab Results - Last 24 Hours (Table) 10/02/24 10/02/24 10/03/24 Range/Units 17:21 19:02 05:52 POC Glucose (mg/dL) 248 H 169 H 194 H (70-110) mg/dL 10/03/24 Range/Units 12:24 POC Glucose (mg/dL) 292 H (70-110) mg/dL Microbiology - Last 24 Hours (Table) 09/27/24 14:13 Blood Culture - Final Blood Assessment and Plan (1) Leukocytosis Current Visit: Yes Status: Acute Code(s): D72.829 - ELEVATED WHITE BLOOD CELL COUNT, UNSPECIFIED SNOMED Code(s): 755817294 Plan: 1patient presented the hospital with weakness and did have multiple falls noticed to have some abnormality on the chest x-ray and concern for possible pneumonia however patient did not have significant respiratory symptoms he is not hypoxic on abnormality has been elevated white count questionably reactive as no clear focus of infection on clinical examination and initial workup including a UA negative abdominal soft on clinical examination and no evidence of any cellulitis or joint swelling 2-patient white count is trending down as of yesterday no CBC was done today and did have a normal procalcitonin x 2 UA has been negative and blood culture negative as well we will continue to monitor closely off antibiotic Dictation was produced using [employer] dictation software. please excuse any grammatical, word or spelling errors. Time with Patient: Less than 30
[2024-10-03 14:22] VITALS: BP 151/55; RESP 17; TEMP 97.5
--- NOTE | 2024-10-03 15:07 | P.DS ---
Providers Date of admission: 09/26/24 17:08 Expected date of discharge: 10/03/24 Attending physician: Elijah Cm Consults: 09/27/24 12:14 Consult Physician Routine Consulting Provider: Brigido Shi Consult Reason/Comments: recent pneumonia Do you want consulting provider notified?: Yes 09/27/24 12:16 Consult Physician Routine Consulting Provider: Amrita Peterson Consult Reason/Comments: AMS Do you want consulting provider notified?: Yes 09/27/24 12:22 Consult Physician Routine Consulting Provider: Jaja Alvarez Consult Reason/Comments: kidney function/elevated creatinine Do you want consulting provider notified?: Yes 09/29/24 16:59 Consult Physician Routine Consulting Provider: Mason Lagos Consult Reason/Comments: high wbc, eosinophil, plat, monocytes Do you want consulting provider notified?: Yes Primary care physician: John Thorpe Hospital Course: Final diagnosis Acute renal failure with hyperkalemia, ATN, likely secondary to medications, present on admission, improving History of chronic kidney disease stage III Cardiomyopathy history with an EF of 45% Atrial fibrillation with fast ventricular rate, currently rate controlled, history of paroxysmal Leukocytosis, possibly reactive Change in mental status, acute metabolic encephalopathy likely secondary to dehydration and medications Fall with gait dysfunction and generalized weakness History of recent sepsis secondary to pneumonia as well as MRSA UTI Diabetes mellitus, type II, uncontrolled with hyper and hypoglycemia Hypertension GI prophylaxis DVT prophylaxis Full code Discharge disposition Patient is being discharged in a stable condition with guarded prognosis to [facility]. Patient will follow-up with Dr. Thorpe in the outpatient setting upon discharge. Patient is to continue with current medications and outpatient follow-up with cardiology as scheduled. Total time taken is greater than 35 minutes. Hospital course This is a 88-year-old male who was recently admitted with acute renal failure with weakness and dehydration being closely monitored. Patient also with altered mental status and diffuse weakness with recurrent falls ongoing and progressively getting worse. Family concerned and PT/OT therapy evaluated the patient recommending rehab and patient is agreeable. Patient will be going to [facility] and has been cleared by consultations for close outpatient follow-up. Please refer to other consultation notes for further HPI. Currently no reports of chest pain, shortness of breath, or palpitations. Patient is afebrile. No reports of nausea or vomiting and patient is tolerating diet. Patient will be going to [facility] today. Guarded prognosis and high risk for readmissions Physical exam: Gen: This is a 88-year-old male who is awake, alert and oriented x 2, baseline, well-developed, elderly appearing, thin built HEENT: Head is atraumatic, normocephalic. Pupils equal, round. Sclerae is anicteric. NECK: Supple. No JVD. No lymphadenopathy. No thyromegaly. LUNGS: Diminished breath sounds bilaterally otherwise clear to auscultation. No wheezes, a few scattered rhonchi noted. No intercostal retractions. HEART: S1, S2 are muffled ABDOMEN: Soft. Bowel sounds are present. No masses. No tenderness. EXTREMITIES: No pedal edema. No calf tenderness. NEUROLOGICAL: Patient is awake, alert and oriented x to. Cranial nerves 2 through 12 are grossly intact. Diffusely weak Please refer to medication reconciliation sheet for a list of medications. The impression and plan of care has been dictated by Delores Guerrero, Nurse Practitioner as directed. Dr. Toi MD I have performed a history and examination and MDM of this patient, discussed the same with the dictator, and agree with the dictator's assessment and plan as written ,documented as a scribe. Based on total visit time, I have performed more than 50% of the visit. Patient Condition at Discharge: Fair Plan - Discharge Summary Discharge Rx Participant: No New Discharge Prescriptions: New Folic Acid 1 mg PO DAILY@1200 tab Heparin Sodium,Porcine (1 ml) [Heparin Sodium] 5,000 unit SQ Q12HR each Sodium Bicarbonate Tab 650 mg PO BID tab methIMAzole [Tapazole] 5 mg PO TID tab Aspirin 81 mg PO DAILY tab Ipratropium-Albuterol Nebulize [Duoneb 0.5 mg-3 mg/3 ml Soln] 3 ml INHALATION RT-Q2H PRN each PRN Reason: Shortness Of Breath Or Wheezing INSULIN LISPRO (HumaLOG) [HumaLOG] 0 unit SQ ACHS each hydroCHLOROthiazide [Hydrodiuril] 25 mg PO DAILY tab Metoprolol Tartrate [Lopressor] 100 mg PO BID tab Multivitamins, Thera [Multivitamin (formulary)] 1 each PO DAILY@1200 tab Thiamine [Vitamin B-1] 100 mg PO DAILY@1200 tab Continue Megestrol Acetate 20 mg PO DAILY@0800 Glucagon [Gvoke Pfs 1-Pack Syringe] 1 mg SQ DIRECTED PRN PRN Reason: Hypoglycemia allopurinoL 100 mg PO DAILY@0800 Cholecalciferol [Vitamin D3 (125 Mcg = 5000 Iu)] 125 mcg PO DAILY@0800 Insulin Glargine/Lixisenatide [Soliqua 100 Unit-33 Mcg/ml Pen] 24 units SQ DAILY@0800 guaiFENesin [Mucinex] 600 mg PO Q12HR PRN tab PRN Reason: Cough Na Phos,M-B/Na Phos,Di-Ba [Fleet Adult] 133 ml RECTAL DAILY PRN PRN Reason: Constipation bisacodyL [Dulcolax] 10 mg RECTAL Q24H PRN PRN Reason: Constipation amLODIPine [Norvasc] 5 mg PO DAILY@0800 Magnesium Hydroxide [Milk of Magnesia Concentrate] 7,200 mg PO DAILY PRN PRN Reason: 2 days no bm Ipratropium-Albuterol Nebulize [Duoneb 0.5 mg-3 mg/3 ml Soln] 3 ml INHALATION RT-Q6H Insulin Aspart [NovoLOG Flexpen] 3 units SQ ACHS Discontinued Gabapentin [Neurontin] 600 mg PO HS@2099 Sulfamethox-Tmp 800-160Mg [Bactrim DS 800-160 mg] 1 tab PO Q12HR@0800,2100 Amiodarone [Cordarone] 100 mg PO DAILY@0800 Discharge Medication List allopurinoL 100 mg PO DAILY@0800 01/06/22 [History] Cholecalciferol [Vitamin D3 (125 Mcg = 5000 Iu)] 125 mcg PO DAILY@0800 02/10/24 [History] Glucagon [Gvoke Pfs 1-Pack Syringe] 1 mg SQ DIRECTED PRN 09/18/24 [History] Insulin Glargine/Lixisenatide [Soliqua 100 Unit-33 Mcg/ml Pen] 24 units SQ DAILY@0800 09/18/24 [History] Megestrol Acetate 20 mg PO DAILY@0800 09/18/24 [History] guaiFENesin [Mucinex] 600 mg PO Q12HR PRN tab 09/25/24 [Rx] Insulin Aspart [NovoLOG Flexpen] 3 units SQ ACHS 09/26/24 [History] Ipratropium-Albuterol Nebulize [Duoneb 0.5 mg-3 mg/3 ml Soln] 3 ml INHALATION RT-Q6H 09/26/24 [History] Magnesium Hydroxide [Milk of Magnesia Concentrate] 7,200 mg PO DAILY PRN 09/26/24 [History] Na Phos,M-B/Na Phos,Di-Ba [Fleet Adult] 133 ml RECTAL DAILY PRN 09/26/24 [History] amLODIPine [Norvasc] 5 mg PO DAILY@0800 09/26/24 [History] bisacodyL [Dulcolax] 10 mg RECTAL Q24H PRN 09/26/24 [History] Aspirin 81 mg PO DAILY tab 10/03/24 [Rx] Folic Acid 1 mg PO DAILY@1200 tab 10/03/24 [Rx] Heparin Sodium,Porcine (1 ml) [Heparin Sodium] 5,000 unit SQ Q12HR each 10/03/24 [Rx] INSULIN LISPRO (HumaLOG) [HumaLOG] 0 unit SQ ACHS each 10/03/24 [Rx] Ipratropium-Albuterol Nebulize [Duoneb 0.5 mg-3 mg/3 ml Soln] 3 ml INHALATION RT-Q2H PRN each 10/03/24 [Rx] Metoprolol Tartrate [Lopressor] 100 mg PO BID tab 10/03/24 [Rx] Multivitamins, Thera [Multivitamin (formulary)] 1 each PO DAILY@1200 tab 10/03/24 [Rx] Sodium Bicarbonate Tab 650 mg PO BID tab 10/03/24 [Rx] Thiamine [Vitamin B-1] 100 mg PO DAILY@1200 tab 10/03/24 [Rx] hydroCHLOROthiazide [Hydrodiuril] 25 mg PO DAILY tab 10/03/24 [Rx] methIMAzole [Tapazole] 5 mg PO TID tab 10/03/24 [Rx] Follow up Appointment(s)/Referral(s): John Thorpe MD [Primary Care Provider] - 1-2 days Activity/Diet/Wound Care/Special Instructions: Patient is going to [facility] as tolerated Continue taking medications as prescribed Follow-up with cardiology outpatient Monitor kidney functions with CBC, CMP, magnesium in 2 to 3 days Discharge Disposition: TRANSFER TO SNF/ECF
[2024-10-03 15:40] VITALS: PULSE 86
== END 2024-10-03 16:31 | DRG 682 ==
LOC: EC 14:33 → 6NMEDSUR 17:07 → OBSVTOIN 17:08 → 6NMEDSUR 19:58
PROVIDERS: ADMIT Hospitalist; ATTEND Hospitalist
DX: N17.0 Acute kidney failure with tubular necrosis (principal); G93.41 Metabolic encephalopathy; E46 Unspecified protein-calorie malnutrition; D72.10 Eosinophilia, unspecified; F05 Delirium due to known physiological condition; E86.0 Dehydration; E11.22 Type 2 diabetes mellitus with diabetic chronic kidney disease; F03.90 Unspecified dementia, unspecified severity, without behavioral disturbance, psychotic disturbance, mood disturbance, and anxiety; N18.32 Chronic kidney disease, stage 3b; E05.90 Thyrotoxicosis, unspecified without thyrotoxic crisis or storm; I12.9 Hypertensive chronic kidney disease with stage 1 through stage 4 chronic kidney disease, or unspecified chronic kidney disease; I08.3 Combined rheumatic disorders of mitral, aortic and tricuspid valves; I42.9 Cardiomyopathy, unspecified; N39.0 Urinary tract infection, site not specified; I48.0 Paroxysmal atrial fibrillation; Z79.4 Long term (current) use of insulin; I48.91 Unspecified atrial fibrillation; D75.839 Thrombocytosis, unspecified; Z11.52 Encounter for screening for COVID-19; E87.5 Hyperkalemia; M19.90 Unspecified osteoarthritis, unspecified site; R29.6 Repeated falls; R00.0 Tachycardia, unspecified; Z68.23 Body mass index [BMI] 23.0-23.9, adult; S51.811A Laceration without foreign body of right forearm, initial encounter; S50.311A Abrasion of right elbow, initial encounter; W19.XXXA Unspecified fall, initial encounter; Z79.01 Long term (current) use of anticoagulants; Z79.82 Long term (current) use of aspirin; Z79.899 Other long term (current) drug therapy; Z82.49 Family history of ischemic heart disease and other diseases of the circulatory system; Z85.46 Personal history of malignant neoplasm of prostate; Z86.14 Personal history of Methicillin resistant Staphylococcus aureus infection; Z87.01 Personal history of pneumonia (recurrent); Z87.440 Personal history of urinary (tract) infections; Z87.891 Personal history of nicotine dependence; Z91.81 History of falling
CPT/HCPCS: 36415; 70450; 71045; 72125; 72170; 76770; 80048; 80053; 81003; 82607; 82728; 82746; 83036; 83540; 83550; 83735; 84100; 84132; 84145; 84439; 84443; 84484; 85025; 85610; 85730; 86140; 87040; 87636; 90471; 90715; 93005; 93308; 93880; 94640; 96360; 96361; 99285

== ENCOUNTER 2024-10-08 19:39 | Emergency (ER) | payer OTHER, MEDICARE ==
[2024-10-08 19:45] LABS: Glucose,Whole Blood 68 mg/dL (70-110)
[2024-10-08 19:50] VITALS: RESP 18; TEMP 97.8
--- NOTE | 2024-10-08 21:01 | CT ---
EXAMINATION TYPE: CT brain cspine wo con DATE OF EXAM: 10/08/2024 8:01 PM COMPARISON: 09/26/2024 CLINICAL INDICATION: Male, 88 years old with history of fall on thinners, Fall on thinners, pain TECHNIQUE: CT of the brain is performed utilizing 3 mm thick sections through the posterior fossa and 3 mm thick sections through the remaining calvarium. Study is performed within 24 hours of arrival to the hospital. Contrast used: mL of , (none if empty) CT DLP: 1308 mGycm, Automated exposure control for dose reduction was used. FINDINGS: No abnormal hyperdensity is present to suggest an acute intracranial hemorrhage. No mass lesion is evident. No acute infarcts are evident. Ventricles and sulci are mildly prominent for the patient age. Soft tissue swelling is over the left parietal region. No underlying fracture is evident. Paranasal sinuses and mastoid air cells within the [id number] are clear. Right mastoidectomy has been performed. IMPRESSIONS: 1. No acute intracranial process. Follow-up MRI can be performed as clinically indicated. 2. Stable Atrophy CT cervical spine. COMPARISON: None TECHNIQUE: CT of the cervical spine is performed in the axial plane at 2 mm thick sections. Reconstr ucted images in the coronal, and sagittal plane are reviewed on the computer. FINDINGS: No acute fractures are evident. Vertebral body alignment is normal. Disc space narrowing is present C5-6 C6-7. Posterior endplate spurring is present. Vertebral body heights are preserved. Some endplate spurring in the left paracentral region C5-6 has mild anterior thecal sac compression. Left C3-4 foraminal stenosis is present. Left C5-6 foraminal stenosis present. Mild bilateral forami nal narrowing is present C6-7 IMPRESSION: 1. Degenerative disc changes with foraminal narrowing discussed above. 2. No acute osseous abnormality cervical spine [facility], , 10/08/2024 8:59 PM
--- NOTE | 2024-10-08 21:47 | ED ---
Fall HPI - General Chief Complaint: Fall Stated Complaint: Fall- On thinners Time Seen by Provider: 10/08/24 19:41 Source: EMS Mode of arrival: EMS - History of Present Illness Initial Comments: 88-year-old male who presents to the emergency department from work. Patient sustained a fall at his facility. They deny that the patient is altered from his baseline however he does have signs of head injury and is on heparin. The patient denies any neck or back pain. No chest pain or difficulty breathing. No headache or visual change. No other alleviating, precipitating or modifying factors - Related Data Home Medications Medication Instructions Recorded Confirmed allopurinoL 100 mg PO DAILY@0801/06/22 09/26/24 Cholecalciferol [Vitamin D3 (125 125 mcg PO DAILY@79902/10/24 09/26/24 Mcg = 5000 Iu)] Glucagon [Gvoke Pfs 1-Pack Syringe] 1 mg SQ DIRECTED PRN 09/18/24 09/26/24 Insulin Glargine/Lixisenatide 24 units SQ DAILY@0809/18/24 09/26/24 [Soliqua 100 Unit-33 Mcg/ml Pen] Megestrol Acetate 20 mg PO DAILY@0809/18/24 09/26/24 Insulin Aspart [NovoLOG Flexpen] 3 units SQ ACHS 09/26/24 09/26/24 Ipratropium-Albuterol Nebulize 3 ml INHALATION RT-Q6H 09/26/24 09/26/24 [Duoneb 0.5 mg-3 mg/3 ml Soln] Magnesium Hydroxide [Milk of 7,200 mg PO DAILY PRN 09/26/24 09/26/24 Magnesia Concentrate] Na Phos,M-B/Na Phos,Di-Ba [Fleet 133 ml RECTAL DAILY PRN 09/26/24 09/26/24 Adult] amLODIPine [Norvasc] 5 mg PO DAILY@0800 09/26/24 09/26/24 bisacodyL [Dulcolax] 10 mg RECTAL Q24H PRN 09/26/24 09/26/24 Previous Rx's Medication Instructions Recorded guaiFENesin [Mucinex] 600 mg PO Q12HR PRN tab 09/25/24 Aspirin 81 mg PO DAILY tab 10/03/24 Folic Acid 1 mg PO DAILY@1200 tab 10/03/24 Heparin Sodium,Porcine (1 ml) 5,000 unit SQ Q12HR each 10/03/24 [Heparin Sodium] INSULIN LISPRO (HumaLOG) [HumaLOG] 0 unit SQ ACHS each 10/03/24 Ipratropium-Albuterol Nebulize 3 ml INHALATION RT-Q2H PRN each 10/03/24 [Duoneb 0.5 mg-3 mg/3 ml Soln] Metoprolol Tartrate [Lopressor] 100 mg PO BID tab 10/03/24 Multivitamins, Thera [Multivitamin 1 each PO DAILY@1200 tab 10/03/24 (formulary)] Sodium Bicarbonate Tab 650 mg PO BID tab 10/03/24 Thiamine [Vitamin B-1] 100 mg PO DAILY@1200 tab 10/03/24 hydroCHLOROthiazide [Hydrodiuril] 25 mg PO DAILY tab 10/03/24 methIMAzole [Tapazole] 5 mg PO TID tab 10/03/24 Allergies Allergy/AdvReac Type Severity Reaction Status Date / Time No Known Allergies Allergy Verified 10/08/24 19:50 Review of Systems ROS Statement: Those systems with pertinent positive or pertinent negative responses have been documented in the HPI. ROS Other: All systems not noted in ROS Statement are negative. Past Medical History Past Medical History: Atrial Fibrillation, Diabetes Mellitus, Hypertension, Pneumonia History of Any Multi-Drug Resistant Organisms: MRSA Date of last positivie culture/infection: 09/18/24 MDRO Source:: urine Past Surgical History: Appendectomy Additional Past Surgical History / Comment(s): dental Past Anesthesia/Blood Transfusion Reactions: No Reported Reaction Past Psychological History: No Psychological Hx Reported Smoking Status: Former smoker Past Alcohol Use History: None Reported, Rare Past Drug Use History: None Reported - Past Family History Mother History Unknown: Yes Family Medical History: Hypertension Additional Family Medical History / Comment(s): patient confused and does not give clear answers General Exam Limitations: physical limitation General appearance: alert, in no apparent distress Head exam: Present: normocephalic, normal inspection Eye exam: Present: normal appearance, PERRL, EOMI. Absent: scleral icterus, con junctival injection, periorbital swelling ENT exam: Present: normal exam, mucous membranes moist Neck exam: Present: normal inspection. Absent: tenderness, meningismus, lymphadenopathy Respiratory exam: Present: normal lung sounds bilaterally. Absent: respiratory distress, wheezes, rales, rhonchi, stridor Neurological exam: Present: alert Course Vital Signs 10/08/24 10/08/24 19:40 22:12 Temperature 97.8 F Pulse Rate 82 84 Respiratory 18 18 Rate Blood Pressure 156/66 100/51 O2 Sat by Pulse 98 98 Oximetry Medical Decision Making - Medical Decision Making Was pt. sent in by a medical professional or institution (RENE Cochran, FIELD SALES TRAINER, urgent care, hospital, or snf...) When possible be specific @ -Patient was sent from [facility] Did you speak to anyone other than the patient for history (EMS, parent, family, police, friend...)? What history was obtained from this source @ -I spoke with EMS for history Did you review nursing and triage notes (agree or disagree)? Why? @ -I reviewed and agree with nursing and triage notes Were old charts reviewed (outside hosp., previous admission, EMS record, old EKG, old radiological studies, urgent care reports/EKG's, snf records)? Report findings @ -No old charts were reviewed Differential Diagnosis (chest pain, altered mental status, abdominal pain women, abdominal pain men, vaginal bleeding, weakness, fever, dyspnea, syncope, headache, dizziness, GI bleed, back pain, seizure, CVA, palpatations, mental health, musculoskeletal)? @ -Subarachnoid, subdural, skull fracture, concussion EKG interpreted by me (3pts min.). @ -Not done X-rays interpreted by me (1pt min.). @ -None done CT interpreted by me (1pt min.). @ -US which demonstrates no acute process U/S interpreted by me (1pt. min.). @ -None done What testing was considered but not performed or refused? (CT, X-rays, U/S, labs)? Why? @ -None What meds were considered but not given or refused? Why? @ -None Did you discuss the management of the patient with other professionals (professionals i.e. RENE Cochran, FIELD SALES TRAINER, lab, RT, psych nurse, secondary social studies teacher, breeding technician, teacher, education officer, egg caser)? Give summary @ -No Was smoking cessation discussed for >3mins.? @ -No Was critical care preformed (if so, how long)? @ -No Were there social determinants of health that impacted care today? How? (Homelessness, low income, unemployed, alcoholism, drug addiction, transportation, low edu. Level, literacy, decrease access to med. care, fdc, rehab)? @ -Patient is in rehab Was there de-escalation of care discussed even if they declined (Discuss DNR or withdrawal of care, Hospice)? DNR status @ -No What co-morbidities impacted this encounter? (DM, HTN, Smoking, COPD, CAD, Cancer, CVA, ARF, Chemo, Hep., AIDS, mental health diagnosis, sleep apnea, morbid obesity)? @ -Dementia Was patient admitted / discharged? Hospital course, mention meds given and route, prescriptions, significant lab abnormalities, going to OR and other pertinent info. @ -Upon arrival patient seen and evaluated in bed 1. Thorough history and physical exam was performed. Code coag is activated. Patient is sent over for CT which demonstrates no acute intracranial process. Patient is at his baseline per family. He will be transferred back to [facility]. Patient discharged in stable condition Undiagnosed new problem with uncertain prognosis? @ -No Drug Therapy requiring intensive monitoring for toxicity (Heparin, Nitro, Insulin, Cardizem)? @ -No Were any procedures done? @ -No Diagnosis/symptom? @ -Acute fall, blunt head trauma Acute, or Chronic, or Acute on Chronic? @ -No acute Uncomplicated (without systemic symptoms) or Complicated (systemic symptoms)? @ -Complicated Side effects of treatment? @ -No Exacerbation, Progression, or Severe Exacerbation? @ -No Poses a threat to life or bodily function? How? (Chest pain, [place], [place], pneumonia, PE, COPD, DKA, ARF, appy, cholecystitis, CVA, Diverticulitis, Homicidal, Suicidal, threat to staff... and all critical care pts) @ -No - Lab Data Lab Results 10/08/24 Range/Units 19:43 POC Glucose (mg/dL) 68 L (70-110) mg/dL POC Glu [employer] Director ID Burgess Norton Disposition Clinical Impression: Fall, Head injury Disposition: HOME SELF-CARE Condition: Stable Instructions (If sedation given, give patient instructions): Head Injury (ED), Fall Prevention (ED) Additional Instructions: Follow-up with your doctor within the next 1 to 2 weeks for reevaluation and return should you have any new or worsening symptoms Is patient prescribed a controlled substance at d/c from ED?: No Referrals: John Thorpe MD [Primary Care Provider] - 1-2 days Time of Disposition: 21:47
[2024-10-08 22:15] VITALS: BP 100/51; PULSE 84
== END 2024-10-08 22:15 | disposition home or self-care (01) ==
LOC: EC 19:39
DX: S09.90XA Unspecified injury of head, initial encounter (principal); Z87.891 Personal history of nicotine dependence; W19.XXXA Unspecified fall, initial encounter
CPT/HCPCS: 36415; 70450; 72125; 99284